=== PATIENT | male | born 1940 | race Caucasian/White ===

== ENCOUNTER → 2017-02-25 | Outpatient (CLI) | payer MEDICARE, BC ==
[~2017-02-25] MED LIST: LEUPROLIDE 45 MG ELIGARD SUSP SQ SCH
== END ==
LOC: FS 11:21
PROVIDERS: ATTEND Internal Medicine Hematology & Oncology
DX: C61 Malignant neoplasm of prostate (principal); M81.8 Other osteoporosis without current pathological fracture; E11.9 Type 2 diabetes mellitus without complications; Z79.899 Other long term (current) drug therapy
CPT/HCPCS: 96402; 99213

== ENCOUNTER → 2017-09-02 | Outpatient (CLI) | payer MEDICARE, BC | LOC: ONC 14:20 | PROVIDERS: ATTEND Internal Medicine Hematology & Oncology | DX: C61 Malignant neoplasm of prostate (principal); M81.8 Other osteoporosis without current pathological fracture; E11.42 Type 2 diabetes mellitus with diabetic polyneuropathy; E78.00 Pure hypercholesterolemia, unspecified; R23.2 Flushing; Z79.899 Other long term (current) drug therapy; Z79.84 Long term (current) use of oral hypoglycemic drugs | CPT/HCPCS: 96402 ==

== ENCOUNTER 2018-08-12 11:25 | Outpatient (RCR) | payer MEDICARE, BC ==
[2018-08-12 11:30] LABS: BASOPHILS # (AUTO) 0.1 10^3/uL (0.0-0.1); BASOPHILS % (AUTO) 1 % (0-10); EOSINOPHILS # (AUTO) 0.2 10^3/uL (0.0-0.3); EOSINOPHILS % (AUTO) 2 % (0-10); HEMATOCRIT 39 % (40-54); LYMPHOCYTES # (AUTO) 2.1 X 10^3 (1.0-4.0); LYMPHOCYTES % (AUTO) 28 % (12-44); MEAN CORPUSCULAR HEMOGLOBIN 31 PG (25-34); MEAN CORPUSCULAR HGB CONC 34 G/DL (32-36); MEAN CORPUSCULAR VOLUME 92 FL (80-99); MEAN PLATELET VOLUME 9.6 FL (7.4-10.4); MONOCYTES # (AUTO) 0.7 X 10^3 (0.0-1.0); MONOCYTES % (AUTO) 9 % (0-12); NEUTROPHILS # (AUTO) 4.4 X 10^3 (1.8-7.8); NEUTROPHILS % (AUTO) 60 % (42-75); PLATELET COUNT 237 10^3/uL (130-400); RED CELL DISTRIBUTION WIDTH 13.4 % (10.0-14.5); WHITE BLOOD COUNT 7.3 10^3/uL (4.3-11.0)
[2018-08-12 11:47] LABS: ALBUMIN 4.1 GM/DL (3.2-4.5); BILIRUBIN,TOTAL 0.6 MG/DL (0.1-1.0); CALCIUM 9.7 MG/DL (8.5-10.1); CREATININE SERUM 1.23 MG/DL (0.60-1.30); POTASSIUM 5.3 MMOL/L (3.6-5.0)
== END 2018-08-30 | disposition home or self-care (01) ==
LOC: ONC 11:25
PROVIDERS: ATTEND Internal Medicine Hematology & Oncology
DX: Z51.11 Encounter for antineoplastic chemotherapy (principal); C61 Malignant neoplasm of prostate; R97.21 Rising PSA following treatment for malignant neoplasm of prostate; E11.40 Type 2 diabetes mellitus with diabetic neuropathy, unspecified; E78.00 Pure hypercholesterolemia, unspecified; Z79.84 Long term (current) use of oral hypoglycemic drugs; Z79.899 Other long term (current) drug therapy
CPT/HCPCS: 36415; 80053; 83615; 85025; 96402

== ENCOUNTER 2019-02-15 09:51 | Outpatient (RCR) | payer MEDICARE, BC ==
[2019-02-11 12:55] LABS: BASOPHILS # (AUTO) 0.1 10^3/uL (0.0-0.1); BASOPHILS % (AUTO) 1 % (0-10); EOSINOPHILS # (AUTO) 0.3 10^3/uL (0.0-0.3); EOSINOPHILS % (AUTO) 4 % (0-10); HEMATOCRIT 44 % (40-54); HEMOGLOBIN 14.4 G/DL (13.3-17.7); LYMPHOCYTES # (AUTO) 1.7 X 10^3 (1.0-4.0); LYMPHOCYTES % (AUTO) 22 % (12-44); MEAN CORPUSCULAR HEMOGLOBIN 30 PG (25-34); MEAN CORPUSCULAR HGB CONC 33 G/DL (32-36); MEAN CORPUSCULAR VOLUME 92 FL (80-99); MEAN PLATELET VOLUME 10.5 FL (7.4-10.4); MONOCYTES # (AUTO) 0.5 X 10^3 (0.0-1.0); MONOCYTES % (AUTO) 7 % (0-12); NEUTROPHILS # (AUTO) 5.2 X 10^3 (1.8-7.8); NEUTROPHILS % (AUTO) 67 % (42-75); PLATELET COUNT 186 10^3/uL (130-400); RED CELL DISTRIBUTION WIDTH 13.8 % (10.0-14.5); WHITE BLOOD COUNT 7.7 10^3/uL (4.3-11.0)
[2019-02-11 13:16] LABS: ALANINE AMINOTRANSFERASE 13 U/L (0-55); ALBUMIN 4.3 GM/DL (3.2-4.5); ALKALINE PHOSPHATASE 50 U/L (40-136); BILIRUBIN,TOTAL 0.5 MG/DL (0.1-1.0); BUN/CREATININE RATIO 19; CALCIUM 9.9 MG/DL (8.5-10.1); CARBON DIOXIDE 26 MMOL/L (21-32); CHLORIDE 101 MMOL/L (98-107); CREATININE SERUM 1.09 MG/DL (0.60-1.30); GFR ESTIMATED > 60; GLUCOSE 227 MG/DL (70-105); SODIUM 136 MMOL/L (135-145); TOTAL PROTEIN 7.4 GM/DL (6.4-8.2)
[~2019-02-15 09:51] MED LIST changes: +LEUPROLIDE 45 MG ELIGARD SQ SCH; -LEUPROLIDE 45 MG ELIGARD SUSP SQ SCH
== END 2019-05-12 | disposition home or self-care (01) ==
LOC: ONC 09:51
PROVIDERS: ATTEND Internal Medicine Hematology & Oncology
DX: C61 Malignant neoplasm of prostate (principal); M81.8 Other osteoporosis without current pathological fracture; E11.42 Type 2 diabetes mellitus with diabetic polyneuropathy; E78.00 Pure hypercholesterolemia, unspecified; Z79.84 Long term (current) use of oral hypoglycemic drugs; Z79.899 Other long term (current) drug therapy
CPT/HCPCS: 36415; 80053; 84153; 85025; 96402

== ENCOUNTER 2019-05-28 17:01 | Inpatient (IN) | payer MEDICARE, BC ==
[~2019-05-28] VITALS: Ht 177.8 cm; Wt 77.8 kg
--- OUTSIDE RECORDS SUMMARY | 2019-05-28 17:06 | XMS REPORT | Continuity of Care Document ---
Author Organization Unknown Address Unknown Allergies Active Description Code Type Severity Reaction Onset Reported/Identified Relationship to Patient Clinical Status Yes No Known Drug Allergies [id number] Drug Allergy Unknown N/A 02/20/2015 Medications There is no data. Problems Date Dx Coded Attending Type Code Diagnosis Diagnosed By 11/07/2014 BRIGIDA, BOBAN N Ot 185 11/07/2014 BRIGIDA, BOBAN N Ot 250.00 11/07/2014 BRIGIDA, BOBAN N Ot 272.0 11/07/2014 BRIGIDA, BOBAN N Ot 530.81 11/07/2014 BRIGIDA, BOBAN N Ot 185 11/07/2014 BRIGIDA, BOBAN N Ot 250.00 11/07/2014 BRIGIDA, BOBAN N Ot 272.0 11/07/2014 BRIGIDA, BOBAN N Ot 530.81 03/10/2015 Ot 185 03/10/2015 Ot 250.00 03/10/2015 Ot 272.0 03/10/2015 Ot 530.81 03/16/2015 Ot 185 03/16/2015 Ot 250.00 03/16/2015 Ot 272.0 03/16/2015 Ot 530.81 03/17/2015 Ot 185 03/17/2015 Ot 250.00 03/17/2015 Ot 272.0 03/17/2015 Ot 530.81 03/27/2015 BRIGIDA, BOBAN N Ot 185 03/27/2015 BRIGIDA, BOBAN N Ot V58.69 04/21/2015 BRIGIDA, BOBAN N Ot 185 04/21/2015 BRIGIDA, BOBAN N Ot V58.69 06/27/2015 BRIGIDA, BOBAN N Ot 185 06/27/2015 BRIGIDA, BOBAN N Ot 250.00 06/27/2015 BRIGIDA, BOBAN N Ot 715.90 06/27/2015 BRIGIDA, BOBAN N Ot 782.62 06/27/2015 BRIGIDA, BOBAN N Ot V58.69 07/18/2015 BRIGIDA, BOBAN N Ot 185 07/18/2015 BRIGIDA, BOBAN N Ot 250.00 07/18/2015 BRIGIDA, BOBAN N Ot 715.90 07/18/2015 BRIGIDA, BOBAN N Ot 782.62 07/18/2015 BRIGIDA, BOBAN N Ot V58.69 07/20/2015 BRIGIDA, BOBAN N Ot 185 07/20/2015 BRIGIDA, BOBAN N Ot 250.00 07/20/2015 BRIGIDA, BOBAN N Ot 715.90 07/20/2015 BRIGIDA, BOBAN N Ot 782.62 07/20/2015 BRIGIDA, BOBAN N Ot V58.69 10/23/2015 BRIGIDA, BOBAN N Ot C61 10/23/2015 BRIGIDA, BOBAN N Ot E11.9 10/23/2015 BRIGIDA, BOBAN N Ot E78.0 10/23/2015 BRIGIDA, BOBAN N Ot G62.9 10/23/2015 BRIGIDA, BOBAN N Ot M81.8 10/23/2015 BRIGIDA, BOBAN N Ot Z79.899 10/25/2015 BRIGIDA, BOBAN N Ot C61 10/25/2015 BRIGIDA, BOBAN N Ot E11.9 10/25/2015 BRIGIDA, BOBAN N Ot E78.0 10/25/2015 BRIGIDA, BOBAN N Ot G62.9 10/25/2015 BRIGIDA, BOBAN N Ot M81.8 10/25/2015 BRIGIDA, BOBAN N Ot Z79.899 02/06/2016 BRIGIDA, BOBAN N Ot C61 02/06/2016 BRIGIDA, BOBAN N Ot E11.9 02/06/2016 BRIGIDA, BOBAN N Ot Z79.899 02/06/2016 BRIGIDA, BOBAN N Ot C61 02/06/2016 BRIGIDA, BOBAN N Ot E11.9 02/06/2016 BRIGIDA, BOBAN N Ot Z79.899 02/22/2016 BRIGIDA, BOBAN N Ot C61 02/22/2016 BRIGIDA, BOBAN N Ot E11.9 02/22/2016 BRIGIDA, BOBAN N Ot Z79.899 07/11/2016 BRIGIDA, BOBAN N Ot C61 MALIGNANT NEOPLASM OF PROSTATE 07/11/2016 BRIGIDA, BOBAN N Ot E11.9 TYPE 2 DIABETES MELLITUS WITHOUT COMPLIC 07/11/2016 BRIGIDABRIJESH BETANCOURT N Ot E78.0 PURE HYPERCHOLESTEROLEMIA 07/11/2016 BRIGIDABRIJESH N Ot G62.9 POLYNEUROPATHY, UNSPECIFIED 07/11/2016 BRIGIDABRIJESH N Ot M81.8 OTHER OSTEOPOROSIS WITHOUT CURRENT PATHO 07/11/2016 BRIGIDABRIJESH BETANCOURT N Ot Z79.899 OTHER THROAT CUTTER (CURRENT) DRUG THERAPY 07/30/2016 BRIGIDABRIJESH BETANCOURT N Ot C61 MALIGNANT NEOPLASM OF PROSTATE 07/30/2016 BRIGIDABRIJESH N Ot E11.9 TYPE 2 DIABETES MELLITUS WITHOUT COMPLIC 07/30/2016 BRIGIDABRIJESH BETANCOURT N Ot E78.0 PURE HYPERCHOLESTEROLEMIA 07/30/2016 BRIGIDABRIJESH BETANCOURT N Ot G62.9 POLYNEUROPATHY, UNSPECIFIED 07/30/2016 BRIGIDABRIJESH N Ot M81.8 OTHER OSTEOPOROSIS WITHOUT CURRENT PATHO 07/30/2016 BRIGIDABRIJESH N Ot Z79.899 OTHER PRISON (CURRENT) DRUG THERAPY 08/02/2016 BRIJESH ALLRED N Ot C61 MALIGNANT NEOPLASM OF PROSTATE 08/02/2016 RBIGIDABRIJESH N Ot E11.9 TYPE 2 DIABETES MELLITUS WITHOUT COMPLIC 08/02/2016 BRIGIDABRIJESH BETANCOURT N Ot E78.0 PURE HYPERCHOLESTEROLEMIA 08/02/2016 BRIGIDABRIJESH BETANCOURT N Ot G62.9 POLYNEUROPATHY, UNSPECIFIED 08/02/2016 BRIGIDABRIJESH N Ot M81.8 OTHER OSTEOPOROSIS WITHOUT CURRENT PATHO 08/02/2016 BRIGIDA BRIJESH N Ot Z79.899 OTHER PRISON (CURRENT) DRUG THERAPY 02/26/2017 BRJIESH ALLRED N Ot C61 MALIGNANT NEOPLASM OF PROSTATE 02/26/2017 BRIGIDABRIJESH N Ot E11.9 TYPE 2 DIABETES MELLITUS WITHOUT COMPLIC 02/26/2017 BRIGIDAMAGYDANTE N Ot M81.8 OTHER OSTEOPOROSIS WITHOUT CURRENT PATHO 02/26/2017 BRIGIDABRIJESH N Ot Z79.899 OTHER THROAT CUTTER (CURRENT) DRUG THERAPY 02/26/2017 BRIJESH ALLRED N Ot C61 MALIGNANT NEOPLASM OF PROSTATE 02/26/2017 BRIGIDABRIJESH N Ot E11.9 TYPE 2 DIABETES MELLITUS WITHOUT COMPLIC 02/26/2017 BRIGIDABRIJESH N Ot M81.8 OTHER OSTEOPOROSIS WITHOUT CURRENT PATHO 02/26/2017 BRIJESH ALLRED N Ot Z79.899 OTHER PRISON (CURRENT) DRUG THERAPY 03/21/2017 BRIGIDABRIJESH N Ot C61 MALIGNANT NEOPLASM OF PROSTATE 03/21/2017 BRIGIDA BOBDANTE N Ot E11.9 TYPE 2 DIABETES MELLITUS WITHOUT COMPLIC 03/21/2017 BRIGIDABRIJESH N Ot M81.8 OTHER OSTEOPOROSIS WITHOUT CURRENT PATHO 03/21/2017 BRIGIDABRIJESH N Ot Z79.899 OTHER THROAT CUTTER (CURRENT) DRUG THERAPY 03/26/2017 BRIGIDABRIJESH N Ot C61 MALIGNANT NEOPLASM OF PROSTATE 03/26/2017 BRIGIDABRIJESH N Ot E11.9 TYPE 2 DIABETES MELLITUS WITHOUT COMPLIC 03/26/2017 BRIGIDA BOBDANTE N Ot M81.8 OTHER OSTEOPOROSIS WITHOUT CURRENT PATHO 03/26/2017 BRIGIDA BOBDANTE N Ot Z79.899 OTHER PRISON (CURRENT) DRUG THERAPY 09/08/2017 BRIGIDABRIJESH BETANCOURT N Ot C61 MALIGNANT NEOPLASM OF PROSTATE 09/08/2017 BRIGIDA BOBDANTE N Ot 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 09/08/2017 BRIGIDA BOBAN N Ot E78.00 PURE HYPERCHOLESTEROLEMIA, UNSPECIFIED 09/08/2017 BRIGIDA BOBDANTE N Ot M81.8 OTHER OSTEOPOROSIS WITHOUT CURRENT PATHO 09/08/2017 BRIGIDA BOBDANTE N Ot R23.2 FLUSHING 09/08/2017 BRIGIDA BOBAN N Ot Z79.84 PRISON (CURRENT) USE OF ORAL HYPOGLYC 09/08/2017 BRIGIDA, BOBAN N Ot Z79.899 OTHER THROAT CUTTER (CURRENT) DRUG THERAPY 09/25/2017 BRIGIDABRIJESH N Ot C61 MALIGNANT NEOPLASM OF PROSTATE 09/25/2017 BRIGIDA BOBAN N Ot 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 09/25/2017 BRIGIDA, BOBAN N Ot E78.00 PURE HYPERCHOLESTEROLEMIA, UNSPECIFIED 09/25/2017 BRIGIDA BOBAN N Ot M81.8 OTHER OSTEOPOROSIS WITHOUT CURRENT PATHO 09/25/2017 BRIGIDA, BOBAN N Ot R23.2 FLUSHING 09/25/2017 BRIGIDA BOBAN N Ot Z79.84 THROAT CUTTER (CURRENT) USE OF ORAL HYPOGLYC 09/25/2017 BRIGIDA BOBAN N Ot Z79.899 OTHER PRISON (CURRENT) DRUG THERAPY 10/01/2017 BRIJESH ALLRED N Ot C61 MALIGNANT NEOPLASM OF PROSTATE 10/01/2017 BRIGIDABRIJESH N Ot 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 10/01/2017 BRIGIDA BOBAN N Ot E78.00 PURE HYPERCHOLESTEROLEMIA, UNSPECIFIED 10/01/2017 BRIGIDA BOBAN N Ot M81.8 OTHER OSTEOPOROSIS WITHOUT CURRENT PATHO 10/01/2017 BRIGIDA BOBDANTE N Ot R23.2 FLUSHING 10/01/2017 BRIGIDA BOBAN N Ot Z79.84 PRISON (CURRENT) USE OF ORAL HYPOGLYC 10/01/2017 BRIGIDA BOBAN N Ot Z79.899 OTHER PRISON (CURRENT) DRUG THERAPY 03/25/2018 BRIGIDABRIJESH BETANCOURT N Ot C61 MALIGNANT NEOPLASM OF PROSTATE 03/25/2018 BRIGIDA BOBAN N Ot 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 03/25/2018 BRIGIDA BOBAN N Ot E78.00 PURE HYPERCHOLESTEROLEMIA, UNSPECIFIED 03/25/2018 BRIGIDA BOBAN N Ot M81.8 OTHER OSTEOPOROSIS WITHOUT CURRENT PATHO 03/25/2018 BRIGIDA, BOBAN N Ot R23.2 FLUSHING 03/25/2018 BRIGIDA, BOBAN N Ot Z79.84 THROAT CUTTER (CURRENT) USE OF ORAL HYPOGLYC 03/25/2018 BRIGIDA, BOBAN N Ot Z79.899 OTHER THROAT CUTTER (CURRENT) DRUG THERAPY 03/25/2018 BRIJESH ALLRED N Ot C61 MALIGNANT NEOPLASM OF PROSTATE 03/25/2018 BRIGIDA BOBAN N Ot 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 03/25/2018 BRIGIDA BOBAN N Ot E78.00 PURE HYPERCHOLESTEROLEMIA, UNSPECIFIED 03/25/2018 BRIGIDA BOBAN N Ot M81.8 OTHER OSTEOPOROSIS WITHOUT CURRENT PATHO 03/25/2018 BRIGIDA BOBAN N Ot R23.2 FLUSHING 03/25/2018 BRIGIDA BOBAN N Ot Z79.84 PRISON (CURRENT) USE OF ORAL HYPOGLYC 03/25/2018 BRIGIDA, BOBAN N Ot Z79.899 OTHER THROAT CUTTER (CURRENT) DRUG THERAPY 05/25/2018 BRIGIDA, BOBAN N Ot C61 MALIGNANT NEOPLASM OF PROSTATE 05/25/2018 BRIGIDA BOBAN N Ot 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 05/25/2018 BRIJESH ALLRED N Ot E78.00 PURE HYPERCHOLESTEROLEMIA, UNSPECIFIED 05/25/2018 BRIGIDABRIJESH BETANCOURT N Ot M81.8 OTHER OSTEOPOROSIS WITHOUT CURRENT PATHO 05/25/2018 BRIGIDABRIJESH N Ot R23.2 FLUSHING 05/25/2018 BRIJESH ALLRED N Ot Z79.84 PRISON (CURRENT) USE OF ORAL HYPOGLYC 05/25/2018 BRIJESH ALLRED N Ot Z79.899 OTHER PRISON (CURRENT) DRUG THERAPY 05/26/2018 BRIJESH ALLRED N Ot C61 MALIGNANT NEOPLASM OF PROSTATE 05/26/2018 BRIJESH ALLRED N Ot 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 05/26/2018 BRIJESH ALLRED N Ot E78.00 PURE HYPERCHOLESTEROLEMIA, UNSPECIFIED 05/26/2018 BRIGIDABRIJESH BETANCOURT N Ot M81.8 OTHER OSTEOPOROSIS WITHOUT CURRENT PATHO 05/26/2018 BRIJESH ALLRED N Ot R23.2 FLUSHING 05/26/2018 BRIJESH ALLRED N Ot Z79.84 PRISON (CURRENT) USE OF ORAL HYPOGLYC 05/26/2018 BRIJESH ALLRED N Ot Z79.899 OTHER THROAT CUTTER (CURRENT) DRUG THERAPY 08/11/2018 BRIGIDA BOBAN N Ot 185 MALIGN NEOPL PROSTATE 08/11/2018 BRIGIDA, BOBAN N Ot 250.00 DIAB MEETA WO COMPL, TYPE II OR UNSPEC TY 08/11/2018 MAGY ALLREDAN N Ot 272.0 PURE HYPERCHOLESTEROLEM 08/11/2018 BRIGIDA, BOBAN N Ot 530.81 ESOPHAGEAL REFLUX 08/11/2018 Ot 185 MALIGN NEOPL PROSTATE 08/11/2018 Ot 250.00 DIAB MEETA WO COMPL, TYPE II OR UNSPEC TY 08/11/2018 Ot 272.0 PURE HYPERCHOLESTEROLEM 08/11/2018 Ot 530.81 ESOPHAGEAL REFLUX 08/11/2018 BRIGIDA, BOBAN N Ot 185 MALIGN NEOPL PROSTATE 08/11/2018 BRIGIDAMAGYDANTE N Ot V58.69 OTH MED,LT,CURRENT USE 08/11/2018 BRIGIDA, BOBAN N Ot 185 MALIGN NEOPL PROSTATE 08/11/2018 BRIGIDA, BOBAN N Ot 250.00 DIAB MEETA WO COMPL, TYPE II OR UNSPEC TY 08/11/2018 BRIGIDA BOBAN N Ot 715.90 OSTEOARTHROS NOS-UNSPEC 08/11/2018 BRIJESH ALLRED N Ot 782.62 FLUSHING 08/11/2018 BRIGIDABRIJESH BETANCOURT N Ot V58.69 OTH MED,LT,CURRENT USE 08/11/2018 BRIGIDA, BOBAN N Ot C61 MALIGNANT NEOPLASM OF PROSTATE 08/11/2018 BRIGIDA, BOBAN N Ot E11.9 TYPE 2 DIABETES MELLITUS WITHOUT COMPLIC 08/11/2018 BRIGIDA BOBAN N Ot E78.0 PURE HYPERCHOLESTEROLEMIA 08/11/2018 BRIGIDA, BOBAN N Ot G62.9 POLYNEUROPATHY, UNSPECIFIED 08/11/2018 BRIGIDA, BOBAN N Ot M81.8 OTHER OSTEOPOROSIS WITHOUT CURRENT PATHO 08/11/2018 BRIGIDA, BOBAN N Ot Z79.899 OTHER PRISON (CURRENT) DRUG THERAPY 08/11/2018 BRIGIDA, BOBAN N Ot C61 MALIGNANT NEOPLASM OF PROSTATE 08/11/2018 BRIGIDA, BOBAN N Ot E11.9 TYPE 2 DIABETES MELLITUS WITHOUT COMPLIC 08/11/2018 BRIGIDA, BOBAN N Ot Z79.899 OTHER THROAT CUTTER (CURRENT) DRUG THERAPY 08/11/2018 BRIGIDA, BOBAN N Ot C61 MALIGNANT NEOPLASM OF PROSTATE 08/11/2018 BRIGIDA, BOBAN N Ot E11.9 TYPE 2 DIABETES MELLITUS WITHOUT COMPLIC 08/11/2018 BRIGIDA, BOBAN N Ot E78.0 PURE HYPERCHOLESTEROLEMIA 08/11/2018 BRIGIDA, BOBAN N Ot G62.9 POLYNEUROPATHY, UNSPECIFIED 08/11/2018 BRIGIDA, BOBAN N Ot M81.8 OTHER OSTEOPOROSIS WITHOUT CURRENT PATHO 08/11/2018 BRIGIDA, BOBAN N Ot Z79.899 OTHER THROAT CUTTER (CURRENT) DRUG THERAPY 08/11/2018 BRIGIDA, BOBAN N Ot C61 MALIGNANT NEOPLASM OF PROSTATE 08/11/2018 BRIGIDA, BOBAN N Ot E11.9 TYPE 2 DIABETES MELLITUS WITHOUT COMPLIC 08/11/2018 BRIGIDA, BOBAN N Ot M81.8 OTHER OSTEOPOROSIS WITHOUT CURRENT PATHO 08/11/2018 BRIGIDA, BOBAN N Ot Z79.899 OTHER THROAT CUTTER (CURRENT) DRUG THERAPY 08/11/2018 BRIGIDA, BOBAN N Ot C61 MALIGNANT NEOPLASM OF PROSTATE 08/11/2018 BRIGIDA, BOBAN N Ot 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 08/11/2018 BRIGIDA, BOBAN N Ot E78.00 PURE HYPERCHOLESTEROLEMIA, UNSPECIFIED 08/11/2018 BRIGIDAMAGY BETANCOURTAN N Ot M81.8 OTHER OSTEOPOROSIS WITHOUT CURRENT PATHO 08/11/2018 BRIGIDABRIJESH N Ot R23.2 FLUSHING 08/11/2018 BRIGIDA, BRIJESH N Ot Z79.84 THROAT CUTTER (CURRENT) USE OF ORAL HYPOGLYC 08/11/2018 BRIGIDAMAGYAN N Ot Z79.899 OTHER THROAT CUTTER (CURRENT) DRUG THERAPY 08/12/2018 BRIGIDABRIJESH BETANCOURT N Ot 185 MALIGN NEOPL PROSTATE 08/12/2018 BRIGIDA, BOBAN N Ot 250.00 DIAB MEETA WO COMPL, TYPE II OR UNSPEC TY 08/12/2018 BRIGIDA, BOBAN N Ot 272.0 PURE HYPERCHOLESTEROLEM 08/12/2018 BRIGIDA, BOBAN N Ot 530.81 ESOPHAGEAL REFLUX 08/12/2018 Ot 185 MALIGN NEOPL PROSTATE 08/12/2018 Ot 250.00 DIAB MEETA WO COMPL, TYPE II OR UNSPEC TY 08/12/2018 Ot 272.0 PURE HYPERCHOLESTEROLEM 08/12/2018 Ot 530.81 ESOPHAGEAL REFLUX 08/12/2018 BRIGIDA, BOBAN N Ot 185 MALIGN NEOPL PROSTATE 08/12/2018 BRIGIDAMAGYAN N Ot V58.69 OTH MED,LT,CURRENT USE 08/12/2018 BRIGIDA, BOBAN N Ot 185 MALIGN NEOPL PROSTATE 08/12/2018 BRIGIDA, BOBAN N Ot 250.00 DIAB MEETA WO COMPL, TYPE II OR UNSPEC TY 08/12/2018 BRIGIDA, MAGYAN N Ot 715.90 OSTEOARTHROS NOS-UNSPEC 08/12/2018 BRIGIDAMAGYAN N Ot 782.62 FLUSHING 08/12/2018 BRIGIDAMAGYAN N Ot V58.69 OTH MED,LT,CURRENT USE 08/12/2018 BRIGIDA BOBAN N Ot C61 MALIGNANT NEOPLASM OF PROSTATE 08/12/2018 BRIJESH ALLRED N Ot E11.9 TYPE 2 DIABETES MELLITUS WITHOUT COMPLIC 08/12/2018 BRIJESH ALLRED N Ot E78.0 PURE HYPERCHOLESTEROLEMIA 08/12/2018 BRIGIDA BOBAN N Ot G62.9 POLYNEUROPATHY, UNSPECIFIED 08/12/2018 BRIGIDAMAGY BETANCOURTAN N Ot M81.8 OTHER OSTEOPOROSIS WITHOUT CURRENT PATHO 08/12/2018 BRIJESH ALLRED N Ot Z79.899 OTHER THROAT CUTTER (CURRENT) DRUG THERAPY 08/12/2018 BRIJESH ALLRED N Ot C61 MALIGNANT NEOPLASM OF PROSTATE 08/12/2018 BRIGIDABRIJESH N Ot E11.9 TYPE 2 DIABETES MELLITUS WITHOUT COMPLIC 08/12/2018 BRIGIDABRIJESH N Ot Z79.899 OTHER THROAT CUTTER (CURRENT) DRUG THERAPY 08/12/2018 BRIJESH ALLRED N Ot C61 MALIGNANT NEOPLASM OF PROSTATE 08/12/2018 BRIGIDABRIJESH N Ot E11.9 TYPE 2 DIABETES MELLITUS WITHOUT COMPLIC 08/12/2018 BRIGIDABRIJESH N Ot E78.0 PURE HYPERCHOLESTEROLEMIA 08/12/2018 BRIGIDABRIJESH N Ot G62.9 POLYNEUROPATHY, UNSPECIFIED 08/12/2018 BRIGIDABRIJESH N Ot M81.8 OTHER OSTEOPOROSIS WITHOUT CURRENT PATHO 08/12/2018 BRIJESH ALLRED N Ot Z79.899 OTHER PRISON (CURRENT) DRUG THERAPY 08/12/2018 BRIJESH ALLRED N Ot C61 MALIGNANT NEOPLASM OF PROSTATE 08/12/2018 BRIJESH ALLRED N Ot E11.9 TYPE 2 DIABETES MELLITUS WITHOUT COMPLIC 08/12/2018 BRIJESH ALLRED N Ot M81.8 OTHER OSTEOPOROSIS WITHOUT CURRENT PATHO 08/12/2018 BRIJESH ALLRED N Ot Z79.899 OTHER PRISON (CURRENT) DRUG THERAPY 08/12/2018 BRIJESH ALLRED N Ot C61 MALIGNANT NEOPLASM OF PROSTATE 08/12/2018 BRIJESH ALLRED N Ot 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 08/12/2018 BRIJESH ALLRED N Ot E78.00 PURE HYPERCHOLESTEROLEMIA, UNSPECIFIED 08/12/2018 BRIJESH ALLRED N Ot M81.8 OTHER OSTEOPOROSIS WITHOUT CURRENT PATHO 08/12/2018 BRIJESH ALLRED N Ot R23.2 FLUSHING 08/12/2018 BRIJESH ALLRED N Ot Z79.84 THROAT CUTTER (CURRENT) USE OF ORAL HYPOGLYC 08/12/2018 BRIGIDA BOBAN N Ot Z79.899 OTHER PRISON (CURRENT) DRUG THERAPY 08/30/2018 TARUN AMTT MD, Ot C61 MALIGNANT NEOPLASM OF PROSTATE 08/30/2018 TARUN MATT MD Ot E11.40 TYPE 2 DIABETES MELLITUS WITH DIABETIC N 08/30/2018 TARUN MATT MD, Ot E78.00 PURE HYPERCHOLESTEROLEMIA, UNSPECIFIED 08/30/2018 TARUN MATT MD, Ot 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 08/30/2018 TARUN MATT MD Ot Z51.11 ENCOUNTER FOR ANTINEOPLASTIC CHEMOTHERAP 08/30/2018 TARUN MATT MD, Ot Z79.84 PRISON (CURRENT) USE OF ORAL HYPOGLYC 08/30/2018 TARUN MATT MD Ot Z79.899 OTHER PRISON (CURRENT) DRUG THERAPY 09/02/2018 TARUN MATT MD, Ot C61 MALIGNANT NEOPLASM OF PROSTATE 09/02/2018 TARUN MATT MD Ot E11.40 TYPE 2 DIABETES MELLITUS WITH DIABETIC N 09/02/2018 TARUN MATT MD Ot E78.00 PURE HYPERCHOLESTEROLEMIA, UNSPECIFIED 09/02/2018 TARUN MATT MD, Ot 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 09/02/2018 TARUN MATT MD, Ot Z51.11 ENCOUNTER FOR ANTINEOPLASTIC CHEMOTHERAP 09/02/2018 TARUN MATT MD, Ot Z79.84 THROAT CUTTER (CURRENT) USE OF ORAL HYPOGLYC 09/02/2018 TARUN MATT MD, Ot Z79.899 OTHER PRISON (CURRENT) DRUG THERAPY 03/24/2019 BRIGIDA, BRIJESH N Ot C61 MALIGNANT NEOPLASM OF PROSTATE 03/24/2019 BRIGIDA, BOBAN N Ot 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 03/24/2019 BRIGIDA BOBAN N Ot E78.00 PURE HYPERCHOLESTEROLEMIA, UNSPECIFIED 03/24/2019 BRIGIDA BOBAN N Ot M81.8 OTHER OSTEOPOROSIS WITHOUT CURRENT PATHO 03/24/2019 BRIJESH ALLRED N Ot Z79.84 THROAT CUTTER (CURRENT) USE OF ORAL HYPOGLYC 03/24/2019 BRIJESH ALLRED N Ot Z79.899 OTHER PRISON (CURRENT) DRUG THERAPY 03/31/2019 BRIGIDA BOBDANTE N Ot C61 MALIGNANT NEOPLASM OF PROSTATE 03/31/2019 BRIGIDA BOBAN N Ot 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 03/31/2019 BRIGIDA BOBAN N Ot E78.00 PURE HYPERCHOLESTEROLEMIA, UNSPECIFIED 03/31/2019 BRIGIDA, BOBAN N Ot M81.8 OTHER OSTEOPOROSIS WITHOUT CURRENT PATHO 03/31/2019 BRIJESH ALLRED N Ot Z79.84 THROAT CUTTER (CURRENT) USE OF ORAL HYPOGLYC 03/31/2019 BRIJESH ALLRED N Ot Z79.899 OTHER THROAT CUTTER (CURRENT) DRUG THERAPY 04/08/2019 BRIGIDA, BRIJESH N Ot C61 MALIGNANT NEOPLASM OF PROSTATE 04/08/2019 BRIGIDA, BRIJESH N Ot E11.9 TYPE 2 DIABETES MELLITUS WITHOUT COMPLIC 04/08/2019 MAGY ALLREDDANTE N Ot Z79.899 OTHER PRISON (CURRENT) DRUG THERAPY 04/22/2019 BRIGIDA BRIJESH N Ot 185 MALIGN NEOPL PROSTATE 04/22/2019 BRIGIDA, MAGYAN N Ot 250.00 DIAB MEETA WO COMPL, TYPE II OR UNSPEC TY 04/22/2019 BRIGIDA MAGYAN N Ot 272.0 PURE HYPERCHOLESTEROLEM 04/22/2019 BRIGIDA, MAGYAN N Ot 530.81 ESOPHAGEAL REFLUX 04/22/2019 Ot 185 MALIGN NEOPL PROSTATE 04/22/2019 Ot 250.00 DIAB MEETA WO COMPL, TYPE II OR UNSPEC TY 04/22/2019 Ot 272.0 PURE HYPERCHOLESTEROLEM 04/22/2019 Ot 530.81 ESOPHAGEAL REFLUX 04/22/2019 BRIGIDA MAGYAN N Ot 185 MALIGN NEOPL PROSTATE 04/22/2019 BRIGIDA BRIJESH N Ot V58.69 OTH MED,LT,CURRENT USE 04/22/2019 BRIGIDA BRIJESH N Ot 185 MALIGN NEOPL PROSTATE 04/22/2019 BRIGIDA BOBAN N Ot 250.00 DIAB MEETA WO COMPL, TYPE II OR UNSPEC TY 04/22/2019 BRIGIDA BRIJESH N Ot 715.90 OSTEOARTHROS NOS-UNSPEC 04/22/2019 BRIGIDA BRIJESH N Ot 782.62 FLUSHING 04/22/2019 BRIGIDA BRIJESH N Ot V58.69 OTH MED,LT,CURRENT USE 04/22/2019 BRIGIDA BRIJESH N Ot C61 MALIGNANT NEOPLASM OF PROSTATE 04/22/2019 BRIGIDA BRIJESH N Ot E11.9 TYPE 2 DIABETES MELLITUS WITHOUT COMPLIC 04/22/2019 BRIGIDABRIJESH N Ot E78.0 PURE HYPERCHOLESTEROLEMIA 04/22/2019 BRIGIDAMAGYAN N Ot G62.9 POLYNEUROPATHY, UNSPECIFIED 04/22/2019 BRIGIDAMAGYAN N Ot M81.8 OTHER OSTEOPOROSIS WITHOUT CURRENT PATHO 04/22/2019 BRIGIDA BRIJESH N Ot Z79.899 OTHER THROAT CUTTER (CURRENT) DRUG THERAPY 04/22/2019 BRIGIDABRIJESH N Ot C61 MALIGNANT NEOPLASM OF PROSTATE 04/22/2019 BRIJESH ALLRED N Ot E11.9 TYPE 2 DIABETES MELLITUS WITHOUT COMPLIC 04/22/2019 BRIJESH ALLRED N Ot Z79.899 OTHER PRISON (CURRENT) DRUG THERAPY 04/22/2019 BRIJESH ALLRED N Ot C61 MALIGNANT NEOPLASM OF PROSTATE 04/22/2019 BRIJESH ALLRED N Ot E11.9 TYPE 2 DIABETES MELLITUS WITHOUT COMPLIC 04/22/2019 BRIGIDA BRIJESH N Ot E78.0 PURE HYPERCHOLESTEROLEMIA 04/22/2019 BRIGIDA BRIJESH N Ot G62.9 POLYNEUROPATHY, UNSPECIFIED 04/22/2019 BRIGIDA, BRIJESH N Ot M81.8 OTHER OSTEOPOROSIS WITHOUT CURRENT PATHO 04/22/2019 BRIGIDA BRIJESH N Ot Z79.899 OTHER THROAT CUTTER (CURRENT) DRUG THERAPY 04/22/2019 BRIJESH ALLRED N Ot C61 MALIGNANT NEOPLASM OF PROSTATE 04/22/2019 BRIJESH ALLRED N Ot E11.9 TYPE 2 DIABETES MELLITUS WITHOUT COMPLIC 04/22/2019 BRIGIDABRIJESH N Ot M81.8 OTHER OSTEOPOROSIS WITHOUT CURRENT PATHO 04/22/2019 BRIGIDA MAGYDANTE N Ot Z79.899 OTHER THROAT CUTTER (CURRENT) DRUG THERAPY 04/22/2019 BRIJESH ALLRED N Ot C61 MALIGNANT NEOPLASM OF PROSTATE 04/22/2019 BRIGIDA MAGYDANTE N Ot 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 04/22/2019 BRIJESH ALLRED N Ot E78.00 PURE HYPERCHOLESTEROLEMIA, UNSPECIFIED 04/22/2019 BRIGIDA MAGYDANTE N Ot M81.8 OTHER OSTEOPOROSIS WITHOUT CURRENT PATHO 04/22/2019 BRIGIDABRIJESH N Ot R23.2 FLUSHING 04/22/2019 BRIGIDABRIJESH N Ot Z79.84 PRISON (CURRENT) USE OF ORAL HYPOGLYC 04/22/2019 BRIGIDA BRIJESH N Ot Z79.899 OTHER THROAT CUTTER (CURRENT) DRUG THERAPY 04/22/2019 BRIGIDA MAGYDANTE N Ot C61 MALIGNANT NEOPLASM OF PROSTATE 04/22/2019 BRIGIDA BRIJESH N Ot 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 04/22/2019 BRIGIDA MAGYDANTE N Ot E78.00 PURE HYPERCHOLESTEROLEMIA, UNSPECIFIED 04/22/2019 BRIGIDABRIJESH N Ot M81.8 OTHER OSTEOPOROSIS WITHOUT CURRENT PATHO 04/22/2019 BRIJESH ALLRED N Ot Z79.84 THROAT CUTTER (CURRENT) USE OF ORAL HYPOGLYC 04/22/2019 BRIJESH ALLRED N Ot Z79.899 OTHER PRISON (CURRENT) DRUG THERAPY 05/12/2019 BRIJESH ALLRED N Ot C61 MALIGNANT NEOPLASM OF PROSTATE 05/12/2019 BRIJESH ALLRED N Ot 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 05/12/2019 BRIJESH ALLRED N Ot E78.00 PURE HYPERCHOLESTEROLEMIA, UNSPECIFIED 05/12/2019 BRIGIDABRIJESH N Ot M81.8 OTHER OSTEOPOROSIS WITHOUT CURRENT PATHO 05/12/2019 BRIGIDABRIJESH N Ot Z79.84 PRISON (CURRENT) USE OF ORAL HYPOGLYC 05/12/2019 BRIJESH ALLRED N Ot Z79.899 OTHER PRISON (CURRENT) DRUG THERAPY 05/13/2019 BRIJESH ALLRED N Ot C61 MALIGNANT NEOPLASM OF PROSTATE 05/13/2019 BRIJESH ALLRED N Ot 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 05/13/2019 BRIJESH ALLRED N Ot E78.00 PURE HYPERCHOLESTEROLEMIA, UNSPECIFIED 05/13/2019 BRIGIDABRIJESH N Ot M81.8 OTHER OSTEOPOROSIS WITHOUT CURRENT PATHO 05/13/2019 BRIJESH ALLRED N Ot Z79.84 PRISON (CURRENT) USE OF ORAL HYPOGLYC 05/13/2019 BRIJESH ALLRED N Ot Z79.899 OTHER PRISON (CURRENT) DRUG THERAPY Procedures There is no data. Results There is no data. Encounters ACCT No. Visit Date/Time Discharge Status Pt. Type Provider Facility Loc./Unit Complaint [id number] 05/13/2019 00:12:00 05/13/2019 23:59:59 CLS Preadmit BRIJESH ALLRED [facility] ONC [id number] 02/15/2019 09:51:00 05/12/2019 00:01:00 DIS Outpatient BRIJESH ALLRED [place] [facility] ONC [id number] 08/12/2018 11:25:00 08/30/2018 00:01:00 DIS Outpatient TARUN MATT MD [facility] ONC [id number] 02/24/2018 15:36:00 05/25/2018 00:01:00 DIS Outpatient BRIJESH ALLRED N [facility] ONC [id number] 09/02/2017 14:20:00 09/02/2017 23:59:59 CLS Outpatient BRIJESH ALLRED N [facility] ONC [id number] 02/25/2017 11:21:00 02/25/2017 23:59:59 CLS Outpatient BRIJESH ALLRED N [facility] FS [id number] 07/09/2016 13:50:00 07/09/2016 23:59:59 CLS Outpatient BRIJESH ALLRED N [facility] FS [id number] 01/23/2016 10:37:00 01/23/2016 23:59:59 CLS Outpatient BRIJESH ALLRED N [facility] FS [id number] 09/26/2015 11:33:00 09/26/2015 23:59:59 CLS Outpatient BRIJESH ALLRED N [facility] FS [id number] 06/06/2015 11:23:00 06/06/2015 23:59:59 CLS Outpatient BRIJESH ALLRED N [facility] FS [id number] 02/21/2015 10:34:00 02/21/2015 23:59:59 CLS Outpatient BRIJESH ALLRED N [facility] FS [id number] 10/11/2014 14:00:00 10/11/2014 23:59:59 CLS Outpatient BRIJESH ALLRED N [facility] FS [id number] 05/28/2019 17:02:00 ACT Emergency CHETAN CHRISTINE DO [facility] ER FS FELL OFF A CHAIR [id number] 02/14/2015 10:12:00 Document Registration
--- NOTE | 2019-05-28 17:08 | ED Lower Extremity ---
General Stated Complaint: FELL OFF A CHAIR Source: patient, EMS, RN notes reviewed Exam Limitations: no limitations History of Present Illness Date Seen by Provider: May 28, 2019 Time Seen by Provider: 17:03 Onset: just prior to arrival Pain/Injury Location: left hip Method of Injury: fell Modifying Factors: Worse With Movement; Improves With Rest Allergies and Home Medications Allergies Coded Allergies: No Known Drug Allergies (Unverified , 02/20/15) Patient Home Medication List Home Medication List Reviewed: Yes Review of Systems Constitutional: see HPI Musculoskeletal: see HPI, other (left hip pain) Skin: see HPI, other (skin tear left elbow) All Other Systems Reviewed Negative Unless Noted: Yes (Negative excepted noted.) Past Efubydg-Vpretl-Ihjwzl Hx Patient Social History Recent Foreign Travel: No Contact w/Someone Who Travel: No Physical Exam Vital Signs Vital Signs - First Documented 05/28/19 17:05 Temp 97.9 Pulse 65 Resp 18 B/P (MAP) 143/77 (99) Pulse Ox 96 Capillary Refill : Height, Weight, BMI Height: '" Weight: lbs. oz. kg; BMI Method: General Appearance: WD/WN, no apparent distress Respiratory: no respiratory distress Hips: left hip limited range of motion, left hip pain Neurologic/Psychiatric: no motor/sensory deficits, alert, normal mood/affect, oriented x 3 Skin: warm/dry, other (skin tear left posterior elbow. ) Progress/Results/Core Measures Results/Orders My Orders Orders - CHETAN CHRISTINE DO Pelvis With Left Hip 2-3 View (05/28/19 17:07) Dipht,Pertuss(Acell),Tet Adult (Boostrix (05/28/19 17:15) Elbow 3 View Left (05/28/19 17:11) Fentanyl Injection (Sublimaze Injection (05/28/19 17:42) Ekg Tracing (05/28/19 17:48) Cbc With Automated Diff (05/28/19 17:48) Comprehensive Metabolic Panel (05/28/19 17:48) Protime With Inr (05/28/19 17:48) Partial Thromboplastin Time (05/28/19 17:48) Ua Culture If Indicated (05/28/19 17:48) Chest 1 View Ap/Pa Only (05/28/19 17:48) Vital Signs/I&O 05/28/19 17:05 Temp 97.9 Pulse 65 Resp 18 B/P (MAP) 143/77 (99) Pulse Ox 96 Departure Impression Primary Impression: Fracture of femur Disposition: ADMITTED INPATIENT Condition: Stable Transfer Time Spoke to Accepting Phy: 17:35 Transfer Progress Notes Discussed patient c/ Dr. Webb, the on-call Hospitalist, and he has accepted the patient in transfer. Requests I speak c/ Orthopedics and I have left a message c/ Dr. Magdaleno call me. Method of Transfer: EMS Departure-Patient Inst. Referrals: KEV MARIO DO (PCP) Primary Care Physician CHETAN CHRISTINE DO May 28, 2019 17:08
[2019-05-28] MEDS ORDERED: TETANUS,DIPTH,PERTUSS P/F (BOOSTRIX) 0.5 ML VIAL IM ONE (17:15)
[2019-05-28] MEDS ORDERED: fentaNYL INJECTION 100 MCG/2 ML AMP ONE (17:42)
--- NOTE | 2019-05-28 17:43 | Diagnostic Imaging Report ---
INDICATION: Fall with left hip pain. TIME OF EXAM: 05:01 p.m. Multiple views of left hip were obtained. FINDINGS: There is an acute fracture of the left femoral neck. This appears to be basicervical type. There is mild coxa varus deformity. Femoral acetabular alignment is maintained. There are multiple surgical clips in the pelvis. IMPRESSION: Left femoral neck fracture. Dictated by: Dictated on workstation # [id number]
--- NOTE | 2019-05-28 17:48 | Diagnostic Imaging Report ---
INDICATION: Fall with left elbow pain. TIME OF EXAM: 05:06 p.m. FINDINGS: Three views of the left elbow were obtained. Alignment is normal. No fracture, dislocation, or effusion is identified. IMPRESSION: No acute bony abnormality is detected. Dictated by: Dictated on workstation # [id number]
--- NOTE | 2019-05-28 18:09 | Diagnostic Imaging Report ---
INDICATION: Preop for hip fracture. TIME OF EXAM: 06:01 p.m. COMPARISON: No prior studies are available for comparison. FINDINGS: There is some minimal linear scarring or atelectasis in the left base. Otherwise, the lungs are clear. The pulmonary vascularity is normal. No infiltrate, effusion, or pneumothorax is seen. IMPRESSION: No acute cardiopulmonary process is detected. Dictated by: Dictated on workstation # [id number]
[2019-05-28 18:13] LABS: BASOPHILS % (AUTO) 0 % (0-10); EOSINOPHILS % (AUTO) 2 % (0-10); HEMATOCRIT 37 % (40-54); HEMOGLOBIN 12.5 G/DL (13.3-17.7); LYMPHOCYTES # (AUTO) 1.4 X 10^3 (1.0-4.0); LYMPHOCYTES % (AUTO) 19 % (12-44); MEAN CORPUSCULAR HEMOGLOBIN 31 PG (25-34); MEAN CORPUSCULAR HGB CONC 33 G/DL (32-36); MEAN CORPUSCULAR VOLUME 93 FL (80-99); MEAN PLATELET VOLUME 10.5 FL (7.4-10.4); MONOCYTES # (AUTO) 0.5 X 10^3 (0.0-1.0); MONOCYTES % (AUTO) 7 % (0-12); NEUTROPHILS # (AUTO) 5.4 X 10^3 (1.8-7.8); NEUTROPHILS % (AUTO) 72 % (42-75); PLATELET COUNT 186 10^3/uL (130-400); RED CELL DISTRIBUTION WIDTH 13.5 % (10.0-14.5); WHITE BLOOD COUNT 7.6 10^3/uL (4.3-11.0)
[2019-05-28 18:14] LABS: EOSINOPHILS # (AUTO) 0.1 10^3/uL (0.0-0.3)
[2019-05-28] MEDS ORDERED: fentaNYL INJECTION 100 MCG/2 ML AMP IVP ONE (18:30)
[2019-05-28 18:35] LABS: ALANINE AMINOTRANSFERASE 14 U/L (0-55); ALBUMIN 4.2 GM/DL (3.2-4.5); ALKALINE PHOSPHATASE 55 U/L (40-136); BILIRUBIN,TOTAL 0.6 MG/DL (0.1-1.0); BUN/CREATININE RATIO 31; CALCIUM 9.7 MG/DL (8.5-10.1); CARBON DIOXIDE 29 MMOL/L (21-32); CHLORIDE 96 MMOL/L (98-107); CREATININE SERUM 1.09 MG/DL (0.60-1.30); GFR ESTIMATED > 60; GLUCOSE 177 MG/DL (70-105); POTASSIUM 4.4 MMOL/L (3.6-5.0); SODIUM 138 MMOL/L (135-145); TOTAL PROTEIN 6.9 GM/DL (6.4-8.2)
[2019-05-28 18:36] LABS: INR 0.9 (0.8-1.4); PROTHROMBIN TIME PATIENT 12.8 SEC (12.2-14.7)
--- NOTE | 2019-05-28 18:37 | NUR ---
Patient transferred at this time to [facility] room 418 via [facility].
[2019-05-28 19:20] VITALS: BP 148/77
[2019-05-28] MEDS ORDERED: CATHETER FLUSH 10 ML SYR IV PRN (20:15)
[2019-05-28] MEDS: fentaNYL INJECTION 100 MCG/2 ML AMP IV PRN ×2 (20:57→23:15)
[2019-05-28] MEDS: NS IV 1000 ML 1,000 ML IV SCH (20:57)
[2019-05-29] VITALS (12 sets, daily range): BP systolic 125–171; BP diastolic 58–90
[2019-05-29] MEDS: fentaNYL INJECTION 100 MCG/2 ML AMP IV PRN ×4 (01:17→07:43)
[2019-05-29] MEDS ORDERED: NEO/POLY/BAC (NEOSPORIN) OINT 15 GM TUBE ONE (08:04)
--- NOTE | 2019-05-29 08:13 | History & Physical-Hospitalist ---
History of Present Illness HPI/Chief Complaint Mr. Hubbard is a 78-year-old white male who fell while standing on a chair due to loss of balance. He denied presyncope or syncope had no loss of consciousness but noted left elbow and hip pain. He was brought to the emergency room where he was noted to have a left intertrochanteric hip fracture. Emergency room physician thought there may be extension into the proximal femur prior to official radiology interpretation. Patient received been feeling well he recovered from a pneumonia 2 months earlier with no sputum production chest pain or shortness of breath back to usual regular physical activity. He has a history of type II diabetes mellitus that sounds adequately controlled per his description on metformin and GLP-1 therapy alone. He has no history of cardiac disease. He states that on echo he had some valve leaking however this did not require any medication has not led to any symptoms with no history of heart failure and he was told was not significant enough to be concerned about nor has anybody told him that he has a heart murmur. He denies orthopnea PND pedal edema or dyspnea on exertion. Date Seen 05/29/19 Time Seen by a Provider: 07:00 Attending Physician Davin Hills MD PCP Joe Ann DO Referring Physician Date of Admission May 28, 2019 at 17:47 Home Medications & Allergies Home Medications Reviewed patient Home Medication Reconciliation performed by pharmacy medication reconciliations build technician and/or nursing. Patients Allergies have been reviewed. Allergies Allergies Coded Allergies No Known Drug Allergies (Unverified02/20/15) Past Rygdbpc-Xeocea-Zyndxx Hx Past Med/Social Hx: Reviewed and Corrections made Patient Social History Alcohol Use: Occasionally Uses Recreational Drug Use: No Smoking Status: Never a Smoker 2nd Hand Smoke Exposure: No Recent Foreign Travel: No Contact w/other who traveled: No Recent Hopitalizations: No Recent Infectious Disease Expo: No Seasonal Allergies Seasonal Allergies: No Past Medical History Musculoskeletal: Chronic Back Pain, Gout Endocrine: Diabetes, Non-Insulin dep Cancer: Prostate Did You Recieve Any Treatments: Yes What Type of Treatment Did You: Chemotherapy Family History Colon cancer 19 MOTHER FH: prostate cancer 19 FATHER Glaucoma 19 FATHER Hypertension 19 FATHER Review of Systems Constitutional: no symptoms reported, see HPI Respiratory: no symptoms reported, see HPI Cardiovascular: no symptoms reported, see HPI; No chest pain, No edema, No Hx of Intervention, No palpitations, No syncope, No vascular heart diseas, No other Physical Exam Physical Exam Vital Signs Vital Signs - First Documented 05/28/19 05/28/19 17:05 19:20 Temp 97.9 Pulse 65 Resp 18 B/P (MAP) 143/77 (99) Pulse Ox 96 O2 Delivery Room Air Capillary Refill : Less Than 3 SecondsLess Than 3 Seconds Height, Weight, BMI Height: 5'10.00" Weight: 171lbs. 8.0oz. 77.472870kw; 24.6 BMI Method:Stated General Appearance: No Apparent Distress, WD/WN Neck: Full Range of Motion, Normal Inspection, Non Tender Respiratory: Chest Non Tender, Lungs Clear, Normal Breath Sounds, No Accessory Muscle Use, No Respiratory Distress Cardiovascular: Regular Rate, Rhythm, No Edema, No Gallop, No JVD, No Murmur, Normal Peripheral Pulses Gastrointestinal: Normal Bowel Sounds, No Organomegaly, No Pulsatile Mass, Non Tender, Soft Extremity: Normal Capillary Refill, No Pedal Edema, Other (left leg externally rotated and foreshortened some swelling about the left hip dorsalis pedis pulses are 2+ and symmetrical no edema noted.) Results Results/Procedures Labs Laboratory Tests 05/28/19 18:06 Patient resulted labs reviewed. Assessment/Plan Admission Diagnosis 1. Left hip fracture patient medically stable for indicated procedure for orthopedics scheduled later this morning tentatively. 2. Type II diabetes mellitus under reasonable control hold metformin today and initiate sliding scale insulin and monitor blood sugars. 3. Past history of prostate cancer on anti-androgen therapy post radical p rostatectomy the patient states 3-5 years ago not likely to be an issue than possible osteoporosis from antiandrogen therapy. Admission Status: Inpatient Order (span 2 midnights) Reason for Inpatient Admission: see admission diagnosis Clinical Quality Measures DVT/VTE Risk/Contraindication: Risk Factor Score Per Nursin RFS Level Per Nursing on Admit: 2=Moderate DAVIN HILLS MD May 29, 2019 08:13
--- NOTE | 2019-05-29 08:22 | NUR ---
Patient off floor at this time to surgery.
[2019-05-29] MEDS: LACTATED RINGERS 1,000 ML IV PRN ×2 (08:25→11:00)
--- NOTE | 2019-05-29 08:28 | Consultation - Ortho ---
Consult - Ortho Chief complaintleft hip fracture History of present illnessthe patient is a 78-year-old white male who fell yesterday afternoon at home. He was climbing up on a chair trying to get a piece of wood from the upper level in his garage in the chair shifted and he fell injuring his left hip. He seen in the emergency room at [facility] was evaluated and x-rayed noted have displaced subcapital fracture left hip. His transferred to [facility] for further evaluation and treatment. He denies any previous problems with the left hip. He does have problems with both knees with gout and also has some low back pain which he takes oxycodone for. He's had no orthopedic surgeries. He denies any other injuries other than a skin tear of the left elbow. He does have a history of diabetes. He has no allergies. Dr. MARIO is his family physician in [place] On exam he has no neck pain with palpation or motion and he has minimal low back pain with palpation. Upper extremities is full range of motion without pain. No crepitation or deformity is noted. He is neurovascularly intact both upper extremities. He does have a dressing over the skin tear left elbow Lower extremities his left leg is shortened and externally rotated. Any motion left hip causes pain. He has no pain right hip with range of motion. No pain either knee. No pain other ankle. He can move his toes and ankles without pain. He has normal sensation to both lower extremities. No skin changes. Good pulses. X-rays were reviewed pelvis and left hip which shows a displaced subcapital fracture left hip. Does have some minimal degenerative changes involving both hips. Impressiondisplaced subcapital fracture left hip Plan treatment options were discussed with the patient. I talked about nonoperative treatment which I do not feel is an option. This gentleman is active. I talked about surgical treatment. Since he has not had any previous left hip problems I would recommend proceeding with a hemiarthroplasty. I explained to him that once the head is off it's hard to get it back on an secure it with screws so that hemiarthroplasty would be recommended. I discussed the procedure risk complications. I talked him about risks of infection and DVT. He understands all the above and would like to proceed. He is scheduled for this morning. He has been nothing by mouth. I talked to Dr. Webb and he felt he was cleared for surgery. NAM IGLESIAS MD May 29, 2019 08:27
[2019-05-29] MEDS ORDERED: proPOfol 200 MG/20 ML (DIPRIVAN) VIAL IV ONE (08:33)
[2019-05-29] MEDS ORDERED: fentaNYL INJECTION 100 MCG/2 ML AMP ONE (08:33)
[2019-05-29] MEDS ORDERED: ceFAZolin INJECTION 1,000 MG VIAL IV ONE (08:45)
[2019-05-29] MEDS ORDERED: HYDROmorphone 2 MG/ML VIAL (DILAUDID) ONE ×2 (09:22→09:29)
[2019-05-29] MEDS ORDERED: morphine INJ 10 MG/ML 1ML (SYR OR VIAL) ONE (09:29)
[2019-05-29] MEDS ORDERED: ONDANSETRON 4 MG/2 ML (SDV) Z0FRAN ONE ×2 (09:29→09:51)
[2019-05-29] MEDS ORDERED: LIDOCAINE PF 2% 5 ML (XYLOCAINE) VIAL ONE (09:51)
[2019-05-29] MEDS ORDERED: ROCURONIUM 10 MG/ML 5 ML SYRINGE IV ONE (09:51)
[2019-05-29] MEDS ORDERED: GLYCOPYRROLATE 0.2 MG/ML (ROBINUL) 2 ML VIAL ONE (10:21)
[2019-05-29] MEDS ORDERED: NEOSTIGMINE 1 MG/ML 5 ML SYRINGE ONE (10:21)
[2019-05-29] MEDS ORDERED: SEVOFLURANE (ULTANE) 15 ML INHAL SOLN ONE (10:33)
[2019-05-29] MEDS ORDERED: fentaNYL INJECTION 100 MCG/2 ML AMP IVP PRN (11:15)
[2019-05-29] MEDS ORDERED: D5 1/2 NS 1000 ML IV SOLUTION 1,000 ML IV SCH (11:15)
--- NOTE | 2019-05-29 11:21 | Operative Report - Ortho ---
Operative Report Surgeon (s)/Bull Riveter (s) Surgeon NAM IGLESIAS MD Bull Riveter n/a Pre-Operative Diagnosis displaced subcapital fracture left hip Post-Operative Diagnosis same Operative Report Date of Procedure: May 29, 2019 Name of Procedure Performed: Cemented bipolar hemiarthroplasty left hip using a #4 cemented stem with a 28 x 52 mm bipolar head and a 3.5 mm neck Description & Findings The patient was brought to the OR in his hospital bed. He had received 2 g Ancef IV. All questions and concerns were addressed prior to the patient going to the OR. After administration of anesthesia in the hospital bed the patient was placed on the OR table supine and then rolled up into the lateral decubitus position with the left side up. He is placed on the board and secured with the pegs which were well-padded. Axillary roll was inserted as well. The left hip bilateral leg were then prepped and draped in the usual sterile manner. An incision was made from the greater trochanter distally along the femoral shaft and then proximally and posteriorly. This was taken down through subjacent tissue. Bleeders are cauterized. The iliotibial band and gluteal fascia were split in line with skin incision and retracted with the Charnley retractor. The hip was then flexed and internally rotated. The soft tissue was taken off the short external rotators. The piriformis tendon was identified and tagged and then the short external rotators were taken off the posterior aspect of the greater trochanter. The capsule was still intact and was teed. The head was then removed with a corkscrew and measured at 42 mm. The fracture was just above the lesser trochanter and using a [employer] the neck was trimmed taking minimal bone off. This point the 52 mm head was trialed and found to fit well. Acetabulum showed minimal wear. This point the proximal femur was prepared using a box osteotome then the T-handled reamer. The femur is broached up to a number 4 stem. This was left in place. The hip was then reduced using the 52 mm trial with a 5 mm neck was found to fit well although was a little bit tight. There is no pistoning. Full extension. This point trials were removed and a cement plug was placed just distal to the tip of the broach. The canal was irrigated. The acetabulum was irrigated and there is no debris. The ligamentum teres what was left was removed. Cement was then mixed and inserted with cement gun when ready. This was then pressurized proximally. The stem was then inserted in approximately 15-20 of anteversion. This was held in place as cement set. Excess cement was removed. After the cemented set the past having was irrigated. No debris or cement was noted. It was elected to proceed with a shorter neck then the 5 mm which was a 3.5 mm neck. Was trialed with the trial head and neck and it was elected to proceed with 3.5 mm neck. The 52 x 28 mm bipolar head was inserted and tapped in place. The hip was reduced and found to be stable with full extension and no pistoning. At this point wound was irrigated with pressurized irrigation. Dural holes were placed through the greater trochanter. The capsule was closed with #1 Vicryl. A long suture from the capsule spliced through 1 drill hole and the suture from the piriformis through the other. The hip was then placed in neutral and the suture was tied over the posterior aspect of the greater trochanter. Wound was again irrigated with pressurized irrigation. The Charnley retractor was removed. The iliotibial band and gluteal fascia were closed with [id number] #1 Vicryl sutures. The subtendinous tissue with 01 2-0 Vicryl sutures and the skin with skin clips. Wound was dressed with antibiotic ointment, Adaptic and 4 x 4's. These were then taped in position. An abduction pillow was applied. The patient was then transferred to his hospital bed. He had equal leg lengths and equal rotation. He had good pulses and good capillary refill. He was transferred to recovery room in good conditi on. He tolerated the procedure well. Estimated blood loss was 150 mL's with no replacement n/a Anesthesia Type Gen. Estimated Blood Loss 150 mls Packing none. Specimen(s) collected/removed The femoral head was sent to pathology for gross pathology only NAM IGLESIAS MD May 29, 2019 11:21
--- NOTE | 2019-05-29 11:55 | Diagnostic Imaging Report ---
INDICATION: Left hip arthroplasty. COMPARISON: None. FINDINGS: Single view of the left hip demonstrate well-seated arthroplasty without fracture, dislocation or loosening. There is no unexpected radiopaque foreign body. IMPRESSION: Well-seated left hip arthroplasty. Dictated by: Dictated on workstation # [id number]
[2019-05-29] MEDS ORDERED: ONDANSETRON 4 MG/2 ML (SDV) Z0FRAN IVP PRN (12:00)
[2019-05-29] MEDS ORDERED: morphine INJ 10 MG/ML 1ML (SYR OR VIAL) IVP ONE (12:00)
[2019-05-29] MEDS ORDERED: HYDROmorphone 2 MG/ML VIAL (DILAUDID) IV ONE (12:00)
--- NOTE | 2019-05-29 12:00 | NUR ---
Patient back from surgery at this time. Patient alert, report received from Kirsten AHMADI
--- NOTE | 2019-05-29 12:25 | Physical Therapy Progress Note ---
Therapy Progress Note Pt in OR this AM, recovering in ICU at time order received. PT will evaluate and treat beginning 05/30/19. ANASTACIA KRAUSE DPAlec May 29, 2019 12:25
[2019-05-29] MEDS: oxyCODONE/APAP 5/325MG (PERCOCET 5) TABLET PO PRN ×3 (13:06→22:25)
[2019-05-29] MEDS: inSUlin ASPART (NovoLOG) 1 UNIT/0.01 ML (CHARGE PER UNIT) SC SCH ×3 (13:06→21:05)
[2019-05-29] MEDS: NS IV 1000 ML 1,000 ML IV SCH (13:26)
[2019-05-29] MEDS: ceFAZolin 2 GM IV Premixed 50 ML IV SCH ×2 (14:03→22:26)
[2019-05-29] MEDS: fentaNYL INJECTION 100 MCG/2 ML AMP IVP PRN ×2 (15:58→20:02)
[2019-05-29] MEDS: ALLOPURINOL 300 MG (ZYLOPRIM) TAB PO SCH (20:02)
[2019-05-29] MEDS: ENOXAPARIN 40 MG/0.4 ML (LOVENOX) SYR SC SCH (22:25)
[2019-05-29] MEDS: MELATONIN 3 MG TABLET PO PRN (22:25)
[2019-05-30] VITALS: BP 151/70
[2019-05-30] MEDS: NS IV 1000 ML 1,000 ML IV SCH ×2 (01:37→02:29)
[2019-05-30] MEDS: oxyCODONE/APAP 5/325MG (PERCOCET 5) TABLET PO PRN ×2 (02:29→06:13)
[2019-05-30 04:00] VITALS: BP 127/68
[2019-05-30 05:11] LABS: HEMOGLOBIN 10.4 G/DL (13.3-17.7)
[2019-05-30] MEDS: ceFAZolin 2 GM IV Premixed 50 ML IV SCH (06:09)
[2019-05-30] MEDS: inSUlin ASPART (NovoLOG) 1 UNIT/0.01 ML (CHARGE PER UNIT) SC SCH ×4 (06:11→21:30)
[2019-05-30 08:00] VITALS: BP 130/60
[2019-05-30] MEDS: fentaNYL INJECTION 100 MCG/2 ML AMP IVP PRN (08:04)
--- NOTE | 2019-05-30 09:03 | Physical Therapy Evaluation ---
PT Evaluation-General Medical Diagnosis Admission Date May 28, 2019 at 17:47 Medical Diagnosis: (L) intertrochanteric hip Fx s/p hemiarthroplasty Onset Date: May 28, 2019 Therapy Diagnosis Therapy Diagnosis: decreased functional mobility Height/Weight Height (Feet): 5 Height (Inches): 10.00 Weight (Pounds): 171 Weight (Ounces): 8.0 Precautions Precautions/Isolations: Fall Prevention, Standard Precautions Weight Bear Status Right Lower Extremity: Right Full Weight Bearing Left Lower Extremity: Left Weight Bearing/Tolerated Referral Physician: Sharla Reason for Referral: Evaluation/Treatment Medical History Pertinent Medical History: DM, Prostate CA Additional Medical History Chronic back pain, gout Current History Pt fell while standing on a chair. Suffered (L) intertrochanteric hip Fx s/p hemiarthroplasty Reviewed History: Yes Social History Home: Multilevel Current Living Status: Spouse Entry Into Home: Ramp, Stairs With Railing PT Steps Into Home: 3 PT Steps Inside Home: 12 Pt has 3 steps to enter but also has ramp entry due to 's functional level. Laundry in the basement, does have access from outside door. Prior/Core FIM Prior Level of Function Therapy Code Descriptions/Definitions Functional Glasscock Measure: 0=Not Assessed/NA 4=Minimal Assistance 1=Total Assistance 5=Supervision or Setup 2=Maximal Assistance 6=Modified Glasscock 3=Moderate Assistance 7=Complete Glasscock Therapy Quality Codes: 6 Independent with activity with or without an assistive device 5 Patient requires set up or clean up by helper. Patient completes activity by themselves 4 Supervision or touching assist (CGA). [employer] provide cues , steadying assist 3 The helper provides less than half the effort to complete the activity 2 The helper provides more than half the effort to complete the activity 1 Dependent. The helper does all the effort to complete an activity 7 Patient refused to complete or attempt activity 9 The patient did not perform the activity before the current illness or injury 88 Not attempted due to Medical conditions or safety concerns Functional Abilities and Goals: Independent: Patient completed the activities by him/herself, with or without an assistive device, with no assistance from a helper. Needed Some Help: Patient needed partial assistance from another person to complete activities. Dependent: A helper completed the activities for the patient. Unknown: Not Applicable: Bed Mobility: 7 Transfers (B,C,W/C) (FIM): 7 Gait: 7 Stairs: 7 Indoor Mobility (Ambulation): Independent Stairs: Independent Prior Devices Use: None Pt [place], very active. Primary caregiver for who is an amputee after failed TKA. Pt reports his home is accessible due to 's functional status. PT Evaluation-Current Subjective Pt in bed, agreeable. Eager to get OOB but anxious about it being painful. Pt reports (L) hip is not painful at rest, primary c/o is chronic back pain but not rated. Objective Patient Orientation: Person, Place, Time, Situation Problem Solving: Good Attachments: Alejandro Catheter, IV ROM/Strength ROM Upper Extremities WFL for mobility ROM Lower Extremities Grossly WFL for mobility, guarded with (L) hip ROM. Strength Upper Extremities WFL for mobility Strength Lower Extremities (R) LE grossly WFL for functional mobility. (L) ankle and knee grossly 3/5, no resistance given due to recent Sx Integumentary/Posture Integumentary See nurses' notes Bladder Incontinence: Alejandro Cath Neuromuscular (Tone, Coordination, Reflexes) Grossly intact Sensory Vision: Functional Hearing: Functional Transfers Therapy Code Descriptions/Definitions Functional Glasscock Measure: 0=Not Assessed/NA 4=Minimal Assistance 1=Total Assistance 5=Supervision or Setup 2=Maximal Assistance 6=Modified Glasscock 3=Moderate Assistance 7=Complete [place]cock Supine to/from Sit: 4 Sit to/from Stand: 4 (bed height raised this date) Gait Mode of Locomotion: Walk Anticipated Mode of Locomotion: Walk Gait (FIM): 2 Distance (FIM): 1=up to 49 ft Distance: 15 Gait Level of Assist: 4 Gait Persons Needed: 1 Gait Assistive Device: FWW Comments/Gait Description Pt ambulated with slow, step-to gait with FWW. Skilled VCS for sequencing and safety with FWW. Balance Sitting Static: Normal Sitting Dynamic: Normal Standing Static: Good Standing Dynamic: Good Treatment Eval. Gait training with FWW. Pt with decreased stance time on (L) LE, step-to gait but safe. Fatigues quickly. Up in hip chair with all needs met. Level of assist required relayed to nurse and NA. Assessment/Needs Pt would benefit from skilled PT to improve (I) with functional mobility to allow safe return home. 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 Rehab Potential: Good PT Short Term Goals Short Term Goals Time Frame: Jun 02, 2019 Transfers (B,C,W/C) (FIM): 6 PT Photocomposition Keyboard Operator Goals Nursing Home Goals PT Photocomposition Keyboard Operator Goals Time Frame: Jun 09, 2019 Gait (FIM): 6 Gait distance (FIM): 3=150 ft Distance: 150 Gait Level of Assist: 6 Gait Assistive Device: FWW Stairs (FIM): 6 # of Steps: 12 Stairs Level Of Assist: 6 LTGs established to allow safe return home and to enter basement to access laundry. PT Plan Problem List Problem List: Activity Tolerance, Functional Strength, Safety, Balance, Gait, Transfer, Bed Mobility, ROM Treatment/Plan Treatment Plan: Continue Plan of Care Treatment Plan: Bed Mobility, Education, Functional Activity Elsi, Functional Strength, Gait, Safety, Therapeutic Exercise, Transfers Treatment Duration: Jun 09, 2019 Frequency: 11 times per week Estimated Hrs Per Day: .5 hour per day Patient and/or Family Agrees t: Yes Safety Risks/Education Patient Education: Gait Training, Reviewed Precautions Teaching Recipient: Patient Teaching Methods: Demonstration, Discussion Response to Teaching: Verbalize Understanding, Return Demonstration Reviewed PT POC, benefits of possible admission to ARU, hip precautions. Discharge Recommendations Therapy D/C Recommendations: Acute Rehab Barriers to Progress None Time/GCodes Time In: 0815 Time Out: 0853 Total Billed Treatment Time: 38 Total Billed Treatment 1, EVLOWC x 28', GT x 10' G Codes Necessary: ANASTACIA Evans DPT May 30, 2019 09:03
[2019-05-30] MEDS ORDERED: CELECOXIB 100 MG (CeleBREX) CAP PO ONE (09:30)
[2019-05-30] MEDS ORDERED: SENNA W/DOCUSATE (SENOKOT S) TABLET PO ONE (09:30)
--- NOTE | 2019-05-30 09:44 | Progress Note - Ortho ---
Progress Note POD#1 managed bipolar hemiarthroplasty left hip The patient is up sitting in the chair and having no complaints. He states he does have some pain in his left hip with motion. Denies any numbness or tingling in his left leg. The patient is afebrile. Hemoglobin this morning was 10.4 Dressing is intact. No calf tenderness and negative Homans. Normal sensation to the foot and toes. Good pulses. No weakness noted. Good position of the leg. Plancontinue with physical therapy walker ambulation weightbearing as tolerated on the left. Out of bed to chair as tolerated. Laboratory Tests 05/29/19 13:01: Glucometer 282H 05/29/19 16:02: Glucometer 182H 05/29/19 20:30: Glucometer 89 05/30/19 04:35: Hemoglobin 10.4L, Hematocrit 32L 05/30/19 05:38: Glucometer 260H Vital Signs Date Time Temp Pulse Resp B/P (MAP) Pulse Ox O2 Delivery O2 Flow Rate FiO2 05/30/19 04:00 96.0 75 18 127/68 (87) 88 Room Air 05/30/19 00:00 96.2 80 18 151/70 (97) 87 Room Air 05/29/19 20:00 Room Air 05/29/19 19:53 98.8 76 20 137/66 (89) 92 Room Air 05/29/19 16:04 98.8 71 18 125/58 (80) 92 Room Air 05/29/19 12:00 Nasal Cannula 3 05/29/19 12:00 98.2 80 18 137/84 (101) 95 Room Air 05/29/19 12:00 97.4 20 97 Nasal Cannula 3 05/29/19 11:50 20 94 Nasal Cannula 3 05/29/19 11:45 Nasal Cannula 3 05/29/19 11:40 20 98 OxyMask 6 05/29/19 11:30 20 96 OxyMask 6 05/29/19 11:30 OxyMask 6 05/29/19 11:20 20 98 OxyMask 6 05/29/19 11:15 OxyMask 6 05/29/19 11:10 20 98 OxyMask 6 05/29/19 11:02 97.4 18 97 OxyMask 6 05/29/19 11:02 OxyMask 6 I & O 05/30/19 07:00 Intake Total 3500 ml Output Total 1325 ml Balance 2175 ml Clinical Quality Measures DVT/VTE Risk/Contraindication: Risk Factor Score Per Nursin RFS Level Per Nursing on Admit: 2=Moderate NAM IGLESIAS MD May 30, 2019 09:44
[2019-05-30 12:00] VITALS: BP 109/62
--- NOTE | 2019-05-30 12:11 | Progress Note-Hospitalist ---
Subjective HPI/CC On Admission Date Seen by Provider: May 30, 2019 Time Seen by Provider: 10:00 Mr. Hubbard is a 78-year-old white male who fell while standing on a chair due to loss of balance. He denied presyncope or syncope had no loss of consciousness but noted left elbow and hip pain. He was brought to the emergency room where he was noted to have a left intertrochanteric hip fracture. Emergency room physician thought there may be extension into the proximal femur prior to official radiology interpretation. Patient received been feeling well he recovered from a pneumonia 2 months earlier with no sputum production chest pain or shortness of breath back to usual regular physical activity. He has a history of type II diabetes mellitus that sounds adequately controlled per his description on metformin and GLP-1 therapy alone. He has no history of cardiac disease. He states that on echo he had some valve leaking however this did not require any medication has not led to any symptoms with no history of heart failure and he was told was not significant enough to be concerned about nor has anybody told him that he has a heart murmur. He denies orthopnea PND pedal edema or dyspnea on exertion. Subjective/Events-last exam patient reports significant left hip pain denies chest pain or shortness of breath. He reports baseline levels of chronic low back pain that on average she takes 3 or 4 5 mg oxycodone tabs at home on a daily basis. Objective Exam Vital Signs Vital Signs Date Time Temp Pulse Resp B/P (MAP) Pulse Ox O2 Delivery O2 Flow Rate FiO2 05/30/19 08:00 Room Air 05/30/19 08:00 99.3 74 20 130/60 (83) 92 05/29/19 12:00 3 Capillary Refill : Less Than 3 SecondsLess Than 3 Seconds General Appearance: No Apparent Distress, WD/WN Neck: Full Range of Motion, Normal Inspection, Non Tender Respiratory: Chest Non Tender, Lungs Clear, Normal Breath Sounds, No Accessory Muscle Use, No Respiratory Distress Cardiovascular: Regular Rate, Rhythm, No Edema, No Gallop, No JVD, No Murmur, Normal Peripheral Pulses Gastrointestinal: Normal Bowel Sounds, No Organomegaly, No Pulsatile Mass, Non Tender, Soft Extremity: Normal Capillary Refill, No Pedal Edema, Other (leg lengths now. Equal there is swelling the usual postop amount about the left hip without pedal edema. There is no drainage on the bandage.) Results/Procedures Lab Laboratory Tests 05/30/19 04:35 Patient resulted labs reviewed. Assessment/Plan Assessment and Plan Assess & Plan/Chief Complaint 1. Left displaced subcapital hip fracture status post left bipolar hip arthroplasty postop day 1. Discussed with her several reasons that starting anti-inflammatory therapy in the form of Celebrex 100 mg twice a day would be mo re likely to decrease pain that increasing narcotics from his baseline dose. We will continue 10 mg of oxycodone every 4 and the patient was warned about constipation for which Senokot S1 twice a day has been initiated today as well.. 2. Type II diabetes mellitus lunch sugars mildly elevated we will resume metformin today and continue sliding scale insulin and monitor blood sugars. 3. Past history of prostate cancer on anti-androgen therapy post radical prostatectomy the patient states 3-5 years ago not likely to be an issue than possible osteoporosis from antiandrogen therapy. Clinical Quality Measures DVT/VTE Risk/Contraindication: Risk Factor Score Per Nursin RFS Level Per Nursing on Admit: 2=Moderate JANEEN HILLS MD May 30, 2019 12:11
--- NOTE | 2019-05-30 14:03 | Anesthesia-General Post-Op ---
General Patient Condition Mental Status/LOC: Same as Preop Cardiovascular: Satisfactory Nausea/Vomiting: Absent Respiratory: Satisfactory Pain: Controlled Complications: Absent Post Op Complications Complications None Follow Up Care/Instructions Patient Instructions None needed. Anesthesia/Patient Condition Patient Condition Patient is doing well, no complaints, stable vital signs, no apparent adverse anesthesia problems. No complications reported per nursing. DEVON CRAIG CRNA May 30, 2019 14:03
[2019-05-30 16:00] VITALS: BP 114/58
[2019-05-30 20:00] VITALS: BP 120/64
[2019-05-30] MEDS: CELECOXIB 100 MG (CeleBREX) CAP PO SCH (21:46)
[2019-05-30] MEDS: MELATONIN 3 MG TABLET PO PRN (21:46)
[2019-05-30] MEDS: ALLOPURINOL 300 MG (ZYLOPRIM) TAB PO SCH (21:46)
[2019-05-30] MEDS: SENNA W/DOCUSATE (SENOKOT S) TABLET PO SCH (21:46)
[2019-05-30] MEDS: ENOXAPARIN 40 MG/0.4 ML (LOVENOX) SYR SC SCH (21:47)
[2019-05-31 00:10] VITALS: BP 135/79
[2019-05-31 01:12] VITALS: BP 135/79
[2019-05-31 04:40] VITALS: BP 130/71
[2019-05-31 05:37] LABS: HEMOGLOBIN 9.4 G/DL (13.3-17.7)
[2019-05-31] MEDS: inSUlin ASPART (NovoLOG) 1 UNIT/0.01 ML (CHARGE PER UNIT) SC SCH ×2 (06:25→11:18)
[2019-05-31 08:00] VITALS: BP 126/62
[2019-05-31] MEDS: SENNA W/DOCUSATE (SENOKOT S) TABLET PO SCH (08:21)
[2019-05-31] MEDS: CELECOXIB 100 MG (CeleBREX) CAP PO SCH (08:21)
[2019-05-31] MEDS ORDERED: OXYC-471 PO (09:09)
[2019-05-31] MEDS ORDERED: SEMA0.25 SC (09:09)
[2019-05-31] MEDS ORDERED: SIMV20TA3 PO (09:09)
[2019-05-31] MEDS ORDERED: GLYB5TAB6 PO (09:09)
[2019-05-31] MEDS ORDERED: PIOG30TA71 PO (09:09)
[2019-05-31] MEDS ORDERED: METF-399 PO (09:09)
[2019-05-31] MEDS ORDERED: VNL75T PO (09:09)
[2019-05-31] MEDS ORDERED: BICA50TA5 PO (09:09)
[2019-05-31] MEDS ORDERED: ALLO300T2 PO (09:09)
[2019-05-31] MEDS ORDERED: GBPN600T PO ×2 (09:09→10:07)
--- NOTE | 2019-05-31 09:27 | Progress Note - Ortho ---
Progress Note POD#2 100 bipolar hemiarthroplasty left hip. The patient is up sitting in the chair and he has already been ambulating in the hallway. He complains of mild pain in his hip. The patient is afebrile His dressing was removed and his incision looks good without redness or drainage. There is some bruising around the incision. Mild swelling. He has normal sensation to the foot and toes with good cap refill and good pulses. No weakness in left lower extremity. Good position of the leg Hemoglobin 9.4 this morning Continue with physical therapy, walker ambulation weightbearing as tolerated on the left. Dressing will be reapplied when he returns to bed Laboratory Tests 05/30/19 11:14: Glucometer 176H 05/30/19 16:13: Glucometer 266H 05/30/19 21:17: Glucometer 175H 05/31/19 04:50: Hemoglobin 9.4L, Hematocrit 29L 05/31/19 05:39: Glucometer 214H Microbiology 05/29/19 MRSA Screen - Final, Complete MRSA not isolated Vital Signs Date Time Temp Pulse Resp B/P (MAP) Pulse Ox O2 Delivery O2 Flow Rate FiO2 05/31/19 08:00 98.2 78 20 126/62 (83) 93 Room Air 05/31/19 04:40 97.4 78 20 130/71 (90) 93 Room Air 05/31/19 01:12 99.0 81 20 135/79 (97) 96 Room Air 05/31/19 00:10 99.0 81 20 135/79 (97) 96 Room Air 05/30/19 20:30 96 Room Air 05/30/19 20:00 99.5 75 20 120/64 (82) 94 Room Air 05/30/19 16:00 97.3 74 18 114/58 (76) 91 Room Air 05/30/19 12:00 98.2 67 20 109/62 (78) 92 Room Air I & O 05/31/19 07:00 Intake Total 1410 ml Output Total 725 ml Balance 685 ml Clinical Quality Measures DVT/VTE Risk/Contraindication: Risk Factor Score Per Nursin RFS Level Per Nursing on Admit: 2=Moderate NAM IGLESIAS MD May 31, 2019 09:27
--- NOTE | 2019-05-31 09:36 | Physical Therapy Daily Note ---
PT Daily Note-Current Subjective Patient agrees to PT. Pain Numeric Pain Scale: 7 Location: Left Location Body Site: Hip Pain Description: Acute Comment: with pain meds issued Mental Status Patient Orientation: Normal For Age Attachments: Alejandro Catheter Transfers Therapy Code Descriptions/Definitions Functional [place] Measure: 0=Not Assessed/NA 4=Minimal Assistance 1=Total Assistance 5=Supervision or Setup 2=Maximal Assistance 6=Modified [place] 3=Moderate Assistance 7=Complete [place] Therapy Quality Codes: 6 Independent with activity with or without an assistive device 5 Patient requires set up or clean up by helper. Patient completes activity by themselves 4 Supervision or touching assist (CGA). [place] provide cues , steadying assist 3 The helper provides less than half the effort to complete the activity 2 The helper provides more than half the effort to complete the activity 1 Dependent. The helper does all the effort to complete an activity 7 Patient refused to complete or attempt activity 9 The patient did not perform the activity before the current illness or injury 88 Not attempted due to Medical conditions or safety concerns Transfers (B, C, W/C) (FIM): 5 Scootin Supine to/from Sit: 5 Sit to/from Stand: 5 Bed to/from Chair: 5 Weight Bearing Right Lower Extremity: Right Full Weight Bearing Left Lower Extremity: Left Weight Bearing/Tolerated Gait Training Gait (FIM): 5 Distance (FIM): 3=150 ft Distance: 225' Gait Level of Assist: 5 Gait Assistive Device: FWW antalgic, step to gait sequence Exercises Seated Therapy Exercises: Long arc quads Seated Reps: 15 Assessment Patient tolerated treatment well and will benefit from ARU to ensure safe return to home. PT Short Term Goals Short Term Goals Time Frame: Jun 02, 2019 Transfers (B,C,W/C) (FIM): 6 PT Outboard System Operator Goals Outboard System Operator Goals PT Outboard System Operator Goals Time Frame: Jun 09, 2019 Gait (FIM): 6 Gait distance (FIM): 3=150 ft Distance: 150 Gait Level of Assist: 6 Gait Assistive Device: FWW Stairs (FIM): 6 # of Steps: 12 Stairs Level Of Assist: 6 PT Plan Treatment/Plan Treatment Plan: Continue Plan of Care Treatment Plan: Bed Mobility, Education, Functional Activity Elsi, Functional Strength, Gait, Safety, Therapeutic Exercise, Transfers Treatment Duration: Jun 09, 2019 Frequency: 11 times per week Estimated Hrs Per Day: .5 hour per day Patient and/or Family Agrees t: Yes Time/GCodes Time In: 907 Time Out: 919 Total Billed Treatment Time: 12 Total Billed Treatment 1 visit GT 12 min JAX RANDHAWA PT May 31, 2019 09:36
--- NOTE | 2019-05-31 09:53 | Discharge Summary-Hospitalist ---
Diagnosis/Chief Complaint Date of Admission May 28, 2019 at 17:47 Date of Discharge Discharge Date: May 31, 2019 Admission Diagnosis 1. Left hip fracture patient medically stable for indicated procedure for orthopedics scheduled later this morning tentatively. 2. Type II diabetes mellitus under reasonable control hold metformin today and initiate sliding scale insulin and monitor blood sugars. 3. Past history of prostate cancer on anti-androgen therapy post radical prostatectomy the patient states 3-5 years ago not likely to be an issue than possible osteoporosis from antiandrogen therapy. Discharge Summary Procedures/Consulations Dr Ravi Discharge Physical Exam Allergies: Coded Allergies: No Known Drug Allergies (Unverified , 02/20/15) Vitals & I&Os Vital Signs Date Time Temp Pulse Resp B/P (MAP) Pulse Ox O2 Delivery O2 Flow Rate FiO2 05/31/19 11:32 05/31/19 08:00 98.2 78 20 93 Room Air 05/29/19 12:00 3 General Appearance: No Apparent Distress, WD/WN Respiratory: Lungs Clear, No Respiratory Distress Cardiovascular: Regular Rate, Rhythm, No Murmur Hospital Course Pt was admitted for right femur fracture following a fall at home. Her underwent operative repair with Dr Ravi and did well. He was transferred to IRU for continued to rehab in stable condition. Labs (last 24 hrs) Laboratory Tests 05/30/19 16:13: Glucometer 266H 05/30/19 21:17: Glucometer 175H 05/31/19 04:50: Hemoglobin 9.4L, Hematocrit 29L 05/31/19 05:39: Glucometer 214H 05/31/19 11:01: Glucometer 251H Microbiology 05/29/19 MRSA Screen - Final, Complete MRSA not isolated Patient resulted labs reviewed. Pending Labs Laboratory Tests 05/31/19 11:01: Glucometer 251 Discussion & Recommendations Discharge Planning: >30 minutes discharge planning Discharge Home Medications: Active Scripts Active Reported Gabapentin 600 Mg Tablet 600 Mg PO TID PRN One Daily Complete (Multivitamin with Minerals) 1 Each Tablet 1 Tab PO DAILY Simvastatin 20 Mg Tablet 20 Mg PO HS Venlafaxine HCl 75 Mg Tab 75 Mg PO TID Metformin HCl 1,000 Mg Tablet 1,000 Mg PO BID Gabapentin 600 Mg Tablet 600 Mg PO HS Oxycodone-Acetaminophen 5-325 (Oxycodone HCl/Acetaminophen) 1 Each Tablet 1 Tab PO Q4H PRN Allopurinol 300 Mg Tablet 300 Mg PO HS Ozempic (Semaglutide) 0.25 Mg/0.2 Ml Pen.injctr 0.5 Mg SC TH Bicalutamide 50 Mg Tablet 50 Mg PO HS Instructions to patient/family Please see electronic discharge instructions given to patient. Clinical Quality Measures DVT/VTE Risk/Contraindication: Risk Factor Score Per Nursin RFS Level Per Nursing on Admit: 2=Moderate RAMÍREZ GARAY MD May 31, 2019 09:53
[2019-05-31] MEDS ORDERED: MULT-436 PO (10:07)
--- NOTE | 2019-05-31 10:52 | NUR ---
Pt is and lives in [place]. 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 He is awiating acceptamce from our Acute Rehab Unit and would like to transfer there today.
--- NOTE | 2019-05-31 10:54 | NUR ---
SPOKE WITH PATIENT ABOUT HIS MEDS, WELL GOING OVER THE EXTERNAL MED HISTORY TO COMPILE THE MED REC. THE FOLLOWING MEDICATIONS HAVE BEEN STOPPED: PIOGLITAZONE FARXIGA GLYBURIDE OTC MEDICATIONS: MULTIVITAMIN 1 DAILY
--- NOTE | 2019-05-31 10:59 | NUR ---
IRF Evaluation Order received to evaluate patient for the ARU. Chart review completed and discussed with Dr. Christopher - patient accepted. Met with patient to discuss details of rehabilitation program. Patient agreeable to required therapy regimen and admission. Patient states he is the primary caregiver for his spouse who is an amputee, and is eager/motivated to gain independence and return home. Anticipate admission, 05/31/19. Thank you for this referral.
== END 2019-05-31 11:34 | DRG 470 ==
LOC: EDUNIT# 17:01 → ER FS 17:02 → 4TH 17:47
PROVIDERS: ADMIT Internal Medicine; ATTEND Internal Medicine
PROC: 0SRB019 Replacement of Left Hip Joint with Metal Synthetic Substitute, Cemented, Open Approach (ICD-10-PCS; principal; 2019-05-29 09:14)
DX: S72.012A Unspecified intracapsular fracture of left femur, initial encounter for closed fracture (principal); S51.012A Laceration without foreign body of left elbow, initial encounter; E11.9 Type 2 diabetes mellitus without complications; Z79.84 Long term (current) use of oral hypoglycemic drugs; M17.0 Bilateral primary osteoarthritis of knee; M10.9 Gout, unspecified; M81.8 Other osteoporosis without current pathological fracture; Z85.46 Personal history of malignant neoplasm of prostate; Z90.79 Acquired absence of other genital organ(s); Z23 Encounter for immunization; W07.XXXA Fall from chair, initial encounter; Y92.015 Private garage of single-family (private) house as the place of occurrence of the external cause
CPT/HCPCS: 36415; 71045; 73080; 73501; 73502; 80053; 82962; 85014; 85018; 85025; 85610; 85730; 87081; 90715; 93005; 94664

== ENCOUNTER 2019-05-31 10:25 | Inpatient (IN) | payer MEDICARE, BC ==
[~2019-05-31] VITALS: Ht 177.8 cm; Wt 83.7 kg
[~2019-05-31 10:25] MED LIST changes: +ALLO300T2 PO; +BICA50TA5 PO; +GBPN600T PO; +GLYB5TAB6 PO; -LEUPROLIDE 45 MG ELIGARD SQ SCH; +METF-399 PO; +MULT-436 PO; +OXYC-471 PO; +PIOG30TA71 PO; +SEMA0.25 SC; +SIMV20TA3 PO; +VNL75T PO
[2019-05-31] MEDS ORDERED: ONDANSETRON 4 MG (ZOFRAN) ORAL DISSOLVE TAB PO PRN (11:15)
[2019-05-31] MEDS ORDERED: ACETAMINOPHEN 500 MG TAB (TYLENOL) PO PRN (11:15)
[2019-05-31] MEDS ORDERED: ONDANSETRON 4 MG/2 ML (SDV) Z0FRAN IVP PRN (11:15)
[2019-05-31] MEDS ORDERED: CALCIUM CARBONATE 500 MG (TUMS) TAB.CHEW PO PRN (11:15)
[2019-05-31] MEDS ORDERED: SENNA W/DOCUSATE (SENOKOT S) TABLET PO SCH (11:15)
[2019-05-31] MEDS ORDERED: diphenhydrAMINE 25 MG TAB (BENADRYL) PO PRN (11:15)
[2019-05-31] MEDS ORDERED: DOCUSATE SODIUM 100 MG (COLACE) CAP PO SCH (11:15)
[2019-05-31] MEDS ORDERED: ALPRAZolam 0.25 MG (XANAX) TAB PO PRN (11:15)
--- NOTE | 2019-05-31 11:21 | PM&R H&P / Post Admit Assess ---
History of Present Illness HPI/Chief Complaint Chief Complaint: Debility from left hip fracture. HPI: This is a 78yoWM clinic pt of Dr. Ann who presents to in patient rehab due to debility from left hip fracture. Pt had an uneventful hospital stay he will have urinary catheter discontinued and he does have constipation on a regular normal basis and he has not had a BM since he has been here so will aggressively treat that with suppositories and laxatives. At this current time pt's pain is well controlled and he feels like he wants to participate in [employer] in order to get home to prior level of functioning. He doesn't smoke or drink and he's retired from post [employer] in [place] for 20 years. Prior level of functioning was ambulatory without assisted devices independent with ADL's. Source: patient Exam Limitations: no limitations Date Seen 05/31/19 Time Seen by a Provider: 11:30 Attending Physician Bridget Christopher DO PCP Joe Ann DO Referring Physician Date of Admission Home Medications & Allergies Home Medications Reviewed patient Home Medication Reconciliation performed by pharmacy medication reconciliations parking enforcement technician and/or nursing. Patients Allergies have been reviewed. Allergies Allergies Coded Allergies No Known Drug Allergies (Unverified02/20/15) Past Qvzzzqd-Zqqgqk-Ydoext Hx Past Med/Social Hx: Reviewed Nursing Past Med/Soc Hx, Reviewed and Corrections made Patient Social History Marrital Status: Employed/Student: retired (shift production associate) Smoking Status: Never a Smoker 2nd Hand Smoke Exposure: No Recent Hopitalizations: No Seasonal Allergies Seasonal Allergies: No Past Medical History Surgeries: Prostatectomy Respiratory: Pneumonia Cardiac: High Cholesterol, Hypertension Gastrointestinal: Chronic Constipation Musculoskeletal: Chronic Back Pain, Gout Endocrine: Diabetes, Non-Insulin dep Cancer: Prostate Did You Recieve Any Treatments: Yes What Type of Treatment Did You: Chemotherapy, Surgical Intervention Family History Colon cancer 19 MOTHER FH: prostate cancer 19 FATHER Glaucoma 19 FATHER Hypertension 19 FATHER Review of Systems Constitutional: see HPI, malaise, weakness EENTM: no symptoms reported Respiratory: no symptoms reported Cardiovascular: no symptoms reported Gastrointestinal: constipation Genitourinary: no symptoms reported Musculoskeletal: joint pain Skin: no symptoms reported Psychiatric/Neurological: No Symptoms Reported All Other Systems Reviewed Negative Unless Noted: Yes Physical Exam Exam Vital Signs Vital Signs Date Time Temp Pulse Resp B/P (MAP) Pulse Ox O2 Delivery O2 Flow Rate FiO2 7/1/19 16:56 91 Room Air 05/31/19 16:21 99.5 89 16 118/70 (86) Capillary Refill : General Appearance: No Apparent Distress, WD/WN, Chronically ill HEENT: PERRL/EOMI, Normal ENT Inspection, Pharynx Normal, Moist Mucous Me mbranes Neck: Full Range of Motion, Normal Inspection, Non Tender, Supple Respiratory: Chest Non Tender, Lungs Clear, Normal Breath Sounds, No Accessory Muscle Use, No Respiratory Distress Cardiovascular: Regular Rate, Rhythm, No Edema, No Gallop, No JVD, No Murmur Gastrointestinal: Normal Bowel Sounds, No Organomegaly, No Pulsatile Mass, Non Tender, Soft Back: Normal Inspection, No CVA Tenderness, No Vertebral Tenderness Extremity: Normal Capillary Refill, Normal Inspection, Normal Range of Motion (except left leg decreased ROM), Non Tender, No Calf Tenderness, No Pedal Edema Neurologic/Psychiatric: Alert, Oriented x3, No Motor/Sensory Deficits, Normal Mood/Affect Skin: Normal Color, Warm/Dry Lymphatic: No Adenopathy Results Results/Procedures Labs Laboratory Tests 05/31/19 14:50 Patient resulted labs reviewed. Assessment/Plan Assessment and Plan Assess & Plan/Chief Complaint Assessment: Left hip fracture s/p repair POD # 2 DM Prostate cancer hx Anemia acute blood loss Plan: Pain control Check labs Monitor closely IRF protocol Fall risk (1) Fracture of femur (2) Diabetes mellitus (3) Prostate cancer (4) History of prostatectomy (5) Acute blood loss anemia (6) Constipation Post Admission Physician Asses Date seen by provider: May 31, 2019 Time seen by provider: 11:30 Admisison Dx: (1) Fracture of femur Status: Acute The preadmission screen agrees with the post admission assessment that the patient is a good candidate for inpatient rehabilitation. The patient will have a comprehensive program of inpatient rehabilitation with a goal of maximizing level of functional independence prior to discharge home with family. The patient will have PT/OT ninety minutes per day, each discipline, five days a week for gait, strengthening, conditioning, balance, ADLs, any patient/family/caregiver training as necessary. Speech therapy to do cognitive assessment and treat as indicated. Rehabilitation nursing to assist with bowel, bladder, skin, wound care, medication administration, pain management. Aviation Technician Aircraft to assist with discharge planning, community reentry. SCD's for DVT prophylaxis. He appears to be well motivated to participate in three hours of therapy a day. He should be able to tolerate three hours of therapy a day from a medical standpoint. He should benefit from the three hours of therapy a day. He has a reasonable discharge plan, reasonable discharge rehabilitation goals and a supportive family. He has various comorbidities that need to be closely monitored with medications and treatments adjusted on a daily basis as needed. These include: [] Barriers to discharge for this patient who had been independent prior to this are for him to be modified independent to supervision for ADLs and mobility skills prior to discharge home with family, so as to lessen the burden of the caregivers. Risks for this patient include: 1. Fall 2. Fracture 3. DVT 4. Pulmonary embolism 5. Wound infection 6. Skin breakdown 7. Contractures 8. Poorly controlled pain 9. Urinary retention 10. UTI 11. Respiratory infection 12. Aspiration see list Estimated Length of Stay: 7 days Prognosis: Rehab prognosis appears good for goal of discharge home with family modified independent to supervision for ADLs and mobility skills. BRIDGET CHRISTOPHER DO May 31, 2019 11:20
--- NOTE | 2019-05-31 11:30 | NUR ---
Pt admitted to room 233, with an admitting diagnosis of Lt femoral neck fx from 4th floor via w/c, accompanied by PT, TF. CATARINA FU introduced to surroundings, call light, bed controls, phone, TV, temperature control, lights, meal times, smoking policy, visitor policy, side rail policy, bathrooms and showers. Patient Rights provided to patient in the handbook. CATARINA FU acknowledges understanding that [facility] is not responsible for the loss or damage to any personal effects or valuables that are kept in the patients posession during their hospitalization. The following Patient Care Plans were discussed with the pt: Discharge Planning, Impaired Mobility, Self Care Deficit, Potential for Injury. CATARINA FU acknowledges understanding of Interdisciplinary Patient Education. Patient and/or family were informed about the Rapid Response Team and its purpose. Patient received Patient Rights Booklet, which includes Privacy Act Statement and Data Collection Information Summary. Pt working w PT immediately upon arrival to unit.
--- NOTE | 2019-05-31 11:46 | NUR ---
REVIEWED MED REC IT WAS REPORTED UPON ADMISSION TO 4TH FLOOR. NO CHANGES WERE MADE WHEN THE PATIENT DISCHARGED TO REHAB.
[2019-05-31 12:21] VITALS: BP 105/61
--- NOTE | 2019-05-31 13:07 | Physical Therapy Evaluation ---
PT Evaluation-General Medical Diagnosis Admission Date May 31, 2019 at 11:30 Medical Diagnosis: Left hip fx Onset Date: May 28, 2019 Therapy Diagnosis Therapy Diagnosis: abnormal gait Height/Weight Height (Feet): 5 Height (Inches): 10.00 Weight (Pounds): 183 Weight (Ounces): 0.7 Precautions Precautions/Isolations: Standard Precautions Weight Bear Status Right Lower Extremity: Right Full Weight Bearing Left Lower Extremity: Left Weight Bearing/Tolerated Referral Physician: Ashwin Reason for Referral: Evaluation/Treatment Medical History Pertinent Medical History: DM, Prostate CA Additional Medical History chronic back pain Current History Pt sustained a fall that resulted in a left hip fx; he is post hemiarthroplasty. 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 Patient completes activity by themselves 4 Supervision or touching assist (CGA). [place] provide cues , steadying isaac t 3 The helper provides less than half the effort to complete the activity 2 The helper provides more than half the effort to complete the activity 1 Dependent. The helper does all the effort to complete an activity 7 Patient refused to complete or attempt activity 9 The patient did not perform the activity before the current illness or injury 88 Not attempted due to Medical conditions or safety concerns Functional Abilities and Goals: Independent: Patient completed the activities by him/herself, with or without an assistive device, with no assistance from a helper. Needed Some Help: Patient needed partial assistance from another person to complete activities. Dependent: A helper completed the activities for the patient. Unknown: Not Applicable: Bed Mobility: 7 Transfers (B,C,W/C) (FIM): 7 Gait: 7 Stairs: 7 Indoor Mobility (Ambulation): Independent Stairs: Independent Pt is indep prior to this incident. 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 PT Evaluation-Current Subjective Agreeable to PT. No complaints. Pain Numeric Pain Scale: 0-No Pain Location: No Pain Reported Comment: Pt denies pain, reports he recently had pain meds Pt/Family Goals His goal is to return home as soon as he is able to care for himself Objective Patient Orientation: Person, Place, Time, Situation Problem Solving: Good ROM/Strength ROM Lower Extremities ROM is WFL; maintaining hip precautions left. Strenght Lower Extremities Right LE strength is WFL; left LE strength is grossly 3-/5 Integumentary/Posture Integumentary Refer to nursing notes. Bowel Incontinence: No Bladder Incontinence: No Posture normal and symmetrical Neuromuscular (Tone, Coordination, Reflexes) WFL Sensory Vision: Functional Hearing: Functional Hand Dominance: Right Sensation Right Lower Extremit: Intact Sensation Left Lower Extremity: Intact Transfers Therapy Code Descriptions/Definitions Functional [place] Measure: 0=Not Assessed/NA 4=Minimal Assistance 1=Total Assistance 5=Supervision or Setup 2=Maximal Assistance 6=Modified [place] 3=Moderate Assistance 7=Complete [place] Therapy Quality Codes: 6 Independent with activity with or without an assistive device 5 Patient requires set up or clean up by helper. Patient completes activity by themselves 4 Supervision or touching assist (CGA). [place] provide cues , steadying assist 3 The helper provides less than half the effort to complete the activity 2 The helper provides more than half the effort to complete the activity 1 Dependent. The helper does all the effort to complete an activity 7 Patient refused to complete or attempt activity 9 The patient did not perform the activity before the current illness or injury 88 Not attempted due to Medical conditions or safety concerns Transfers (B, C, W/C) (FIM): 3 Roll Left to Right (QC): 4 Supine to/from Sit: 4 Sit to/from Stand: 4 Sit to Lying (QC): 3 (assist to lift both legs into bed) Lying to Sitting/Side of Bed(Q: 4 Sit to Stand (QC): 4 Chair/Hgv-hd-Viktx Xfer(QC): 4 Car Transfer (QC): 3 skilled cues for sequence; assist with functional transfers due to left LE weakness. Gait Does the Patient Walk?: Yes Mode of Locomotion: Walk Anticipated Mode of Locomotion: Walk Gait (FIM): 4 Distance (FIM): 3=150 ft Walk 10 feet (QC): 4 Walk 50 ft with 2 Turns(QC): 4 Walk 150 ft (QC): 4 Walking 10ft/uneven surface-QC: 4 Gait Assistive Device: FWW Comments/Gait Description WBAT left LE; CGA for safety. Wheelchair Training Does the Pt Use a Wheelchair?: No Stairs Stairs (FIM): 1 #of Steps: 1 Level of Assist: 4 1 Step (curb) (QC): 4 (CGA and skilled cues for sequencing. ) 4 Steps (QC): 88 Assistive Device: Walker Balance Sitting Static: Good Sitting Dynamic: Good Standing Static: Fair Standing Dynamic: Fair Picking up an Object (QC): 88 Treatment Functional transfer and gait training with cues for sequencing. Reviewed hip precautions with an explanation as to why he has the precautions. Assessment/Needs Post fall tht resulted in a left hip fracture that has been repaired with a hemiarthroplasty. He presents with impaired functional strength and balance that limits safety and ability to transfer and ambulate. He will benefit from skilled PT to address these deficits and allow him to return to an indep level of mobiltiy as well as assist with the care of his . Rehab Potential: Good PT Short Term Goals Short Term Goals Time Frame: Jun 07, 2019 Transfers (B,C,W/C) (FIM): 5 Gait (FIM): 5 PT Otolaryngology Rep Goals Otolaryngology Rep Goals PT Otolaryngology Rep Goals Time Frame: Jun 14, 2019 Transfers (B,C,W/C) (FIM): 6 Sit to Lying (QC): 6 Lying-Sitting on Side/Bed(QC): 6 Sit to Stand (QC): 6 Roll Left to Right (QC): 6 Chair/Axs-wn-Uyojr Xfer(QC): 6 Car Transfer (QC): 6 Does the Patient Walk: Yes Gait (FIM): 6 Gait distance (FIM): 3=150 ft Walk 10 feet (QC): 6 Walk 10ft-Uneven Surface(QC): 6 Walk 50ft with 2 Turns (QC): 6 Walk 150 ft (QC): 6 Gait Assistive Device: FWW Stairs (FIM): 5 # of Steps: 4 1 Step (curb) (QC): 6 4 Steps (QC): 6 12 Steps (QC): 88 Picking up an Object (QC): 88 PT Plan Problem List Problem List: Activity Tolerance, Functional Strength, Safety, Balance, Gait, Transfer, Bed Mobility Treatment/Plan Treatment Plan: Continue Plan of Care Treatment Plan: Bed Mobility, Education, Functional Activity Elsi, Functional Strength, Group Therapy, Gait, Safety, Therapeutic Exercise, Transfers Treatment Duration: Jun 14, 2019 Frequency: At least 5 of 7 days/Wk (IRF) Estimated Hrs Per Day: 1.5 hours per day Patient and/or Family Agrees t: Yes Safety Risks/Education Patient Education: Gait Training, Transfer Techniques, Reviewed Precautions, Safety Issues Teaching Recipient: Patient Teaching Methods: Demonstration, Discussion Response to Teaching: Reinforcement Needed Discharge Recommendations Therapy D/C Recommendations: Physical Therapy Home Care Time/GCodes Time In: 1120 Time Out: 1200 Total Billed Treatment Time: 40 Total Billed Treatment visit EVM 15 FA 25 NEGRITO MOREIRA PT May 31, 2019 13:07
[2019-05-31] MEDS: LACTULOSE SYRUP 10GM/15ML (ENULOSE) 30ML UDC PO SCH ×2 (13:15→21:00)
--- NOTE | 2019-05-31 13:21 | NUR ---
Initial visit: pt's affiliation is [facility] in [place]. His , Sherrill, had her leg amputated last year. The pt shared how this and other health challenges have dramatically changed their life in the past year. Pt demonstrates positive attitude and expressed determination to return home as soon as possible to help his .
[2019-05-31] MEDS ORDERED: CATHETER FLUSH 10 ML SYR IV PRN (13:30)
[2019-05-31] MEDS ORDERED: oxyCODONE/APAP 5/325MG (PERCOCET 5) TABLET PO PRN (13:30)
[2019-05-31] MEDS ORDERED: MELATONIN 3 MG TABLET PO PRN (13:30)
[2019-05-31] MEDS ORDERED: GABAPENTIN 600 MG (NEURONTIN) TAB PO PRN (13:30)
--- NOTE | 2019-05-31 13:35 | Occupational Therapy Eval ---
OT Evaluation-General/PLF Medical Diagnosis Admission Date May 31, 2019 at 11:30 Medical Diagnosis: Left hip fx Onset Date: May 28, 2019 Therapy Diagnosis Therapy Diagnosis: Decreased ADL skills Height/Weight Height (Feet): 5 Height (Inches): 10.00 Weight (Pounds): 183 Weight (Ounces): 0.7 Precautions Precautions/Isolations: Standard Precautions Weight Bear Status Weight Bearing Restriction: Weight Bearing/Tolerated Referral Physician: Ashwin Referral Reason: Activity Tolerance, Self Care, Evaluation/Treatment, Strengthening/ROM Medical History Pertinent Medical History: DM, Prostate CA Current History Pt. fell at home and sustained a left hip fx. Received left total hip replacement. Reviewed History: Yes Social History Home: Single Level Current Living Status: Spouse Entry Into Home: Ramp, Stairs With Railing Pt. reports that his spouse is an amputee, and that the home is set up for her. ADL-Prior Level of Function Therapy Code Descriptions/Definitions Functional [place] Measure: 0=Not Assessed/NA 4=Minimal Assistance 1=Total Assistance 5=Supervision or Setup 2=Maximal Assistance 6=Modified [place] 3=Moderate Assistance 7=Complete [place] Therapy Quality Codes: 6 Independent with activity with or without an assistive device 5 Patient requires set up or clean up by helper. Patient completes activity by themselves 4 Supervision or touching assist (CGA). [place] provide cues , steadying assist 3 The helper provides less than half the effort to complete the activity 2 The helper provides more than half the effort to complete the activity 1 Dependent. The helper does all the effort to complete an activity 7 Patient refused to complete or attempt activity 9 The patient did not perform the activity before the current illness or in jury 88 Not attempted due to Medical conditions or safety concerns Functional Abilities and Goals: Independent: Patient completed the activities by him/herself, with or without an assistive device, with no assistance from a helper. Needed Some Help: Patient needed partial assistance from another person to complete activities. Dependent: A helper completed the activities for the patient. Unknown: Not Applicable: ADL PLOF Comments Pt. was independent with daily tasks and ADL skills. Self Care: Independent Functional Cognition: Independent DME/Equipment: Shower DME/Equipment Comments Pt. reports that he does not use a walker, but that he has many from his 's disability. Drive Self: Yes OT Current Status Subjective Pt. does not report pain. Appearance Pt. in bed. Agrees to work with OT. Mental Status/Objective Patient Orientation: Person, Place Current Hand Dominance: Right Upper Extremity ROM WFL ADL-Treatment Upper Body Dressing (FIM): 5 Upper Body Dressing (QC): 4 Lower Body Dressing (FIM): 2 Lower Body Dressing (QC): 2 On/Off Footwear (QC): 2 Transfers (B, C, W/C) (FIM): 4 (CGA sit-stand and ambulate with walker.) Other Treatments Pt. has limited time this a.m. and agrees to dress only. Will complete shower at later time. Requires max assist for LE dressing due to hip precautions. Pt. is fully educated in hip precautions, OT goals, and goals of rehab. Pt. verbalizes understanding. Ambulates with walker to therapy dining area with CGA. Transfers to chair to begin group with all needs met. Will educate pt. on AE at later time. Education OT Patient Education: Correct positioning, Modified ADL techniques, Progress toward Goal/Update tx plan, Purpose of tx/functional activities, Reviewed precautions, Rehab process, Transfer techniques Teaching Recipient: Patient Teaching Methods: Demonstration, Discussion Response to Teaching: Verbalize Understanding, Return Demonstration OT Short Term Goals Short Term Goals Time Frame: Jun 07, 2019 Eating(FIM): 5 Grooming(FIM): 5 Bathing(FIM): 4 Upper Body Dressing(FIM): 5 Lower Body Dressing(FIM): 4 Toileting(FIM): 4 Transfers (B,C,W/C) (FIM): 5 Toilet/Commode Transfer(FIM): 5 Shower Transfer(FIM): 4 Additional Short Term Goals: 1-Demonstrate ADL Tasks, 2-Verbalize Understanding, 3-ImproveStrength/Elsi 1=Demonstrate adherence to instructed precautions during ADL tasks. 2=Patient will verbalize/demonstrate understanding of assistive devices/modifications for ADL. 3=Patient will improve strength/tolerance for activity to enable patient to perform ADL's. OT Nursing Home Goals Strand Galvanizer Goals Time Frame: Jun 14, 2019 Eating (FIM): 6 Eating (QC): 6 Groomin Oral Hygiene (QC): 6 Bathing(FIM): 5 Shower/Bathe Self (QC): 4 Upper Body Dressing(FIM): 6 Upper Body Dressing (QC): 6 Lower Body Dressing(FIM): 6 Lower Body Dressing (QC): 6 On/Off Footwear (QC): 6 Toileting(FIM): 6 Toileting Hygiene (QC): 6 Transfers (B,C,W/C) (FIM): 6 Toilet/Commode Transfer(FIM): 6 Toilet/Commode Transfer (QC): 6 Shower Transfer(FIM): 5 Additional Goals: 1-Demonstrate ADL Tasks, 2-Verbalize Understanding, 3- ImproveStrength/Elsi 1=Demonstrate adherence to instructed precautions during ADL tasks. 2=Patient will verbalize/demonstrate understanding of assistive devices/modifications for ADL. 3=Patient will improve strength/tolerance for activity to enable patient to perform ADL's. OT Education/Plan Problem List/Assessment Assessment: Decreased Activ Tolerance, Decreased UE Strength, Dependent Transfers, Impaired Bed Mobility, Impaired Funct Balance, Impaired I ADL's, Impaired Self-Care Skills Discharge Recommendations Plan/Recommendations: Continue POC Therapy D/C Recommendations: Home w/ Family Support, Occupational Therapy Home Care Equpiment Recommendations-D/C: Extended Bath Bench, Hip Kit Treatment Plan/Plan of Care Treatment,Training & Education: Yes Patient would benefit from OT for education, treatment and training to promote independence in ADL's, mobility, safety and/or upper extremity function for ADL's. Plan of Care: ADL Retraining, Functional Mobility, Group Exercise/Act as Ind, UE Funct Exercise/Act Treatment Duration: Jun 14, 2019 Frequency: At least 5 of 7 days/Wk (IRF) Estimated Hrs Per Day: 1.5 hours per day Agreement: Yes Rehab Potential: Good Time/GCodes Start Time: 12:30 Stop Time: 13:00 Total Time Billed (hr/min): 30 Billed Treatment Time 1, EVM x 15minutes, ADL x 15minutes ELISE CARMEN OT May 31, 2019 13:35
[2019-05-31] MEDS: BISACODYL 10 MG SUPP (DULCOLAX) PR SCH ×2 (14:29→21:13)
--- NOTE | 2019-05-31 14:59 | Therapy Group Daily Note ---
Therapy Daily Group Note Patient Education Topic Other List Below (transfers) Exercises LE Seated Exercise, UE Exercise Session Ratio (pt:therapist): 4:1 Goal of Session: UE/LE Strengthing, Safety with Transfers Goal Met for this Session: Yes Pt Benefit of Group: Contributions to Others, Increased Functional Safety, Increased Functional Strength, Improved Cognition, Recognition of Peers, Socialization Other/Notes Pt ambulated to [facility] for OT/PT group. Group consisted of introductions (name, place living, first summer job), socialization, UE/LE seated exercises and safety in transfers. Pt introduced self appropriately and actively listened to peers. Pt able to complete UE/LE seated exercises without difficulty. Pt acknowledged understanding verbally of different techniques for safe transfers. After therapy, pt sitting in recliner with call light/phone in reach. All needs met in room. Start Time: 13:00 Stop Time: 14:15 Total Billed Treatment Time: 75 Total Billed Treatment 1-GRP NEGRITO VILLARREAL May 31, 2019 14:59
[2019-05-31 15:01] LABS: BASOPHILS % (AUTO) 0 % (0-10); EOSINOPHILS # (AUTO) 0.1 10^3/uL (0.0-0.3); EOSINOPHILS % (AUTO) 1 % (0-10); HEMATOCRIT 33 % (40-54); HEMOGLOBIN 10.8 G/DL (13.3-17.7); LYMPHOCYTES # (AUTO) 1.9 X 10^3 (1.0-4.0); LYMPHOCYTES % (AUTO) 16 % (12-44); MEAN CORPUSCULAR HEMOGLOBIN 31 PG (25-34); MEAN CORPUSCULAR HGB CONC 33 G/DL (32-36); MEAN CORPUSCULAR VOLUME 94 FL (80-99); MEAN PLATELET VOLUME 10.5 FL (7.4-10.4); MONOCYTES # (AUTO) 0.9 X 10^3 (0.0-1.0); MONOCYTES % (AUTO) 8 % (0-12); NEUTROPHILS # (AUTO) 8.6 X 10^3 (1.8-7.8); NEUTROPHILS % (AUTO) 75 % (42-75); PLATELET COUNT 166 10^3/uL (130-400); WHITE BLOOD COUNT 11.4 10^3/uL (4.3-11.0)
--- NOTE | 2019-05-31 15:19 | Physical Therapy Daily Note ---
PT Daily Note-Current Subjective Patient reports fatigue, however, agrees to PT. Pain Numeric Pain Scale: 7 Location: Left Location Body Site: Hip Pain Description: Acute Mental Status Patient Orientation: Normal For Age Transfers Therapy Code Descriptions/Definitions Functional [place] Measure: 0=Not Assessed/NA 4=Minimal Assistance 1=Total Assistance 5=Supervision or Setup 2=Maximal Assistance 6=Modified [place] 3=Moderate Assistance 7=Complete [place] Therapy Quality Codes: 6 Independent with activity with or without an assistive device 5 Patient requires set up or clean up by helper. Patient completes activity by themselves 4 Supervision or touching assist (CGA). [place] provide cues , steadying assist 3 The helper provides less than half the effort to complete the activity 2 The helper provides more than half the effort to complete the activity 1 Dependent. The helper does all the effort to complete an activity 7 Patient refused to complete or attempt activity 9 The patient did not perform the activity before the current illness or injury 88 Not attempted due to Medical conditions or safety concerns Transfers (B, C, W/C) (FIM): 5 Scootin Supine to/from Sit: 5 Sit to/from Stand: 5 Sit to Lying (QC): 5 Sit to Stand (QC): 5 Weight Bearing Right Lower Extremity: Right Full Weight Bearing Left Lower Extremity: Left Weight Bearing/Tolerated Gait Training Does the Patient Walk?: Yes Gait (FIM): 5 Distance (FIM): 3=150 ft Distance: 175' x 2 Walk 10 feet (QC): 5 Walk 50 ft with 2 Turns(QC): 5 Walk 150 ft (QC): 5 Gait Level of Assist: 5 Gait Assistive Device: FWW steady, antalgic gait/reciprocal pattern Exercises Seated Therapy Exercises: Ankle pumps, Long arc quads Seated Reps: 15 NuStep Minutes: 16 NuStep Workload: 5 Assessment Patient tolerated treatment well and is progressing with treatment plan. PT Short Term Goals Short Term Goals Transfers (B,C,W/C) (FIM): 5 PT Plan Treatment/Plan Treatment Plan: Continue Plan of Care Treatment Plan: Bed Mobility, Education, Functional Activity Elsi, Functional Strength, Group Therapy, Gait, Safety, Therapeutic Exercise, Transfers Treatment Duration: Jun 14, 2019 Frequency: At least 5 of 7 days/Wk (IRF) Estimated Hrs Per Day: 1.5 hours per day Patient and/or Family Agrees t: Yes Time/GCodes Time In: 1435 Time Out: 1510 Total Billed Treatment Time: 35 Total Billed Treatment 1 visit GT 15 min EX 20 min JAX RANDHAWA PT May 31, 2019 15:18
[2019-05-31 15:22] LABS: ALANINE AMINOTRANSFERASE 15 U/L (0-55); ALBUMIN 3.9 GM/DL (3.2-4.5); ALKALINE PHOSPHATASE 63 U/L (40-136); BILIRUBIN,TOTAL 0.8 MG/DL (0.1-1.0); BUN/CREATININE RATIO 19; CALCIUM 9.5 MG/DL (8.5-10.1); CARBON DIOXIDE 25 MMOL/L (21-32); CHLORIDE 101 MMOL/L (98-107); CREATININE SERUM 1.03 MG/DL (0.60-1.30); GFR ESTIMATED > 60; GLUCOSE 189 MG/DL (70-105); POTASSIUM 3.9 MMOL/L (3.6-5.0); SODIUM 136 MMOL/L (135-145); TOTAL PROTEIN 7.2 GM/DL (6.4-8.2)
--- NOTE | 2019-05-31 15:37 | Occupational Ther Daily Note ---
OT Current Status-Daily Note Subjective No pain reported. Appearance Pt. up in chair in gym, after PT treatment. Agrees to work with OT. Mental Status/Objective Patient Orientation: Person, Place, Time, Situation Therapy Code Descriptions/Definitions Functional [place] Measure: 0=Not Assessed/NA 4=Minimal Assistance 1=Total Assistance 5=Supervision or Setup 2=Maximal Assistance 6=Modified [place] 3=Moderate Assistance 7=Complete [place] ADL-Treatment Therapy Code Descriptions/Definitions Functional [place] Measure: 0=Not Assessed/NA 4=Minimal Assistance 1=Total Assistance 5=Supervision or Setup 2=Maximal Assistance 6=Modified [place] 3=Moderate Assistance 7=Complete [place] Therapy Quality Codes: 6 Independent with activity with or without an assistive device 5 Patient requires set up or clean up by helper. Patient completes activity by themselves 4 Supervision or touching assist (CGA). [place] provide cues , steadying assi st 3 The helper provides less than half the effort to complete the activity 2 The helper provides more than half the effort to complete the activity 1 Dependent. The helper does all the effort to complete an activity 7 Patient refused to complete or attempt activity 9 The patient did not perform the activity before the current illness or injury 88 Not attempted due to Medical conditions or safety concerns Lower Body Dressing (FIM): 4 Lower Body Dressing (QC): 4 On/Off Footwear (QC): 4 Other Treatment Pt. educated again on hip precautions. Pt. able to verbalize them. Pt. issued and educated on AE. Pt. practiced doffing/donning slipper socks using Dressing stick and sock aide. Tolerated this well. Ambulated back to room with CGA. Transferred to bed with min assist for left LE support. All needs met in room. Education OT Patient Education: Correct positioning, Modified ADL techniques, Progress toward Goal/Update tx plan, Purpose of tx/functional activities, Reviewed precautions, Rehab process, Transfer techniques, Use of adapted equipment Teaching Recipient: Patient Teaching Methods: Demonstration, Discussion Response to Teaching: Verbalize Understanding, Return Demonstration OT Short Term Goals Short Term Goals Time Frame: Jun 07, 2019 Eating(FIM): 5 Grooming(FIM): 5 Bathing(FIM): 4 Upper Body Dressing(FIM): 5 Lower Body Dressing(FIM): 4 Toileting(FIM): 4 Transfers (B,C,W/C) (FIM): 5 Toilet/Commode Transfer(FIM): 5 Shower Transfer(FIM): 4 Additional Short Term Goals: 1-Demonstrate ADL Tasks, 2-Verbalize Understanding, 3-ImproveStrength/Elsi 1=Demonstrate adherence to instructed precautions during ADL tasks. 2=Patient will verbalize/demonstrate understanding of assistive devices/modifications for ADL. 3=Patient will improve strength/tolerance for activity to enable patient to perform ADL's. OT Chief Telephone Operator Goals Chief Telephone Operator Goals Time Frame: Jun 14, 2019 Eating (FIM): 6 Eating (QC): 6 Groomin Oral Hygiene (QC): 6 Bathing(FIM): 5 Shower/Bathe Self (QC): 4 Upper Body Dressing(FIM): 6 Upper Body Dressing (QC): 6 Lower Body Dressing(FIM): 6 Lower Body Dressing (QC): 6 On/Off Footwear (QC): 6 Toileting(FIM): 6 Toileting Hygiene (QC): 6 Transfers (B,C,W/C) (FIM): 6 Toilet/Commode Transfer(FIM): 6 Toilet/Commode Transfer (QC): 6 Shower Transfer(FIM): 5 Additional Goals: 1-Demonstrate ADL Tasks, 2-Verbalize Understanding, 3- ImproveStrength/Elsi 1=Demonstrate adherence to instructed precautions during ADL tasks. 2=Patient will verbalize/demonstrate understanding of assistive devices/modifications for ADL. 3=Patient will improve strength/tolerance for activity to enable patient to perform ADL's. OT Education/Plan Problem List/Assessment Assessment: Decreased Activ Tolerance, Dependent Transfers, Impaired Bed Mobility, Impaired I ADL's, Impaired Self-Care Skills Discharge Recommendations Plan/Recommendations: Continue POC Therapy D/C Recommendations: Home w/ Family Support, Occupational Therapy Home Care Equpiment Recommendations-D/C: Extended Bath Bench, Hip Kit Treatment Plan/Plan of Care Treatment,Training & Education: Yes Patient would benefit from OT for education, treatment and training to promote independence in ADL's, mobility, safety and/or upper extremity function for ADL's. Plan of Care: ADL Retraining, Functional Mobility, Group Exercise/Act as Ind, UE Funct Exercise/Act Treatment Duration: Jun 14, 2019 Frequency: At least 5 of 7 days/Wk (IRF) Estimated Hrs Per Day: 1.5 hours per day Agreement: Yes Rehab Potential: Good Time/GCodes Start Time: 15:10 Stop Time: 15:30 Total Time Billed (hr/min): 20 Billed Treatment Time 1, ADL ELISE CARMEN OT May 31, 2019 15:37
[2019-05-31 16:21] VITALS: BP 118/70
[2019-05-31] MEDS: CELECOXIB 100 MG (CeleBREX) CAP PO SCH (17:01)
[2019-05-31] MEDS: metFORMIN 500 MG (GLUCOPHAGE) TAB PO SCH (17:01)
[2019-05-31] MEDS: VENlafaxine 75 MG (EFFEXOR) TAB PO SCH (17:01)
[2019-05-31] MEDS: inSUlin ASPART (NovoLOG) 1 UNIT/0.01 ML (CHARGE PER UNIT) SC SCH ×2 (17:02→21:13)
--- NOTE | 2019-05-31 17:14 | NUR ---
TRACK PRODUCTION ENGINEER met with patient to complete initial assessment. Patient was alert and oriented and agreeable to assessment. Patient admitted to ARU from internally with a left femoral neck fracture after sustaining a fall. Prior to hospitalization patient and spouse, Sherrill resided in a multilevel home in [place], [place]. However due to patient's 's recent leg amputation, the home is equipped with a ramp at the entrance and handicap accessible. Prior to fracture patient was independent with all ADLs and ambulation, he continues to drive and is active in the community. Patient does however possess a cane, walker and grab bars. PCP identified as Dr. Trevor Ann. Primary and only contact identified as , Sherrill at [phone]. Insurance verified as Medicare and [employer] with prescription coverage. Patient's preferred pharmacy is [facility]. TRACK PRODUCTION ENGINEER reviewed typical ARU length of stay and weekly team conferences. Patient expresses no concerns or questions at this time. TRACK PRODUCTION ENGINEER will continue to follow.
[2019-05-31] MEDS: MELATONIN 3 MG TABLET PO PRN (20:25)
[2019-05-31] MEDS: ALLOPURINOL 300 MG (ZYLOPRIM) TAB PO SCH (20:25)
[2019-05-31] MEDS: SIMvastatin 20 MG (ZOCOR) TAB PO SCH (20:25)
[2019-05-31] MEDS: POLYETHYLENE GLYCOL 17 GM (MIRALAX) PACK PO SCH (20:25)
[2019-05-31] MEDS: SENNA W/DOCUSATE (SENOKOT S) TABLET PO SCH (20:25)
[2019-05-31] MEDS: GABAPENTIN 600 MG (NEURONTIN) TAB PO SCH (20:30)
[2019-05-31] MEDS ORDERED: NON-FORMULARY MEDICATION 1 EA EA (Metformin HCl 1,000 MG) PO SCH (21:00)
[2019-05-31] MEDS ORDERED: NON-FORMULARY MEDICATION 1 EA EA (Allopurinol 300 MG) PO SCH (21:00)
[2019-05-31] MEDS: ENOXAPARIN 40 MG/0.4 ML (LOVENOX) SYR SC SCH (21:30)
--- OUTSIDE RECORDS SUMMARY | 2019-06-01 01:14 | XMS REPORT | Continuity of Care Document ---
Author Organization Unknown Address Unknown Allergies Active Description Code Type Severity Reaction Onset Reported/Identified Relationship to Patient Clinical Status Yes No Known Drug Allergies [id number] Drug Allergy Unknown N/A 02/20/2015 Medications There [...] 07/11/2016 BRIGIDABRIJESH BETANCOURT N Ot Z79.899 OTHER [employer] (CURRENT) DRUG THERAPY 07/30/2016 BRIGIDABRIJESH BETANCOURT N Ot C61 MALIGNANT NEOPLASM OF PROSTATE 07/30/2016 BRIGIDABRIJESH N Ot E11.9 TYPE 2 DIABETES MELLITUS WITHOUT COMPLIC 07/30/2016 BRIGIDABRIJESH BETANCOURT N Ot E78.0 PURE HYPERCHOLESTEROLEMIA 07/30/2016 BRIGIDABRIJESH BETANCOURT N Ot G62.9 POLYNEUROPATHY, UNSPECIFIED 07/30/2016 BRIGIDABRIJESH N Ot M81.8 OTHER OSTEOPOROSIS WITHOUT CURRENT PATHO 07/30/2016 BRIGIDABRJIESH N Ot Z79.899 OTHER ASSISTED (CURRENT) DRUG THERAPY 08/02/2016 BRIJESH ALLRED N Ot C61 MALIGNANT NEOPLASM OF PROSTATE 08/02/2016 BRIGIDABRIJESH N Ot E11.9 TYPE 2 DIABETES MELLITUS WITHOUT COMPLIC 08/02/2016 BRIGIDABRIJESH BETANCOURT N Ot E78.0 PURE HYPERCHOLESTEROLEMIA 08/02/2016 BRIGIDABRIJESH BETANCOURT N Ot G62.9 POLYNEUROPATHY, UNSPECIFIED 08/02/2016 BRIGIDABRIJESH N Ot M81.8 OTHER OSTEOPOROSIS WITHOUT CURRENT PATHO 08/02/2016 BRIGIDA BRIJESH N Ot Z79.899 OTHER ASSISTED (CURRENT) DRUG THERAPY 02/26/2017 BRIJESH ALLRED N Ot C61 MALIGNANT NEOPLASM OF PROSTATE 02/26/2017 BRIGIDABRIJESH N Ot E11.9 TYPE 2 DIABETES MELLITUS WITHOUT COMPLIC 02/26/2017 BRIGIDAMAGYDANTE N Ot M81.8 OTHER OSTEOPOROSIS WITHOUT CURRENT PATHO 02/26/2017 BRIGIDABRIJESH N Ot Z79.899 OTHER [employer] (CURRENT) DRUG THERAPY 02/26/2017 BRIJESH ALLRED N Ot C61 MALIGNANT NEOPLASM OF PROSTATE 02/26/2017 BRIGIDABRIJESH N Ot E11.9 TYPE 2 DIABETES MELLITUS WITHOUT COMPLIC 02/26/2017 BRIGIDABRIJESH N Ot M81.8 OTHER OSTEOPOROSIS WITHOUT CURRENT PATHO 02/26/2017 BRIJESH ALLRED N Ot Z79.899 OTHER ASSISTED (CURRENT) DRUG THERAPY 03/21/2017 BRIGIDABRIJESH N Ot C61 MALIGNANT NEOPLASM OF PROSTATE 03/21/2017 BRIGIDA BOBDANTE N Ot E11.9 TYPE 2 DIABETES MELLITUS WITHOUT COMPLIC 03/21/2017 BRIGIDABRIJESH N Ot M81.8 OTHER OSTEOPOROSIS WITHOUT CURRENT PATHO 03/21/2017 BRIGIDABRIJESH N Ot Z79.899 OTHER [employer] (CURRENT) DRUG THERAPY 03/26/2017 BRIGIDABRIJESH N Ot C61 MALIGNANT NEOPLASM OF PROSTATE 03/26/2017 BRIGIDABRIJESH N Ot E11.9 TYPE 2 DIABETES MELLITUS WITHOUT COMPLIC 03/26/2017 RBIGIDA BOBDANTE N Ot M81.8 OTHER OSTEOPOROSIS WITHOUT CURRENT PATHO 03/26/2017 BRIGIDA BOBDANTE N Ot Z79.899 OTHER ASSISTED (CURRENT) DRUG THERAPY 09/08/2017 BRIGIDABRIJESH BETANCOURT N Ot C61 MALIGNANT NEOPLASM OF PROSTATE 09/08/2017 BRIGIDA BOBDANTE N Ot 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 09/08/2017 BRIGIDA BOBAN N Ot E78.00 PURE HYPERCHOLESTEROLEMIA, UNSPECIFIED 09/08/2017 BRIGIDA BOBDANTE N Ot M81.8 OTHER OSTEOPOROSIS WITHOUT CURRENT PATHO 09/08/2017 BRIGIDA BOBDANTE N Ot R23.2 FLUSHING 09/08/2017 BRIGIDA BOBAN N Ot Z79.84 ASSISTED (CURRENT) USE OF ORAL HYPOGLYC 09/08/2017 BRIGIDA, BOBAN N Ot Z79.899 OTHER [employer] (CURRENT) DRUG THERAPY 09/25/2017 BRIGIDABRIJESH N Ot C61 MALIGNANT NEOPLASM OF PROSTATE 09/25/2017 BRIGIDA BOBAN N Ot 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 09/25/2017 BRIGIDA, BOBAN N Ot E78.00 PURE HYPERCHOLESTEROLEMIA, UNSPECIFIED 09/25/2017 BRIGIDA BOBAN N Ot M81.8 OTHER OSTEOPOROSIS WITHOUT CURRENT PATHO 09/25/2017 BRIGIDA, BOBAN N Ot R23.2 FLUSHING 09/25/2017 BRIGIDA BOBAN N Ot Z79.84 [employer] (CURRENT) USE OF ORAL HYPOGLYC 09/25/2017 BRIGIDA BOBAN N Ot Z79.899 OTHER ASSISTED (CURRENT) DRUG THERAPY 10/01/2017 BRIJESH ALLRED N Ot C61 MALIGNANT NEOPLASM OF PROSTATE 10/01/2017 BRIGIDABRIJESH N Ot 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 10/01/2017 BRIGIDA BOBAN N Ot E78.00 PURE HYPERCHOLESTEROLEMIA, UNSPECIFIED 10/01/2017 BRIGIDA BOBAN N Ot M81.8 OTHER OSTEOPOROSIS WITHOUT CURRENT PATHO 10/01/2017 BRIGIDA BOBDANTE N Ot R23.2 FLUSHING 10/01/2017 BRIGIDA BOBAN N Ot Z79.84 ASSISTED (CURRENT) USE OF ORAL HYPOGLYC 10/01/2017 BRIGIDA BOBAN N Ot Z79.899 OTHER ASSISTED (CURRENT) DRUG THERAPY 03/25/2018 BRIGIDABRIJESH BETANCOURT N Ot C61 MALIGNANT NEOPLASM OF PROSTATE 03/25/2018 BRIGIDA BOBAN N Ot 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 03/25/2018 BRIGIDA BOBAN N Ot E78.00 PURE HYPERCHOLESTEROLEMIA, UNSPECIFIED 03/25/2018 BRIGIDA BOBAN N Ot M81.8 OTHER OSTEOPOROSIS WITHOUT CURRENT PATHO 03/25/2018 BRIGIDA, BOBAN N Ot R23.2 FLUSHING 03/25/2018 BRIGIDA, BOBAN N Ot Z79.84 [employer] (CURRENT) USE OF ORAL HYPOGLYC 03/25/2018 BRIGIDA, BOBAN N Ot Z79.899 OTHER [employer] (CURRENT) DRUG THERAPY 03/25/2018 BRIJESH ALLRED N Ot C61 MALIGNANT NEOPLASM OF PROSTATE 03/25/2018 BRIGIDA BOBAN N Ot 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 03/25/2018 BRIGIDA BOBAN N Ot E78.00 PURE HYPERCHOLESTEROLEMIA, UNSPECIFIED 03/25/2018 BRIGIDA BOBAN N Ot M81.8 OTHER OSTEOPOROSIS WITHOUT CURRENT PATHO 03/25/2018 BRIGIDA BOBAN N Ot R23.2 FLUSHING 03/25/2018 BRIGIDA BOBAN N Ot Z79.84 ASSISTED (CURRENT) USE OF ORAL HYPOGLYC 03/25/2018 BRIGIDA, BOBAN N Ot Z79.899 OTHER [employer] (CURRENT) DRUG THERAPY 05/25/2018 BRIGIDA, BOBAN N Ot C61 MALIGNANT NEOPLASM OF PROSTATE 05/25/2018 BRIGIDA BOBAN N Ot 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 05/25/2018 BRIJESH ALLRED N Ot E78.00 PURE HYPERCHOLESTEROLEMIA, UNSPECIFIED 05/25/2018 BRIGIDABRIJESH BETANCOURT N Ot M81.8 OTHER OSTEOPOROSIS WITHOUT CURRENT PATHO 05/25/2018 BRIGIDABRIJESH N Ot R23.2 FLUSHING 05/25/2018 BRIJESH ALLRED N Ot Z79.84 ASSISTED (CURRENT) USE OF ORAL HYPOGLYC 05/25/2018 BRIJESH ALLRED N Ot Z79.899 OTHER ASSISTED (CURRENT) DRUG THERAPY 05/26/2018 BRIJESH ALLRED N Ot C61 MALIGNANT NEOPLASM OF PROSTATE 05/26/2018 BRIJESH ALLRED N Ot 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 05/26/2018 BRIJESH ALLRED N Ot E78.00 PURE HYPERCHOLESTEROLEMIA, UNSPECIFIED 05/26/2018 BRIGIDABRIJESH BETANCOURT N Ot M81.8 OTHER OSTEOPOROSIS WITHOUT CURRENT PATHO 05/26/2018 BRIJESH ALLRED N Ot R23.2 FLUSHING 05/26/2018 BRIJESH ALLRED N Ot Z79.84 ASSISTED (CURRENT) USE OF ORAL HYPOGLYC 05/26/2018 BRIJESH ALLRED N Ot Z79.899 OTHER [employer] (CURRENT) DRUG THERAPY 08/11/2018 BRIGIDA BOBAN N [...] 08/11/2018 BRIGIDA, BOBAN N Ot Z79.899 OTHER ASSISTED (CURRENT) DRUG THERAPY 08/11/2018 BRIGIDA, BOBAN N Ot C61 MALIGNANT NEOPLASM OF PROSTATE 08/11/2018 BRIGIDA, BOBAN N Ot E11.9 TYPE 2 DIABETES MELLITUS WITHOUT COMPLIC 08/11/2018 BRIGIDA, BOBAN N Ot Z79.899 OTHER [employer] (CURRENT) DRUG THERAPY 08/11/2018 BRIGIDA, BOBAN N Ot C61 MALIGNANT NEOPLASM OF PROSTATE 08/11/2018 BRIGIDA, BOBAN N Ot E11.9 TYPE 2 DIABETES MELLITUS WITHOUT COMPLIC 08/11/2018 BRIGIDA, BOBAN N Ot E78.0 PURE HYPERCHOLESTEROLEMIA 08/11/2018 BRIGIDA, BOBAN N Ot G62.9 POLYNEUROPATHY, UNSPECIFIED 08/11/2018 BRIGIDA, BOBAN N Ot M81.8 OTHER OSTEOPOROSIS WITHOUT CURRENT PATHO 08/11/2018 BRIGIDA, BOBAN N Ot Z79.899 OTHER [employer] (CURRENT) DRUG THERAPY 08/11/2018 BRIGIDA, BOBAN N Ot C61 MALIGNANT NEOPLASM OF PROSTATE 08/11/2018 BRIGIDA, BOBAN N Ot E11.9 TYPE 2 DIABETES MELLITUS WITHOUT COMPLIC 08/11/2018 BRIGIDA, BOBAN N Ot M81.8 OTHER OSTEOPOROSIS WITHOUT CURRENT PATHO 08/11/2018 BRIGIDA, BOBAN N Ot Z79.899 OTHER [employer] (CURRENT) DRUG THERAPY 08/11/2018 BRIGIDA, BOBAN N Ot C61 MALIGNANT NEOPLASM OF PROSTATE 08/11/2018 BRIGIDA, BOBAN N Ot 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 08/11/2018 BRIGIDA, BOBAN N Ot E78.00 PURE HYPERCHOLESTEROLEMIA, UNSPECIFIED 08/11/2018 BRIGIDAMAGY BETANCOURTAN N Ot M81.8 OTHER OSTEOPOROSIS WITHOUT CURRENT PATHO 08/11/2018 BRIGIDABRIJESH N Ot R23.2 FLUSHING 08/11/2018 BRIGIDA, BRIJESH N Ot Z79.84 [employer] (CURRENT) USE OF ORAL HYPOGLYC 08/11/2018 BRIGIDAMAGYAN N Ot Z79.899 OTHER [employer] (CURRENT) DRUG THERAPY 08/12/2018 BRIGIDABRIJESH BETANCOURT N [...] 08/12/2018 BRIJESH ALLRED N Ot Z79.899 OTHER [employer] (CURRENT) DRUG THERAPY 08/12/2018 BRIJESH ALLRED N Ot C61 MALIGNANT NEOPLASM OF PROSTATE 08/12/2018 BRIGIDABRIJESH N Ot E11.9 TYPE 2 DIABETES MELLITUS WITHOUT COMPLIC 08/12/2018 BRIGIDABRIJESH N Ot Z79.899 OTHER [employer] (CURRENT) DRUG THERAPY 08/12/2018 BRIJESH ALLRED N Ot C61 MALIGNANT NEOPLASM OF PROSTATE 08/12/2018 BRIGIDABRIJESH N Ot E11.9 TYPE 2 DIABETES MELLITUS WITHOUT COMPLIC 08/12/2018 BRIGIDABRIJESH N Ot E78.0 PURE HYPERCHOLESTEROLEMIA 08/12/2018 BRIGIDABRIJESH N Ot G62.9 POLYNEUROPATHY, UNSPECIFIED 08/12/2018 BRIGIDABRIJESH N Ot M81.8 OTHER OSTEOPOROSIS WITHOUT CURRENT PATHO 08/12/2018 BRIJESH ALLRED N Ot Z79.899 OTHER ASSISTED (CURRENT) DRUG THERAPY 08/12/2018 BRIJESH ALLRED N Ot C61 MALIGNANT NEOPLASM OF PROSTATE 08/12/2018 BRIJESH ALLRED N Ot E11.9 TYPE 2 DIABETES MELLITUS WITHOUT COMPLIC 08/12/2018 BRIJESH ALLRED N Ot M81.8 OTHER OSTEOPOROSIS WITHOUT CURRENT PATHO 08/12/2018 BRIJESH ALLRED N Ot Z79.899 OTHER ASSISTED (CURRENT) DRUG THERAPY 08/12/2018 BRIJESH ALLRED N Ot C61 MALIGNANT NEOPLASM OF PROSTATE 08/12/2018 BRIJESH ALLRED N Ot 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 08/12/2018 BRIJESH ALLRED N Ot E78.00 PURE HYPERCHOLESTEROLEMIA, UNSPECIFIED 08/12/2018 BRIJESH ALLRED N Ot M81.8 OTHER OSTEOPOROSIS WITHOUT CURRENT PATHO 08/12/2018 BRIJESH ALLRED N Ot R23.2 FLUSHING 08/12/2018 BRIJESH ALLRED N Ot Z79.84 [employer] (CURRENT) USE OF ORAL HYPOGLYC 08/12/2018 BRIGIDA BOBAN N Ot Z79.899 OTHER ASSISTED (CURRENT) DRUG THERAPY 08/30/2018 TARUN MATT MD, Ot C61 MALIGNANT NEOPLASM OF PROSTATE 08/30/2018 TARUN MATT MD Ot E11.40 TYPE 2 DIABETES MELLITUS WITH DIABETIC N 08/30/2018 TARUN MATT MD, Ot E78.00 PURE HYPERCHOLESTEROLEMIA, UNSPECIFIED 08/30/2018 TARUN MATT MD, Ot 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 08/30/2018 TARUN MATT MD Ot Z51.11 ENCOUNTER FOR ANTINEOPLASTIC CHEMOTHERAP 08/30/2018 TARUN MATT MD, Ot Z79.84 ASSISTED (CURRENT) USE OF ORAL HYPOGLYC 08/30/2018 TARUN MATT MD Ot Z79.899 OTHER ASSISTED (CURRENT) DRUG THERAPY 09/02/2018 TARUN MATT MD, [...] CHEMOTHERAP 09/02/2018 TARUN MATT MD, Ot Z79.84 [employer] (CURRENT) USE OF ORAL HYPOGLYC 09/02/2018 TARUN MATT MD, Ot Z79.899 OTHER ASSISTED (CURRENT) DRUG THERAPY 03/24/2019 BRIGIDA, BRIJESH N Ot C61 MALIGNANT NEOPLASM OF PROSTATE 03/24/2019 BRIGIDA, BOBAN N Ot 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 03/24/2019 BRIGIDA BOBAN N Ot E78.00 PURE HYPERCHOLESTEROLEMIA, UNSPECIFIED 03/24/2019 BRIGIDA BOBAN N Ot M81.8 OTHER OSTEOPOROSIS WITHOUT CURRENT PATHO 03/24/2019 BRIJESH ALLRED N Ot Z79.84 [employer] (CURRENT) USE OF ORAL HYPOGLYC 03/24/2019 BRIJESH ALLRED N Ot Z79.899 OTHER ASSISTED (CURRENT) DRUG THERAPY 03/31/2019 BRIGIDA BOBDANTE N Ot C61 MALIGNANT NEOPLASM OF PROSTATE 03/31/2019 BRIGIDA BOBAN N Ot 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 03/31/2019 BRIGIDA BOBAN N Ot E78.00 PURE HYPERCHOLESTEROLEMIA, UNSPECIFIED 03/31/2019 BRIGIDA, BOBAN N Ot M81.8 OTHER OSTEOPOROSIS WITHOUT CURRENT PATHO 03/31/2019 BRIJESH ALLRED N Ot Z79.84 [employer] (CURRENT) USE OF ORAL HYPOGLYC 03/31/2019 BRIJESH ALLRED N Ot Z79.899 OTHER [employer] (CURRENT) DRUG THERAPY 04/08/2019 BRIGIDA, BRIJESH N Ot C61 MALIGNANT NEOPLASM OF PROSTATE 04/08/2019 BRIGIDA, BRIJESH N Ot E11.9 TYPE 2 DIABETES MELLITUS WITHOUT COMPLIC 04/08/2019 MAGY ALLREDDANTE N Ot Z79.899 OTHER ASSISTED (CURRENT) DRUG THERAPY 04/22/2019 BRIGIDA BRIJESH N [...] BRIGIDA BRIJESH N Ot 782.62 FLUSHING 04/22/2019 BRGIIDA BRIJESH N Ot V58.69 OTH MED,LT,CURRENT USE 04/22/2019 BRIGIDA BRIJESH N Ot C61 MALIGNANT NEOPLASM OF PROSTATE 04/22/2019 BRIGIDA BRIJESH N Ot E11.9 TYPE 2 DIABETES MELLITUS WITHOUT COMPLIC 04/22/2019 BRIGIDABRIJESH N Ot E78.0 PURE HYPERCHOLESTEROLEMIA 04/22/2019 BRIGIDAMAGYAN N Ot G62.9 POLYNEUROPATHY, UNSPECIFIED 04/22/2019 BRIGIDAMAGYAN N Ot M81.8 OTHER OSTEOPOROSIS WITHOUT CURRENT PATHO 04/22/2019 BRIGIDA BRIJESH N Ot Z79.899 OTHER [employer] (CURRENT) DRUG THERAPY 04/22/2019 BRIGIDABRIJESH N Ot C61 MALIGNANT NEOPLASM OF PROSTATE 04/22/2019 BRIJESH ALLRED N Ot E11.9 TYPE 2 DIABETES MELLITUS WITHOUT COMPLIC 04/22/2019 BRIJESH ALLRED N Ot Z79.899 OTHER ASSISTED (CURRENT) DRUG THERAPY 04/22/2019 BRIJESH ALLRED N Ot C61 MALIGNANT NEOPLASM OF PROSTATE 04/22/2019 BRIJESH ALLRED N Ot E11.9 TYPE 2 DIABETES MELLITUS WITHOUT COMPLIC 04/22/2019 BRIGIDA BRIJESH N Ot E78.0 PURE HYPERCHOLESTEROLEMIA 04/22/2019 BRIGIDA BRIJESH N Ot G62.9 POLYNEUROPATHY, UNSPECIFIED 04/22/2019 BRIGIDA, BRIJESH N Ot M81.8 OTHER OSTEOPOROSIS WITHOUT CURRENT PATHO 04/22/2019 BRIGIDA BRIJESH N Ot Z79.899 OTHER [employer] (CURRENT) DRUG THERAPY 04/22/2019 BRIJESH ALLRED N Ot C61 MALIGNANT NEOPLASM OF PROSTATE 04/22/2019 BRIJESH ALLRED N Ot E11.9 TYPE 2 DIABETES MELLITUS WITHOUT COMPLIC 04/22/2019 BRIGIDABRIJESH N Ot M81.8 OTHER OSTEOPOROSIS WITHOUT CURRENT PATHO 04/22/2019 BRIGIDA MAGYDANTE N Ot Z79.899 OTHER [employer] (CURRENT) DRUG THERAPY 04/22/2019 BRIJESH ALLRED N Ot C61 MALIGNANT NEOPLASM OF PROSTATE 04/22/2019 BRIGIDA MAGYDANTE N Ot 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 04/22/2019 BRIJESH ALLRED N Ot E78.00 PURE HYPERCHOLESTEROLEMIA, UNSPECIFIED 04/22/2019 BRIGIDA MAGYDANTE N Ot M81.8 OTHER OSTEOPOROSIS WITHOUT CURRENT PATHO 04/22/2019 BRIGIDABRIJESH N Ot R23.2 FLUSHING 04/22/2019 BRIGIDABRIJESH N Ot Z79.84 ASSISTED (CURRENT) USE OF ORAL HYPOGLYC 04/22/2019 BRIGIDA BRIJESH N Ot Z79.899 OTHER [employer] (CURRENT) DRUG THERAPY 04/22/2019 BRIGIDA MAGYDANTE N Ot C61 MALIGNANT NEOPLASM OF PROSTATE 04/22/2019 BRIGIDA BRIJESH N Ot 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 04/22/2019 BRIGIDA MAGYDANTE N Ot E78.00 PURE HYPERCHOLESTEROLEMIA, UNSPECIFIED 04/22/2019 BRIGIDABRIJESH N Ot M81.8 OTHER OSTEOPOROSIS WITHOUT CURRENT PATHO 04/22/2019 BRIJESH ALLRED Ot Z79.84 [employer] (CURRENT) USE OF ORAL HYPOGLYC 04/22/2019 BRIJESH ALLRED Ot Z79.899 OTHER ASSISTED (CURRENT) DRUG THERAPY 05/12/2019 BRIJESH ALLRED Ot C61 MALIGNANT NEOPLASM OF PROSTATE 05/12/2019 BRIJESH ALLRED N Ot 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 05/12/2019 BRIJESH ALLRED Ot E78.00 PURE HYPERCHOLESTEROLEMIA, UNSPECIFIED 05/12/2019 BRIJESH ALLRED N Ot M81.8 OTHER OSTEOPOROSIS WITHOUT CURRENT PATHO 05/12/2019 BRIJESH ALLRED N Ot Z79.84 ASSISTED (CURRENT) USE OF ORAL HYPOGLYC 05/12/2019 BRIJESH ALLRED Ot Z79.899 OTHER ASSISTED (CURRENT) DRUG THERAPY 05/13/2019 BRIJESH ALLRED Ot C61 MALIGNANT NEOPLASM OF PROSTATE 05/13/2019 BRIJESH ALLRED N Ot 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 Results Test Result Range Complete blood count (CBC) with automated white blood cell (WBC) differential - 05/28/19 18:06 Blood leukocytes automated count (number/volume) 7.6 10*3/uL 4.3-11.0 Blood erythrocytes automated count (number/volume) 4.01 10*6/uL 4.35-5.85 Venous blood hemoglobin measurement (mass/volume) 12.5 g/dL 13.3-17.7 Blood hematocrit (volume fraction) 37 % 40-54 Automated erythrocyte mean corpuscular volume 93 [foz_us] 80-99 Automated erythrocyte mean corpuscular hemoglobin (mass per erythrocyte) 31 pg 25-34 Automated erythrocyte mean corpuscular hemoglobin concentration measurement (mass/volume) 33 g/dL 32-36 Automated erythrocyte distribution width ratio 13.5 % 10.0- 14.5 Automated blood platelet count (count/volume) 186 10*3/uL 130-400 Automated blood platelet mean volume measurement 10.5 [foz_us] 7.4-10.4 Automated blood neutrophils/100 leukocytes 72 % 42-75 Automated blood lymphocytes/100 leukocytes 19 % 12-44 Blood monocytes/100 leukocytes 7 % 0-12 Automated blood eosinophils/100 leukocytes 2 % 0-10 Automated blood basophils/100 leukocytes 0 % 0-10 Blood neutrophils automated count (number/volume) 5.4 10*3 1.8-7.8 Blood lymphocytes automated count (number/volume) 1.4 10*3 1.0-4.0 Blood monocytes automated count (number/volume) 0.5 10*3 0.0- 1.0 Automated eosinophil count 0.1 10*3/uL 0.0-0.3 Automated blood basophil count (count/volume) 0.0 10*3/uL 0.0-0.1 Comprehensive metabolic panel - 05/28/19 18:06 Serum or plasma sodium measurement (moles/volume) 138 mmol/L 135-145 Serum or plasma potassium measurement (moles/volume) 4.4 mmol/L 3.6-5.0 Serum or plasma chloride measurement (moles/volume) 96 mmol/L 98-107 Carbon dioxide 29 mmol/L 21-32 Serum or plasma anion gap determination (moles/volume) 13 mmol/L 5-14 Serum or plasma urea nitrogen measurement (mass/volume) 34 mg/dL 7-18 Serum or plasma creatinine measurement (mass/volume) 1.09 mg/dL 0.60-1.30 Serum or plasma urea nitrogen/creatinine mass ratio 31 NRG Serum or plasma creatinine measurement with calculation of estimated glomerular filtration rate > NRG Serum or plasma glucose measurement (mass/volume) 177 mg/dL 70-105 Serum or plasma calcium measurement (mass/volume) 9.7 mg/dL 8.5-10.1 Serum or plasma total bilirubin measurement (mass/volume) 0.6 mg/dL 0.1-1.0 Serum or plasma alkaline phosphatase measurement (enzymatic activity/volume) 55 U/L 40-136 Serum or plasma aspartate aminotransferase measurement (enzymatic activity/volume) 19 U/L 5-34 Serum or plasma alanine aminotransferase measurement (enzymatic activity/volume) 14 U/L 0-55 Serum or plasma protein measurement (mass/volume) 6.9 g/dL 6.4-8.2 Serum or plasma albumin measurement (mass/volume) 4.2 g/dL 3.2-4.5 CALCIUM CORRECTED 9.5 mg/dL 8.5-10.1 PT panel in platelet poor plasma by coagulation assay - 05/28/19 18:06 Prothrombin time (PT) in platelet poor plasma by coagulation assay 12.8 s 12.2-14.7 INR in platelet poor plasma or blood by coagulation assay 0.9 0.8-1.4 Activated partial thromboplastin time (aPTT) in platelet poor plasma bycoagulation assay - 05/28/19 18:06 Activated partial thromboplastin time (aPTT) in platelet poor plasma bycoagulation assay 23 s 24-35 Methicillin resistant Staphylococcus aureus (MRSA) screening culture - 05/29/19 05:40 Methicillin resistant Staphylococcus aureus (MRSA) screening culture NEG NRG Capillary blood glucose measurement by glucometer (mass/volume) - 05/29/19 08:33 Capillary blood glucose measurement by glucometer (mass/volume) 190 mg/dL 70-110 Capillary blood glucose measurement by glucometer (mass/volume) - 05/29/19 13:01 Capillary blood glucose measurement by glucometer (mass/volume) 282 mg/dL 70-110 Capillary blood glucose measurement by glucometer (mass/volume) - 05/29/19 16:02 Capillary blood glucose measurement by glucometer (mass/volume) 182 mg/dL 70-110 Capillary blood glucose measurement by glucometer (mass/volume) - 05/29/19 20:30 Capillary blood glucose measurement by glucometer (mass/volume) 89 mg/dL 70-110 Whole blood hemoglobin and hematocrit panel - 05/30/19 04:35 Venous blood hemoglobin measurement (mass/volume) 10.4 g/dL 13.3-17.7 Blood hematocrit (volume fraction) 32 % 40-54 Capillary blood glucose measurement by glucometer (mass/volume) - 05/30/19 05:38 Capillary blood glucose measurement by glucometer (mass/volume) 260 mg/dL 70-110 Capillary blood glucose measurement by glucometer (mass/volume) - 05/30/19 11:14 Capillary blood glucose measurement by glucometer (mass/volume) 176 mg/dL 70-110 Capillary blood glucose measurement by glucometer (mass/volume) - 05/30/19 16:13 Capillary blood glucose measurement by glucometer (mass/volume) 266 mg/dL 70-110 Capillary blood glucose measurement by glucometer (mass/volume) - 05/30/19 21:17 Capillary blood glucose measurement by glucometer (mass/volume) 175 mg/dL 70-110 Whole blood hemoglobin and hematocrit panel - 05/31/19 04:50 Venous blood hemoglobin measurement (mass/volume) 9.4 g/dL 13.3-17.7 Blood hematocrit (volume fraction) 29 % 40-54 Capillary blood glucose measurement by glucometer (mass/volume) - 05/31/19 05:39 Capillary blood glucose measurement by glucometer (mass/volume) 214 mg/dL 70-110 Capillary blood glucose measurement by glucometer (mass/volume) - 05/31/19 11:01 Capillary blood glucose measurement by glucometer (mass/volume) 251 mg/dL 70-110 Complete blood count (CBC) with automated white blood cell (WBC) differential - 05/31/19 14:50 Blood leukocytes automated count (number/volume) 11.4 10*3/uL 4.3-11.0 Blood erythrocytes automated count (number/volume) 3.53 10*6/uL 4.35-5.85 Venous blood hemoglobin measurement (mass/volume) 10.8 g/dL 13.3-17.7 Blood hematocrit (volume fraction) 33 % 40-54 Automated erythrocyte mean corpuscular volume 94 [foz_us] 80-99 Automated erythrocyte mean corpuscular hemoglobin (mass per erythrocyte) 31 pg 25-34 Automated erythrocyte mean corpuscular hemoglobin concentration measurement (mass/volume) 33 g/dL 32-36 Automated erythrocyte distribution width ratio 14.0 % 10.0- 14.5 Automated blood platelet count (count/volume) 166 10*3/uL 130-400 Automated blood platelet mean volume measurement 10.5 [foz_us] 7.4-10.4 Automated blood neutrophils/100 leukocytes 75 % 42-75 Automated blood lymphocytes/100 leukocytes 16 % 12-44 Blood monocytes/100 leukocytes 8 % 0-12 Automated blood eosinophils/100 leukocytes 1 % 0-10 Automated blood basophils/100 leukocytes 0 % 0-10 Blood neutrophils automated count (number/volume) 8.6 10*3 1.8-7.8 Blood lymphocytes automated count (number/volume) 1.9 10*3 1.0-4.0 Blood monocytes automated count (number/volume) 0.9 10*3 0.0- 1.0 Automated eosinophil count 0.1 10*3/uL 0.0-0.3 Automated blood basophil count (count/volume) 0.0 10*3/uL 0.0-0.1 Comprehensive metabolic panel - 05/31/19 14:50 Serum or plasma sodium measurement (moles/volume) 136 mmol/L 135-145 Serum or plasma potassium measurement (moles/volume) 3.9 mmol/L 3.6-5.0 Serum or plasma chloride measurement (moles/volume) 101 mmol/L 98-107 Carbon dioxide 25 mmol/L 21-32 Serum or plasma anion gap determination (moles/volume) 10 mmol/L 5-14 Serum or plasma urea nitrogen measurement (mass/volume) 20 mg/dL 7-18 Serum or plasma creatinine measurement (mass/volume) 1.03 mg/dL 0.60-1.30 Serum or plasma urea nitrogen/creatinine mass ratio 19 NRG Serum or plasma creatinine measurement with calculation of estimated glomerular filtration rate > NRG Serum or plasma glucose measurement (mass/volume) 189 mg/dL 70-105 Serum or plasma calcium measurement (mass/volume) 9.5 mg/dL 8.5-10.1 Serum or plasma total bilirubin measurement (mass/volume) 0.8 mg/dL 0.1-1.0 Serum or plasma alkaline phosphatase measurement (enzymatic activity/volume) 63 U/L 40-136 Serum or plasma aspartate aminotransferase measurement (enzymatic activity/volume) 26 U/L 5-34 Serum or plasma alanine aminotransferase measurement (enzymatic activity/volume) 15 U/L 0-55 Serum or plasma protein measurement (mass/volume) 7.2 g/dL 6.4-8.2 Serum or plasma albumin measurement (mass/volume) 3.9 g/dL 3.2-4.5 CALCIUM CORRECTED 9.6 mg/dL 8.5-10.1 Capillary blood glucose measurement by glucometer (mass/volume) - 05/31/19 15:13 Capillary blood glucose measurement by glucometer (mass/volume) 193 mg/dL 70-110 Capillary blood glucose measurement by glucometer (mass/volume) - 05/31/19 16:51 Capillary blood glucose measurement by glucometer (mass/volume) 205 mg/dL 70-110 Encounters ACCT No. Visit Date/Time Discharge Status Pt. Type Provider Facility Loc./Unit Complaint [id number] 05/28/2019 17:47:00 05/31/2019 11:34:00 DIS Inpatient JEANA GUZMAN, JANEEN Sullivan [facility] 4TH FX LT HIP [id number] 05/13/2019 00:12:00 05/13/2019 23:59:59 CLS Preadmit BRIJESH ALLRED N [facility] ONC [id number] 02/15/2019 09:51:00 05/12/2019 00:01:00 DIS Outpatient BRIJESH ALLRED N [facility] ONC [id number] 08/12/2018 11:25:00 08/30/2018 00:01:00 DIS Outpatient TARUN MATT MD [facility] ONC [id number] 02/24/2018 15:36:00 05/25/2018 00:01:00 DIS Outpatient BRIJESH ALLRED [facility] ONC [id number] 09/02/2017 14:20:00 09/02/2017 23:59:59 CLS Outpatient [facility]JESH [facility]RED [facility] [facility] [id number] 02/25/2017 11:21:00 02/25/2017 23:59:59 CLS Outpatient BRIJESH ALLRED N [facility] FS [id number] 07/09/2016 13:50:00 07/09/2016 23:59:59 CLS Outpatient BRIJESH ALLRED N [facility] FS [id number] 01/23/2016 10:37:00 01/23/2016 23:59:59 CLS Outpatient BRIJESH ALLRED N [facility] FS [id number] 09/26/2015 11:33:00 09/26/2015 23:59:59 CLS Outpatient BRIJESH ALLRED N [facility] FS [id number] 06/06/2015 11:23:00 06/06/2015 23:59:59 CLS Outpatient BRIJESH ALLRED N [facility] FS [id number] 02/21/2015 10:34:00 02/21/2015 23:59:59 CLS Outpatient BRIJESH ALLRED [facility] FS [id number] 10/11/2014 14:00:00 10/11/2014 23:59:59 CLS Outpatient BRIJESH ALLRED [facility] FS [id number] 05/31/2019 11:30:00 ACT Inpatient SEVERINO ALDRICH DO [facility] IRF LEFT FEMORAL NECK FRACTURE [id number] 02/14/2015 10:12:00 Document Registration
[2019-06-01 05:23] VITALS: BP 170/80
[2019-06-01] MEDS: MULTIVIT W/MINERALS TAB (THERAGRAN M) PO SCH (06:32)
[2019-06-01 06:34] LABS: BASOPHILS % (AUTO) 0 % (0-10); EOSINOPHILS # (AUTO) 0.2 10^3/uL (0.0-0.3); EOSINOPHILS % (AUTO) 2 % (0-10); HEMATOCRIT 29 % (40-54); HEMOGLOBIN 9.4 G/DL (13.3-17.7); LYMPHOCYTES # (AUTO) 1.2 X 10^3 (1.0-4.0); LYMPHOCYTES % (AUTO) 15 % (12-44); MEAN CORPUSCULAR HEMOGLOBIN 31 PG (25-34); MEAN CORPUSCULAR HGB CONC 33 G/DL (32-36); MEAN CORPUSCULAR VOLUME 93 FL (80-99); MEAN PLATELET VOLUME 10.1 FL (7.4-10.4); MONOCYTES # (AUTO) 0.6 X 10^3 (0.0-1.0); MONOCYTES % (AUTO) 8 % (0-12); NEUTROPHILS # (AUTO) 5.9 X 10^3 (1.8-7.8); NEUTROPHILS % (AUTO) 75 % (42-75); PLATELET COUNT 180 10^3/uL (130-400); RED CELL DISTRIBUTION WIDTH 13.9 % (10.0-14.5); WHITE BLOOD COUNT 7.9 10^3/uL (4.3-11.0)
[2019-06-01] MEDS: VENlafaxine 75 MG (EFFEXOR) TAB PO SCH ×3 (06:34→17:04)
[2019-06-01] MEDS: metFORMIN 500 MG (GLUCOPHAGE) TAB PO SCH ×2 (06:34→17:04)
[2019-06-01] MEDS: CELECOXIB 100 MG (CeleBREX) CAP PO SCH ×2 (06:34→17:04)
[2019-06-01 07:04] LABS: ALANINE AMINOTRANSFERASE 12 U/L (0-55); ALKALINE PHOSPHATASE 57 U/L (40-136); BILIRUBIN,TOTAL 0.6 MG/DL (0.1-1.0); BUN/CREATININE RATIO 23; CALCIUM 8.7 MG/DL (8.5-10.1); CARBON DIOXIDE 23 MMOL/L (21-32); CHLORIDE 105 MMOL/L (98-107); CREATININE SERUM 0.82 MG/DL (0.60-1.30); GFR ESTIMATED > 60; GLUCOSE 199 MG/DL (70-105); SODIUM 137 MMOL/L (135-145); TOTAL PROTEIN 5.8 GM/DL (6.4-8.2)
[2019-06-01] MEDS: inSUlin ASPART (NovoLOG) 1 UNIT/0.01 ML (CHARGE PER UNIT) SC SCH ×4 (07:35→22:23)
[2019-06-01] MEDS: SENNA W/DOCUSATE (SENOKOT S) TABLET PO SCH ×2 (08:01→21:01)
[2019-06-01] MEDS: LACTULOSE SYRUP 10GM/15ML (ENULOSE) 30ML UDC PO SCH ×2 (08:01→21:01)
[2019-06-01] MEDS: POLYETHYLENE GLYCOL 17 GM (MIRALAX) PACK PO SCH ×2 (08:01→21:01)
[2019-06-01] MEDS ORDERED: MULTIVITAMIN WITH MINERALS PO SCH (09:00)
[2019-06-01] MEDS ORDERED: [UNRECOGNIZED DRUG - OTHER] PO SCH (09:00)
--- NOTE | 2019-06-01 09:38 | Occupational Ther Daily Note ---
OT Current Status-Daily Note Subjective Pt in bed, agrees to treatment. Pt reports 3/10 pain in left hip. Mental Status/Objective Therapy Code Descriptions/Definitions Functional [place] Measure: 0=Not Assessed/NA 4=Minimal Assistance 1=Total Assistance 5=Supervision or Setup 2=Maximal Assistance 6=Modified [place] 3=Moderate Assistance 7=Complete [place] ADL-Treatment Agreeable to shower this morning. Supine to sit with SBA. Sit to stand with SBA. Gait to restroom with FWW. Transfer to walk in shower with CGA for safety. Pt doffed shirt without assist. Doffed lower body clothing with SBA using dressing stick. Seated bathing completed using hand held shower. Upper body bathing completed with SBA. Pt able to wash bilateral upper legs, viviana area, and buttocks. Unable to wash lower legs without adaptive equipment secondary to hip precautions. Pt was instructed in use of long handled sponge and was able to wash lower legs and feet. After shower pt reports nausea and vomited. Pt states he thinks the combo of coffee and his medication made his stomach upset. RN was notified. Don pullover shirt with set up. Pt donned underwear and pants with minimal assistance using adaptive equipment. Don socks with SBA using sock aid. Skilled cues for use. Pt brushed teeth in shower with set up and combed hair with set up. Increased time for ADL tasks. Pt is able to state hip precautions and follow them during functional tasks. Therapy Code Descriptions/Definitions Functional [place] Measure: 0=Not Assessed/NA 4=Minimal Assistance 1=Total Assistance 5=Supervision or Setup 2=Maximal Assistance 6=Modified [place] 3=Moderate Assistance 7=Complete [place] Therapy Quality Codes: 6 Independent with activity with or without an assistive device 5 Patient requires set up or clean up by helper. Patient completes activity by themselves 4 Supervision or touching assist (CGA). Levels provide cues , steadying assist 3 The helper provides less than half the effort to complete the activity 2 The helper provides more than half the effort to complete the activity 1 Dependent. The helper does all the effort to complete an activity 7 Patient refused to complete or attempt activity 9 The patient did not perform the activity before the current illness or injury 88 Not attempted due to Medical conditions or safety concerns Grooming (FIM): 5 Oral Hygiene (QC): 5 Bathing (FIM): 4 Shower/Bathe Self (QC): 3 Upper Body (FIM): 5 Upper Body Dressing (QC): 5 Lower Body Dressing (FIM): 4 Lower Body Dressing (QC): 3 On/Off Footwear (QC): 4 Shower Transfer(FIM): 4 (CGA) Other Treatment Pt completed bilateral UE exercises to increase strength needed for ADLs and transfers. Pt performed shoulder flexion, abduction, biceps curls, and triceps extension exercises x15-20 reps with moderate resistance (red) theraband. Brief rest breaks taken between exercises. Occasional cues for proper exercise t echnique. Pt transferred to EOB and completed sit to supine with SBA. Pt resting in bed with needs met after session. Education OT Patient Education: Modified ADL techniques Teaching Recipient: Patient Teaching Methods: Demonstration, Discussion Response to Teaching: Verbalize Understanding, Return Demonstration OT Short Term Goals Short Term Goals Time Frame: Jun 07, 2019 Eating(FIM): 5 Grooming(FIM): 5 Bathing(FIM): 4 Upper Body Dressing(FIM): 5 Lower Body Dressing(FIM): 4 Toileting(FIM): 4 Transfers (B,C,W/C) (FIM): 5 Toilet/Commode Transfer(FIM): 5 Shower Transfer(FIM): 4 Additional Short Term Goals: 1-Demonstrate ADL Tasks, 2-Verbalize Understand ing, 3-ImproveStrength/Elsi 1=Demonstrate adherence to instructed precautions during ADL tasks. 2=Patient will verbalize/demonstrate understanding of assistive devices/modifications for ADL. 3=Patient will improve strength/tolerance for activity to enable patient to perform ADL's. OT Prison Goals Prison Goals Time Frame: Jun 14, 2019 Eating (FIM): 6 Eating (QC): 6 Groomin Oral Hygiene (QC): 6 Bathing(FIM): 5 Shower/Bathe Self (QC): 4 Upper Body Dressing(FIM): 6 Upper Body Dressing (QC): 6 Lower Body Dressing(FIM): 6 Lower Body Dressing (QC): 6 On/Off Footwear (QC): 6 Toileting(FIM): 6 Toileting Hygiene (QC): 6 Transfers (B,C,W/C) (FIM): 6 Toilet/Commode Transfer(FIM): 6 Toilet/Commode Transfer (QC): 6 Shower Transfer(FIM): 5 Additional Goals: 1-Demonstrate ADL Tasks, 2-Verbalize Understanding, 3-ImproveStrength/Elsi 1=Demonstrate adherence to instructed precautions during ADL tasks. 2=Patient will verbalize/demonstrate understanding of assistive devices/modifications for ADL. 3=Patient will improve strength/tolerance for activity to enable patient to perform ADL's. OT Education/Plan Discharge Recommendations Plan/Recommendations: Continue POC Treatment Plan/Plan of Care Patient would benefit from OT for education, treatment and training to promote independence in ADL's, mobility, safety and/or upper extremity function for ADL's. Plan of Care: ADL Retraining, Functional Mobility, Group Exercise/Act as Ind, UE Funct Exercise/Act Treatment Duration: Jun 14, 2019 Frequency: At least 5 of 7 days/Wk (IRF) Estimated Hrs Per Day: 1.5 hours per day Agreement: Yes Rehab Potential: Good Time/GCodes Start Time: 08:00 Stop Time: 09:30 Total Time Billed (hr/min): 90 Billed Treatment Time 1 visit, ADLx5(70minutes), EX(20minutes) KOFI MARCELO OT Jun 01, 2019 09:38
--- NOTE | 2019-06-01 09:41 | PM&R Progress Note ---
Subjective HPI/CC On Admission Date Seen by Provider: Jun 01, 2019 Time Seen by Provider: 09:00 Chief Complaint: Debility from left hip fracture. HPI: This is a 78yoWM clinic pt of Dr. Ann who presents to in patient r [facility] due to debility from left hip fracture. Pt had an uneventful hospital stay he will have urinary catheter discontinued and he does have constipation on a regular normal basis and he has not had a BM since he has been here so will aggressively treat that with suppositories and laxatives. At this current time pt's pain is well controlled and he feels like he wants to participate in therapy in order to get home to prior level of functioning. He doesn't smoke or drink and he's retired from post [employer] in [place] for 20 years. Prior level of functioning was ambulatory without assisted devices independent with ADL's. Subjective/Events-last exam Having some nausea and vomiting today and had no BM yet so I recommended suppository or enema which he admittedly refuses but we will work on getting his bowels moving with more medications Good bowel sounds are noted and he is passing gas May need general surgery consult if this continues He sees Dr. Radford as his oncologist for prostate cancer Continue on all home medications Hemoglobin reviewed and much improved today Checked meds and labs Reviewed therapy notes Conferred with electrical prospecting observer of Systems General: Fatigue Gastrointestinal: Constipation Musculoskeletal: leg pain Objective Exam Vital Signs Vital Signs Date Time Temp Pulse Resp B/P (MAP) Pulse Ox O2 Delivery O2 Flow Rate FiO2 06/01/19 16:39 96.9 71 14 110/59 (76) 97 Room Air Capillary Refill : NONE General Appearance: No Apparent Distress, WD/WN, Chronically ill HEENT: PERRL/EOMI, Normal ENT Inspection, Pharynx Normal, Moist Mucous Membranes Neck: Full Range of Motion, Normal Inspection, Non Tender, Supple Respiratory: Chest Non Tender, Lungs Clear, Normal Breath Sounds, No Accessory Muscle Use, No Respiratory Distress Cardiovascular: Regular Rate, Rhythm, No Edema, No Gallop, No JVD, No Murmur Gastrointestinal: Normal Bowel Sounds, No Organomegaly, No Pulsatile Mass, Non Tender, Soft Back: Normal Inspection, No CVA Tenderness, No Vertebral Tenderness Extremity: Normal Capillary Refill, Normal Inspection, Normal Range of Motion (except left leg decreased ROM), Non Tender, No Calf Tenderness, No Pedal Edema Neurologic/Psychiatric: Alert, Oriented x3, No Motor/Sensory Deficits, Normal Mood/Affect Skin: Normal Color, Warm/Dry Lymphatic: No Adenopathy Results/Procedures Lab Laboratory Tests 06/01/19 06:10 Patient resulted labs reviewed. FIM Transfers Therapy Code Descriptions/Definitions Functional [place] Measure: 0=Not Assessed/NA 4=Minimal Assistance 1=Total Assistance 5=Supervision or Setup 2=Maximal Assistance 6=Modified [place] 3=Moderate Assistance 7=Complete [place] Therapy Quality Codes: 6 Independent with activity with or without an assistive device 5 Patient requires set up or clean up by helper. Patient completes activity by themselves 4 Supervision or touching assist (CGA). [place] provide cues , steadying assist 3 The helper provides less than half the effort to complete the activity 2 The helper provides more than half the effort to complete the activity 1 Dependent. The helper does all the effort to complete an activity 7 Patient refused to complete or attempt activity 9 The patient did not perform the activity before the current illness or injury 88 Not attempted due to Medical conditions or safety concerns Transfers (B, C, W/C) (FIM): 5 Scootin Roll Left to Right (QC): 4 Supine to/from Sit: 5 Sit to/from Stand: 5 Sit to Lying (QC): 5 Sit to Stand (QC): 5 Chair/Gbd-eo-Iartk Xfer(QC): 4 Car Transfer (QC): 3 Gait Training Does the Patient Walk?: Yes Gait (FIM): 5 Distance (FIM): 3=150 ft Distance: 175' x 2 Walk 10 feet (QC): 5 Walk 50 ft with 2 Turns(QC): 5 Walk 150 ft (QC): 5 Walking 10ft/uneven surface-QC: 4 Gait Level of Assist: 5 Gait Assistive Device: FWW Wheelchair Training Does the Pt Use a Wheelchair?: No Stair Training Stairs (FIM): 1 #of Steps: 1 1 Step (curb) (QC): 4 (CGA and skilled cues for sequencing. ) 4 Steps (QC): 88 Level of Assist: 4 Balance Picking up an Object (QC): 88 ADL-Treatment Upper Extremity Dressin Upper Body Dressing (QC): 4 Lower Extremity Dressin Lower Body Dressing (QC): 4 On/Off Footwear (QC): 4 Assessment/Plan Assessment and Plan Assess & Plan/Chief Complaint Assessment: Left hip fracture s/p repair POD # 3 DM Prostate cancer hx Anemia acute blood loss Constipation Plan: Pain control Check labs Monitor closely IRF protocol Fall risk BM regimen (1) Fracture of femur (2) Constipation (3) Acute blood loss anemia (4) Diabetes mellitus (5) Prostate cancer (6) History of prostatectomy SEVERINO ALDRICH DO Jun 01, 2019 09:41
--- NOTE | 2019-06-01 09:46 | Progress Note - Ortho ---
Progress Note POD#3 cemented bipolar hemiarthroplasty left hip Mr. Hubbard is been transferred to rehabilitation. He states he's doing much better. He is afebrile. Hemoglobin this morning was 9.4 Good motion of the hip with minimal pain. No calf tenderness and negative Homans. He is neurovascularly intact to the left lower extremity. Continue walker ambulation weightbearing as tolerated on the left. Laboratory Tests 05/31/19 14:50: White Blood Count 11.4H, Red Blood Count 3.53L, Hemoglobin 10.8L, Hematocrit 33L , Mean Corpuscular Volume 94, Mean Corpuscular Hemoglobin 31, Mean Corpuscular Hemoglobin Concent 33, Red Cell Distribution Width 14.0, Platelet Count 166, Mean Platelet Volume 10.5H, Neutrophils (%) (Auto) 75, Lymphocytes (%) (Auto) 16, Monocytes (%) (Auto) 8, Eosinophils (%) (Auto) 1, Basophils (%) (Auto) 0, Neutrophils # (Auto) 8.6H, Lymphocytes # (Auto) 1.9, Monocytes # (Auto) 0.9, Eosinophils # (Auto) 0.1, Basophils # (Auto) 0.0, Sodium Level 136, Potassium Level 3.9, Chloride Level 101, Carbon Dioxide Level 25, Anion Gap 10, Blood Urea Nitrogen 20H, Creatinine 1.03, Estimat Glomerular Filtration Rate > 60, BUN/Creatinine Ratio 19, Glucose Level 189H, Mean Blood Glucose 180H, Hemoglobin A1c 7.9H, Calcium Level 9.5, Corrected Calcium 9.6, Total Bilirubin 0.8, Aspartate Amino Transf (AST/SGOT) 26, Alanine Aminotransferase (ALT/SGPT) 15, Alkaline Phosphatase 63, Total Protein 7.2, Albumin 3.9 05/31/19 16:51: Glucometer 205H 05/31/19 20:17: Glucometer 161H 06/01/19 06:10: White Blood Count 7.9, Red Blood Count 3.07L, Hemoglobin 9.4L, Hematocrit 29L, Mean Corpuscular Volume 93, Mean Corpuscular Hemoglobin 31, Mean Corpuscular Hemoglobin Concent 33, Red Cell Distribution Width 13.9, Platelet Count 180, Mean Platelet Volume 10.1, Neutrophils (%) (Auto) 75, Lymphocytes (%) (Auto) 15, Monocytes (%) (Auto) 8, Eosinophils (%) (Auto) 2, Basophils (%) (Auto) 0, Neutrophils # (Auto) 5.9, Lymphocytes # (Auto) 1.2, Monocytes # (Auto) 0.6, Eosinophils # (Auto) 0.2, Basophils # (Auto) 0.0, Sodium Level 137, Potassium Level 4.0, Chloride Level 105, Carbon Dioxide Level 23, Anion Gap 9, Blood Urea Nitrogen 19H, Creatinine 0.82, Estimat Glomerular Filtration Rate > 60, BUN/Creatinine Ratio 23, Glucose Level 199H, Calcium Level 8.7, Corrected Calcium 9.5, Total Bilirubin 0.6, Aspartate Amino Transf (AST/SGOT) 20, Alanine Aminotransferase (ALT/SGPT) 12, Alkaline Phosphatase 57, Total Protein 5.8L, Albumin 3.0L Vital Signs Date Time Temp Pulse Resp B/P (MAP) Pulse Ox O2 Delivery O2 Flow Rate FiO2 06/01/19 06:00 97.6 06/01/19 05:23 99.7 74 18 170/80 (110) 96 Room Air 05/31/19 21:00 93 Room Air 05/31/19 16:56 91 Room Air 05/31/19 16:21 99.5 89 16 118/70 (86) 90 Room Air 05/31/19 12:21 97.1 95 20 105/61 93 Room Air 05/31/19 12:00 Room Air I & O 06/01/19 06:59 Intake Total 640 ml Output Total 550 ml Balance 90 ml Clinical Quality Measures DVT/VTE Risk/Contraindication: Risk Factor Score Per Nursin RFS Level Per Nursing on Admit: 4+=Very High NAM IGLESIAS MD Jun 01, 2019 09:46
--- NOTE | 2019-06-01 10:01 | ST Cognitive Linguistic Eval ---
Speech Evaluation-General Medical Diagnosis Left hip fx Onset Date: May 28, 2019 Therapy Diagnosis Therapy Diagnosis: Cognitive-communication Precautions Precautions/Isolations: Fall Prevention, Standard Precautions Medical History Pertinent Medical History: DM, Prostate CA Reviewed History: Yes Social History Current Living Status: Spouse Speech PLF-Current Status Prior Level of Function Patient lives at home with his where he was independent for his daily needs. Subjective The patient was pleasant and cooperative with the evaluation process. Language Eval: Auditory Comprehends Simple Yes/No Ques: Functional Indent/Objects Multiple [place]: Functional Ident/Pics in [place]: Functional Follows 1-Step Commands: Functional Follows Complex Directions: Functional Follows General Conversations: Functional Language Eval: Verbal Language Completes Spontaneous Greeting: Functional Produces Auto, Serial Info: Functional Imitates Simple Words/Phrases: Functional Word Finding: Functional Requests Basic Needs: Functional States Basic Personal Info: Functional Expresses Complex Ideas: Functional Objective Cognitive Domain Attention: WNL Memory: WNL Problem Solving: Functional Executive Functions: WNL Visuospatial Skills: WNL Composite Severity Rating: WNL Clock Drawing Severity Rating: WNL Objective Formal/Standardized Tests [facility] Mental Status ([facility]) Results The patient scored 29/30 on the UMS which places him in the normal range of function. Oral Motor/Speech Production Within Normal Limits Impression The patient is a pleasant 78 year old man who was admitted to the ARU s/p fractured hip. He will receive medical monitoring along with skilled therapy so that he may return home safely. He scored within the normal range on the SLUMS. He does not warrant skilled ST services at this time. Communication/Social Cognition Comprehension: 7 Expression: 7 Social Interaction: 7 Problem Solvin Memory: 7 Speech Patient Assess Expression of Ideas/Wants: Expression (4) Understanding Verbal Content: Understands (4) Brief Interview-Mental Status: Yes Repetition of Three Words: Three (3) Temporal Orientation: Year: Correct (3) Temporal Orientation: Month: Accurate within 5 days(2) Temporal Orientation: Day: Correct (1) Recall : Wear to say "Sock": Yes, no cue required (2) Recall : Color: Yes, no cue required (2) Recall : Bed: Yes,after cueing (1) Memory/Recall Ability: Current season, Location of own room, Staff names and faces, That he or she is in a hsp/hsp unit Speech-Plan Patient/Family Goals Patient/Family Goals: The patient plans on returning home with his post rehab. Treatment Plan Speech Therapy Treatment Plan: Discontinue ST The patient exhibits appropriate cognitive function. Treatment Duration: Jun 01, 2019 Frequency: 1 time per week Estimated Hrs Per Day: .25 hour per day Rehab Potential: Good Barriers to Learning: None identified Pt/Family Agrees to Plan: Yes Safety Risks/Education Teaching Recipient: Patient Teaching Methods: Discussion Response to Teaching: Verbalize Understanding Education Topics Provided: Safety within his room and communication of his wants/needs. Time Speech Therapy Time In: 09:30 Speech Therapy Time Out: 09:45 Total Billed Time: 15 Billed Treatment Time 1, SPSNDCOMP DAYNE Barrientos Jun 01, 2019 10:01
--- NOTE | 2019-06-01 12:03 | Physical Therapy Daily Note ---
PT Daily Note-Current Subjective Pt asleep Supine in bed upon arrival. Pt agrees to PT. Pain Numeric Pain Scale: 3 Location: Left Location Body Site: Hip Pain Description: Ache, Tightness Mental Status Patient Orientation: Person, Place, Time, Situation Transfers Therapy Code Descriptions/Definitions Functional [place] Measure: 0=Not Assessed/NA 4=Minimal Assistance 1=Total Assistance 5=Supervision or Setup 2=Maximal Assistance 6=Modified [place] 3=Moderate Assistance 7=Complete [place] Therapy Quality Codes: 6 Independent with activity with or without an assistive device 5 Patient requires set up or clean up by helper. Patient completes activity by themselves 4 Supervision or touching assist (CGA). [place] provide cues , steadying assist 3 The helper provides less than half the effort to complete the activity 2 The helper provides more than half the effort to complete the activity 1 Dependent. The helper does all the effort to complete an activity 7 Patient refused to complete or attempt activity 9 The patient did not perform the activity before the current illness or injury 88 Not attempted due to Medical conditions or safety concerns Scootin Rollin Supine to/from Sit: 5 Sit to/from Stand: 5 Sit to Lying (QC): 5 Sit to Stand (QC): 5 Weight Bearing Right Lower Extremity: Right Full Weight Bearing Left Lower Extremity: Left Weight Bearing/Tolerated Gait Training Does the Patient Walk?: Yes Gait (FIM): 5 Distance (FIM): 3=150 ft Distance: 300' Walk 10 feet (QC): 5 Walk 50 ft with 2 Turns(QC): 5 Walk 150 ft (QC): 5 Gait Level of Assist: 5 Gait Persons Needed: 1 Gait Assistive Device: FWW Exercises Seated Therapy Exercises: Ankle pumps, Long arc quads, Hip flexion, Kicking activity, Glut set Seated Reps: 20 NuStep Minutes: 15 NuStep Workload: 5 Treatments Pt transfers from bed to standing. Pt ambulates in hallway then uses NuStep for 15m at WL 5. After short RB, pt completes Seated Ex in chair. Pt ambulates again in hallway before returning to room at end of tx. Pt is resting in recliner with all needs met and call light in hand. Assessment Current Status: Good Progress Pt is improving with strength as well as mobility. PT Short Term Goals Short Term Goals Time Frame: Jun 07, 2019 Transfers (B,C,W/C) (FIM): 5 Gait (FIM): 5 PT Residential Goals Credit Intern Goals PT Credit Intern Goals Time Frame: Jun 14, 2019 Transfers (B,C,W/C) (FIM): 6 Sit to Lying (QC): 6 Lying-Sitting on Side/Bed(QC): 6 Sit to Stand (QC): 6 Roll Left to Right (QC): 6 Chair/Adg-xf-Vpzqy Xfer(QC): 6 Car Transfer (QC): 6 Does the Patient Walk: Yes Gait (FIM): 6 Gait distance (FIM): 3=150 ft Walk 10 feet (QC): 6 Walk 10ft-Uneven Surface(QC): 6 Walk 50ft with 2 Turns (QC): 6 Walk 150 ft (QC): 6 Gait Assistive Device: FWW Stairs (FIM): 5 # of Steps: 4 1 Step (curb) (QC): 6 4 Steps (QC): 6 12 Steps (QC): 88 Picking up an Object (QC): 88 PT Plan Problem List Problem List: Activity Tolerance, Functional Strength, Gait Treatment/Plan Treatment Plan: Continue Plan of Care Treatment Plan: Bed Mobility, Education, Functional Activity Elsi, Functional Strength, Group Therapy, Gait, Safety, Therapeutic Exercise, Transfers Treatment Duration: Jun 14, 2019 Frequency: At least 5 of 7 days/Wk (IRF) Estimated Hrs Per Day: 1.5 hours per day Patient and/or Family Agrees t: Yes Safety Risks/Education Patient Education: Gait Training, Transfer Techniques, Correct Positioning, Safety Issues Teaching Recipient: Patient Teaching Methods: Discussion Response to Teaching: Verbalize Understanding Time/GCodes Time In: 1000 Time Out: 1100 Total Billed Treatment Time: 60 Total Billed Treatment 1, GT x2 (25m) & EX x2 (35m) G Codes Necessary: ESTUARDO Hu BRIM CURLER Jun 01, 2019 12:03
[2019-06-01] MEDS: BISACODYL 10 MG SUPP (DULCOLAX) PR SCH ×2 (12:21→17:05)
--- NOTE | 2019-06-01 14:16 | Physical Therapy Daily Note ---
PT Daily Note-Current Subjective Pt laying Supine in bed asleep upon arrival. Pt agrees to PT but is very groggy, reporting feeling tired. Mental Status Patient Orientation: Person, Place, Time, Situation Transfers Therapy Code Descriptions/Definitions Functional [place] Measure: 0=Not Assessed/NA 4=Minimal Assistance 1=Total Assistance 5=Supervision or Setup 2=Maximal Assistance 6=Modified [place] 3=Moderate Assistance 7=Complete [place] Therapy Quality Codes: 6 Independent with activity with or without an assistive device 5 Patient requires set up or clean up by helper. Patient completes activity by themselves 4 Supervision or touching assist (CGA). Martin provide cues , steadying assist 3 The helper provides less than half the effort to complete the activity 2 The helper provides more than half the effort to complete the activity 1 Dependent. The helper does all the effort to complete an activity 7 Patient refused to complete or attempt activity 9 The patient did not perform the activity before the current illness or injury 88 Not attempted due to Medical conditions or safety concerns Weight Bearing Right Lower Extremity: Right Full Weight Bearing Left Lower Extremity: Left Weight Bearing/Tolerated Treatments INSURANCE AGENCY SALES MANAGER sizes FWW to pt to achieve proper posture and positioning. Pt resting in bed at end of tx. Pt has all needs met, call light next to pt. Assessment Current Status: Good Progress Pt tolerates tx well. PT Short Term Goals Short Term Goals Time Frame: Jun 07, 2019 Transfers (B,C,W/C) (FIM): 5 Gait (FIM): 5 PT Protective Signal Operations Supervisor Goals Fdc Goals PT Protective Signal Operations Supervisor Goals Time Frame: Jun 14, 2019 Transfers (B,C,W/C) (FIM): 6 Sit to Lying (QC): 6 Lying-Sitting on Side/Bed(QC): 6 Sit to Stand (QC): 6 Rollin Roll Left to Right (QC): 6 Chair/Ysw-hu-Qjcau Xfer(QC): 6 Car Transfer (QC): 6 Does the Patient Walk: Yes Gait (FIM): 6 Gait distance (FIM): 3=150 ft Walk 10 feet (QC): 6 Walk 10ft-Uneven Surface(QC): 6 Walk 50ft with 2 Turns (QC): 6 Walk 150 ft (QC): 6 Gait Assistive Device: FWW Stairs (FIM): 5 # of Steps: 4 1 Step (curb) (QC): 6 4 Steps (QC): 6 12 Steps (QC): 88 Picking up an Object (QC): 88 PT Plan Problem List Problem List: Activity Tolerance, Gait Treatment/Plan Treatment Plan: Continue Plan of Care Treatment Plan: Bed Mobility, Education, Functional Activity Elsi, Functional Strength, Group Therapy, Gait, Safety, Therapeutic Exercise, Transfers Treatment Duration: Jun 14, 2019 Frequency: At least 5 of 7 days/Wk (IRF) Estimated Hrs Per Day: 1.5 hours per day Patient and/or Family Agrees t: Yes Safety Risks/Education Patient Education: Gait Training, Correct Positioning, Safety Issues Teaching Recipient: Patient Teaching Methods: Discussion Response to Teaching: Verbalize Understanding Time/GCodes Time In: 1400 Time Out: 1415 Total Billed Treatment Time: 15 Total Billed Treatment 1, FA (15m) G Codes Necessary: ESTUARDO Hu INSURANCE AGENCY SALES MANAGER Jun 01, 2019 14:16
[2019-06-01 16:39] VITALS: BP 110/59
[2019-06-01] MEDS: GABAPENTIN 600 MG (NEURONTIN) TAB PO SCH (21:01)
[2019-06-01] MEDS: SIMvastatin 20 MG (ZOCOR) TAB PO SCH (21:01)
[2019-06-01] MEDS: ALLOPURINOL 300 MG (ZYLOPRIM) TAB PO SCH (21:01)
[2019-06-01] MEDS: ENOXAPARIN 40 MG/0.4 ML (LOVENOX) SYR SC SCH (21:01)
[2019-06-02 05:50] VITALS: BP 134/69
[2019-06-02] MEDS: inSUlin ASPART (NovoLOG) 1 UNIT/0.01 ML (CHARGE PER UNIT) SC SCH (05:59)
[2019-06-02] MEDS: CELECOXIB 100 MG (CeleBREX) CAP PO SCH ×2 (06:07→18:25)
[2019-06-02] MEDS: VENlafaxine 75 MG (EFFEXOR) TAB PO SCH ×3 (06:07→18:26)
[2019-06-02] MEDS: MULTIVIT W/MINERALS TAB (THERAGRAN M) PO SCH (06:07)
[2019-06-02] MEDS: metFORMIN 500 MG (GLUCOPHAGE) TAB PO SCH ×2 (06:07→18:26)
[2019-06-02] MEDS: BISACODYL 10 MG SUPP (DULCOLAX) PR SCH (09:00)
[2019-06-02] MEDS: POLYETHYLENE GLYCOL 17 GM (MIRALAX) PACK PO SCH (09:00)
[2019-06-02] MEDS: SENNA W/DOCUSATE (SENOKOT S) TABLET PO SCH ×2 (09:18→21:01)
[2019-06-02] MEDS: LACTULOSE SYRUP 10GM/15ML (ENULOSE) 30ML UDC PO SCH (09:19)
--- NOTE | 2019-06-02 09:48 | Individualized Plan of Care ---
Individualized Plan of Care Rehab Nursing IPOC Order Admission Date May 31, 2019 at 11:30 Current Orders Orders Admission Order(Inpt,Obs,Sdc) (05/31/19 11:02) Vital Signs: Per Unit Policy ( 08,16,00 (05/31/19 11:02) Pharmacy Analyst-Inpt Rehab Con (05/31/19 11:02) Rehab Nursing Orders-Ipoc (05/31/19 11:02) Physical Therapy Rehab Orders (05/31/19 11:02) Occupational Therapy Rehab Ord (05/31/19 11:02) Speech Therapy Rehab Orders (05/31/19 11:02) Precautions (Aru) (05/31/19 11:02) Weekly Weight (Lbs) WEEK (05/31/19 11:02) Rehab-Intensity Of Therapy (05/31/19 11:02) Initiate Admission Nursing Pro .admission (05/31/19 11:02) Acetaminophen Tablet (Tylenol Tablet) (05/31/19 11:15) Alprazolam Tablet (Xanax Tablet) (05/31/19 11:15) Calcium Carbonate Chew Tablet (Antacid C (05/31/19 11:15) Diphenhydramine Tablet (Benadryl Tablet) (05/31/19 11:15) Docusate Sodium Capsule (Colace Capsule) (05/31/19 11:15) Lactulose Oral Solution (Enulose Oral So (05/31/19 11:15) Melatonin Tablet (Melatonin Tablet) (05/31/19 11:15) Polyethylene Glycol Powder Pkt (Miralax (05/31/19 21:00) Senna S Tablet (Senokot S Tablet) (05/31/19 11:15) Ondansetron Injection (Zofran Injectio (05/31/19 11:15) Ondansetron Oral Dissolve Tab (Zofran (05/31/19 11:15) Bisacodyl Suppository (Dulcolax Supposit (05/31/19 11:15) Admission Arrival Bed Request (05/31/19 11:40) General/Regular (05/31/19 Lunch) Patient Visit (05/31/19 ) Gait Training, Ea 15 Min (05/31/19 ) Patient Visit (05/31/19 ) Pt Eval Moderate Complexity (05/31/19 ) Functional Activities, Ea 15 (05/31/19 ) Ambulate 08,12,20 (05/31/19 12:53) Sequential Compression Device 08,20 (05/31/19 12:53) Dvt/Vte Risk - Notifiy Physici 08 (05/31/19 12:53) Code/Resuscitation (05/31/19 13:21) Oxygen-Administer , (05/31/19 13:21) Sequential Compression Device , (05/31/19 13:21) Allopurinol Tablet (Zyloprim Tablet) (05/31/19 21:00) Celecoxib Capsule (Celebrex Capsule) (05/31/19 17:00) Enoxaparin Injection (Lovenox Injection) (05/31/19 22:00) Melatonin Tablet (Melatonin Tablet) (05/31/19 13:30) Senna S Tablet (Senokot S Tablet) (05/31/19 21:00) Sodium Chloride Flush (Catheter Flush Sy (05/31/19 13:30) Oxycodone Immediate Rel Tablet (Oxyir Ta (05/31/19 13:30) Consult Orthopedic Surgery (05/31/19 13:21) Incentive Spirometry (Nursing) Q2H (05/31/19 13:21) Cbc With Automated Diff (06/01/19 06:00) Comprehensive Metabolic Panel (06/01/19 06:00) Catheter(Urinary) Discontinue (05/31/19 13:21) Soap Suds Enema Until Clear (05/31/19 13:21) Insulin Aspart (Novolog) (Novolog (Charg (05/31/19 16:00) Hemoglobin A1c (05/31/19 13:24) Cho 75g/M 3snack (21-2400 Chaim) (05/31/19 Dinner) Gabapentin Capsule/Tablet (Neurontin Cap (05/31/19 21:00) Gabapentin Capsule/Tablet (Neurontin Cap (05/31/19 13:30) Oxycodone/Apap 5/325mg Tablet (Percocet (05/31/19 13:30) Simvastatin Tablet (Zocor Tablet) (05/31/19 21:00) Venlafaxine Immediate Release (Effexor T (05/31/19 17:00) (Nf) Allopurinol (05/31/19 21:00) (Nf) Bicalutamide (05/31/19 21:00) (Nf) Metformin Hcl (05/31/19 21:00) (Nf) Multivitamin With Minerals (One Radha (06/01/19 09:00) (Nf) Semaglutide (Ozempic) (06/03/19 13:30) Cbc With Automated Diff (05/31/19 13:27) Comprehensive Metabolic Panel (05/31/19 13:27) Therapeutic Multivitamin Tab (Vitamins, (06/01/19 07:00) Metformin Tablet (Glucophage Tablet) (05/31/19 17:00) Patient Visit (05/31/19 ) Patient Visit (05/31/19 ) Exercise Therap, Ea 15 Min (05/31/19 ) Gait Training, Ea 15 Min (05/31/19 ) Patient Visit (06/01/19 ) Gait Training, Ea 15 Min (06/01/19 ) Exercise Therap, Ea 15 Min (06/01/19 ) Patient Visit (06/01/19 ) Speech Sound Lang Comp (06/01/19 ) Patient Visit (06/01/19 ) Functional Activities, Ea 15 (06/01/19 ) Accucheck Daily DAILY (06/02/19 09:53) Insulin Aspart (Novolog) (Novolog (Charg (06/03/19 06:00) Patient Visit (06/02/19 ) Exercise Therap, Ea 15 Min (06/02/19 ) Gait Training, Ea 15 Min (06/02/19 ) Functional Activities, Ea 15 (06/02/19 ) Bisacodyl Suppository (Dulcolax Supposit (06/03/19 09:00) Lactulose Oral Solution (Enulose Oral So (06/03/19 09:00) Polyethylene Glycol Powder Pkt (Miralax (06/03/19 09:00) Patient May Use Own Meds, All (Patient M (06/02/19 19:30) Rehab Nursing Orders: Ongoing Assess. of Cognitive Status, Ongoing Assess. of Function Status, Bladder Management, Bladder Training, Bowel Management, Disease Management & Educaiton, DVT Prophylaxis, Fall Prevention, Fluid/Electrolyte/Nutrition Mgmt, Medication Management & Education, Management of Risks & Complications, Management of Skin Intergrity, Pain Management, Patient/Family Support, Safety Management Intensity of Therapy to be met Patient to be seen: Min.3h per day/5 of 7d PT IPOC Problem List: Activity Tolerance, Gait Treatment Plan: Continue Plan of Care Bed Mobility, Education, Functional Activity Elsi, Functional Strength, Group Therapy, Gait, Safety, Therapeutic Exercise, Transfers Treatment Duration: Jun 14, 2019 Frequency: At least 5 of 7 days/Wk (IRF) Estimated Hrs Per Day: 1.5 hours per day OT IPOC Problems: Decreased Activ Tolerance, Dependent Transfers, Impaired Bed Mobility, Impaired I ADL's, Impaired Self-Care Skills OT Treatment, Training and Edu: Yes Plan of Care: ADL Retraining, Functional Mobility, Group Exercise/Act as Ind, UE Funct Exercise/Act Treatment Duration: Jun 14, 2019 Frequency: At least 5 of 7 days/Wk (IRF) Estimated Hrs Per Day: 1.[address] IPOC Speech Therapy Treatment Plan: Discontinue ST Treatment Duration: Jun 01, 2019 Frequency: 1 time per week Estimated Hrs Per Day: .25 hour per day Pharmacy Analyst/Case Mgmt Pharmacy Analyst/Case Managemen: Discharge Planning Dietitian/Air Twist Operator Dietitian/Air Twist Operator to monitor nutritional status and make changes and/or recommendations as needed and work with speech pathology on dietary upgrades as the occur. Physician IPOC Medical Issues being managed closely and that require the 24 hour availability of a physician: Close monitoring of a patient who has a history of prostate cancer now recent hip fracture requiring pain management and fall prevention in addition to acute blood loss monitoring anemia Medical Issues: Bowel/Bladder Function, DVT Prophylaxis, Falls Precautions, Fluid/Electrolyte/Nutrition Balance, Pain Management Brief Synthesis of Preadmission Screen, Post-Admission Evaluation, and Therapy Evaluations: Physical therapy will focus on ambulation with walker and fall prevention OT will focus on independent ADLs along with pain management Medical Prognosis: Good Anticipated Length of Stay: 7 days SEVERINO ALDRICH DO Jun 02, 2019 09:48
--- NOTE | 2019-06-02 09:49 | PM&R Progress Note ---
Subjective HPI/CC On Admission Date Seen by Provider: Jun 02, 2019 Time Seen by Provider: 09:15 Chief Complaint: Debility from left hip fracture. HPI: This is a 78yoWM clinic pt of Dr. Ann who presents to in patient rehab due to debility from left hip fracture. Pt had an uneventful hospital stay he will have urinary catheter discontinued and he does have constipation on a regular normal basis and he has not had a BM since he has been here so will aggressively treat that with suppositories and laxatives. At this current time pt's pain is well controlled and he feels like he wants to participate in therapy in order to get home to prior level of functioning. He doesn't smoke or drink and he's retired from post [employer] in [place] for 20 years. Prior level of functioning was ambulatory without assisted devices independent with ADL's. Subjective/Events-last exam Patient had a very large bowel movement this afternoon so that has been extremely helpful No longer having nausea or vomiting Will maintain on senna and lactulose to maintain good bowel function Participating in all therapies Wants to get home to take care of his as soon as possible We will focus on fall prevention Urinating well Continue on all home medications Hemoglobin reviewed and much improved today Checked meds and labs Reviewed therapy notes Conferred with income tax consultant of Systems General: Fatigue Musculoskeletal: leg pain Objective Exam Vital Signs Vital Signs Date Time Temp Pulse Resp B/P (MAP) Pulse Ox O2 Delivery O2 Flow Rate FiO2 06/02/19 17:45 98.4 70 16 145/74 (97) 94 Room Air Capillary Refill : NONE General Appearance: No Apparent Distress, WD/WN, Chronically ill HEENT: PERRL/EOMI, Normal ENT Inspection, Pharynx Normal, Moist Mucous Membranes Neck: Full Range of Motion, Normal Inspection, Non Tender, Supple Respiratory: Chest Non Tender, Lungs Clear, Normal Breath Sounds, No Accessory Muscle Use, No Respiratory Distress Cardiovascular: Regular Rate, Rhythm, No Edema, No Gallop, No JVD, No Murmur Gastrointestinal: Normal Bowel Sounds, No Organomegaly, No Pulsatile Mass, Non Tender, Soft Back: Normal Inspection, No CVA Tenderness, No Vertebral Tenderness Extremity: Normal Capillary Refill, Normal Inspection, Normal Range of Motion (except left leg decreased ROM), Non Tender, No Calf Tenderness, No Pedal Edema Neurologic/Psychiatric: Alert, Oriented x3, No Motor/Sensory Deficits, Normal Mood/Affect Skin: Normal Color, Warm/Dry Lymphatic: No Adenopathy Results/Procedures Lab Patient resulted labs reviewed. FIM Transfers Therapy Code Descriptions/Definitions Functional [place] Measure: 0=Not Assessed/NA 4=Minimal Assistance 1=Total Assistance 5=Supervision or Setup 2=Maximal Assistance 6=Modified [place] 3=Moderate Assistance 7=Complete [place] Therapy Quality Codes: 6 Independent with activity with or without an assistive device 5 Patient requires set up or clean up by helper. Patient completes activity by themselves 4 Supervision or touching assist (CGA). [place] provide cues , steadying assist 3 The helper provides less than half the effort to complete the activity 2 The helper provides more than half the effort to complete the activity 1 Dependent. The helper does all the effort to complete an activity 7 Patient refused to complete or attempt activity 9 The patient did not perform the activity before the current illness or injury 88 Not attempted due to Medical conditions or safety concerns Transfers (B, C, W/C) (FIM): 5 Scootin Rollin Roll Left to Right (QC): 4 Supine to/from Sit: 5 Sit to/from Stand: 5 Sit to Lying (QC): 5 Sit to Stand (QC): 5 Chair/Lcg-rb-Hdwdg Xfer(QC): 4 Car Transfer (QC): 3 Gait Training Does the Patient Walk?: Yes Gait (FIM): 5 Distance (FIM): 3=150 ft Distance: 300' Walk 10 feet (QC): 5 Walk 50 ft with 2 Turns(QC): 5 Walk 150 ft (QC): 5 Walking 10ft/uneven surface-QC: 4 Gait Level of Assist: 5 Gait Persons Needed: 1 Gait Assistive Device: FWW Wheelchair Training Does the Pt Use a Wheelchair?: No Stair Training Stairs (FIM): 1 #of Steps: 1 1 Step (curb) (QC): 4 (CGA and skilled cues for sequencing. ) 4 Steps (QC): 88 Level of Assist: 4 Balance Picking up an Object (QC): 88 Mental Status/Objective Comprehension: 7 Expression: 7 Social Interaction: 7 Problem Solvin Memory: 7 ADL-Treatment Groomin Oral Hygiene (QC): 5 Bathin Shower/Bathe Self (QC): 3 Upper Extremity Dressin Upper Body Dressing (QC): 5 Lower Extremity Dressin Lower Body Dressing (QC): 3 On/Off Footwear (QC): 4 Shower: 4 (CGA) Assessment/Plan Assessment and Plan Assess & Plan/Chief Complaint Assessment: Left hip fracture s/p repair POD # 4 DM Prostate cancer hx Anemia acute blood loss Constipation resolved today Plan: Pain control Check labs Monitor closely IRF protocol Fall risk BM regimen to maintain (1) Fracture of femur (2) Constipation (3) Acute blood loss anemia (4) Diabetes mellitus (5) Prostate cancer (6) History of prostatectomy SEVERINO ALDRICH DO Jun 02, 2019 09:49
--- NOTE | 2019-06-02 12:15 | Physical Therapy Daily Note ---
PT Daily Note-Current Subjective Pt laying Supine in bed asleep upon arrival. Pt agrees to PT. Pt reports sleeping well but constantly feels tired. Pain Location: No Pain Reported Mental Status Patient Orientation: Person, Confused, Place Transfers Therapy Code Descriptions/Definitions Functional [place] Measure: 0=Not Assessed/NA 4=Minimal Assistance 1=Total Assistance 5=Supervision or Setup 2=Maximal Assistance 6=Modified [place] 3=Moderate Assistance 7=Complete [place] Therapy Quality Codes: 6 Independent with activity with or without an assistive device 5 Patient requires set up or clean up by helper. Patient completes activity by themselves 4 Supervision or touching assist (CGA). [place] provide cues , steadying assist 3 The helper provides less than half the effort to complete the activity 2 The helper provides more than half the effort to complete the activity 1 Dependent. The helper does all the effort to complete an activity 7 Patient refused to complete or attempt activity 9 The patient did not perform the activity before the current illness or injury 88 Not attempted due to Medical conditions or safety concerns Scootin Rollin Supine to/from Sit: 5 Sit to/from Stand: 4 Sit to Stand (QC): 4 Weight Bearing Right Lower Extremity: Right Full Weight Bearing Left Lower Extremity: Left Weight Bearing/Tolerated Gait Training Does the Patient Walk?: Yes Gait (FIM): 5 Distance (FIM): 3=150 ft Distance: 150' Walk 10 feet (QC): 5 Walk 50 ft with 2 Turns(QC): 5 Walk 150 ft (QC): 5 Gait Level of Assist: 5 Gait Persons Needed: 1 Gait Assistive Device: FWW Exercises Standing: Hamstring curls, Heel/toe raises, 3 way Ex=Flex, Abd, Ext, Marching, Mini squats Standing Reps: 15 NuStep Minutes: 15 NuStep Workload: 5 Treatments Pt transfers from bed to standing at SBA. Pt ambulates in hallway using FWW. Pt uses NuStep for 15m at WL 5, followed by short RB. Pt completes Standing Ex at //bars with a couple of RB as needed. Pt again ambulates in hallway before returning to room at end of tx to rest and order lunch. Pt has all needs met, call light in hand. Assessment Current Status: Good Progress Pt tolerates tx well but at times needs redirection of what task to complete. PT Short Term Goals Short Term Goals Time Frame: Jun 07, 2019 Transfers (B,C,W/C) (FIM): 5 Gait (FIM): 5 PT Vp Packaging Goals Chcf Goals PT Vp Packaging Goals Time Frame: Jun 14, 2019 Transfers (B,C,W/C) (FIM): 6 Sit to Lying (QC): 6 Lying-Sitting on Side/Bed(QC): 6 Sit to Stand (QC): 6 Rollin Roll Left to Right (QC): 6 Chair/Quo-nt-Txjtc Xfer(QC): 6 Car Transfer (QC): 6 Does the Patient Walk: Yes Gait (FIM): 6 Gait distance (FIM): 3=150 ft Walk 10 feet (QC): 6 Walk 10ft-Uneven Surface(QC): 6 Walk 50ft with 2 Turns (QC): 6 Walk 150 ft (QC): 6 Gait Assistive Device: FWW Stairs (FIM): 5 # of Steps: 4 1 Step (curb) (QC): 6 4 Steps (QC): 6 12 Steps (QC): 88 Picking up an Object (QC): 88 PT Plan Problem List Problem List: Activity Tolerance, Functional Strength, Safety, Gait Treatment/Plan Treatment Plan: Continue Plan of Care Treatment Plan: Bed Mobility, Education, Functional Activity Elsi, Functional Strength, Group Therapy, Gait, Safety, Therapeutic Exercise, Transfers Treatment Duration: Jun 14, 2019 Frequency: At least 5 of 7 days/Wk (IRF) Estimated Hrs Per Day: 1.5 hours per day Patient and/or Family Agrees t: Yes Safety Risks/Education Patient Education: Gait Training, Transfer Techniques, Correct Positioning, Safety Issues Teaching Recipient: Patient Teaching Methods: Discussion Response to Teaching: Verbalize Understanding Time/GCodes Time In: 1100 Time Out: 1200 Total Billed Treatment Time: 60 Total Billed Treatment 1, EX x2 (30m), GT (15m) & FA (15m) G Codes Necessary: ESTUARDO Hu PTA Jun 02, 2019 12:15
--- NOTE | 2019-06-02 12:50 | Occupational Ther Daily Note ---
OT Current Status-Daily Note Subjective Pt agreeable to treatment this am. Pt states he had pain medication earlier and is not currently having any pain. Mental Status/Objective Therapy Code Descriptions/Definitions Functional [place] Measure: 0=Not Assessed/NA 4=Minimal Assistance 1=Total Assistance 5=Supervision or Setup 2=Maximal Assistance 6=Modified [place] 3=Moderate Assistance 7=Complete [place] ADL-Treatment Pt in restroom when therapist arrives. Pt able to complete toileting hygiene and clothing management with SBA. Stood at sink to complete grooming tasks. Pt washed hands, brushed teeth, washed face, and combed hair with modified independence. Declined shower today. Reviewed AE use. Pt doffed socks without assist using dressing stick. Donned socks with set up using sock aid. Therapy Code Descriptions/Definitions Functional [place] Measure: 0=Not Assessed/NA 4=Minimal Assistance 1=Total Assistance 5=Supervision or Setup 2=Maximal Assistance 6=Modified [place] 3=Moderate Assistance 7=Complete [place] Therapy Quality Codes: 6 Independent with activity with or without an assistive device 5 Patient requires set up or clean up by helper. Patient completes activity by themselves 4 Supervision or touching assist (CGA). [place] provide cues , steadying assist 3 The helper provides less than half the effort to complete the activity 2 The helper provides more than half the effort to complete the activity 1 Dependent. The helper does all the effort to complete an activity 7 Patient refused to complete or attempt activity 9 The patient did not perform the activity before the current illness or injury 88 Not attempted due to Medical conditions or safety concerns Grooming (FIM): 6 Oral Hygiene (QC): 6 On/Off Footwear (QC): 5 Toileting (FIM): 5 Toilet/Commode Transfer (FIM): 5 Other Treatment Pt performed gait to therapy gym with FWW, no LOB noted. Arm bike [id number] to increase overall strength and activity tolerance needed for functional tasks. Pt completed activity with moderate resistance and slow pace. No rest breaks needed. Bilateral UE exercises to increase strength for ADLs and transfers. Pt performed shoulder flexion, forward press, and biceps curls x10 reps, 2 sets with 2# dowel jet. Rest breaks between exercises. Pt completed fine motor task with bilateral UE with 1# weights in place to increase strength and coordination skills. Putty activity with bilateral hands to increase strength and coordination. Pt able to remove small beads from putty with increased time. Pt returned to room, resting in bed with needs met after session. OT Short Term Goals Short Term Goals Time Frame: Jun 07, 2019 Eating(FIM): 5 Grooming(FIM): 5 Bathing(FIM): 4 Upper Body Dressing(FIM): 5 Lower Body Dressing(FIM): 4 Toileting(FIM): 4 Transfers (B,C,W/C) (FIM): 5 Toilet/Commode Transfer(FIM): 5 Shower Transfer(FIM): 4 Additional Short Term Goals: 1-Demonstrate ADL Tasks, 2-Verbalize Understanding, 3-ImproveStrength/Elsi 1=Demonstrate adherence to instructed precautions during ADL tasks. 2=Patient will verbalize/demonstrate understanding of assistive devices/modifications for ADL. 3=Patient will improve strength/tolerance for activity to enable patient to perform ADL's. OT Strategic Partnership Manager Goals Strategic Partnership Manager Goals Time Frame: Jun 14, 2019 Eating (FIM): 6 Eating (QC): 6 Groomin Oral Hygiene (QC): 6 Bathing(FIM): 5 Shower/Bathe Self (QC): 4 Upper Body Dressing(FIM): 6 Upper Body Dressing (QC): 6 Lower Body Dressing(FIM): 6 Lower Body Dressing (QC): 6 On/Off Footwear (QC): 6 Toileting(FIM): 6 Toileting Hygiene (QC): 6 Transfers (B,C,W/C) (FIM): 6 Toilet/Commode Transfer(FIM): 6 Toilet/Commode Transfer (QC): 6 Shower Transfer(FIM): 5 Additional Goals: 1-Demonstrate ADL Tasks, 2-Verbalize Understanding, 3- ImproveStrength/Elsi 1=Demonstrate adherence to instructed precautions during ADL tasks. 2=Patient will verbalize/demonstrate understanding of assistive devices/modifications for ADL. 3=Patient will improve strength/tolerance for activity to enable patient to perform ADL's. OT Education/Plan Discharge Recommendations Plan/Recommendations: Continue POC Treatment Plan/Plan of Care Patient would benefit from OT for education, treatment and training to promote independence in ADL's, mobility, safety and/or upper extremity function for ADL's. Plan of Care: ADL Retraining, Functional Mobility, Group Exercise/Act as Ind, UE Funct Exercise/Act Treatment Duration: Jun 14, 2019 Frequency: At least 5 of 7 days/Wk (IRF) Estimated Hrs Per Day: 1.5 hours per day Agreement: Yes Rehab Potential: Good Time/GCodes Start Time: 08:00 Stop Time: 09:30 Total Time Billed (hr/min): 90 Billed Treatment Time 1 visit, ADLx2(35minutes), EXx4(55minutes) KOFI MARCELO OT Jun 02, 2019 12:50
--- NOTE | 2019-06-02 15:37 | Physical Therapy Daily Note ---
PT Daily Note-Current Subjective Pt laying Supine in bed upon arrival. Pt agrees to walk with MOBILE UNIT ASSISTANT for tx. Pain Location: No Pain Reported Mental Status Patient Orientation: Person, Place, Situation Transfers Therapy Code Descriptions/Definitions Functional [place] Measure: 0=Not Assessed/NA 4=Minimal Assistance 1=Total Assistance 5=Supervision or Setup 2=Maximal Assistance 6=Modified [place] 3=Moderate Assistance 7=Complete [place] Therapy Quality Codes: 6 Independent with activity with or without an assistive device 5 Patient requires set up or clean up by helper. Patient completes activity by themselves 4 Supervision or touching assist (CGA). [place] provide cues , steadying assist 3 The helper provides less than half the effort to complete the activity 2 The helper provides more than half the effort to complete the activity 1 Dependent. The helper does all the effort to complete an activity 7 Patient refused to complete or attempt activity 9 The patient did not perform the activity before the current illness or injury 88 Not attempted due to Medical conditions or safety concerns Scootin Rollin Supine to/from Sit: 5 Sit to/from Stand: 5 Sit to Lying (QC): 5 Sit to Stand (QC): 5 Weight Bearing Right Lower Extremity: Right Full Weight Bearing Left Lower Extremity: Left Weight Bearing/Tolerated Gait Training Does the Patient Walk?: Yes Gait (FIM): 5 Distance (FIM): 3=150 ft Distance: 200' Walk 10 feet (QC): 5 Walk 50 ft with 2 Turns(QC): 5 Walk 150 ft (QC): 5 Gait Level of Assist: 5 Gait Persons Needed: 1 Gait Assistive Device: FWW Treatments Pt transfers from bed to standing using FWW. Pt then ambulates in hallway using FWW at [facility]. Pt needs redirection at times to stay on task. Pt declines need to use restroom. Pt returns to room at end of tx with all needs met, call light in hand. Assessment Current Status: Good Progress Pt is confused at times and needs redirection to stay on task. PT Short Term Goals Short Term Goals Time Frame: Jun 07, 2019 Transfers (B,C,W/C) (FIM): 5 Gait (FIM): 5 PT Mcc Goals Mcc Goals PT Mcc Goals Time Frame: Jun 14, 2019 Transfers (B,C,W/C) (FIM): 6 Sit to Lying (QC): 6 Lying-Sitting on Side/Bed(QC): 6 Sit to Stand (QC): 6 Rollin Roll Left to Right (QC): 6 Chair/Zyy-dm-Grthc Xfer(QC): 6 Car Transfer (QC): 6 Does the Patient Walk: Yes Gait (FIM): 6 Gait distance (FIM): 3=150 ft Walk 10 feet (QC): 6 Walk 10ft-Uneven Surface(QC): 6 Walk 50ft with 2 Turns (QC): 6 Walk 150 ft (QC): 6 Gait Assistive Device: FWW Stairs (FIM): 5 # of Steps: 4 1 Step (curb) (QC): 6 4 Steps (QC): 6 12 Steps (QC): 88 Picking up an Object (QC): 88 PT Plan Problem List Problem List: Activity Tolerance, Safety Treatment/Plan Treatment Plan: Continue Plan of Care Treatment Plan: Bed Mobility, Education, Functional Activity Elsi, Functional Strength, Group Therapy, Gait, Safety, Therapeutic Exercise, Transfers Treatment Duration: Jun 14, 2019 Frequency: At least 5 of 7 days/Wk (IRF) Estimated Hrs Per Day: 1.5 hours per day Patient and/or Family Agrees t: Yes Safety Risks/Education Patient Education: Gait Training, Transfer Techniques, Correct Positioning, Safety Issues Teaching Recipient: Patient Teaching Methods: Discussion Response to Teaching: Verbalize Understanding Time/GCodes Time In: 1430 Time Out: 1500 Total Billed Treatment Time: 30 Total Billed Treatment 1, GT (20m) & FA (10m) G Codes Necessary: ESTUARDO Hu MOBILE UNIT ASSISTANT Jun 02, 2019 15:37
[2019-06-02 17:45] VITALS: BP 145/74
--- NOTE | 2019-06-02 17:57 | NUR ---
RENTAL CAR FERRY DRIVER met with patient to review team conference summary. As patient is performing transfers and gait with standby assistance, min assist for lower body ADLs and min assist for bathing team has recommended patient continue to receive therapies and anticipate discharge on . Upon reviewing this recommendation with patient, patient states he has no one to care for his as of and cannot stay longer than this date. Although patient understands the recommendation for further rehabilitation, he is not willing to stay through the recommended date of . RENTAL CAR FERRY DRIVER informed Dr. Christopher of this, she will intend to complete discharge on requested date of .
[2019-06-02] MEDS ORDERED: PATIENT MAY USE OWN MEDS, ALL MC SCH (19:30)
[2019-06-02] MEDS: SIMvastatin 20 MG (ZOCOR) TAB PO SCH (21:01)
[2019-06-02] MEDS: GABAPENTIN 600 MG (NEURONTIN) TAB PO SCH (21:01)
[2019-06-02] MEDS: BICALUTAMIDE 50 MG PO SCH (21:01)
[2019-06-02] MEDS: ALLOPURINOL 300 MG (ZYLOPRIM) TAB PO SCH (21:01)
[2019-06-02] MEDS: ENOXAPARIN 40 MG/0.4 ML (LOVENOX) SYR SC SCH (21:02)
[2019-06-03 05:19] VITALS: BP 135/72
[2019-06-03] MEDS: inSUlin ASPART (NovoLOG) 1 UNIT/0.01 ML (CHARGE PER UNIT) SC SCH (06:18)
[2019-06-03] MEDS: VENlafaxine 75 MG (EFFEXOR) TAB PO SCH ×3 (06:18→16:10)
[2019-06-03] MEDS: CELECOXIB 100 MG (CeleBREX) CAP PO SCH ×2 (06:18→16:10)
[2019-06-03] MEDS: MULTIVIT W/MINERALS TAB (THERAGRAN M) PO SCH (06:18)
[2019-06-03] MEDS: metFORMIN 500 MG (GLUCOPHAGE) TAB PO SCH ×2 (06:18→16:10)
[2019-06-03] MEDS ORDERED: POLYETHYLENE GLYCOL 17 GM (MIRALAX) PACK PO PRN (09:00)
[2019-06-03] MEDS ORDERED: OZEMPIC 2 MG/1.5 ML SC SCH (09:00)
[2019-06-03] MEDS ORDERED: LACTULOSE SYRUP 10GM/15ML (ENULOSE) 30ML UDC PO PRN (09:00)
[2019-06-03] MEDS ORDERED: BISACODYL 10 MG SUPP (DULCOLAX) PR PRN (09:00)
[2019-06-03] MEDS: SENNA W/DOCUSATE (SENOKOT S) TABLET PO SCH ×2 (09:03→21:30)
--- NOTE | 2019-06-03 11:58 | PM&R Progress Note ---
Subjective HPI/CC On Admission Date Seen by Provider: Jun 03, 2019 Time Seen by Provider: 10:00 Chief Complaint: Debility from left hip fracture. HPI: This is a 78yoWM clinic pt of Dr. Ann who presents to in patient rehab due to debility from left hip fracture. Pt had an uneventful hospital stay he will have urinary catheter discontinued and he does have constipation on a regular normal basis and he has not had a BM since he has been here so will aggressively treat that with suppositories and laxatives. At this current time pt's pain is well controlled and he feels like he wants to participate in therapy in order to get home to prior level of functioning. He doesn't smoke or drink and he's retired from post [employer] in [place] for 20 years. Prior level of functioning was ambulatory without assisted devices independent with ADL's. Subjective/Events-last exam Patient had a very large bowel movement yesterday and will maintain the regimen No longer having nausea or vomiting Wants to go home soon Participating in all therapies Wants to get home to take care of his We will focus on fall prevention Urinating well Continue on all home medications Checked meds and labs Reviewed therapy notes Conferred with solar field service technician of Systems Musculoskeletal: leg pain Objective Exam Vital Signs Vital Signs Date Time Temp Pulse Resp B/P (MAP) Pulse Ox O2 Delivery O2 Flow Rate FiO2 06/03/19 10:35 Room Air 06/03/19 05:19 97.9 65 17 135/72 (93) 98 Capillary Refill : NONE General Appearance: No Apparent Distress, WD/WN, Chronically ill HEENT: PERRL/EOMI, Normal ENT Inspection, Pharynx Normal, Moist Mucous Membranes Neck: Full Range of Motion, Normal Inspection, Non Tender, Supple Respiratory: Chest Non Tender, Lungs Clear, Normal Breath Sounds, No Accessory Muscle Use, No Respiratory Distress Cardiovascular: Regular Rate, Rhythm, No Edema, No Gallop, No JVD, No Murmur Gastrointestinal: Normal Bowel Sounds, No Organomegaly, No Pulsatile Mass, Non Tender, Soft Back: Normal Inspection, No CVA Tenderness, No Vertebral Tenderness Extremity: Normal Capillary Refill, Normal Inspection, Normal Range of Motion (except left leg decreased ROM), Non Tender, No Calf Tenderness, No Pedal Edema Neurologic/Psychiatric: Alert, Oriented x3, No Motor/Sensory Deficits, Normal Mood/Affect Skin: Normal Color, Warm/Dry Lymphatic: No Adenopathy Results/Procedures Lab Patient resulted labs reviewed. FIM Transfers Therapy Code Descriptions/Definitions Functional [place] Measure: 0=Not Assessed/NA 4=Minimal Assistance 1=Total Assistance 5=Supervision or Setup 2=Maximal Assistance 6=Modified [place] 3=Moderate Assistance 7=Complete [place] Therapy Quality Codes: 6 Independent with activity with or without an assistive device 5 Patient requires set up or clean up by helper. Patient completes activity by themselves 4 Supervision or touching assist (CGA). [place] provide cues , steadying assist 3 The helper provides less than half the effort to complete the activity 2 The helper provides more than half the effort to complete the activity 1 Dependent. The helper does all the effort to complete an activity 7 Patient refused to complete or attempt activity 9 The patient did not perform the activity before the current illness or injury 88 Not attempted due to Medical conditions or safety concerns Transfers (B, C, W/C) (FIM): 5 Scootin Rollin Roll Left to Right (QC): 4 Supine to/from Sit: 5 Sit to/from Stand: 5 Sit to Lying (QC): 5 Sit to Stand (QC): 5 Chair/Oyq-lx-Hlmcc Xfer(QC): 4 Car Transfer (QC): 3 Gait Training Does the Patient Walk?: Yes Gait (FIM): 5 Distance (FIM): 3=150 ft Distance: 200' Walk 10 feet (QC): 5 Walk 50 ft with 2 Turns(QC): 5 Walk 150 ft (QC): 5 Walking 10ft/uneven surface-QC: 4 Gait Level of Assist: 5 Gait Persons Needed: 1 Gait Assistive Device: FWW Wheelchair Training Does the Pt Use a Wheelchair?: No Stair Training Stairs (FIM): 1 #of Steps: 1 1 Step (curb) (QC): 4 (CGA and skilled cues for sequencing. ) 4 Steps (QC): 88 Level of Assist: 4 Balance Picking up an Object (QC): 88 Mental Status/Objective Comprehension: 7 Expression: 7 Social Interaction: 7 Problem Solvin Memory: 7 ADL-Treatment Groomin Oral Hygiene (QC): 6 Bathin Shower/Bathe Self (QC): 3 Upper Extremity Dressin Upper Body Dressing (QC): 5 Lower Extremity Dressin Lower Body Dressing (QC): 3 On/Off Footwear (QC): 5 Toiletin Toilet/Commode Transfer: 5 Shower: 4 (CGA) Assessment/Plan Assessment and Plan Assess & Plan/Chief Complaint Assessment: Left hip fracture s/p repair POD # 5 DM Prostate cancer hx Anemia acute blood loss Constipation resolved yesterday Plan: Pain control Check labs prn Monitor closely IRF protocol Fall risk BM regimen to maintain (1) Fracture of femur (2) Constipation (3) Acute blood loss anemia (4) Diabetes mellitus (5) Prostate cancer (6) History of prostatectomy SEVERINO ALDRICH DO Jun 03, 2019 11:58
--- NOTE | 2019-06-03 12:11 | Occupational Ther Daily Note ---
OT Current Status-Daily Note Subjective Pt seen in room, up in bed, agreeable to OT. Pt reported not in any pain. Appearance Alert, cooperative Mental Status/Objective Therapy Code Descriptions/Definitions Functional [place] Measure: 0=Not Assessed/NA 4=Minimal Assistance 1=Total Assistance 5=Supervision or Setup 2=Maximal Assistance 6=Modified [place] 3=Moderate Assistance 7=Complete [place] ADL-Treatment Pt declined bathing or changing clothes but did want to shave. He recalled all three hip precautions and asked for chair high enough to accommodate his hip precautions. Pt educ on mod technique for sitting to decrease hip flex angle. Pt shaved and brushed teeth without help but he dropped razor and needed skilled cues to not just reach down to pick it up (hip precautions). Transfers SBA. Pt walked to gym with SBA and got in/out of chair with arms with SBA for safety. Therapy Code Descriptions/Definitions Functional [place] Measure: 0=Not Assessed/NA 4=Minimal Assistance 1=Total Assistance 5=Supervision or Setup 2=Maximal Assistance 6=Modified [place] 3=Moderate Assistance 7=Complete [place] Therapy Quality Codes: 6 Independent with activity with or without an assistive device 5 Patient requires set up or clean up by helper. Patient completes activity by themselves 4 Supervision or touching assist (CGA). [place] provide cues , steadying assist 3 The helper provides less than half the effort to complete the activity 2 The helper provides more than half the effort to complete the activity 1 Dependent. The helper does all the effort to complete an activity 7 Patient refused to complete or attempt activity 9 The patient did not perform the activity before the current illness or injury 88 Not attempted due to Medical conditions or safety concerns Grooming (FIM): 5 (Supervision) Other Treatment Pt completed 12 minutes bilat UE exercise on arm bike using arm bike set at 25W resistance (increased time). To strengthen arms to help with safe transfers and ambulation. Also completed 10 reps bilat UE ex with 2# weight, working on shoulders, elbows, forearms and wrists. Pt educ on the different exercises. Pt got up from chair, following hip precautions, and walked back to room SBA, FWW. Pt left up in bed, all needs met. Education OT Patient Education: Exercise program, Modified ADL techniques, Progress toward Goal/Update tx plan, Purpose of tx/functional activities, Safety issues Teaching Recipient: Patient Teaching Methods: Discussion Response to Teaching: Verbalize Understanding, Return Demonstration, Reinforcement Needed OT Short Term Goals Short Term Goals Time Frame: Jun 07, 2019 Eating(FIM): 5 Grooming(FIM): 5 Bathing(FIM): 4 Upper Body Dressing(FIM): 5 Lower Body Dressing(FIM): 4 Toileting(FIM): 4 Transfers (B,C,W/C) (FIM): 5 Toilet/Commode Transfer(FIM): 5 Shower Transfer(FIM): 4 Additional Short Term Goals: 1-Demonstrate ADL Tasks, 2-Verbalize Understanding, 3-ImproveStrength/Elsi 1=Demonstrate adherence to instructed precautions during ADL tasks. 2=Patient will verbalize/demonstrate understanding of assistive devices/modifications for ADL. 3=Patient will improve strength/tolerance for activity to enable patient to perform ADL's. OT Audit Practice Intern Goals Intermediate Goals Time Frame: Jun 14, 2019 Eating (FIM): 6 Eating (QC): 6 Groomin Oral Hygiene (QC): 6 Bathing(FIM): 5 Shower/Bathe Self (QC): 4 Upper Body Dressing(FIM): 6 Upper Body Dressing (QC): 6 Lower Body Dressing(FIM): 6 Lower Body Dressing (QC): 6 On/Off Footwear (QC): 6 Toileting(FIM): 6 Toileting Hygiene (QC): 6 Transfers (B,C,W/C) (FIM): 6 Toilet/Commode Transfer(FIM): 6 Toilet/Commode Transfer (QC): 6 Shower Transfer(FIM): 5 Additional Goals: 1-Demonstrate ADL Tasks, 2-Verbalize Understanding, 3- ImproveStrength/Elsi 1=Demonstrate adherence to instructed precautions during ADL tasks. 2=Patient will verbalize/demonstrate understanding of assistive devices/modifications for ADL. 3=Patient will improve strength/tolerance for activity to enable patient to perform ADL's. OT Education/Plan Discharge Recommendations Plan/Recommendations: Continue POC Treatment Plan/Plan of Care Patient would benefit from OT for education, treatment and training to promote independence in ADL's, mobility, safety and/or upper extremity function for ADL's. Plan of Care: ADL Retraining, Functional Mobility, Group Exercise/Act as Ind, UE Funct Exercise/Act Treatment Duration: Jun 14, 2019 Frequency: At least 5 of 7 days/Wk (IRF) Estimated Hrs Per Day: 1.5 hours per day Agreement: Yes Rehab Potential: Good Time/GCodes Start Time: 09:30 Stop Time: 10:30 Total Time Billed (hr/min): 50 Billed Treatment Time visit, 25 minutes ADL, 35 minutes exercise JOSIANE BOSS OT Jun 03, 2019 12:11
--- NOTE | 2019-06-03 13:19 | Physical Therapy Daily Note ---
PT Daily Note-Current Subjective Pt denies any pain until toward end of tx session after performing stair training. States he would like to try walking with SPC tomorrow. Agreeable to PT session Pain Numeric Pain Scale: 0-No Pain Appearance Pt in bed awake and alert upon arrival. At end of session, pt requesting and assisted to bed, call light, phone and bedside table within reach. Mental Status Patient Orientation: Person, Place, Time, Eyes Open, Situation Transfers Therapy Code Descriptions/Definitions Functional [place] Measure: 0=Not Assessed/NA 4=Minimal Assistance 1=Total Assistance 5=Supervision or Setup 2=Maximal Assistance 6=Modified [place] 3=Moderate Assistance 7=Complete [place] Therapy Quality Codes: 6 Independent with activity with or without an assistive device 5 Patient requires set up or clean up by helper. Patient completes activity by themselves 4 Supervision or touching assist (CGA). [place] provide cues , steadying assist 3 The helper provides less than half the effort to complete the activity 2 The helper provides more than half the effort to complete the activity 1 Dependent. The helper does all the effort to complete an activity 7 Patient refused to complete or attempt activity 9 The patient did not perform the activity before the current illness or injury 88 Not attempted due to Medical conditions or safety concerns Transfers (B, C, W/C) (FIM): 5 Scootin Rollin Supine to/from Sit: 5 (HOB slightly elevated) Sit to/from Stand: 5 Pt performing all transitions with min effort, min verb inst Weight Bearing Right Lower Extremity: Right Full Weight Bearing Left Lower Extremity: Left Weight Bearing/Tolerated Gait Training Does the Patient Walk?: Yes Gait (FIM): 5 Distance (FIM): 3=150 ft Distance: 300, 175 Gait Level of Assist: 5 Gait Persons Needed: 1 Gait Assistive Device: FWW slight antalgic, decreased stance time LLE with min IR. Steady without LOB. Good step through gait pattern and fair pace Stair Training Stair Training: Handrails/: 2 handrails Stairs (FIM): 4 #of Steps: 4 Stairs: Pattern: Step to Level of Assist: 4 pt initially attempted reciprocating step pattern but increased hip pain, re instruction given to perform step to in order to decrease increasing pain Exercises Standing: Hamstring curls, Heel/toe raises, 3 way Ex=Flex, Abd, Ext (lunges with unilat to no UE support), Marching (attempting without UE support, high knee), Mini squats, Side steps (no UE support x 5 laps each in // bars left and right), Unilateral stance (attempting without UE support), Weight shifts (no UE support) Standing Reps: 10 NuStep Minutes: 18 NuStep Workload: 5 (seat 10, arms 10) Treatments bed mobility, transfers, safety, gait, functional mobility, strengthening, balance, stairs, activity tolerance, education, stairs Assessment Current Status: Good Progress PT Short Term Goals Short Term Goals Time Frame: Jun 07, 2019 Transfers (B,C,W/C) (FIM): 5 Gait (FIM): 5 PT Algebra Tutor Goals Algebra Tutor Goals PT Algebra Tutor Goals Time Frame: Jun 14, 2019 Transfers (B,C,W/C) (FIM): 6 Sit to Lying (QC): 6 Lying-Sitting on Side/Bed(QC): 6 Sit to Stand (QC): 6 Rollin Roll Left to Right (QC): 6 Chair/Nzm-sz-Qxrrn Xfer(QC): 6 Car Transfer (QC): 6 Does the Patient Walk: Yes Gait (FIM): 6 Gait distance (FIM): 3=150 ft Walk 10 feet (QC): 6 Walk 10ft-Uneven Surface(QC): 6 Walk 50ft with 2 Turns (QC): 6 Walk 150 ft (QC): 6 Gait Assistive Device: FWW Stairs (FIM): 5 # of Steps: 4 1 Step (curb) (QC): 6 4 Steps (QC): 6 12 Steps (QC): 88 Picking up an Object (QC): 88 PT Plan Treatment/Plan Treatment Plan: Continue Plan of Care Treatment Plan: Bed Mobility, Education, Functional Activity Elsi, Functional Strength, Group Therapy, Gait, Safety, Therapeutic Exercise, Transfers Treatment Duration: Jun 14, 2019 Frequency: At least 5 of 7 days/Wk (IRF) Estimated Hrs Per Day: 1.5 hours per day Patient and/or Family Agrees t: Yes Safety Risks/Education Patient Education: Gait Training, Transfer Techniques, Steps, Reviewed Precautions, Disease Process, Safety Issues Teaching Recipient: Patient Teaching Methods: Demonstration, Discussion Response to Teaching: Verbalize Understanding, Return Demonstration Time/GCodes Time In: 1030 Time Out: 1130 Total Billed Treatment Time: 60 Total Billed Treatment 1 visit, GT x 2 units, EX x2 units [employer] ARCHIT[employer] Jun 03, 2019 13:19
--- NOTE | 2019-06-03 14:13 | Therapy Group Daily Note ---
Therapy Daily Group Note Patient Education Topic Other List Below (memory strategies) Session Ratio (pt:therapist): 3:1 Goal of Session: Memory Strategies Goal Met for this Session: Yes Pt Benefit of Group: Contributions to Others, Improved Cognition, Recognition of Peers, Socialization Other/Notes Pt ambulated to OT/PT group in [facility] using FWW. Group consisted of introductions (name, place living, favorite fireworks display), socialization, memory strategies, memory exercises and memory activity. Pt introduced self appropriately and actively listened to peers. Pt contributed to conversations and interacted with peers throughout group. Acknowledged understanding of group education topics by verbalizing own strategies and understanding. Pt able to complete memory activity accurately and assisted peers when help was needed. After group, pt sitting in recliner with call light/phone in reach. All needs met in room. Start Time: 12:30 Stop Time: 13:30 Total Billed Treatment Time: 60 Total Billed Treatment 1-GRP NEGRITO VILLARREAL Jun 03, 2019 14:13
[2019-06-03 15:25] VITALS: BP 123/65
[2019-06-03 16:36] VITALS: BP 157/78
[2019-06-03] MEDS: ENOXAPARIN 40 MG/0.4 ML (LOVENOX) SYR SC SCH (21:29)
[2019-06-03] MEDS: SIMvastatin 20 MG (ZOCOR) TAB PO SCH (21:29)
[2019-06-03] MEDS: ALLOPURINOL 300 MG (ZYLOPRIM) TAB PO SCH (21:30)
[2019-06-03] MEDS: GABAPENTIN 600 MG (NEURONTIN) TAB PO SCH (21:30)
[2019-06-03] MEDS: BICALUTAMIDE 50 MG PO SCH (21:31)
[2019-06-04] MEDS: inSUlin ASPART (NovoLOG) 1 UNIT/0.01 ML (CHARGE PER UNIT) SC SCH (05:58)
[2019-06-04] MEDS: MULTIVIT W/MINERALS TAB (THERAGRAN M) PO SCH (06:03)
[2019-06-04] MEDS: metFORMIN 500 MG (GLUCOPHAGE) TAB PO SCH ×2 (06:04→17:06)
[2019-06-04] MEDS: VENlafaxine 75 MG (EFFEXOR) TAB PO SCH ×3 (06:04→17:06)
[2019-06-04] MEDS: CELECOXIB 100 MG (CeleBREX) CAP PO SCH ×2 (06:04→17:06)
[2019-06-04 06:22] VITALS: BP 147/73
[2019-06-04] MEDS: SENNA W/DOCUSATE (SENOKOT S) TABLET PO SCH ×2 (08:35→20:48)
--- NOTE | 2019-06-04 09:56 | Progress Note - Ortho ---
Progress Note Subjective Date of Exam 06/04/19 Chief Complaint POD#6 matted bipolar hemiarthroplasty left hip HPI/Events since last exam Mr. Hubbard is now ambulating with a cane as of this morning. I spoke with this therapist and she states he's doing very well with the cane Review of Systems Reviewed and no additions or changes Allergies: Coded Allergies: No Known Drug Allergies (Unverified , 02/20/15) Home Meds Reported Medications Gabapentin (Gabapentin) 600 Mg Tablet, 600 MG PO TID PRN for NERVE PAIN, TAB 05/31/19 Multivitamin with Minerals (One Daily Complete) 1 Each Tablet, 1 TAB PO DAILY, TAB 05/31/19 Simvastatin (Simvastatin) 20 Mg Tablet, 20 MG PO HS, TAB 05/31/19 Venlafaxine HCl (Venlafaxine HCl) 75 Mg Tab, 75 MG PO TID 05/31/19 Metformin HCl (Metformin HCl) 1,000 Mg Tablet, 1000 MG PO BID, TAB 05/31/19 Gabapentin (Gabapentin) 600 Mg Tablet, 600 MG PO HS 05/31/19 Oxycodone HCl/Acetaminophen (Oxycodone-Acetaminophen 5-325) 1 Each Tablet, 1 TAB PO Q4H PRN for PAIN-MODERATE 05/31/19 Allopurinol (Allopurinol) 300 Mg Tablet, 300 MG PO HS, TAB 05/31/19 Semaglutide (Ozempic) 0.25 Mg/0.2 Ml Pen.injctr, 0.5 MG SC Th, EA 05/31/19 Bicalutamide (Bicalutamide) 50 Mg Tablet, 50 MG PO HS, TAB 05/31/19 Discontinued Reported Medications Glyburide (Glyburide) 5 Mg Tablet, 5 MG PO QID, TAB 05/31/19 Pioglitazone HCl (Pioglitazone HCl) 30 Mg Tablet, 30 MG PO DAILY, TAB 05/31/19 Objective Exam Constitutional: [] HEENT: [] Neck: [] Cardiovascular: [] Respiratory: [] Gastrointestinal: [] Genitourinary: [] Skin: [] Back/Spine: [] Extremities: [At the time of his evaluation he was riding the reclining bike and doing well without pain. He has good position of the leg. I did not look his dressing but he states the last time it was changed looked very good.] Neurologic: [] Psychiatric: [] Hematologic/lymphatic/immunologic: [] Vital Signs Vital Signs Date Time Temp Pulse Resp B/P (MAP) Pulse Ox O2 Delivery O2 Flow Rate FiO2 06/04/19 08:00 Room Air 06/04/19 06:22 98.7 65 16 147/73 (97) 97 Room Air 06/03/19 20:55 Room Air 06/03/19 18:01 Room Air 06/03/19 16:36 97.4 69 16 157/78 (104) 94 Room Air 06/03/19 10:35 Room Air I & O 06/04/19 07:00 Intake Total 2800 ml Balance 2800 ml Lab Results Laboratory Tests 06/03/19 10:56: Glucometer 230H 06/04/19 05:13: Glucometer 169H Assessment and Plan Assessment Postop cemented bipolar hemiarthroplasty left hip Problem List Same Plan Continue with physical therapy occupational therapy and cane ambulation weightbearing as tolerated on the left Final Diagonsis Status post cemented bipolar hemiarthroplasty left hip Level of the visit: Level 3 Clinical Quality Measures DVT/VTE Risk/Contraindication: Risk Factor Score Per Nursin RFS Level Per Nursing on Admit: 4+=Very High NAM IGLESIAS MD Jun 04, 2019 09:56
--- NOTE | 2019-06-04 11:06 | Physical Therapy Daily Note ---
PT Daily Note-Current Subjective Inquiring about using a cane. Reports he feels the walker is bulky. Happy he is going home on Friday. Mental Status Patient Orientation: Person, Place, Time, Situation Transfers Therapy Code Descriptions/Definitions Functional [place] Measure: 0=Not Assessed/NA 4=Minimal Assistance 1=Total Assistance 5=Supervision or Setup 2=Maximal Assistance 6=Modified [place] 3=Moderate Assistance 7=Complete [place] Therapy Quality Codes: 6 Independent with activity with or without an assistive device 5 Patient requires set up or clean up by helper. Patient completes activity by themselves 4 Supervision or touching assist (CGA). Juda provide cues , steadying assist 3 The helper provides less than half the effort to complete the activity 2 The helper provides more than half the effort to complete the activity 1 Dependent. The helper does all the effort to complete an activity 7 Patient refused to complete or attempt activity 9 The patient did not perform the activity before the current illness or i njury 88 Not attempted due to Medical conditions or safety concerns Transfers (B, C, W/C) (FIM): 5 Supine to/from Sit: 5 Sit to/from Stand: 5 SBA for all functional transfers. Weight Bearing Right Lower Extremity: Right Full Weight Bearing Left Lower Extremity: Left Weight Bearing/Tolerated Gait Training Does the Patient Walk?: Yes Gait (FIM): 5 Distance (FIM): 3=150 ft Distance: 200 ft x 3 Gait Assistive Device: Cane Single Point Spoke with Dr. Magdaleno, he reported it was fine for the patient to use a cane for ambulation as long as the patient was safe with it. Instructed and demonstrated correct cane use and then worked on functional gait training using the cane. Pt was able to walk all bouts with the cane with sBA. Intermittent cues provided during session on sequncintg and technique. Pt demonstrates safe and correct use of the cane. Instructed pt that he may fatigue more or have increased soreness and recommended he use the FWW if he felt necessary at times. Stair Training Stair Training: Handrails/: 1 handrail (and cane) Stairs (FIM): 2 Stairs: Pattern: Step to up/down 8 step with skilleed cues for sequencing with instruction for reason for sequence. Pt able to complete requiring only SBA. Exercises NuStep Minutes: 15 NuStep Workload: 3 (To promote LE strength and functional act tolerance for improved mobility in his home. ) Assessment Current Status: Excellent Progress Pt did well with the cane and demonstrated safe use. Progressing well and working towards est goals. PT Short Term Goals Short Term Goals Time Frame: Jun 07, 2019 Transfers (B,C,W/C) (FIM): 5 (met) Gait (FIM): 5 (met) PT [facility] Goals [employer] Goals PT [facility] Goals Time Frame: Jun 14, 2019 Transfers (B,C,W/C) (FIM): 6 Sit to Lying (QC): 6 Lying-Sitting on Side/Bed(QC): 6 Sit to Stand (QC): 6 Rollin Roll Left to Right (QC): 6 Chair/Mbo-wm-Lqhqq Xfer(QC): 6 Car Transfer (QC): 6 Does the Patient Walk: Yes Gait (FIM): 6 Gait distance (FIM): 3=150 ft Walk 10 feet (QC): 6 Walk 10ft-Uneven Surface(QC): 6 Walk 50ft with 2 Turns (QC): 6 Walk 150 ft (QC): 6 Gait Assistive Device: FWW Stairs (FIM): 5 # of Steps: 4 1 Step (curb) (QC): 6 4 Steps (QC): 6 12 Steps (QC): 88 Picking up an Object (QC): 88 PT Plan Problem List Problem List: Activity Tolerance, Functional Strength, Safety, Balance, Gait, Transfer, Bed Mobility Treatment/Plan Treatment Plan: Continue Plan of Care Treatment Plan: Bed Mobility, Education, Functional Activity Elsi, Functional Strength, Group Therapy, Gait, Safety, Therapeutic Exercise, Transfers Treatment Duration: Jun 14, 2019 Frequency: At least 5 of 7 days/Wk (IRF) Estimated Hrs Per Day: 1.5 hours per day Patient and/or Family Agrees t: Yes Safety Risks/Education Patient Education: Gait Training (cane use) Teaching Recipient: Patient Teaching Methods: Demonstration, Discussion Response to Teaching: Return Demonstration, Reinforcement Needed Discharge Recommendations Therapy D/C Recommendations: Physical Therapy Home Care Time/GCodes Time In: 900 Time Out: 1000 Total Billed Treatment Time: 60 Total Billed Treatment visit GT 45 EX 15 NEGRITO MOREIRA PT Jun 04, 2019 11:06
--- NOTE | 2019-06-04 11:37 | PM&R Progress Note ---
Subjective HPI/CC On Admission Date Seen by Provider: Jun 04, 2019 Time Seen by Provider: 09:00 Chief Complaint: Debility from left hip fracture. HPI: This is a 78yoWM clinic pt of Dr. Ann who presents to in patient rehab due to debility from left hip fracture. Pt had an uneventful hospital stay he will have urinary catheter discontinued and he does have constipation on a regular normal basis and he has not had a BM since he has been here so will aggressively treat that with suppositories and laxatives. At this current time pt's pain is well controlled and he feels like he wants to participate in therapy in order to get home to prior level of functioning. He doesn't smoke or drink and he's retired from [employer] in [place] for 20 years. Prior level of functioning was ambulatory without assisted devices independent with ADL's. Subjective/Events-last exam Patient had a very large bowel movement 2 days ago and will maintain the regimen No longer having nausea or vomiting Wants to go home Friday Participating in all therapies Wants to get home to take care of his We will focus on fall prevention Urinating well Continue on all home medications Checked meds and labs Reviewed therapy notes Conferred with accounting systems analyst of Systems Musculoskeletal: leg pain Objective Exam Vital Signs Vital Signs Date Time Temp Pulse Resp B/P (MAP) Pulse Ox O2 Delivery O2 Flow Rate FiO2 06/04/19 08:00 Room Air 06/04/19 06:22 98.7 65 16 147/73 (97) 97 Capillary Refill : NONE General Appearance: No Apparent Distress, WD/WN, Chronically ill HEENT: PERRL/EOMI, Normal ENT Inspection, Pharynx Normal, Moist Mucous Membranes Neck: Full Range of Motion, Normal Inspection, Non Tender, Supple Respiratory: Chest Non Tender, Lungs Clear, Normal Breath Sounds, No Accessory Muscle Use, No Respiratory Distress Cardiovascular: Regular Rate, Rhythm, No Edema, No Gallop, No JVD, No Murmur Gastrointestinal: Normal Bowel Sounds, No Organomegaly, No Pulsatile Mass, Non Tender, Soft Back: Normal Inspection, No CVA Tenderness, No Vertebral Tenderness Extremity: Normal Capillary Refill, Normal Inspection, Normal Range of Motion (except left leg decreased ROM), Non Tender, No Calf Tenderness, No Pedal Edema Neurologic/Psychiatric: Alert, Oriented x3, No Motor/Sensory Deficits, Normal Mood/Affect Skin: Normal Color, Warm/Dry Lymphatic: No Adenopathy Results/Procedures Lab Patient resulted labs reviewed. FIM Transfers Therapy Code Descriptions/Definitions Functional [place] Measure: 0=Not Assessed/NA 4=Minimal Assistance 1=Total Assistance 5=Supervision or Setup 2=Maximal Assistance 6=Modified [place] 3=Moderate Assistance 7=Complete [place] Therapy Quality Codes: 6 Independent with activity with or without an assistive device 5 Patient requires set up or clean up by helper. Patient completes activity by themselves 4 Supervision or touching assist (CGA). [place] provide cues , steadying assist 3 The helper provides less than half the effort to complete the activity 2 The helper provides more than half the effort to complete the activity 1 Dependent. The helper does all the effort to complete an activity 7 Patient refused to complete or attempt activity 9 The patient did not perform the activity before the current illness or injury 88 Not attempted due to Medical conditions or safety concerns Transfers (B, C, W/C) (FIM): 5 Scootin Rollin Roll Left to Right (QC): 4 Supine to/from Sit: 5 Sit to/from Stand: 5 Sit to Lying (QC): 5 Sit to Stand (QC): 5 Chair/Xri-oj-Lpwab Xfer(QC): 4 Car Transfer (QC): 3 Gait Training Does the Patient Walk?: Yes Gait (FIM): 5 Distance (FIM): 3=150 ft Distance: 200 ft x 3 Walk 10 feet (QC): 5 Walk 50 ft with 2 Turns(QC): 5 Walk 150 ft (QC): 5 Walking 10ft/uneven surface-QC: 4 Gait Level of Assist: 5 Gait Persons Needed: 1 Gait Assistive Device: Cane Single Point Wheelchair Training Does the Pt Use a Wheelchair?: No Stair Training Stair Training: Handrails/: 1 handrail (and cane) Stairs (FIM): 2 #of Steps: 4 1 Step (curb) (QC): 4 (CGA and skilled cues for sequencing. ) 4 Steps (QC): 88 Stairs: Pattern: Step to Level of Assist: 4 Balance Picking up an Object (QC): 88 Mental Status/Objective Comprehension: 7 Expression: 7 Social Interaction: 7 Problem Solvin Memory: 7 ADL-Treatment Groomin (Supervision) Oral Hygiene (QC): 6 Bathin Shower/Bathe Self (QC): 3 Upper Extremity Dressin Upper Body Dressing (QC): 5 Lower Extremity Dressin Lower Body Dressing (QC): 3 On/Off Footwear (QC): 5 Toiletin Toilet/Commode Transfer: 5 Shower: 4 (CGA) Assessment/Plan Assessment and Plan Assess & Plan/Chief Complaint Assessment: Left hip fracture s/p repair POD # 6 DM Prostate cancer hx Anemia acute blood loss Constipation resolved yesterday Plan: Pain control Check labs prn Monitor closely IRF protocol Fall risk BM regimen to maintain (1) Fracture of femur (2) Constipation (3) Acute blood loss anemia (4) Diabetes mellitus (5) Prostate cancer (6) History of prostatectomy SEVERINO ALDRICH DO Jun 04, 2019 11:37
--- NOTE | 2019-06-04 12:43 | Occupational Ther Daily Note ---
OT Current Status-Daily Note Subjective Pt in bed, agrees to therapy. Pt reports 2/10 pain in left hip. Mental Status/Objective Therapy Code Descriptions/Definitions Functional [place] Measure: 0=Not Assessed/NA 4=Minimal Assistance 1=Total Assistance 5=Supervision or Setup 2=Maximal Assistance 6=Modified [place] 3=Moderate Assistance 7=Complete [place] ADL-Treatment Pt requests shower this morning. Supine to sit without assist. Retrieved clothing. Gait to restroom with FWW. Transfer to walk in shower with modified independence using grab bar. Pt doffed clothing without assist, used dressing stick to doff pants and socks. Seated shower completed using long handled sponge. Pt able to wash all areas with modified independence. Don pullover shirt with modified independence. Pt used production operations inspector to thread bilateral LE into underwear and pants with skilled cues for technique. Don bilateral socks with modified independence using sock aid. Pt brushed teeth and shaved in the shower with modified independence. Therapy Code Descriptions/Definitions Functional [place] Measure: 0=Not Assessed/NA 4=Minimal Assistance 1=Total Assistance 5=Supervision or Setup 2=Maximal Assistance 6=Modified [place] 3=Moderate Assistance 7=Complete [place] Therapy Quality Codes: 6 Independent with activity with or without an assistive device 5 Patient requires set up or clean up by helper. Patient completes activity by themselves 4 Supervision or touching assist (CGA). [place] provide cues , steadying assist 3 The helper provides less than half the effort to complete the activity 2 The helper provides more than half the effort to complete the activity 1 Dependent. The helper does all the effort to complete an activity 7 Patient refused to complete or attempt activity 9 The patient did not perform the activity before the current illness or injury 88 Not attempted due to Medical conditions or safety concerns Grooming (FIM): 6 Oral Hygiene (QC): 6 Bathing (FIM): 6 Shower/Bathe Self (QC): 6 Upper Body (FIM): 6 Upper Body Dressing (QC): 6 Lower Body Dressing (FIM): 5 Lower Body Dressing (QC): 5 On/Off Footwear (QC): 6 Shower Transfer(FIM): 6 Other Treatment Gait to therapy gym without LOB. Arm bike [id number] to increase overall strength and activity tolerance needed for functional task completion. Pt completed activity with moderate resistance and steady pace. No rest breaks needed. Pt returned to room, transferred to bed with modified independence. Resting in bed with needs met after session. OT Short Term Goals Short Term Goals Time Frame: Jun 07, 2019 Eating(FIM): 5 Grooming(FIM): 5 Bathing(FIM): 4 Upper Body Dressing(FIM): 5 Lower Body Dressing(FIM): 4 Toileting(FIM): 4 Transfers (B,C,W/C) (FIM): 5 (met) Toilet/Commode Transfer(FIM): 5 Shower Transfer(FIM): 4 Additional Short Term Goals: 1-Demonstrate ADL Tasks, 2-Verbalize Understanding, 3-ImproveStrength/Elsi 1=Demonstrate adherence to instructed precautions during ADL tasks. 2=Patient will verbalize/demonstrate understanding of assistive devices/modifications for ADL. 3=Patient will improve strength/tolerance for activity to enable patient to perform ADL's. OT Nursing Home Goals [place] Goals Time Frame: Jun 14, 2019 Eating (FIM): 6 Eating (QC): 6 Groomin Oral Hygiene (QC): 6 Bathing(FIM): 5 Shower/Bathe Self (QC): 4 Upper Body Dressing(FIM): 6 Upper Body Dressing (QC): 6 Lower Body Dressing(FIM): 6 Lower Body Dressing (QC): 6 On/Off Footwear (QC): 6 Toileting(FIM): 6 Toileting Hygiene (QC): 6 Transfers (B,C,W/C) (FIM): 6 Toilet/Commode Transfer(FIM): 6 Toilet/Commode Transfer (QC): 6 Shower Transfer(FIM): 5 Additional Goals: 1-Demonstrate ADL Tasks, 2-Verbalize Understanding, 3- ImproveStrength/Elsi 1=Demonstrate adherence to instructed precautions during ADL tasks. 2=Patient will verbalize/demonstrate understanding of assistive devices/modifications for ADL. 3=Patient will improve strength/tolerance for activity to enable patient to perform ADL's. OT Education/Plan Discharge Recommendations Plan/Recommendations: Continue POC Treatment Plan/Plan of Care Patient would benefit from OT for education, treatment and training to promote independence in ADL's, mobility, safety and/or upper extremity function for ADL's. Plan of Care: ADL Retraining, Functional Mobility, Group Exercise/Act as Ind, UE Funct Exercise/Act Treatment Duration: Jun 14, 2019 Frequency: At least 5 of 7 days/Wk (IRF) Estimated Hrs Per Day: 1.5 hours per day Agreement: Yes Rehab Potential: Good Time/GCodes Start Time: 11:00 Stop Time: 12:00 Total Time Billed (hr/min): 60 Billed Treatment Time 1 visit, ADLx3(45minutes), EX(15minutes) KOFI MARCELO OT Jun 04, 2019 12:43
--- NOTE | 2019-06-04 14:24 | Therapy Group Daily Note ---
Therapy Daily Group Note Session Ratio (pt:therapist): 4:1 Goal of Session: UE/LE Strengthing, Safety with Transfers Goal Met for this Session: Yes Pt Benefit of Group: Contributions to Others, Improved Cognition, Recognition of Peers, Socialization Other/Notes Patient participated in group therapy in the common area of rehab. Each patient had to introduce themselves and state words that they had to remember from a previous session. They then socialized and participated in a game/activity that involved memory, critical thinking, and strategy and UE AROM and digital manipulation. Then, each patient was taken back to their rooms and placed in bed or chair with nurse call, phone, tray, all needs met. Start Time: 13:00 Stop Time: 14:10 Total Billed Treatment Time: 70 Total Billed Treatment 1 visit GRP 70' JUAN NICOLE PT Jun 04, 2019 14:24
[2019-06-04 18:00] VITALS: BP 132/77
[2019-06-04] MEDS: SIMvastatin 20 MG (ZOCOR) TAB PO SCH (20:48)
[2019-06-04] MEDS: GABAPENTIN 600 MG (NEURONTIN) TAB PO SCH (20:48)
[2019-06-04] MEDS: ALLOPURINOL 300 MG (ZYLOPRIM) TAB PO SCH (20:48)
[2019-06-04] MEDS: BICALUTAMIDE 50 MG PO SCH (20:50)
[2019-06-04] MEDS: ENOXAPARIN 40 MG/0.4 ML (LOVENOX) SYR SC SCH (21:03)
[2019-06-05] MEDS: MELATONIN 3 MG TABLET PO PRN ×2 (01:59→22:26)
[2019-06-05] MEDS: inSUlin ASPART (NovoLOG) 1 UNIT/0.01 ML (CHARGE PER UNIT) SC SCH (05:46)
[2019-06-05 05:50] VITALS: BP 164/76
[2019-06-05] MEDS: CELECOXIB 100 MG (CeleBREX) CAP PO SCH ×2 (06:34→17:18)
[2019-06-05] MEDS: MULTIVIT W/MINERALS TAB (THERAGRAN M) PO SCH (06:34)
[2019-06-05] MEDS: VENlafaxine 75 MG (EFFEXOR) TAB PO SCH ×3 (06:34→17:18)
[2019-06-05] MEDS: metFORMIN 500 MG (GLUCOPHAGE) TAB PO SCH ×2 (06:35→17:18)
[2019-06-05] MEDS: SENNA W/DOCUSATE (SENOKOT S) TABLET PO SCH ×2 (08:14→20:50)
--- NOTE | 2019-06-05 09:05 | Physical Therapy Daily Note ---
PT Daily Note-Current Subjective Reports he did not rest well last night. Agrees to PT. Reports he likes using the cane. Transfers Therapy Code Descriptions/Definitions Functional [place] Measure: 0=Not Assessed/NA 4=Minimal Assistance 1=Total Assistance 5=Supervision or Setup 2=Maximal Assistance 6=Modified [place] 3=Moderate Assistance 7=Complete [place] Therapy Quality Codes: 6 Independent with activity with or without an assistive device 5 Patient requires set up or clean up by helper. Patient completes activity by themselves 4 Supervision or touching assist (CGA). [place] provide cues , steadying assist 3 The helper provides less than half the effort to complete the activity 2 The helper provides more than half the effort to complete the activity 1 Dependent. The helper does all the effort to complete an activity 7 Patient refused to complete or attempt activity 9 The patient did not perform the activity before the current illness or injury 88 Not attempted due to Medical conditions or safety concerns Weight Bearing Right Lower Extremity: Right Full Weight Bearing Left Lower Extremity: Left Weight Bearing/Tolerated Treatments Pt indep with bed mobility and mod indep with transfer. Pt ambulated 200 ft x 3 with cane with SBA. Pt in bed post treatment with needs met. Assessment Current Status: Excellent Progress Doing well with cane. Correct sequencing and technique. PT Short Term Goals Short Term Goals Time Frame: Jun 07, 2019 Transfers (B,C,W/C) (FIM): 5 (met) Gait (FIM): 5 (met) PT [facility] Goals [employer] Goals PT [facility] Goals Time Frame: Jun 14, 2019 Transfers (B,C,W/C) (FIM): 6 Sit to Lying (QC): 6 Lying-Sitting on Side/Bed(QC): 6 Sit to Stand (QC): 6 Rollin Roll Left to Right (QC): 6 Chair/Zew-oj-Ceyjx Xfer(QC): 6 Car Transfer (QC): 6 Does the Patient Walk: Yes Gait (FIM): 6 Gait distance (FIM): 3=150 ft Walk 10 feet (QC): 6 Walk 10ft-Uneven Surface(QC): 6 Walk 50ft with 2 Turns (QC): 6 Walk 150 ft (QC): 6 Gait Assistive Device: FWW Stairs (FIM): 5 # of Steps: 4 1 Step (curb) (QC): 6 4 Steps (QC): 6 12 Steps (QC): 88 Picking up an Object (QC): 88 PT Plan Problem List Problem List: Activity Tolerance, Functional Strength, Safety, Balance, Gait, Transfer Treatment/Plan Treatment Plan: Continue Plan of Care Treatment Plan: Bed Mobility, Education, Functional Activity Elsi, Functional Strength, Group Therapy, Gait, Safety, Therapeutic Exercise, Transfers Treatment Duration: Jun 14, 2019 Frequency: At least 5 of 7 days/Wk (IRF) Estimated Hrs Per Day: 1.5 hours per day Patient and/or Family Agrees t: Yes Safety Risks/Education Patient Education: Safety Issues Teaching Recipient: Patient Teaching Methods: Discussion Response to Teaching: Return Demonstration Discharge Recommendations Therapy D/C Recommendations: Physical Therapy Home Care Time/GCodes Time In: 815 Time Out: 838 Total Billed Treatment Time: 23 Total Billed Treatment visit GT 23 NEGRITO MOREIRA PT Jun 05, 2019 09:05
--- NOTE | 2019-06-05 13:02 | PM&R Progress Note ---
Subjective HPI/CC On Admission Date Seen by Provider: Jun 05, 2019 Time Seen by Provider: 11:30 Chief Complaint: Debility from left hip fracture. HPI: This is a 78yoWM clinic pt of Dr. Ann who presents to in patient rehab due to debility from left hip fracture. Pt had an uneventful hospital stay he will have urinary catheter discontinued and he does have constipation on a regular normal basis and he has not had a BM since he has been here so will aggressively treat that with suppositories and laxatives. At this current time pt's pain is well controlled and he feels like he wants to participate in therapy in order to get home to prior level of functioning. He doesn't smoke or drink and he's retired from [employer] in [place] for 20 years. Prior level of functioning was ambulatory without assisted devices independent with ADL's. Subjective/Events-last exam Patient having regular BM's No longer having nausea or vomiting Wants to go home Friday and using cane now Participating in all therapies Wants to get home to take care of his We will focus on fall prevention Urinating well Continue on all home medications Checked meds and labs Reviewed therapy notes Conferred with construction area manager of Systems Musculoskeletal: leg pain Objective Exam Vital Signs Vital Signs Date Time Temp Pulse Resp B/P (MAP) Pulse Ox O2 Delivery O2 Flow Rate FiO2 06/05/19 17:54 Room Air 06/05/19 16:14 97.2 72 16 134/82 (99) 98 Capillary Refill : NONE General Appearance: No Apparent Distress, WD/WN, Chronically ill HEENT: PERRL/EOMI, Normal ENT Inspection, Pharynx Normal, Moist Mucous Membranes Neck: Full Range of Motion, Normal Inspection, Non Tender, Supple Respiratory: Chest Non Tender, Lungs Clear, Normal Breath Sounds, No Accessory Muscle Use, No Respiratory Distress Cardiovascular: Regular Rate, Rhythm, No Edema, No Gallop, No JVD, No Murmur Gastrointestinal: Normal Bowel Sounds, No Organomegaly, No Pulsatile Mass, Non Tender, Soft Back: Normal Inspection, No CVA Tenderness, No Vertebral Tenderness Extremity: Normal Capillary Refill, Normal Inspection, Normal Range of Motion (except left leg decreased ROM), Non Tender, No Calf Tenderness, No Pedal Edema Neurologic/Psychiatric: Alert, Oriented x3, No Motor/Sensory Deficits, Normal Mood/Affect Skin: Normal Color, Warm/Dry Lymphatic: No Adenopathy Results/Procedures Lab Patient resulted labs reviewed. FIM Transfers Therapy Code Descriptions/Definitions Functional [place] Measure: 0=Not Assessed/NA 4=Minimal Assistance 1=Total Assistance 5=Supervision or Setup 2=Maximal Assistance 6=Modified [place] 3=Moderate Assistance 7=Complete [place] Therapy Quality Codes: 6 Independent with activity with or without an assistive device 5 Patient requires set up or clean up by helper. Patient completes activity by themselves 4 Supervision or touching assist (CGA). [place] provide cues , steadying assist 3 The helper provides less than half the effort to complete the activity 2 The helper provides more than half the effort to complete the activity 1 Dependent. The helper does all the effort to complete an activity 7 Patient refused to complete or attempt activity 9 The patient did not perform the activity before the current illness or injury 88 Not attempted due to Medical conditions or safety concerns Transfers (B, C, W/C) (FIM): 5 Scootin Rollin Roll Left to Right (QC): 4 Supine to/from Sit: 5 Sit to/from Stand: 5 Sit to Lying (QC): 5 Sit to Stand (QC): 5 Chair/Ogq-oj-Nqzge Xfer(QC): 4 Car Transfer (QC): 3 Gait Training Does the Patient Walk?: Yes Gait (FIM): 5 Distance (FIM): 3=150 ft Distance: 200 ft x 3 Walk 10 feet (QC): 5 Walk 50 ft with 2 Turns(QC): 5 Walk 150 ft (QC): 5 Walking 10ft/uneven surface-QC: 4 Gait Level of Assist: 5 Gait Persons Needed: 1 Gait Assistive Device: Cane Single Point Wheelchair Training Does the Pt Use a Wheelchair?: No Stair Training Stair Training: Handrails/: 1 handrail (and cane) Stairs (FIM): 2 #of Steps: 4 1 Step (curb) (QC): 4 (CGA and skilled cues for sequencing. ) 4 Steps (QC): 88 Stairs: Pattern: Step to Level of Assist: 4 Balance Picking up an Object (QC): 88 Mental Status/Objective Comprehension: 7 Expression: 7 Social Interaction: 7 Problem Solvin Memory: 7 ADL-Treatment Groomin Oral Hygiene (QC): 6 Bathin Shower/Bathe Self (QC): 6 Upper Extremity Dressin Upper Body Dressing (QC): 6 Lower Extremity Dressin Lower Body Dressing (QC): 5 On/Off Footwear (QC): 6 Toiletin Toilet/Commode Transfer: 5 Shower: 6 Assessment/Plan Assessment and Plan Assess & Plan/Chief Complaint Assessment: Left hip fracture s/p repair POD # 7 DM Prostate cancer hx Anemia acute blood loss Constipation resolved Plan: Pain control Check labs prn Monitor closely IRF protocol Fall risk BM regimen to maintain (1) Fracture of femur (2) Constipation (3) Acute blood loss anemia (4) Diabetes mellitus (5) Prostate cancer (6) History of prostatectomy SEVERINO ALDRICH DO Jun 05, 2019 13:02
[2019-06-05 16:14] VITALS: BP 134/82
[2019-06-05] MEDS: BICALUTAMIDE 50 MG PO SCH (20:50)
[2019-06-05] MEDS: SIMvastatin 20 MG (ZOCOR) TAB PO SCH (20:51)
[2019-06-05] MEDS: ALLOPURINOL 300 MG (ZYLOPRIM) TAB PO SCH (20:51)
[2019-06-05] MEDS: GABAPENTIN 600 MG (NEURONTIN) TAB PO SCH (20:51)
[2019-06-05] MEDS: ENOXAPARIN 40 MG/0.4 ML (LOVENOX) SYR SC SCH (21:02)
[2019-06-06 05:50] VITALS: BP 127/70
[2019-06-06] MEDS: inSUlin ASPART (NovoLOG) 1 UNIT/0.01 ML (CHARGE PER UNIT) SC SCH (05:58)
[2019-06-06] MEDS: MULTIVIT W/MINERALS TAB (THERAGRAN M) PO SCH (06:43)
[2019-06-06] MEDS: VENlafaxine 75 MG (EFFEXOR) TAB PO SCH ×3 (06:43→17:08)
[2019-06-06] MEDS: metFORMIN 500 MG (GLUCOPHAGE) TAB PO SCH ×2 (06:44→17:08)
[2019-06-06] MEDS: CELECOXIB 100 MG (CeleBREX) CAP PO SCH ×2 (06:44→17:08)
[2019-06-06] MEDS: SENNA W/DOCUSATE (SENOKOT S) TABLET PO SCH ×2 (08:39→20:51)
--- NOTE | 2019-06-06 13:48 | PM&R Progress Note ---
Subjective HPI/CC On Admission Date Seen by Provider: Jun 06, 2019 Time Seen by Provider: 13:00 Chief Complaint: Debility from left hip fracture. HPI: This is a 78yoWM clinic pt of Dr. Ann who presents to in patient rehab due to debility from left hip fracture. Pt had an uneventful hospital stay he will have urinary catheter discontinued and he does have constipation on a regular normal basis and he has not had a BM since he has been here so will aggressively treat that with suppositories and laxatives. At this current time pt's pain is well controlled and he feels like he wants to participate in therapy in order to get home to prior level of functioning. He doesn't smoke or drink and he's retired from post [employer] in [place] for 20 years. Prior level of functioning was ambulatory without assisted devices independent with ADL's. Subjective/Events-last exam Patient having regular BM's Wants to go home Friday and using cane now Participating in all therapies Wants to get home to take care of his We will focus on fall prevention Urinating well Continue on all home medications Checked meds and labs Reviewed therapy notes Conferred with elementary science teacher of Systems Musculoskeletal: leg pain Objective Exam Vital Signs Vital Signs Date Time Temp Pulse Resp B/P (MAP) Pulse Ox O2 Delivery O2 Flow Rate FiO2 06/06/19 18:06 Room Air 06/06/19 16:46 97.0 70 16 117/74 (88) 96 Capillary Refill : NONE General Appearance: No Apparent Distress, WD/WN, Chronically ill HEENT: PERRL/EOMI, Normal ENT Inspection, Pharynx Normal, Moist Mucous Membranes Neck: Full Range of Motion, Normal Inspection, Non Tender, Supple Respiratory: Chest Non Tender, Lungs Clear, Normal Breath Sounds, No Accessory Muscle Use, No Respiratory Distress Cardiovascular: Regular Rate, Rhythm, No Edema, No Gallop, No JVD, No Murmur Gastrointestinal: Normal Bowel Sounds, No Organomegaly, No Pulsatile Mass, Non Tender, Soft Back: Normal Inspection, No CVA Tenderness, No Vertebral Tenderness Extremity: Normal Capillary Refill, Normal Inspection, Normal Range of Motion (except left leg decreased ROM), Non Tender, No Calf Tenderness, No Pedal Edema Neurologic/Psychiatric: Alert, Oriented x3, No Motor/Sensory Deficits, Normal Mood/Affect Skin: Normal Color, Warm/Dry Lymphatic: No Adenopathy Results/Procedures Lab Patient resulted labs reviewed. FIM Transfers Therapy Code Descriptions/Definitions Functional [place] Measure: 0=Not Assessed/NA 4=Minimal Assistance 1=Total Assistance 5=Supervision or Setup 2=Maximal Assistance 6=Modified Moca 3=Moderate Assistance 7=Complete Moca Therapy Quality Codes: 6 Independent with activity with or without an assistive device 5 Patient requires set up or clean up by helper. Patient completes activity by themselves 4 Supervision or touching assist (CGA). [place] provide cues , steadying assist 3 The helper provides less than half the effort to complete the activity 2 The helper provides more than half the effort to complete the activity 1 Dependent. The helper does all the effort to complete an activity 7 Patient refused to complete or attempt activity 9 The patient did not perform the activity before the current illness or injury 88 Not attempted due to Medical conditions or safety concerns Transfers (B, C, W/C) (FIM): 5 Scootin Rollin Roll Left to Right (QC): 4 Supine to/from Sit: 5 Sit to/from Stand: 5 Sit to Lying (QC): 5 Sit to Stand (QC): 5 Chair/Wjb-di-Lcaqn Xfer(QC): 4 Car Transfer (QC): 3 Gait Training Does the Patient Walk?: Yes Gait (FIM): 5 Distance (FIM): 3=150 ft Distance: 200 ft x 3 Walk 10 feet (QC): 5 Walk 50 ft with 2 Turns(QC): 5 Walk 150 ft (QC): 5 Walking 10ft/uneven surface-QC: 4 Gait Level of Assist: 5 Gait Persons Needed: 1 Gait Assistive Device: Cane Single Point Wheelchair Training Does the Pt Use a Wheelchair?: No Stair Training Stair Training: Handrails/: 1 handrail (and cane) Stairs (FIM): 2 #of Steps: 4 1 Step (curb) (QC): 4 (CGA and skilled cues for sequencing. ) 4 Steps (QC): 88 Stairs: Pattern: Step to Level of Assist: 4 Balance Picking up an Object (QC): 88 Mental Status/Objective Comprehension: 7 Expression: 7 Social Interaction: 7 Problem Solvin Memory: 7 ADL-Treatment Groomin Oral Hygiene (QC): 6 Bathin Shower/Bathe Self (QC): 6 Upper Extremity Dressin Upper Body Dressing (QC): 6 Lower Extremity Dressin Lower Body Dressing (QC): 5 On/Off Footwear (QC): 6 Toiletin Toilet/Commode Transfer: 5 Shower: 6 Assessment/Plan Assessment and Plan Assess & Plan/Chief Complaint Assessment: Left hip fracture s/p repair POD # 8 DM Prostate cancer hx Anemia acute blood loss Constipation resolved Plan: Pain control Check labs prn Monitor closely IRF protocol Fall risk BM regimen to maintain (1) Fracture of femur (2) Constipation (3) Acute blood loss anemia (4) Diabetes mellitus (5) Prostate cancer (6) History of prostatectomy SEVERINO ALDRICH DO Jun 06, 2019 13:48
[2019-06-06] MEDS: NEO/POLY/BAC (NEOSPORIN) OINT 15 GM TUBE TOP SCH (13:53)
[2019-06-06] MEDS ORDERED: CELE100C PO (14:00)
[2019-06-06] MEDS ORDERED: OXC5T PO (14:00)
[2019-06-06 16:46] VITALS: BP 117/74
[2019-06-06] MEDS: ALLOPURINOL 300 MG (ZYLOPRIM) TAB PO SCH (20:51)
[2019-06-06] MEDS: GABAPENTIN 600 MG (NEURONTIN) TAB PO SCH (20:51)
[2019-06-06] MEDS: SIMvastatin 20 MG (ZOCOR) TAB PO SCH (20:51)
[2019-06-06] MEDS: BICALUTAMIDE 50 MG PO SCH (20:51)
[2019-06-06] MEDS: MELATONIN 3 MG TABLET PO PRN (20:54)
[2019-06-06] MEDS: ENOXAPARIN 40 MG/0.4 ML (LOVENOX) SYR SC SCH (21:08)
[2019-06-07] MEDS: inSUlin ASPART (NovoLOG) 1 UNIT/0.01 ML (CHARGE PER UNIT) SC SCH (05:24)
[2019-06-07] MEDS: CELECOXIB 100 MG (CeleBREX) CAP PO SCH (05:30)
[2019-06-07] MEDS: VENlafaxine 75 MG (EFFEXOR) TAB PO SCH (05:30)
[2019-06-07] MEDS: MULTIVIT W/MINERALS TAB (THERAGRAN M) PO SCH (05:30)
[2019-06-07] MEDS: metFORMIN 500 MG (GLUCOPHAGE) TAB PO SCH (05:30)
[2019-06-07 05:35] VITALS: BP 178/83
[2019-06-07 06:52] LABS: BASOPHILS % (AUTO) 0 % (0-10); EOSINOPHILS # (AUTO) 0.3 10^3/uL (0.0-0.3); EOSINOPHILS % (AUTO) 3 % (0-10); HEMATOCRIT 30 % (40-54); HEMOGLOBIN 9.6 G/DL (13.3-17.7); LYMPHOCYTES % (AUTO) 24 % (12-44); MEAN CORPUSCULAR HGB CONC 32 G/DL (32-36); MEAN CORPUSCULAR VOLUME 94 FL (80-99); MEAN PLATELET VOLUME 8.8 FL (7.4-10.4); MONOCYTES # (AUTO) 0.8 X 10^3 (0.0-1.0); MONOCYTES % (AUTO) 9 % (0-12); NEUTROPHILS # (AUTO) 5.3 X 10^3 (1.8-7.8); NEUTROPHILS % (AUTO) 63 % (42-75); PLATELET COUNT 533 10^3/uL (130-400); RED CELL DISTRIBUTION WIDTH 14.8 % (10.0-14.5); WHITE BLOOD COUNT 8.4 10^3/uL (4.3-11.0)
[2019-06-07 06:55] LABS: MEAN CORPUSCULAR HEMOGLOBIN 30 PG (25-34)
[2019-06-07 07:16] LABS: ALANINE AMINOTRANSFERASE 12 U/L (0-55); ALBUMIN 3.1 GM/DL (3.2-4.5); ALKALINE PHOSPHATASE 57 U/L (40-136); BILIRUBIN,TOTAL 0.7 MG/DL (0.1-1.0); BUN/CREATININE RATIO 18; CALCIUM 8.7 MG/DL (8.5-10.1); CARBON DIOXIDE 25 MMOL/L (21-32); CHLORIDE 102 MMOL/L (98-107); CREATININE SERUM 0.72 MG/DL (0.60-1.30); GFR ESTIMATED > 60; GLUCOSE 151 MG/DL (70-105); POTASSIUM 3.9 MMOL/L (3.6-5.0); SODIUM 136 MMOL/L (135-145); TOTAL PROTEIN 5.8 GM/DL (6.4-8.2)
--- NOTE | 2019-06-07 08:57 | Progress Note - Ortho ---
Progress Note Subjective Date of Exam 06/07/19 Chief Complaint Post op HPI/Events since last exam Patient is 9 days postop cemented bipolar hemiarthroplasty left hip. He's been ambulating with a cane. He states his having no pain. Told me this morning he was being discharged. Review of Systems Reviewed and no additions or changes Allergies: Coded Allergies: No Known Drug Allergies (Unverified , 02/20/15) Home Meds Active Scripts Oxycodone Hcl (OXYIR TABLET) 5 Mg Tab, 10 MG PO Q4H PRN for PAIN-SEVERE, #40 TAB Prov:SEVERINO ALDRICH DO 06/06/19 Celecoxib (Celebrex) 100 Mg Capsule, 100 MG PO BID WITH MEALS, #60 CAP Prov:SEVERINO ALDRICH DO 06/06/19 Reported Medications Gabapentin (Gabapentin) 600 Mg Tablet, 600 MG PO TID PRN for NERVE PAIN, TAB 05/31/19 Multivitamin with Minerals (One Daily Complete) 1 Each Tablet, 1 TAB PO DAILY, TAB 05/31/19 Simvastatin (Simvastatin) 20 Mg Tablet, 20 MG PO HS, TAB 05/31/19 Venlafaxine HCl (Venlafaxine HCl) 75 Mg Tab, 75 MG PO TID 05/31/19 Metformin HCl (Metformin HCl) 1,000 Mg Tablet, 1000 MG PO BID, TAB 05/31/19 Gabapentin (Gabapentin) 600 Mg Tablet, 600 MG PO HS 05/31/19 Oxycodone HCl/Acetaminophen (Oxycodone-Acetaminophen 5-325) 1 Each Tablet, 1 TAB PO Q4H PRN for PAIN-MODERATE 05/31/19 Allopurinol (Allopurinol) 300 Mg Tablet, 300 MG PO HS, TAB 05/31/19 Semaglutide (Ozempic) 0.25 Mg/0.2 Ml Pen.injctr, 0.5 MG SC Th, EA 05/31/19 Bicalutamide (Bicalutamide) 50 Mg Tablet, 50 MG PO HS, TAB 05/31/19 Discontinued Reported Medications Glyburide (Glyburide) 5 Mg Tablet, 5 MG PO QID, TAB 05/31/19 Pioglitazone HCl (Pioglitazone HCl) 30 Mg Tablet, 30 MG PO DAILY, TAB 05/31/19 Objective Exam Constitutional: [] HEENT: [] Neck: [] Cardiovascular: [] Respiratory: [] Gastrointestinal: [] Genitourinary: [] Skin: [] Back/Spine: [] Extremities: [He has good range of motion of the left hip without pain. No calf tenderness and negative Homans. He is neurovascularly intact to left lower extremity. His incision is healing well without redness or drainage] Neurologic: [] Psychiatric: [] Hematologic/lymphatic/immunologic: [] Vital Signs Vital Signs Date Time Temp Pulse Resp B/P (MAP) Pulse Ox O2 Delivery O2 Flow Rate FiO2 06/07/19 05:35 97.3 58 18 178/83 (114) 97 Room Air 06/06/19 21:51 Room Air 06/06/19 18:06 Room Air 06/06/19 16:46 97.0 70 16 117/74 (88) 96 Room Air 06/06/19 09:55 Room Air I & O 06/07/19 06:59 Intake Total 1500 ml Balance 1500 ml Lab Results Laboratory Tests 06/07/19 05:22: Glucometer 144H 06/07/19 06:25: White Blood Count 8.4, Red Blood Count 3.15L, Hemoglobin 9.6L, Hematocrit 30L, Mean Corpuscular Volume 94, Mean Corpuscular Hemoglobin 30, Mean Corpuscular Hemoglobin Concent 32, Red Cell Distribution Width 14.8H, Platelet Count 533H, Mean Platelet Volume 8.8, Neutrophils (%) (Auto) 63, Lymphocytes (%) (Auto) 24, Monocytes (%) (Auto) 9, Eosinophils (%) (Auto) 3, Basophils (%) (Auto) 0, Neutrophils # (Auto) 5.3, Lymphocytes # (Auto) 2.0, Monocytes # (Auto) 0.8, Eosinophils # (Auto) 0.3, Basophils # (Auto) 0.0, Sodium Level 136, Potassium Level 3.9, Chloride Level 102, Carbon Dioxide Level 25, Anion Gap 9, Blood Urea Nitrogen 13, Creatinine 0.72, Estimat Glomerular Filtration Rate > 60, BUN/Creatinine Ratio 18, Glucose Level 151H, Calcium Level 8.7, Corrected Calcium 9.4, Total Bilirubin 0.7, Aspartate Amino Transf (AST/SGOT) 15, Alanine Aminotransferase (ALT/SGPT) 12, Alkaline Phosphatase 57, Total Protein 5.8L, Albumin 3.1L Assessment and Plan Assessment 9 days status post cemented bipolar hemiarthroplasty left hip Problem List Same Plan Discharge to home. Follow-up in 1 week for recheck, repeat x-rays and staple removal Final Diagonsis Status post cemented bipolar hemiarthroplasty left hip Level of the visit: Level 3 Clinical Quality Measures DVT/VTE Risk/Contraindication: Risk Factor Score Per Nursin RFS Level Per Nursing on Admit: 4+=Very High NAM IGLESIAS MD Jun 07, 2019 08:57
--- NOTE | 2019-06-07 09:13 | Discharge Summary ---
Diagnosis/Chief Complaint Date of Admission May 31, 2019 at 11:30 Date of Discharge Discharge Date: Jun 07, 2019 Discharge Diagnosis Assessment: Left hip fracture s/p repair POD # 8 DM Prostate cancer hx Anemia acute blood loss Constipation resolved Plan: Pain control Check labs prn Monitor closely IRF protocol Fall risk BM regimen to maintain Discharge Summary Discharge Physical Examination Allergies: Coded Allergies: No Known Drug Allergies (Unverified , 02/20/15) Vitals & I&Os Vital Signs Date Time Temp Pulse Resp B/P (MAP) Pulse Ox O2 Delivery O2 Flow Rate FiO2 06/07/19 12:04 06/07/19 07:45 Room Air 06/07/19 05:35 97.3 58 18 97 General Appearance: Alert, Oriented X3, Cooperative Respiratory: Clear to Auscultation, Normal Air Movement Neuro: Normal Speech, Strength at 5/5 X4 Ext Psych/Mental Status: Mental Status NL, Mood NL Hospital Course Was the Problem List Reviewed?: Yes Pt had an uneventful hospital course for 7 full days in inpatient rehab after suffering a left femoral neck fracture s/p repair by Dr. Magdaleno. Hgb remains stable as did the rest of his labs. He was maintained on all of his home medications, did require Oxycodone for his pain control, bowels returned back to normal with the use of laxatives and overall Pt improved significantly enough to be able to walk with a cane and return home with outpatient PT. He will have close follow-up with his PCP Dr. Ann. Labs (last 24 hrs) Laboratory Tests 05/31/19 14:50: White Blood Count 11.4H, Red Blood Count 3.53L, Hemoglobin 10.8L, Hematocrit 33L , Mean Corpuscular Volume 94, Mean Corpuscular Hemoglobin 31, Mean Corpuscular Hemoglobin Concent 33, Red Cell Distribution Width 14.0, Platelet Count 166, Mean Platelet Volume 10.5H, Neutrophils (%) (Auto) 75, Lymphocytes (%) (Auto) 16, Monocytes (%) (Auto) 8, Eosinophils (%) (Auto) 1, Basophils (%) (Auto) 0, Neutrophils # (Auto) 8.6H, Lymphocytes # (Auto) 1.9, Monocytes # (Auto) 0.9, Eosinophils # (Auto) 0.1, Basophils # (Auto) 0.0, Sodium Level 136, Potassium Level 3.9, Chloride Level 101, Carbon Dioxide Level 25, Anion Gap 10, Blood Urea Nitrogen 20H, Creatinine 1.03, Estimat Glomerular Filtration Rate > 60, BUN/Creatinine Ratio 19, Glucose Level 189H, Mean Blood Glucose 180H, Hemoglobin A1c 7.9H, Calcium Level 9.5, Corrected Calcium 9.6, Total Bilirubin 0.8, Aspartate Amino Transf (AST/SGOT) 26, Alanine Aminotransferase (ALT/SGPT) 15, Alkaline Phosphatase 63, Total Protein 7.2, Albumin 3.9 05/31/19 16:51: Glucometer 205H 05/31/19 20:17: Glucometer 161H 06/01/19 06:10: White Blood Count 7.9, Red Blood Count 3.07L, Hemoglobin 9.4L, Hematocrit 29L, Mean Corpuscular Volume 93, Mean Corpuscular Hemoglobin 31, Mean Corpuscular Hemoglobin Concent 33, Red Cell Distribution Width 13.9, Platelet Count 180, Mean Platelet Volume 10.1, Neutrophils (%) (Auto) 75, Lymphocytes (%) (Auto) 15, Monocytes (%) (Auto) 8, Eosinophils (%) (Auto) 2, Basophils (%) (Auto) 0, Neutrophils # (Auto) 5.9, Lymphocytes # (Auto) 1.2, Monocytes # (Auto) 0.6, Eosinophils # (Auto) 0.2, Basophils # (Auto) 0.0, Sodium Level 137, Potassium Level 4.0, Chloride Level 105, Carbon Dioxide Level 23, Anion Gap 9, Blood Urea Nitrogen 19H, Creatinine 0.82, Estimat Glomerular Filtration Rate > 60, BUN/Creatinine Ratio 23, Glucose Level 199H, Calcium Level 8.7, Corrected Calcium 9.5, Total Bilirubin 0.6, Aspartate Amino Transf (AST/SGOT) 20, Alanine Aminotransferase (ALT/SGPT) 12, Alkaline Phosphatase 57, Total Protein 5.8L, Albumin 3.0L 06/01/19 11:10: Glucometer 207H 06/01/19 16:38: Glucometer 114H 06/01/19 22:22: Glucometer 160H 06/02/19 05:13: Glucometer 134H 06/03/19 05:46: Glucometer 159H 06/03/19 10:56: Glucometer 230H 06/04/19 05:13: Glucometer 169H 06/05/19 05:16: Glucometer 191H 06/05/19 11:09: Glucometer 215H 06/05/19 16:12: Glucometer 198H 06/06/19 05:32: Glucometer 151H 06/07/19 05:22: Glucometer 144H 06/07/19 06:25: White Blood Count 8.4, Red Blood Count 3.15L, Hemoglobin 9.6L, Hematocrit 30L, Mean Corpuscular Volume 94, Mean Corpuscular Hemoglobin 30, Mean Corpuscular Hemoglobin Concent 32, Red Cell Distribution Width 14.8H, Platelet Count 533H, Mean Platelet Volume 8.8, Neutrophils (%) (Auto) 63, Lymphocytes (%) (Auto) 24, Monocytes (%) (Auto) 9, Eosinophils (%) (Auto) 3, Basophils (%) (Auto) 0, Neutrophils # (Auto) 5.3, Lymphocytes # (Auto) 2.0, Monocytes # (Auto) 0.8, Eosinophils # (Auto) 0.3, Basophils # (Auto) 0.0, Sodium Level 136, Potassium Level 3.9, Chloride Level 102, Carbon Dioxide Level 25, Anion Gap 9, Blood Urea Nitrogen 13, Creatinine 0.72, Estimat Glomerular Filtration Rate > 60, BUN/Creatinine Ratio 18, Glucose Level 151H, Calcium Level 8.7, Corrected Calcium 9.4, Total Bilirubin 0.7, Aspartate Amino Transf (AST/SGOT) 15, Alanine Aminotransferase (ALT/SGPT) 12, Alkaline Phosphatase 57, Total Protein 5.8L, Albumin 3.1L Pending Labs Laboratory Tests 05/31/19 14:50: White Blood Count 11.4, Red Blood Count 3.53, Hemoglobin 10.8, Hematocrit 33, Mean Corpuscular Volume 94, Mean Corpuscular Hemoglobin 31, Mean Corpuscular H emoglobin Concent 33, Red Cell Distribution Width 14.0, Platelet Count 166, Mean Platelet Volume 10.5, Neutrophils (%) (Auto) 75, Lymphocytes (%) (Auto) 16, Monocytes (%) (Auto) 8, Eosinophils (%) (Auto) 1, Basophils (%) (Auto) 0, Neutrophils # (Auto) 8.6, Lymphocytes # (Auto) 1.9, Monocytes # (Auto) 0.9, Eosinophils # (Auto) 0.1, Basophils # (Auto) 0.0, Sodium Level 136, Potassium Level 3.9, Chloride Level 101, Carbon Dioxide Level 25, Anion Gap 10, Blood Urea Nitrogen 20, Creatinine 1.03, Estimat Glomerular Filtration Rate > 60, BUN/Creatinine Ratio 19, Glucose Level 189, Mean Blood Glucose 180, Hemoglobin A1c 7.9, Calcium Level 9.5, Corrected Calcium 9.6, Total Bilirubin 0.8, Aspartate Amino Transf (AST/SGOT) 26, Alanine Aminotransferase (ALT/SGPT) 15, Al kaline Phosphatase 63, Total Protein 7.2, Albumin 3.9 05/31/19 16:51: Glucometer 205 05/31/19 20:17: Glucometer 161 06/01/19 06:10: White Blood Count 7.9, Red Blood Count 3.07, Hemoglobin 9.4, Hematocrit 29, Mean Corpuscular Volume 93, Mean Corpuscular Hemoglobin 31, Mean Corpuscular Hemoglobin Concent 33, Red Cell Distribution Width 13.9, Platelet Count 180, Mean Platelet Volume 10.1, Neutrophils (%) (Auto) 75, Lymphocytes (%) (Auto) 15, Monocytes (%) (Auto) 8, Eosinophils (%) (Auto) 2, Basophils (%) (Auto) 0, Neutrophils # (Auto) 5.9, Lymphocytes # (Auto) 1.2, Monocytes # (Auto) 0.6, Eosinophils # (Auto) 0.2, Basophils # (Auto) 0.0, Sodium Level 137, Potassium Level 4.0, Chloride Level 105, Carbon Dioxide Level 23, Anion Gap 9, Blood Urea Nitrogen 19, Creatinine 0.82, Estimat Glomerular Filtration Rate > 60, BUN/Creatinine Ratio 23, Glucose Level 199, Calcium Level 8.7, Corrected Calcium 9.5, Total Bilirubin 0.6, Aspartate Amino Transf (AST/SGOT) 20, Alanine Aminotransferase (ALT/SGPT) 12, Alkaline Phosphatase 57, Total Protein 5.8, Albumin 3.0 06/01/19 11:10: Glucometer 207 06/01/19 16:38: Glucometer 114 06/01/19 22:22: Glucometer 160 06/02/19 05:13: Glucometer 134 06/03/19 05:46: Glucometer 159 06/03/19 10:56: Glucometer 230 06/04/19 05:13: Glucometer 169 06/05/19 05:16: Glucometer 191 06/05/19 11:09: Glucometer 215 06/05/19 16:12: Glucometer 198 06/06/19 05:32: Glucometer 151 06/07/19 05:22: Glucometer 144 06/07/19 06:25: White Blood Count 8.4, Red Blood Count 3.15, Hemoglobin 9.6, Hematocrit 30, Mean Corpuscular Volume 94, Mean Corpuscular Hemoglobin 30, Mean Corpuscular Hemoglobin Concent 32, Red Cell Distribution Width 14.8, Platelet Count 533, Mean Platelet Volume 8.8, Neutrophils (%) (Auto) 63, Lymphocytes (%) (Auto) 24, Monocytes (%) (Auto) 9, Eosinophils (%) (Auto) 3, Basophils (%) (Auto) 0, Neutrophils # (Auto) 5.3, Lymphocytes # (Auto) 2.0, Monocytes # (Auto) 0.8, Eosinophils # (Auto) 0.3, Basophils # (Auto) 0.0, Sodium Level 136, Potassium Level 3.9, Chloride Level 102, Carbon Dioxide Level 25, Anion Gap 9, Blood Urea Nitrogen 13, Creatinine 0.72, Estimat Glomerular Filtration Rate > 60, BUN/Creatinine Ratio 18, Glucose Level 151, Calcium Level 8.7, Corrected Calcium 9.4, Total Bilirubin 0.7, Aspartate Amino Transf (AST/SGOT) 15, Alanine Aminotransferase (ALT/SGPT) 12, Alkaline Phosphatase 57, Total Protein 5.8, Albumin 3.1 Discharge Home Medications: Active Scripts Active Oxyir Tablet (Oxycodone HCl) 5 Mg Tab 10 Mg PO Q4H PRN Celebrex (Celecoxib) 100 Mg Capsule 100 Mg PO BID WITH MEALS Reported Gabapentin 600 Mg Tablet 600 Mg PO TID PRN One Daily Complete (Multivitamin with Minerals) 1 Each Tablet 1 Tab PO DAILY Simvastatin 20 Mg Tablet 20 Mg PO HS Venlafaxine HCl 75 Mg Tab 75 Mg PO TID Metformin HCl 1,000 Mg Tablet 1,000 Mg PO BID Gabapentin 600 Mg Tablet 600 Mg PO HS Allopurinol 300 Mg Tablet 300 Mg PO HS Ozempic (Semaglutide) 0.25 Mg/0.2 Ml Pen.injctr 0.5 Mg SC TH Bicalutamide 50 Mg Tablet 50 Mg PO HS Instructions to patient/family Please see electronic discharge instructions given to patient. Diagnosis/Problems Diagnosis/Problems (1) Fracture of femur Status: Acute (2) Constipation (3) Acute blood loss anemia (4) Diabetes mellitus (5) Prostate cancer (6) History of prostatectomy Clinical Quality Measures DVT/VTE Risk/Contraindication: Risk Factor Score Per Nursin RFS Level Per Nursing on Admit: 4+=Very High SEVERINO ALDRICH DO Jun 07, 2019 09:13
--- NOTE | 2019-06-07 09:42 | Physical Therapy Daily Note ---
PT Daily Note-Current Subjective Happy to be going home today. Reports he would like to have outpt therapy at discharge instead of [facility] PT. Pain Numeric Pain Scale: 0-No Pain Location: No Pain Reported Mental Status Patient Orientation: Person, Place, Time, Situation Transfers Therapy Code Descriptions/Definitions Functional [place] Measure: 0=Not Assessed/NA 4=Minimal Assistance 1=Total Assistance 5=Supervision or Setup 2=Maximal Assistance 6=Modified [place] 3=Moderate Assistance 7=Complete [place] Therapy Quality Codes: 6 Independent with activity with or without an assistive device 5 Patient requires set up or clean up by helper. Patient completes activity by themselves 4 Supervision or touching assist (CGA). [place] provide cues , steadying assist 3 The helper provides less than half the effort to complete the activity 2 The helper provides more than half the effort to complete the activity 1 Dependent. The helper does all the effort to complete an activity 7 Patient refused to complete or attempt activity 9 The patient did not perform the activity before the current illness or injury 88 Not attempted due to Medical conditions or safety concerns Transfers (B, C, W/C) (FIM): 7 Roll Left to Right (QC): 6 Sit to Lying (QC): 6 Sit to Stand (QC): 6 Chair/Hfu-bb-Rfxon Xfer(QC): 6 Car Transfer (QC): 6 Weight Bearing Right Lower Extremity: Right Full Weight Bearing Left Lower Extremity: Left Weight Bearing/Tolerated Gait Training Does the Patient Walk?: Yes Gait (FIM): 6 Distance (FIM): 3=150 ft Distance: 200 ft Walk 10 feet (QC): 6 Walk 50 ft with 2 Turns(QC): 6 Walk 150 ft (QC): 6 Walking 10ft/uneven surface-QC: 6 Gait Assistive Device: Cane Single Point safe and steady gait with SPC Wheelchair Training Does the Pt Use a Wheelchair?: No Stair Training Stair Training: Handrails/: 1 handrail Stairs (FIM): 6 #of Steps: 12 1 Step (curb) (QC): 6 4 Steps (QC): 6 12 Steps (QC): 6 Stairs: Pattern: Step to Balance Picking up an Object (QC): 88 (hip precautions) Treatments Reviewed safety in the home and with gait. Reviewed hip precautions and provided information on how to place a pillow or a towel b/t his knees as a reminder not to cross. He verbalized that Dr. Magdaleno told him to follow the pre cautions for 6 weeks. Assessment Current Status: Excellent Progress Excellent functional progress. Safe with use of a cane. He has met all inpt goals. REcommend outpt PT for continued strengthening and progression of gait to an indep level PT Short Term Goals Short Term Goals Time Frame: Jun 07, 2019 Transfers (B,C,W/C) (FIM): 5 (met) Gait (FIM): 5 (met) PT Longterm Goals Longterm Goals PT Longterm Goals Time Frame: Jun 14, 2019 Transfers (B,C,W/C) (FIM): 6 (met) Sit to Lying (QC): 6 (met) Lying-Sitting on Side/Bed(QC): 6 (met) Sit to Stand (QC): 6 (met) Rollin Roll Left to Right (QC): 6 (met) Chair/Ttg-kh-[place] Xfer(QC): 6 (met) Car Transfer (QC): 6 (met) Does the Patient Walk: Yes Gait (FIM): 6 (met) Gait distance (FIM): 3=150 ft Walk 10 feet (QC): 6 (met) Walk 10ft-Uneven Surface(QC): 6 (met) Walk 50ft with 2 Turns (QC): 6 Walk 150 ft (QC): 6 (met) Gait Assistive Device: FWW Stairs (FIM): 5 (exceeded) # of Steps: 4 1 Step (curb) (QC): 6 4 Steps (QC): 6 12 Steps (QC): 88 Picking up an Object (QC): 88 PT Plan Treatment/Plan Treatment Plan: Discontinue PT, goals met Treatment Plan: Bed Mobility, Education, Functional Activity Elsi, Functional Strength, Group Therapy, Gait, Safety, Therapeutic Exercise, Transfers Treatment Duration: Jun 14, 2019 Frequency: At least 5 of 7 days/Wk (IRF) Estimated Hrs Per Day: 1.5 hours per day Patient and/or Family Agrees t: Yes Safety Risks/Education Patient Education: Reviewed Precautions, Safety Issues Teaching Recipient: Patient Teaching Methods: Discussion Response to Teaching: Return Demonstration Discharge Recommendations Therapy D/C Recommendations: Physical Therapy Outpatient Time/GCodes Time In: 855 Time Out: 920 Total Billed Treatment Time: 25 Total Billed Treatment visit FA 25 NEGRITO MOREIRA PT Jun 07, 2019 09:42
--- NOTE | 2019-06-07 09:50 | Therapy Team Discharge Summary ---
Therapy Discharge Summary Discharge Recommendations Date of Discharge 06/07/2019 Therapy D/C Recommendations: Physical Therapy Outpatient Physical Therapy Ths patient was transferred to ARU post acute hospital stay due to a left hip fracture that was repaired with a hemiarthroplasty. He is WBAT but does have hip precautions. Prior to fall, he was indep with all mobility and very active in the community and with yard work. In fact, he was on a ladder when he fell. Upon admit to this unit, he required mod assist iwth transfers and min assist with gait. Treatment has consisted of functional strength, balance and gait training as well as transfers, safety and review of hip precautions. He has made excellent progress and has achieved all goals. He is indep to mod indep with all mobiltiy. Will DC from ARU and recommend out pt PT to follow. Occupational Therapy Decreased Activ Tolerance, Dependent Transfers, Impaired Bed Mobility, Impaired I ADL's, Impaired Self-Care Skills PT Supervising Fire Marshal Goals Supervising Fire Marshal Goals PT Supervising Fire Marshal Goals Time Frame: Jun 14, 2019 Transfers (B,C,W/C) (FIM): 6 (met) Roll Left to Right (QC): 6 (met) Sit to Lying (QC): 6 (met) Lying-Sitting on Side/Bed(QC): 6 (met) Sit to Stand (QC): 6 (met) Chair/Ijn-ei-Kakqs Xfer(QC): 6 (met) Car Transfer (QC): 6 (met) Does the Patient Walk: Yes Gait (FIM): 6 (met) Gait distance (FIM): 3=150 ft Walk 10 feet (QC): 6 (met) Walk 10ft-Uneven Surface(QC): 6 (met) Walk 50ft with 2 Turns (QC): 6 Walk 150 ft (QC): 6 (met) Gait Assistive Device: FWW Stairs (FIM): 5 (exceeded) # of Steps: 4 1 Step (curb) (QC): 6 4 Steps (QC): 6 12 Steps (QC): 88 Picking up an Object (QC): 88 all goals met OT Mcc Goals Supervising Fire Marshal Goals Time Frame: Jun 14, 2019 Eating (FIM): 6 Eating (QC): 6 Oral Hygiene (QC): 6 Grooming(FIM): 6 Bathing(FIM): 5 Shower/Bathe Self (QC): 4 Upper Body Dressing(FIM): 6 Upper Body Dressing (QC): 6 Lower Body Dressing(FIM): 6 Lower Body Dressing (QC): 6 On/Off Footwear (QC): 6 Toileting(FIM): 6 Toileting Hygiene (QC): 6 Transfers (B,C,W/C) (FIM): 6 Toilet/Commode Transfer(FIM): 6 Toilet/Commode Transfer (QC): 6 Shower Transfer(FIM): 5 Additional Goals: 1-Demonstrate ADL Tasks, 2-Verbalize Understanding, 3- ImproveStrength/Elsi 1=Demonstrate adherence to instructed precautions during ADL tasks. 2=Patient will verbalize/demonstrate understanding of assistive devices/modifications for ADL. 3=Patient will improve strength/tolerance for activity to enable patient to perform ADL's. NEGRITO MOREIRA PT Jun 07, 2019 09:50
[2019-06-07] MEDS: NEO/POLY/BAC (NEOSPORIN) OINT 15 GM TUBE TOP SCH (10:02)
[2019-06-07] MEDS: SENNA W/DOCUSATE (SENOKOT S) TABLET PO SCH (10:02)
--- NOTE | 2019-06-07 11:07 | Occupational Ther Daily Note ---
OT Current Status-Daily Note Subjective No pain reported. Pt. does state that his bandage "itches." Bandage removed after shower. Appearance Pt. in bed. Agrees to treatment. Mental Status/Objective Patient Orientation: Person, Place, Time, Situation Therapy Code Descriptions/Definitions Functional Huddy Measure: 0=Not Assessed/NA 4=Minimal Assistance 1=Total Assistance 5=Supervision or Setup 2=Maximal Assistance 6=Modified Huddy 3=Moderate Assistance 7=Complete Huddy ADL-Treatment Therapy Code Descriptions/Definitions Functional H[place]dy Measure: 0=Not Assessed/NA 4=Minimal Assistance 1=Total Assistance 5=Supervision or Setup 2=Maximal Assistance 6=Modified [place] 3=Moderate Assistance 7=Complete Huddy Therapy Quality Codes: 6 Independent with activity with or without an assistive device 5 Patient requires set up or clean up by helper. Patient completes activity by themselves 4 Supervision or touching assist (CGA). Rattan provide cues , steadying assist 3 The helper provides less than half the effort to complete the activity 2 The helper provides more than half the effort to complete the activity 1 Dependent. The helper does all the effort to complete an activity 7 Patient refused to complete or attempt activity 9 The patient did not perform the activity before the current illness or injury 88 Not attempted due to Medical conditions or safety concerns Grooming (FIM): 6 Oral Hygiene (QC): 5 Bathing (FIM): 5 Shower/Bathe Self (QC): 4 Upper Body (FIM): 6 Upper Body Dressing (QC): 5 Lower Body Dressing (FIM): 5 (Occasional cues for hip precautions.) Lower Body Dressing (QC): 4 On/Off Footwear (QC): 4 Transfers (B, C, W/C) (FIM): 6 Shower Transfer(FIM): 5 Education OT Patient Education: Correct positioning, Modified ADL techniques, Progress toward Goal/Update tx plan, Purpose of tx/functional activities, Reviewed precautions, Rehab process, Transfer techniques, Use of adapted equipment Teaching Recipient: Patient Teaching Methods: Demonstration, Discussion Response to Teaching: Verbalize Understanding, Return Demonstration OT Short Term Goals Short Term Goals Time Frame: Jun 07, 2019 Eating(FIM): 5 Grooming(FIM): 5 Bathing(FIM): 4 Upper Body Dressing(FIM): 5 Lower Body Dressing(FIM): 4 Toileting(FIM): 4 Transfers (B,C,W/C) (FIM): 5 (met) Toilet/Commode Transfer(FIM): 5 Shower Transfer(FIM): 4 Additional Short Term Goals: 1-Demonstrate ADL Tasks, 2-Verbalize Understanding, 3-ImproveStrength/Elsi 1=Demonstrate adherence to instructed precautions during ADL tasks. 2=Patient will verbalize/demonstrate understanding of assistive devices/modifications for ADL. 3=Patient will improve strength/tolerance for activity to enable patient to perform ADL's. OT Staff Developer Goals Mcfp Goals Time Frame: Jun 14, 2019 Eating (FIM): 6 Eating (QC): 6 Groomin Oral Hygiene (QC): 6 Bathing(FIM): 5 Shower/Bathe Self (QC): 4 Upper Body Dressing(FIM): 6 Upper Body Dressing (QC): 6 Lower Body Dressing(FIM): 6 Lower Body Dressing (QC): 6 On/Off Footwear (QC): 6 Toileting(FIM): 6 Toileting Hygiene (QC): 6 Transfers (B,C,W/C) (FIM): 6 Toilet/Commode Transfer(FIM): 6 Toilet/Commode Transfer (QC): 6 Shower Transfer(FIM): 5 Additional Goals: 1-Demonstrate ADL Tasks, 2-Verbalize Understanding, 3- ImproveStrength/Elsi 1=Demonstrate adherence to instructed precautions during ADL tasks. 2=Patient will verbalize/demonstrate understanding of assistive devices/modifications for ADL. 3=Patient will improve strength/tolerance for activity to enable patient to perform ADL's. OT Education/Plan Problem List/Assessment Assessment: Decreased Activ Tolerance, Impaired I ADL's Discharge Recommendations Plan/Recommendations: Discharge/Goals Met Therapy D/C Recommendations: Home w/ Family Support, Occupational Therapy Home Care Equpiment Recommendations-D/C: Hip Kit Treatment Plan/Plan of Care Treatment,Training & Education: Yes Patient would benefit from OT for education, treatment and training to promote independence in ADL's, mobility, safety and/or upper extremity function for ADL's. Plan of Care: ADL Retraining, Functional Mobility, Group Exercise/Act as Ind, UE Funct Exercise/Act Treatment Duration: Jun 14, 2019 Frequency: At least 5 of 7 days/Wk (IRF) Estimated Hrs Per Day: 1.5 hours per day Agreement: Yes Rehab Potential: Good Time/GCodes Start Time: 08:05 Stop Time: 08:30 Total Time Billed (hr/min): 25 Billed Treatment Time 1, ADL x 2 ELISE CARMEN OT Jun 07, 2019 11:07
--- NOTE | 2019-06-07 11:12 | Therapy Team Discharge Summary ---
Therapy Discharge Summary Discharge Recommendations Date of Discharge 06-07-19 Therapy D/C Recommendations: Home w/ Family Support, Occupational Therapy Home Care Occupational Therapy Pt. has been seen by occupational therapy to increase overall strength and independence with daily tasks. Pt. is able to ambulate with Mod I, with safety cues at times. Pt. utilizes AE for LE and requires cues occassionally for hip precautions. Pt. is discharging home with spouse. Recommend hip kit and follow up OT in home setting. Decreased Activ Tolerance, Impaired I ADL's PT Spring Intern Goals Spring Intern Goals PT Spring Intern Goals Time Frame: Jun 14, 2019 Transfers (B,C,W/C) (FIM): 6 (met) Roll Left to Right (QC): 6 (met) Sit to Lying (QC): 6 (met) Lying-Sitting on Side/Bed(QC): 6 (met) Sit to Stand (QC): 6 (met) Chair/Hni-ld-Goiha Xfer(QC): 6 (met) Car Transfer (QC): 6 (met) Does the Patient Walk: Yes Gait (FIM): 6 (met) Gait distance (FIM): 3=150 ft Walk 10 feet (QC): 6 (met) Walk 10ft-Uneven Surface(QC): 6 (met) Walk 50ft with 2 Turns (QC): 6 Walk 150 ft (QC): 6 (met) Gait Assistive Device: FWW Stairs (FIM): 5 (exceeded) # of Steps: 4 1 Step (curb) (QC): 6 4 Steps (QC): 6 12 Steps (QC): 88 Picking up an Object (QC): 88 OT Spring Intern Goals Spring Intern Goals Time Frame: Jun 14, 2019 Eating (FIM): 6 (met) Eating (QC): 6 (met) Oral Hygiene (QC): 6 (met) Grooming(FIM): 6 (met) Bathing(FIM): 5 (met) Shower/Bathe Self (QC): 4 (met) Upper Body Dressing(FIM): 6 (met) Upper Body Dressing (QC): 6 (met) Lower Body Dressing(FIM): 6 (not met) Lower Body Dressing (QC): 6 (not met) On/Off Footwear (QC): 6 (not met) Toileting(FIM): 6 (met) Toileting Hygiene (QC): 6 (met) Transfers (B,C,W/C) (FIM): 6 (met) Toilet/Commode Transfer(FIM): 6 (met) Toilet/Commode Transfer (QC): 6 (met) Shower Transfer(FIM): 5 (met) Additional Goals: 1-Demonstrate ADL Tasks, 2-Verbalize Understanding, 3- ImproveStrength/Elsi 1=Demonstrate adherence to instructed precautions during ADL tasks. 2=Patient will verbalize/demonstrate understanding of assistive devic es/modifications for ADL. 3=Patient will improve strength/tolerance for activity to enable patient to perform ADL's. ELISE CARMEN OT Jun 07, 2019 11:12
== END 2019-06-07 12:04 | disposition home health service (06) | DRG 560 ==
PROVIDERS: ADMIT Internal Medicine; ATTEND Internal Medicine
DX: S72.002D Fracture of unspecified part of neck of left femur, subsequent encounter for closed fracture with routine healing (principal); D62 Acute posthemorrhagic anemia; K59.09 Other constipation; E78.00 Pure hypercholesterolemia, unspecified; I10 Essential (primary) hypertension; M54.9 Dorsalgia, unspecified; E11.9 Type 2 diabetes mellitus without complications; M10.9 Gout, unspecified; Z85.46 Personal history of malignant neoplasm of prostate; Z90.79 Acquired absence of other genital organ(s); Z87.01 Personal history of pneumonia (recurrent); Z79.84 Long term (current) use of oral hypoglycemic drugs
CPT/HCPCS: 36415; 80053; 82962; 83036; 85025; 94640; 94664

== ENCOUNTER → 2019-06-14 | Outpatient (CLI) | payer MEDICARE, BC ==
[~2019-06-14] MED LIST changes: +CELE100C PO; +OXC5T PO
--- NOTE | 2019-06-14 09:42 | Diagnostic Imaging Report ---
Reason for exam: Postop left total hip arthroplasty on May 29. Comparison: Left hip radiograph on 05/29/2019. FINDINGS: Residual changes of left total hip arthroplasty are again visualized. No evidence of hardware loosening or periprosthetic fracture. Alignment is near-anatomic. Skin evelyne are again visualized overlying the lateral left hip. No acute fracture or dislocation is seen in the pelvis. Moderate degenerative changes are visualized in the right hip with marginal osteophyte formation and joint space narrowing. Numerous surgical clips are seen within the pelvis. IMPRESSION: 1. Stable post surgical changes of left total hip arthroplasty. 2. No acute fracture or dislocation in the pelvis and hips. Dictated by: Dictated on workstation # [id number]
== END ==
LOC: ORTHO 08:48
PROVIDERS: ATTEND Orthopaedic Surgery
DX: Z96.642 Presence of left artificial hip joint (principal)
CPT/HCPCS: 72170

== ENCOUNTER → 2019-06-17 | Outpatient (CLI) | payer MEDICARE, BC | LOC: ORTHO 10:43 | PROVIDERS: ATTEND Orthopaedic Surgery | DX: Z96.642 Presence of left artificial hip joint (principal) ==

== ENCOUNTER → 2019-06-21 | Outpatient (CLI) | payer MEDICARE, BC | LOC: ORTHO 10:12 | PROVIDERS: ATTEND Orthopaedic Surgery | DX: Z96.642 Presence of left artificial hip joint (principal) ==

== ENCOUNTER → 2019-06-28 | Outpatient (CLI) | payer MEDICARE, BC | LOC: ORTHO 09:38 | PROVIDERS: ATTEND Orthopaedic Surgery | DX: Z96.642 Presence of left artificial hip joint (principal) ==

== ENCOUNTER → 2019-10-26 | Outpatient (RCR) | payer MEDICARE, BC ==
[2019-07-28 14:36] LABS: BASOPHILS # (AUTO) 0.1 10^3/uL (0.0-0.1); BASOPHILS % (AUTO) 1 % (0-10); EOSINOPHILS # (AUTO) 0.5 10^3/uL (0.0-0.3); EOSINOPHILS % (AUTO) 5 % (0-10); HEMATOCRIT 38 % (40-54); HEMOGLOBIN 12.3 G/DL (13.3-17.7); LYMPHOCYTES # (AUTO) 2.1 X 10^3 (1.0-4.0); LYMPHOCYTES % (AUTO) 21 % (12-44); MEAN CORPUSCULAR HEMOGLOBIN 30 PG (25-34); MEAN CORPUSCULAR HGB CONC 33 G/DL (32-36); MEAN CORPUSCULAR VOLUME 92 FL (80-99); MEAN PLATELET VOLUME 9.7 FL (7.4-10.4); MONOCYTES # (AUTO) 0.5 X 10^3 (0.0-1.0); MONOCYTES % (AUTO) 6 % (0-12); NEUTROPHILS # (AUTO) 6.6 X 10^3 (1.8-7.8); NEUTROPHILS % (AUTO) 68 % (42-75); PLATELET COUNT 337 10^3/uL (130-400); RED CELL DISTRIBUTION WIDTH 13.8 % (10.0-14.5); WHITE BLOOD COUNT 9.7 10^3/uL (4.3-11.0)
[2019-07-28 14:51] LABS: ALANINE AMINOTRANSFERASE 10 U/L (0-55); ALKALINE PHOSPHATASE 100 U/L (40-136); BILIRUBIN,TOTAL 0.2 MG/DL (0.1-1.0); BUN/CREATININE RATIO 32; CALCIUM 9.5 MG/DL (8.5-10.1); CARBON DIOXIDE 29 MMOL/L (21-32); CHLORIDE 99 MMOL/L (98-107); CREATININE SERUM 0.81 MG/DL (0.60-1.30); GFR ESTIMATED > 60; GLUCOSE 172 MG/DL (70-105); POTASSIUM 4.7 MMOL/L (3.6-5.0); SODIUM 138 MMOL/L (135-145); TOTAL PROTEIN 7.4 GM/DL (6.4-8.2)
[~2019-10-26] MED LIST changes: +LEUPROLIDE 22.5 MG SYRINGE (ELIGARD) SQ SCH; +LEUPROLIDE 45 MG ELIGARD SQ SCH
[2019-10-26 10:24] LABS: BASOPHILS # (AUTO) 0.1 10^3/uL (0.0-0.1); BASOPHILS % (AUTO) 1 % (0-10); EOSINOPHILS # (AUTO) 0.3 10^3/uL (0.0-0.3); EOSINOPHILS % (AUTO) 3 % (0-10); HEMATOCRIT 43 % (40-54); HEMOGLOBIN 14.1 G/DL (13.3-17.7); LYMPHOCYTES # (AUTO) 2.3 X 10^3 (1.0-4.0); LYMPHOCYTES % (AUTO) 25 % (12-44); MEAN CORPUSCULAR HEMOGLOBIN 30 PG (25-34); MEAN CORPUSCULAR HGB CONC 33 G/DL (32-36); MEAN CORPUSCULAR VOLUME 90 FL (80-99); MEAN PLATELET VOLUME 9.8 FL (7.4-10.4); MONOCYTES # (AUTO) 0.8 X 10^3 (0.0-1.0); MONOCYTES % (AUTO) 9 % (0-12); NEUTROPHILS # (AUTO) 5.6 X 10^3 (1.8-7.8); NEUTROPHILS % (AUTO) 62 % (42-75); PLATELET COUNT 250 10^3/uL (130-400); RED CELL DISTRIBUTION WIDTH 15.4 % (10.0-14.5); WHITE BLOOD COUNT 9.1 10^3/uL (4.3-11.0)
[2019-10-26 10:49] LABS: ALANINE AMINOTRANSFERASE 24 U/L (0-55); ALBUMIN 4.5 GM/DL (3.2-4.5); ALKALINE PHOSPHATASE 67 U/L (40-136); BILIRUBIN,TOTAL 0.4 MG/DL (0.1-1.0); BUN/CREATININE RATIO 23; CALCIUM 9.7 MG/DL (8.5-10.1); CARBON DIOXIDE 28 MMOL/L (21-32); CHLORIDE 99 MMOL/L (98-107); CREATININE SERUM 0.94 MG/DL (0.60-1.30); GFR ESTIMATED > 60; GLUCOSE 154 MG/DL (70-105); POTASSIUM 4.2 MMOL/L (3.6-5.0); SODIUM 139 MMOL/L (135-145); TOTAL PROTEIN 7.6 GM/DL (6.4-8.2)
== END | disposition home or self-care (01) ==
LOC: ONC 07-28 14:06
PROVIDERS: ATTEND Internal Medicine Hematology & Oncology
DX: C61 Malignant neoplasm of prostate (principal); M81.8 Other osteoporosis without current pathological fracture; E11.42 Type 2 diabetes mellitus with diabetic polyneuropathy; E78.00 Pure hypercholesterolemia, unspecified; Z79.84 Long term (current) use of oral hypoglycemic drugs; Z79.899 Other long term (current) drug therapy
CPT/HCPCS: 36415; 80053; 84153; 85025; 96402

== ENCOUNTER 2020-01-11 10:50 | Outpatient (RCR) | payer MEDICARE, BC ==
[2019-12-30 13:36] LABS: BASOPHILS % (AUTO) 1 % (0-10); EOSINOPHILS # (AUTO) 0.1 10^3/uL (0.0-0.3); EOSINOPHILS % (AUTO) 2 % (0-10); HEMATOCRIT 42 % (40-54); HEMOGLOBIN 13.8 G/DL (13.3-17.7); LYMPHOCYTES # (AUTO) 1.6 X 10^3 (1.0-4.0); LYMPHOCYTES % (AUTO) 25 % (12-44); MEAN CORPUSCULAR HEMOGLOBIN 31 PG (25-34); MEAN CORPUSCULAR HGB CONC 33 G/DL (32-36); MEAN CORPUSCULAR VOLUME 94 FL (80-99); MEAN PLATELET VOLUME 10.8 FL (7.4-10.4); MONOCYTES # (AUTO) 0.5 X 10^3 (0.0-1.0); MONOCYTES % (AUTO) 7 % (0-12); NEUTROPHILS # (AUTO) 4.1 X 10^3 (1.8-7.8); NEUTROPHILS % (AUTO) 66 % (42-75); PLATELET COUNT 217 10^3/uL (130-400); RED CELL DISTRIBUTION WIDTH 13.5 % (10.0-14.5); WHITE BLOOD COUNT 6.3 10^3/uL (4.3-11.0)
[2019-12-30 14:07] LABS: ALBUMIN 4.4 GM/DL (3.2-4.5); BILIRUBIN,TOTAL 0.6 MG/DL (0.1-1.0); CALCIUM 9.8 MG/DL (8.5-10.1); CREATININE SERUM 1.21 MG/DL (0.60-1.30); POTASSIUM 4.8 MMOL/L (3.6-5.0); TOTAL PROTEIN 7.4 GM/DL (6.4-8.2)
[~2020-01-11 10:50] MED LIST changes: -LEUPROLIDE 22.5 MG SYRINGE (ELIGARD) SQ SCH; -LEUPROLIDE 45 MG ELIGARD SQ SCH; +SIMV20TA26 PO; -SIMV20TA3 PO
[2020-01-11] MEDS ORDERED: LEUPROLIDE 22.5 MG SYRINGE (ELIGARD) SQ SCH (11:55)
[2020-03-30 10:30] LABS: BASOPHILS % (AUTO) 0 % (0-10); EOSINOPHILS # (AUTO) 0.1 10^3/uL (0.0-0.3); EOSINOPHILS % (AUTO) 2 % (0-10); HEMATOCRIT 41 % (40-54); HEMOGLOBIN 13.7 G/DL (13.3-17.7); LYMPHOCYTES # (AUTO) 1.5 X 10^3 (1.0-4.0); LYMPHOCYTES % (AUTO) 20 % (12-44); MEAN CORPUSCULAR HEMOGLOBIN 31 PG (25-34); MEAN CORPUSCULAR HGB CONC 34 G/DL (32-36); MEAN CORPUSCULAR VOLUME 93 FL (80-99); MEAN PLATELET VOLUME 10.3 FL (7.4-10.4); MONOCYTES # (AUTO) 0.6 X 10^3 (0.0-1.0); MONOCYTES % (AUTO) 7 % (0-12); NEUTROPHILS # (AUTO) 5.3 X 10^3 (1.8-7.8); NEUTROPHILS % (AUTO) 71 % (42-75); PLATELET COUNT 214 10^3/uL (130-400); RED CELL DISTRIBUTION WIDTH 13.8 % (10.0-14.5); WHITE BLOOD COUNT 7.5 10^3/uL (4.3-11.0)
[2020-03-30 10:56] LABS: ALANINE AMINOTRANSFERASE 17 U/L (0-55); ALBUMIN 4.4 GM/DL (3.2-4.5); ALKALINE PHOSPHATASE 54 U/L (40-136); BILIRUBIN,TOTAL 0.6 MG/DL (0.1-1.0); BUN/CREATININE RATIO 30; CALCIUM 9.6 MG/DL (8.5-10.1); CARBON DIOXIDE 20 MMOL/L (21-32); CHLORIDE 100 MMOL/L (98-107); CREATININE SERUM 1.15 MG/DL (0.60-1.30); GFR ESTIMATED > 60; GLUCOSE 230 MG/DL (70-105); POTASSIUM 4.5 MMOL/L (3.6-5.0); SODIUM 136 MMOL/L (135-145); TOTAL PROTEIN 7.5 GM/DL (6.4-8.2)
== END 2020-03-29 | disposition home or self-care (01) ==
LOC: ONC 10:50
PROVIDERS: ATTEND Internal Medicine Hematology & Oncology
DX: C61 Malignant neoplasm of prostate (principal); M81.8 Other osteoporosis without current pathological fracture; E11.42 Type 2 diabetes mellitus with diabetic polyneuropathy; E78.00 Pure hypercholesterolemia, unspecified; Z79.84 Long term (current) use of oral hypoglycemic drugs; Z79.899 Other long term (current) drug therapy
CPT/HCPCS: 80053; 84153; 85025

== ENCOUNTER 2020-04-27 10:24 | Outpatient (RCR) | payer MEDICARE, BC ==
[2020-03-30 10:30] LABS: BASOPHILS % (AUTO) 0 % (0-10); EOSINOPHILS # (AUTO) 0.1 10^3/uL (0.0-0.3); EOSINOPHILS % (AUTO) 2 % (0-10); HEMATOCRIT 41 % (40-54); HEMOGLOBIN 13.7 G/DL (13.3-17.7); LYMPHOCYTES # (AUTO) 1.5 X 10^3 (1.0-4.0); LYMPHOCYTES % (AUTO) 20 % (12-44); MEAN CORPUSCULAR HEMOGLOBIN 31 PG (25-34); MEAN CORPUSCULAR HGB CONC 34 G/DL (32-36); MEAN CORPUSCULAR VOLUME 93 FL (80-99); MEAN PLATELET VOLUME 10.3 FL (7.4-10.4); MONOCYTES # (AUTO) 0.6 X 10^3 (0.0-1.0); MONOCYTES % (AUTO) 7 % (0-12); NEUTROPHILS # (AUTO) 5.3 X 10^3 (1.8-7.8); NEUTROPHILS % (AUTO) 71 % (42-75); PLATELET COUNT 214 10^3/uL (130-400); RED CELL DISTRIBUTION WIDTH 13.8 % (10.0-14.5); WHITE BLOOD COUNT 7.5 10^3/uL (4.3-11.0)
[2020-03-30 10:56] LABS: ALANINE AMINOTRANSFERASE 17 U/L (0-55); ALBUMIN 4.4 GM/DL (3.2-4.5); ALKALINE PHOSPHATASE 54 U/L (40-136); BILIRUBIN,TOTAL 0.6 MG/DL (0.1-1.0); BUN/CREATININE RATIO 30; CALCIUM 9.6 MG/DL (8.5-10.1); CARBON DIOXIDE 20 MMOL/L (21-32); CHLORIDE 100 MMOL/L (98-107); CREATININE SERUM 1.15 MG/DL (0.60-1.30); GFR ESTIMATED > 60; GLUCOSE 230 MG/DL (70-105); POTASSIUM 4.5 MMOL/L (3.6-5.0); SODIUM 136 MMOL/L (135-145); TOTAL PROTEIN 7.5 GM/DL (6.4-8.2)
[~2020-04-27 10:24] MED LIST changes: +LEUPROLIDE 22.5 MG SYRINGE (ELIGARD) SQ SCH
== END 2020-06-28 | disposition home or self-care (01) ==
LOC: ONC 10:24
PROVIDERS: ATTEND Internal Medicine Hematology & Oncology
DX: Z51.81 Encounter for therapeutic drug level monitoring (principal); C61 Malignant neoplasm of prostate; M81.8 Other osteoporosis without current pathological fracture; E11.42 Type 2 diabetes mellitus with diabetic polyneuropathy; E78.00 Pure hypercholesterolemia, unspecified; Z79.84 Long term (current) use of oral hypoglycemic drugs; Z79.899 Other long term (current) drug therapy
CPT/HCPCS: 80053; 84153; 85025; 96402

== ENCOUNTER → 2020-08-01 | Outpatient (CLI) | payer MEDICARE, BC ==
[~2020-08-01] MED LIST changes: -LEUPROLIDE 22.5 MG SYRINGE (ELIGARD) SQ SCH
--- NOTE | 2020-08-01 12:43 | Diagnostic Imaging Report ---
INDICATION: Fall from ladder. Bilateral rib pain. FINDINGS: There are mildly displaced fractures involving the left lateral ribs from the third through the seventh rib. There is mildly displaced fracture along the right lateral seventh rib. No pneumothorax. There are small bilateral pleural effusions. Mild lung contusion noted laterally on the right. IMPRESSION: Multiple rib fractures noted bilaterally, as described above. Dictated by: Dictated on workstation # [id number]
== END ==
LOC: RAD FS 12:17
PROVIDERS: ATTEND Emergency Medicine
DX: S22.43XA Multiple fractures of ribs, bilateral, initial encounter for closed fracture (principal); R09.02 Hypoxemia; W11.XXXA Fall on and from ladder, initial encounter
CPT/HCPCS: 71110

== ENCOUNTER 2020-08-03 15:22 | Inpatient (IN) | payer MEDICARE, BC ==
[~2020-08-03] VITALS: Ht 172.7 cm; Wt 81.8 kg
--- NOTE | 2020-08-03 15:33 | ED General ---
General Chief Complaint: Respiratory Problems Stated Complaint: SOA,CRACKED RIBS History of Present Illness Date Seen by Provider: Aug 03, 2020 Time Seen by Provider: 15:33 Initial Comments Patient presenting to the emergency department for evaluation of bilateral rib pain after being on a stepladder on Friday which is 4 days ago and falling and sustaining rib fractures that were diagnosed 2 days ago on x-ray. He apparently went for a checkup with his primary care provider and his oxygen saturation was in the 88-90% range and he was sent to the emergency department. Patient says that he does feel short of breath primarily on exertion and that he does continue to have pain although it is not severe. He denies any head neck abdomen back or extremity pain and he denies any unilateral weakness numbness or tingling and he denies being on any blood thinners. He is in no obvious dist ress with normal vital signs other than the hypoxia noted. Allergies and Home Medications Allergies Coded Allergies: No Known Drug Allergies (Unverified , 02/20/15) Home Medications Allopurinol 300 Mg Tablet, 300 MG PO HS, (Reported) Bicalutamide 50 Mg Tablet, 50 MG PO HS, (Reported) Celecoxib 100 Mg Capsule, 100 MG PO BID WITH MEALS Prescribed by: SEVERINO ALDRICH on 06/06/19 1400 Gabapentin 600 Mg Tablet, 600 MG PO HS, (Reported) Gabapentin 600 Mg Tablet, 600 MG PO TID PRN for NERVE PAIN, (Reported) Metformin HCl 1,000 Mg Tablet, 1,000 MG PO BID, (Reported) Multivitamin with Minerals 1 Each Tablet, 1 TAB PO DAILY, (Reported) Oxycodone Hcl 5 Mg Tab, 10 MG PO Q4H PRN for PAIN-SEVERE Prescribed by: SEVERINO ALDRICH on 06/06/19 1400 Semaglutide 0.25 Mg/0.2 Ml Pen.injctr, 0.5 MG SC Th, (Reported) Simvastatin 20 Mg Tablet, 20 MG PO HS, (Reported) Venlafaxine HCl 75 Mg Tab, 75 MG PO TID, (Reported) Patient Home Medication List Home Medication List Reviewed: Yes Review of Systems Review of Systems Constitutional: no symptoms reported EENTM: no symptoms reported Respiratory: short of breath Cardiovascular: chest pain Gastrointestinal: no symptoms reported Genitourinary: no symptoms reported Musculoskeletal: no symptoms reported Skin: no symptoms reported Psychiatric/Neurological: No Symptoms Reported All Other Systems Reviewed Negative Unless Noted: Yes Past Ynjilcp-Tijfmz-Orpdqk Hx Patient Social History 2nd Hand Smoke Exposure: No Recent Foreign Travel: No Contact w/Someone Who Travel: No Recent Hopitalizations: No Seasonal Allergies Seasonal Allergies: No Past Medical History Surgeries: Yes (s/p left hip repair 05/29/19) Prostatectomy Respiratory: Yes (recent PNA 2 months ago) Pneumonia Currently Using CPAP: No Currently Using BIPAP: No Cardiac: No High Cholesterol, Hypertension Neurological: No Genitourinary: No Gastrointestinal: No Chronic Constipation Musculoskeletal: Yes Chronic Back Pain, Gout Endocrine: Yes Diabetes, Non-Insulin dep HEENT: No Cancer: Yes Prostate Did You Recieve Any Treatments: Yes What Type of Treatment Did You: Chemotherapy, Surgical Intervention Psychosocial: No Integumentary: No Blood Disorders: No Adverse Reaction/Blood Tranf: No Family Medical History Colon cancer 19 MOTHER FH: prostate cancer 19 FATHER Glaucoma 19 FATHER Hypertension 19 FATHER Physical Exam Vital Signs Vital Signs - First Documented 08/03/20 08/03/20 15:28 15:45 Temp 36.0 Pulse 59 Resp 16 B/P (MAP) 143/65 (91) Pulse Ox 97 O2 Delivery Room Air O2 Flow Rate 4.00 FiO2 91 Capillary Refill : Height, Weight, BMI Height: 5'10.00" Weight: 184lbs. 8.0oz. 83.374576fu; 26.5 BMI Method:Stated General Appearance: No Apparent Distress, WD/WN HEENT: PERRL/EOMI Neck: Non Tender, Supple Respiratory: Other (BL chest wall ttp. No SQ air or flail chest noted) Cardiovascular: Regular Rate, Rhythm Gastrointestinal: Non Tender, Soft Back: Normal Inspection, No Vertebral Tenderness Neurologic/Psychiatric: Alert, Oriented x3 Skin: Warm/Dry Progress/Results/Core Measures Suspected Sepsis SIRS Temperature: Pulse: Respiratory Rate: Laboratory Tests 08/03/20 15:40: White Blood Count 6.6 Blood Pressure / Mean: Laboratory Tests 08/03/20 15:40: Creatinine 0.97, INR Comment 0.9, Platelet Count 167, Total Bilirubin 0.3 Results/Orders Lab Results Laboratory Tests Test 08/03/20 15:40 08/03/20 16:38 08/03/20 17:00 Range/Units White Blood Count 6.6 4.3-11.0 10^3/uL Red Blood Count 3.40 L 4.35-5.85 10^6/uL Hemoglobin 10.7 L 13.3-17.7 G/DL Hematocrit 32 L 40-54 % Mean Corpuscular Volume 95 80-99 FL Mean Corpuscular Hemoglobin 31 25-34 PG Mean Corpuscular Hemoglobin Concent 33 32-36 G/DL Red Cell Distribution Width 13.5 10.0-14.5 % Platelet Count 167 130-400 10^3/uL Mean Platelet Volume 9.9 7.4-10.4 FL Neutrophils (%) (Auto) 66 42-75 % Lymphocytes (%) (Auto) 22 12-44 % Monocytes (%) (Auto) 7 0-12 % Eosinophils (%) (Auto) 4 0-10 % Basophils (%) (Auto) 1 0-10 % Neutrophils # (Auto) 4.3 1.8-7.8 X 10^3 Lymphocytes # (Auto) 1.4 1.0-4.0 X 10^3 Monocytes # (Auto) 0.5 0.0-1.0 X 10^3 Eosinophils # (Auto) 0.3 0.0-0.3 10^3/uL Basophils # (Auto) 0.0 0.0-0.1 10^3/uL Prothrombin Time 12.5 12.2-14.7 SEC INR Comment 0.9 0.8-1.4 Activated Partial Thromboplast Time 31 24-35 SEC Sodium Level 137 135-145 MMOL/L Potassium Level 4.0 3.6-5.0 MMOL/L Chloride Level 94 L 98-107 MMOL/L Carbon Dioxide Level 33 H 21-32 MMOL/L Anion Gap 10 5-14 MMOL/L Blood Urea Nitrogen 50 H 7-18 MG/DL Creatinine 0.97 0.60-1.30 MG/DL Estimat Glomerular Filtration Rate > 60 BUN/Creatinine Ratio 52 Glucose Level 199 H 70-105 MG/DL Calcium Level 9.2 8.5-10.1 MG/DL Corrected Calcium 9.5 8.5-10.1 MG/DL Total Bilirubin 0.3 0.1-1.0 MG/DL Aspartate Amino Transf (AST/SGOT) 30 5-34 U/L Alanine Aminotransferase (ALT/SGPT) 20 0-55 U/L Alkaline Phosphatase 49 40-136 U/L Total Protein 6.4 6.4-8.2 GM/DL Albumin 3.6 3.2-4.5 GM/DL My Orders Orders - ADELINA PACE DO Cbc With Automated Diff (08/03/20 15:35) Comprehensive Metabolic Panel (08/03/20 15:35) Partial Thromboplastin Time (08/03/20 15:35) Protime With Inr (08/03/20 15:35) Iv/Invasive Line Insertion .IV start (08/03/20 15:35) Ct Chest Wo (08/03/20 15:35) O2 (08/03/20 15:37) Blood Culture (08/03/20 16:38) Procalcitonin (Pct) (08/03/20 16:38) Blood Culture (08/03/20 16:39) Piperacillin Sodium/Tazobactam (Zosyn Vi (08/03/20 16:45) Coronavirus Sars-Cov-2 So 2019 (08/03/20 16:38) Medications Given in ED Current Medications Medications Dose Ordered Sig/Lucas Route Start Time Stop Time Status Last Admin Dose Admin Piperacillin Sod/ Tazobactam Sod 4.5 gm/Sodium Chloride 100 ml @ 200 mls/hr ONCE ONCE IV 08/03/20 16:45 08/03/20 17:14 DC 08/03/20 16:56 200 MLS/HR Vital Signs/I&O 08/03/20 08/03/20 15:28 15:45 Temp 36.0 Pulse 59 Resp 16 B/P (MAP) 143/65 (91) Pulse Ox 97 91 O2 Delivery Room Air Nasal Cannula O2 Flow Rate 4.00 FiO2 91 Capillary Refill : Progress Note : Progress Note Given patient has hypoxia with multiple rib fractures plan is to have him admitted at [place]. Patient has findings of right-sided multilobar infiltrate so blood cultures pro- calcitonin and COVID tests were done and he'll be started on Zosyn empirically and admitted to Dr. Payne at [place]. Dr. Sim agreed to cons ult on patient for his rib fractures. Departure Impression Primary Impression: Ribs, multiple fractures Qualified Codes: S22.43XA - Multiple fractures of ribs, bilateral, initial encounter for closed fracture Additional Impressions: Hypoxia RIVERA (dyspnea on exertion) Anemia Disposition: ADMITTED INPATIENT Condition: Improved Transfer Transfer Reason: Exceeds level of care Transfer Facility: [facility] Method of Transfer: EMS Departure-Patient Inst. Referrals: KEV MARIO DO (PCP/Family) Primary Care Physician ADELINA PACE DO Aug 03, 2020 15:33
[2020-08-03 15:46] LABS: BASOPHILS % (AUTO) 1 % (0-10); EOSINOPHILS # (AUTO) 0.3 10^3/uL (0.0-0.3); EOSINOPHILS % (AUTO) 4 % (0-10); HEMATOCRIT 32 % (40-54); HEMOGLOBIN 10.7 G/DL (13.3-17.7); LYMPHOCYTES # (AUTO) 1.4 X 10^3 (1.0-4.0); LYMPHOCYTES % (AUTO) 22 % (12-44); MEAN CORPUSCULAR HEMOGLOBIN 31 PG (25-34); MEAN CORPUSCULAR HGB CONC 33 G/DL (32-36); MEAN CORPUSCULAR VOLUME 95 FL (80-99); MEAN PLATELET VOLUME 9.9 FL (7.4-10.4); MONOCYTES # (AUTO) 0.5 X 10^3 (0.0-1.0); MONOCYTES % (AUTO) 7 % (0-12); NEUTROPHILS # (AUTO) 4.3 X 10^3 (1.8-7.8); NEUTROPHILS % (AUTO) 66 % (42-75); PLATELET COUNT 167 10^3/uL (130-400); WHITE BLOOD COUNT 6.6 10^3/uL (4.3-11.0)
[2020-08-03 16:03] LABS: INR 0.9 (0.8-1.4); PROTHROMBIN TIME PATIENT 12.5 SEC (12.2-14.7)
[2020-08-03 16:05] LABS: ALANINE AMINOTRANSFERASE 20 U/L (0-55); ALBUMIN 3.6 GM/DL (3.2-4.5); ALKALINE PHOSPHATASE 49 U/L (40-136); BILIRUBIN,TOTAL 0.3 MG/DL (0.1-1.0); BUN/CREATININE RATIO 52; CALCIUM 9.2 MG/DL (8.5-10.1); CARBON DIOXIDE 33 MMOL/L (21-32); CHLORIDE 94 MMOL/L (98-107); CREATININE SERUM 0.97 MG/DL (0.60-1.30); GFR ESTIMATED > 60; GLUCOSE 199 MG/DL (70-105); SODIUM 137 MMOL/L (135-145); TOTAL PROTEIN 6.4 GM/DL (6.4-8.2)
--- NOTE | 2020-08-03 16:31 | Diagnostic Imaging Report ---
CT CHEST WO TECHNIQUE: Multiple contiguous axial images were obtained through the chest without the use of intravenous contrast. All CT scans use one or more of the following dose optimizing techniques: automated exposure control, MA and/or KvP adjustment based on a patient size and exam type, or iterative reconstruction. INDICATION: Trauma, fall from ladder four days ago. Known rib fractures. COMPARISON: Rib radiographs of 08/01/2020. FINDINGS: Lungs and airway: No endoluminal nodule within the trachea. Multifocal centrilobular micronodules and groundglass opacities are present throughout the right lung. No consolidations that would suggest contusion. Pleura: Trace bilateral pleural effusions. No pneumothorax. Heart and mediastinum: No supraclavicular or axillary lymphadenopathy. Atrophic thyroid. No mediastinal hemorrhage. Physiologic fluid is present within the pericardial recess around the aorta. Heart is enlarged without pericardial effusion. No intrathoracic lymphadenopathy. Small sliding-type hiatal hernia. Atherosclerotic calcifications are present throughout the aorta. Aortic valve leaflet calcifications are also present. Upper abdomen: No free fluid or air in the upper abdomen. Bilateral nonobstructing renal calculi. Musculoskeletal: Acute fractures of the left third through fifth anterior ribs with small subpleural contusions. Acute nondisplaced fractures of the right lateral seventh and eighth ribs. No fracture in the medial aspect of the clavicles. No sternal fracture. No compression fracture within the thoracic spine. IMPRESSION: 1. Multifocal cellular bronchiolitis throughout the right lung is most frequently seen with infection or aspiration. No features of pulmonary contusion. 2. Trace bilateral pleural effusions. No pneumothorax. 3. Acute fractures of the left third through fifth ribs and right seventh and eighth ribs. Dictated by: Dictated on workstation # [id number]
[2020-08-03] MEDS ORDERED: PIPERACILLIN SODIUM/TAZOBACTAM 4.5 GM in NS (IVPB) 100 ML IV ONE (16:45)
--- NOTE | 2020-08-03 18:40 | NUR ---
CATARINA FU admitted to room 427-1, with an admitting diagnosis of multiple rib fx, on 08/03/20 from [facility] ED via [facility], accompanied by EMS. CATARINA FU introduced to surroundings, call light, bed controls, phone, TV, temperature control, lights, meal times, smoking policy, visitor policy, side rail policy, bathrooms and showers. Patient Rights given to patient in the handbook. CATARINA FU verbalizes understanding that [facility] is not responsible for the loss or damage to any personal effects or valuables that are kept in the patients possession during their hospitalization. The following Patient Care Plans were discussed with the patient: Discharge Planning, pain management, dehydration, and mediations. CATARINA FU verbalizes understanding of Interdisciplinary Patient Education. Patient and/or family were informed about the Rapid Response Team and its purpose.
[2020-08-03] MEDS ORDERED: CATHETER FLUSH 10 ML SYR IV PRN (19:00)
[2020-08-03 19:14] VITALS: BP 131/63
[2020-08-03 19:15] VITALS: BP 131/63
[2020-08-03] MEDS: CATHETER FLUSH 10 ML SYR IV SCH (23:22)
[2020-08-04] VITALS (7 sets, daily range): BP systolic 135–184; BP diastolic 65–82
[2020-08-04] MEDS: CATHETER FLUSH 10 ML SYR IV SCH ×3 (05:40→22:33)
[2020-08-04 06:07] LABS: BASOPHILS % (AUTO) 0 % (0-10); EOSINOPHILS # (AUTO) 0.3 10^3/uL (0.0-0.3); EOSINOPHILS % (AUTO) 5 % (0-10); HEMATOCRIT 32 % (40-54); HEMOGLOBIN 10.1 G/DL (13.3-17.7); LYMPHOCYTES # (AUTO) 1.3 X 10^3 (1.0-4.0); LYMPHOCYTES % (AUTO) 19 % (12-44); MEAN CORPUSCULAR HEMOGLOBIN 30 PG (25-34); MEAN CORPUSCULAR HGB CONC 31 G/DL (32-36); MEAN CORPUSCULAR VOLUME 97 FL (80-99); MEAN PLATELET VOLUME 9.8 FL (7.4-10.4); MONOCYTES # (AUTO) 0.6 X 10^3 (0.0-1.0); MONOCYTES % (AUTO) 9 % (0-12); NEUTROPHILS # (AUTO) 4.5 X 10^3 (1.8-7.8); NEUTROPHILS % (AUTO) 67 % (42-75); PLATELET COUNT 188 10^3/uL (130-400); WHITE BLOOD COUNT 6.7 10^3/uL (4.3-11.0)
[2020-08-04 06:15] LABS: ALBUMIN 3.4 GM/DL (3.2-4.5); CHLORIDE 99 MMOL/L (98-107); SODIUM 138 MMOL/L (135-145)
[2020-08-04 06:16] LABS: CALCIUM 9.4 MG/DL (8.5-10.1)
[2020-08-04 06:17] LABS: GLUCOSE 130 MG/DL (70-105)
[2020-08-04 06:18] LABS: TOTAL PROTEIN 6.4 GM/DL (6.4-8.2)
[2020-08-04 06:19] LABS: BILIRUBIN,TOTAL 0.5 MG/DL (0.1-1.0); CARBON DIOXIDE 29 MMOL/L (21-32)
[2020-08-04 06:21] LABS: ALKALINE PHOSPHATASE 46 U/L (40-136); CREATININE SERUM 0.91 MG/DL (0.60-1.30); GFR ESTIMATED > 60
[2020-08-04 06:22] LABS: BUN/CREATININE RATIO 41
[2020-08-04 06:24] LABS: ALANINE AMINOTRANSFERASE 22 U/L (0-55)
--- NOTE | 2020-08-04 07:47 | NUR ---
NOTIFIED DR SWANSON OF CONSULT
[2020-08-04] MEDS ORDERED: ACETAMINOPHEN 325 MG TABLET PO PRN (08:30)
[2020-08-04] MEDS ORDERED: ANTACID SUSP 30 ML UDC (MYLANTA) PO PRN (08:30)
[2020-08-04] MEDS ORDERED: BISACODYL 10 MG SUPP (DULCOLAX) PR PRN (08:30)
[2020-08-04] MEDS ORDERED: ONDANSETRON 4 MG (ZOFRAN) ORAL DISSOLVE TAB PO PRN (08:30)
[2020-08-04] MEDS ORDERED: MELATONIN 3 MG TABLET PO PRN (08:30)
[2020-08-04] MEDS ORDERED: hydrALAZINE (APESOLINE) 20 MG/ML VIAL IV PRN (08:30)
[2020-08-04] MEDS ORDERED: polyethylene glycoL POWDER 17 GM (MIRALAX) PACK PO PRN (08:30)
[2020-08-04] MEDS ORDERED: ONDANSETRON 4 MG/2 ML (SDV) Z0FRAN IV PRN (08:30)
[2020-08-04] MEDS: lisINopril 40 MG (PRINIVIL) TABLET PO SCH (09:23)
[2020-08-04] MEDS: DOCUSATE SODIUM 100 MG (COLACE) CAP PO SCH ×2 (09:23→21:26)
[2020-08-04] MEDS: ENOXAPARIN 40 MG/0.4 ML (LOVENOX) SYR SC SCH (09:23)
[2020-08-04] MEDS: SENNOSIDES 8.6 MG (SENOKOT) TAB PO SCH ×2 (09:23→21:25)
[2020-08-04] MEDS ORDERED: MELO15TA39 PO (11:28)
[2020-08-04] MEDS ORDERED: PIOG30TA71 PO (11:28)
[2020-08-04] MEDS ORDERED: OXYC-471 PO (11:28)
--- NOTE | 2020-08-04 11:30 | NUR ---
SPOKE WITH PT (I CALLED HIS ROOM PHONE) AND WENT THRU THE EXT MED HISTORY TO COMPLETE THE MED REC GABAPENTIN 600MG- THE DIRECTIONS ARE 1 TAB Q 6-8 HOURS HOWEVER PT IS TAKING 2 TAB HS ONLY ALL OTHER MEDICATIONS THE PT TAKES PRESCRIBED OTC MEDS: [id number]
[2020-08-04] MEDS: inSUlin ASPART (NovoLOG) 1 UNIT/0.01 ML (CHARGE PER UNIT) SC SCH ×3 (11:34→21:26)
--- NOTE | 2020-08-04 15:36 | History & Physical-Hospitalist ---
History of Present Illness HPI/Chief Complaint Beck Hubbard is a 79 year old male with history of T2DM, HLD, prostate cancer, who presented with shortness of breath. He fell off a ladder about 5 days ago. He has had rib pain since that time. He denies any fever or chills. He denies cough. He denies abdominal pain, nausea, or vomiting. He has no other complaints or concerns. Source: patient Exam Limitations: no limitations Date Seen 08/04/20 Time Seen by a Provider: 10:00 Attending Physician Yuliya Mcpherson MD PCP Joe Ann DO Referring Physician Date of Admission Aug 03, 2020 at 18:30 Home Medications & Allergies Home Medications Reviewed patient Home Medication Reconciliation performed by pharmacy medication reconciliations lead slot technician and/or nursing. Patients Allergies have been reviewed. Allergies Allergies Coded Allergies No Known Drug Allergies (Unverified02/20/15) Past Nkqutoc-Abryhy-Npyrcj Hx Past Med/Social Hx: Reviewed Nursing Past Med/Soc Hx Patient Social History Alcohol Use: Denies Use Recreational Drug Use: No Smoking Status: Never a Smoker 2nd Hand Smoke Exposure: No Recent Foreign Travel: No Contact w/other who traveled: No Recent Hopitalizations: No Recent Infectious Disease Expo: No Seasonal Allergies Seasonal Allergies: No Past Medical History Surgeries: Prostatectomy Respiratory: Pneumonia Currently Using CPAP: No Currently Using BIPAP: No Cardiac: High Cholesterol, Hypertension Gastrointestinal: Chronic Constipation Musculoskeletal: Chronic Back Pain, Gout Endocrine: Diabetes, Non-Insulin dep Cancer: Prostate Did You Recieve Any Treatments: Yes What Type of Treatment Did You: Chemotherapy, Surgical Intervention History of Blood Disorders: No Adverse Reaction to Blood Chambers: No Family History Colon cancer 19 MOTHER FH: prostate cancer 19 FATHER Glaucoma 19 FATHER Hypertension 19 FATHER Review of Systems Constitutional: no symptoms reported Respiratory: short of breath Cardiovascular: chest pain Gastrointestinal: no symptoms reported Genitourinary: no symptoms reported Musculoskeletal: no symptoms reported Skin: no symptoms reported Psychiatric/Neurological: No Symptoms Reported Physical Exam Physical Exam Vital Signs Vital Signs - First Documented 08/03/20 08/03/20 15:28 15:45 Temp 36.0 Pulse 59 Resp 16 B/P (MAP) 143/65 (91) Pulse Ox 97 O2 Delivery Room Air O2 Flow Rate 4.00 FiO2 91 Capillary Refill : Less Than 3 SecondsLess Than 3 Seconds Height, Weight, BMI Height: 5'10.00" Weight: 184lbs. 8.0oz. 83.300708tg; 27.42 BMI Method:Stated General Appearance: No Apparent Distress, WD/WN HEENT: PERRL/EOMI, Pharynx Normal Neck: Normal Inspection, Supple Respiratory: No Chest Non Tender; Lungs Clear, Normal Breath Sounds, No Respiratory Distress Cardiovascular: Regular Rate, Rhythm, No Edema, No Murmur Gastrointestinal: Normal Bowel Sounds, Non Tender, Soft Extremity: Normal Inspection, Non Tender, No Pedal Edema Neurologic/Psychiatric: Alert, Oriented x3, No Motor/Sensory Deficits, Normal Mood/Affect Skin: Normal Color, Warm/Dry Results Results/Procedures Labs Laboratory Tests 08/03/20 15:40 08/04/20 06:01 Patient resulted labs reviewed. Imaging: Reviewed Imaging Report Assessment/Plan Admission Diagnosis Acute respiratory failure with hypoxia Admission Status: Inpatient Order (span 2 midnights) Reason for Inpatient Admission: Multiple rib fractures, possible pneumonia Assessment and Plan Acute respiratory failure with hypoxia Multiple rib fractures Fall from ladder -Titrated off of oxygen this morning -WBC normal, procalcitonin normal -CT showed rib fractures and bronchiolitis -Discontinue antibiotics -Pain regimen ordered -Add bowel regimen -Incentive spirometry T2DM with hyperglycemia -Continue metformin and pioglitazone -Sliding scale insulin Prostate cancer Gout Hyperlipidemia -Continue home meds DVT Prophylaxis: Lovenox Diagnosis/Problems Diagnosis/Problems (1) Acute respiratory failure with hypoxia Status: Acute (2) Multiple rib fractures Status: Acute Qualifiers: Encounter type: initial encounter Fracture type: closed Laterality: bilateral Qualified Codes: S22.43XA - Multiple fractures of ribs, bilateral, initial encounter for closed fracture (3) Fall from ladder Status: Acute (4) Prostate cancer Status: Chronic (5) Diabetes mellitus Status: Chronic YULIYA MCPHERSON MD Aug 04, 2020 15:36
--- NOTE | 2020-08-04 16:00 | Consultation - Surgery ---
History of Present Illness History of Present Illness Patient Consulted On(janis/time) 08/04/20 15:55 Time Seen by Provider: 15:42 History of Present Illness Surgery asked to consult re: multiple rib fx and fall off ladder HPI per ED: Patient presenting to the emergency department for evaluation of bilateral rib pain after being on a stepladder on Friday which is 4 days ago and falling and sustaining rib fractures that were diagnosed 2 days ago on x-ray. He apparently went for a checkup with his primary care provider and his oxygen saturation was in the 88-90% range and he was sent to the emergency department. Patient says that he does feel short of breath primarily on exertion and that he does continue to have pain although it is not severe. He denies any head neck abdomen back or extremity pain and he denies any unilateral weakness numbness or tingling and he denies being on any blood thinners. He is in no obvious dist ress with normal vital signs other than the hypoxia noted. When I spoke to pt today he states his breathing is better and his rib pain has improved. Allergies and Home Medications Allergies Coded Allergies: No Known Drug Allergies (Unverified , 02/20/15) Home Medications Allopurinol 300 Mg Tablet, 300 MG PO HS, (Reported) Bicalutamide 50 Mg Tablet, 50 MG PO HS, (Reported) Gabapentin 600 Mg Tablet, 1,200 MG PO HS, (Reported) TAKES 2 (600MG) TABS Meloxicam 15 Mg Tablet, 15 MG PO HS, (Reported) Metformin HCl 1,000 Mg Tablet, 1,000 MG PO BID, (Reported) Multivitamin with Minerals 1 Each Tablet, 1 TAB PO DAILY, (Reported) Oxycodone HCl/Acetaminophen 1 Each Tablet, 1 EA PO Q6H PRN for PAIN-MODERATE (5- 7), (Reported) Pioglitazone HCl 30 Mg Tablet, 30 MG PO HS, (Reported) Semaglutide 0.25 Mg/0.2 Ml Pen.injctr, 0.5 MG SC SUN, (Reported) Simvastatin 20 Mg Tablet, 20 MG PO HS, (Reported) Venlafaxine HCl 75 Mg Tab, 75 MG PO TID, (Reported) Patient Home Medication List Home Medication List Reviewed: Yes Past Lymwajh-Ffwfba-Skqpjd Hx Patient Social History Alcohol Use: Denies Use Recreational Drug Use: No Smoking Status: Never a Smoker 2nd Hand Smoke Exposure: No Recent Foreign Travel: No Contact w/Someone Who Travel: No Recent Infectious Disease Expo: No Recent Hopitalizations: No Seasonal Allergies Seasonal Allergies: No Surgeries History of Surgeries: Yes (s/p left hip repair 05/29/19) Surgeries: Prostatectomy Respiratory History of Respiratory Disorde: Yes (recent PNA 2 months ago) Respiratory Disorders: Pneumonia Cardiovascular History of Cardiac Disorders: No Cardiac Disorders: High Cholesterol, Hypertension Neurological History of Neurological Disord: No Genitourinary History of Genitourinary Disor: No Gastrointestinal History of Gastrointestinal Di: No Gastrointestinal Disorders: Chronic Constipation Musculoskeletal History of Musculoskeletal Dis: Yes Musculoskeletal Disorders: Chronic Back Pain, Gout Endocrine History of Endocrine Disorders: Yes Endocrine Disorders: Diabetes, Non-Insulin dep HEENT History of HEENT Disorders: No Cancer History of Cancer: Yes Cancer: Prostate Psychosocial History of Psychiatric Problem: No Integumentary History of Skin or Integumenta: No Blood Transfusions History of Blood Disorders: No Adverse Reaction to a Blood Tr: No Family Medical History Significant Family History: Cancer, Hypertension Family Medial History: Colon cancer 19 MOTHER FH: prostate cancer 19 FATHER Glaucoma 19 FATHER Hypertension 19 FATHER Review of Systems-General Constitutional: No chills, No diaphoresis Respiratory: No cough, No dyspnea on exertion, No hemoptysis; short of breath Cardiovascular: chest pain; No palpitations Gastrointestinal: No nausea, No vomiting Physical Exam-General Problems Physical Exam Vital Signs Vital Signs - First Documented 08/03/20 08/03/20 15:28 15:45 Temp 36.0 Pulse 59 Resp 16 B/P (MAP) 143/65 (91) Pulse Ox 97 O2 Delivery Room Air O2 Flow Rate 4.00 FiO2 91 Capillary Refill : Less Than 3 SecondsLess Than 3 Seconds General Appearance: WD/WN, no apparent distress Eyes: Bilateral Eye PERRL, Bilateral Eye EOMI Respiratory: no respiratory distress, no accessory muscle use, decreased breath sounds Cardiovascular: no murmur, bradycardia Gastrointestinal: non tender, soft, no organomegaly 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, alert, normal mood/affect, oriented x 3 Skin: normal color, warm/dry Data Review Labs Laboratory Tests 08/03/20 16:38: Procalcitonin 0.13H 08/03/20 17:00: 08/04/20 06:01: Procalcitonin 0.08, White Blood Count 6.7, Red Blood Count 3.32L, Hemoglobin 10.1L, Hematocrit 32L, Mean Corpuscular Volume 97, Mean Corpuscular Hemoglobin 30, Mean Corpuscular Hemoglobin Concent 31L, Red Cell Distribution Width 13.9, Platelet Count 188, Mean Platelet Volume 9.8, Neutrophils (%) (Auto) 67, Lymphocytes (%) (Auto) 19, Monocytes (%) (Auto) 9, Eosinophils (%) (Auto) 5, Basophils (%) (Auto) 0, Neutrophils # (Auto) 4.5, Lymphocytes # (Auto) 1.3, Monocytes # (Auto) 0.6, Eosinophils # (Auto) 0.3, Basophils # (Auto) 0.0, Sodium Level 138, Potassium Level 4.0, Chloride Level 99, Carbon Dioxide Level 29, Anion Gap 10, Blood Urea Nitrogen 37H, Creatinine 0.91, Estimat Glomerular Filtration Rate > 60, BUN/Creatinine Ratio 41, Glucose Level 130H, Calcium Level 9.4, Corrected Calcium 9.9, Total Bilirubin 0.5, Aspartate Amino Transf (AST/SGOT) 32, Alanine Aminotransferase (ALT/SGPT) 22, Alkaline Phosphatase 46, Total Protein 6.4, Albumin 3.4 08/04/20 11:15: Glucometer 357H 08/04/20 15:30: Glucometer 72 Radiology Date of Exam:08/03/[address] CHEST WO TECHNIQUE: Multiple contiguous axial images were obtained through the chest without the use of intravenous contrast. All CT scans use one or more of the following dose optimizing techniques: automated exposure control, MA and/or KvP adjustment based on a patient size and exam type, or iterative reconstruction. INDICATION: Trauma, fall from ladder four days ago. Known rib fractures. COMPARISON: Rib radiographs of 08/01/2020. FINDINGS: Lungs and airway: No endoluminal nodule within the trachea. Multifocal centrilobular micronodules and groundglass opacities are present throughout the right lung. No consolidations that would suggest contusion. Pleura: Trace bilateral pleural effusions. No pneumothorax. Heart and mediastinum: No supraclavicular or axillary lymphadenopathy. Atrophic thyroid. No mediastinal hemorrhage. Physiologic fluid is present within the pericardial recess around the aorta. Heart is enlarged without pericardial effusion. No intrathoracic lymphadenopathy. Small sliding-type hiatal hernia. Atherosclerotic calcifications are present throughout the aorta. Aortic valve leaflet calcifications are also present. Upper abdomen: No free fluid or air in the upper abdomen. Bilateral nonobstructing renal calculi. Musculoskeletal: Acute fractures of the left third through fifth anterior ribs with small subpleural contusions. Acute nondisplaced fractures of the right lateral seventh and eighth ribs. No fracture in the medial aspect of the clavicles. No sternal fracture. No compression fracture within the thoracic spine. IMPRESSION: 1. Multifocal cellular bronchiolitis throughout the right lung is most frequently seen with infection or aspiration. No features of pulmonary contusion. 2. Trace bilateral pleural effusions. No pneumothorax. 3. Acute fractures of the left third through fifth ribs and right seventh and eighth ribs. Dictated by: Dictated on workstation # [id number] Dict: 08/03/20 1616 Trans: 08/03/20 1702 [id number] Interpreted by: ELAINE MAGAÑA MD Electronically signed by: ELAINE MAGAÑA MD 08/03/20 1702 Assessment/Plan Assessment/Plan Assessment/Plan Multiple rib Fx Pneumonia Trauma, fall of ladder Pt fell on Friday and was home until yesterday when he finally came to the ER with rib pain and SOB. Pt does not have PTX, may have some pulmonary contusions and does have pneumonia. Pt encouraged to ambulate and use IS Q10 x every hour while awake. Nothing from surgery or Trauma standpoint to do at this time, thank you for the consult. ISAI SWANSON DO Aug 04, 2020 16:00
[2020-08-04] MEDS: VENlafaxine 75 MG (EFFEXOR) TAB PO SCH (17:36)
[2020-08-04] MEDS: metFORMIN 500 MG (GLUCOPHAGE) TAB PO SCH (17:36)
[2020-08-04] MEDS: RT-ALBUTEROL INHALER HFA (VENTOLIN HFA) 18 GM IH SCH ×2 (19:04→21:46)
[2020-08-04] MEDS ORDERED: SIMvastatin 20 MG (ZOCOR) TAB PO SCH (21:00)
[2020-08-04] MEDS ORDERED: NON-FORMULARY MEDICATION 1 EA EA (Bicalutamide 50 MG) PO SCH (21:00)
[2020-08-04] MEDS ORDERED: PIOGLITAZONE 30MG (ACTOS) TAB PO SCH (21:00)
[2020-08-04] MEDS ORDERED: GABAPENTIN 600 MG (NEURONTIN) TAB PO SCH (21:00)
[2020-08-04] MEDS ORDERED: ALLOPURINOL 300 MG (ZYLOPRIM) TAB PO SCH (21:00)
[2020-08-04] MEDS: RT-ALBUTEROL INHALER HFA (VENTOLIN HFA) 18 GM IH PRN (21:46)
[2020-08-05] VITALS: BP 175/84
[2020-08-05] MEDS: RT-ALBUTEROL INHALER HFA (VENTOLIN HFA) 18 GM IH PRN (01:28)
[2020-08-05] MEDS: RT-ALBUTEROL INHALER HFA (VENTOLIN HFA) 18 GM IH SCH (01:30)
--- NOTE | 2020-08-05 02:10 | NUR ---
received call from [facility] ICU telemetry off patient. checked patient and he had removed telemetry. patient states it is poking into his chest and he is having enough trouble sleeping and doesn't want it on at this time. Patient states when he wakes in the am he is okay with putting it back on
[2020-08-05 04:00] VITALS: BP 164/78
[2020-08-05] MEDS: inSUlin ASPART (NovoLOG) 1 UNIT/0.01 ML (CHARGE PER UNIT) SC SCH ×2 (06:20→11:45)
[2020-08-05] MEDS: CATHETER FLUSH 10 ML SYR IV SCH (06:21)
[2020-08-05 06:56] LABS: BASOPHILS % (AUTO) 1 % (0-10); EOSINOPHILS # (AUTO) 0.3 10^3/uL (0.0-0.3); EOSINOPHILS % (AUTO) 3 % (0-10); HEMATOCRIT 36 % (40-54); HEMOGLOBIN 11.9 G/DL (13.3-17.7); LYMPHOCYTES # (AUTO) 1.7 X 10^3 (1.0-4.0); LYMPHOCYTES % (AUTO) 23 % (12-44); MEAN CORPUSCULAR HEMOGLOBIN 31 PG (25-34); MEAN CORPUSCULAR HGB CONC 33 G/DL (32-36); MEAN CORPUSCULAR VOLUME 95 FL (80-99); MONOCYTES # (AUTO) 0.7 X 10^3 (0.0-1.0); MONOCYTES % (AUTO) 10 % (0-12); NEUTROPHILS # (AUTO) 4.9 X 10^3 (1.8-7.8); NEUTROPHILS % (AUTO) 64 % (42-75); PLATELET COUNT 239 10^3/uL (130-400); WHITE BLOOD COUNT 7.6 10^3/uL (4.3-11.0)
[2020-08-05] MEDS: metFORMIN 500 MG (GLUCOPHAGE) TAB PO SCH (07:04)
[2020-08-05 07:05] LABS: CHLORIDE 101 MMOL/L (98-107); POTASSIUM 3.9 MMOL/L (3.6-5.0); SODIUM 137 MMOL/L (135-145)
[2020-08-05 07:06] LABS: CALCIUM 9.4 MG/DL (8.5-10.1)
[2020-08-05 07:07] LABS: GLUCOSE 171 MG/DL (70-105)
[2020-08-05 07:08] LABS: CARBON DIOXIDE 25 MMOL/L (21-32)
[2020-08-05 07:11] LABS: CREATININE SERUM 0.88 MG/DL (0.60-1.30); GFR ESTIMATED > 60
[2020-08-05 07:12] LABS: BUN/CREATININE RATIO 20
[2020-08-05 07:54] VITALS: BP 164/78
[2020-08-05 08:00] VITALS: BP 124/60
[2020-08-05] MEDS ORDERED: RT-ALBUTEROL INHALER HFA (VENTOLIN HFA) 18 GM IH PRN (08:00)
[2020-08-05] MEDS: DOCUSATE SODIUM 100 MG (COLACE) CAP PO SCH (08:13)
[2020-08-05] MEDS: lisINopril 40 MG (PRINIVIL) TABLET PO SCH (08:13)
[2020-08-05] MEDS: VENlafaxine 75 MG (EFFEXOR) TAB PO SCH ×2 (08:13→13:17)
[2020-08-05] MEDS: SENNOSIDES 8.6 MG (SENOKOT) TAB PO SCH (08:13)
[2020-08-05] MEDS: ENOXAPARIN 40 MG/0.4 ML (LOVENOX) SYR SC SCH (08:14)
[2020-08-05] MEDS ORDERED: RT-ALBUTEROL INHALER HFA (VENTOLIN HFA) 18 GM IH SCH (09:00)
--- NOTE | 2020-08-05 12:18 | Discharge Inst-Simple/Standard ---
Discharge Inst-Standard Patient Instructions/Follow Up Plan of Care/Instructions/FU: Please continue to take your medications as written and follow up with your primary care Activity as Tolerated: Yes Discharge Diet: ADA Diet Return to The Hospital For: Shortness of breath, chest pain, fever, confusion, if you feel you are getting worse. RAMÍREZ GARAY MD Aug 05, 2020 12:18
--- NOTE | 2020-08-05 12:21 | Discharge Summary ---
Diagnosis/Chief Complaint Date of Admission Aug 03, 2020 at 18:30 Date of Discharge Discharge Date: Aug 05, 2020 Admission Diagnosis Acute respiratory failure with hypoxia Primary Care Joe Ann DO Discharge Diagnosis (1) Acute respiratory failure with hypoxia Status: Acute (2) Multiple rib fractures Status: Acute (3) Fall from ladder Status: Acute (4) Prostate cancer Status: Chronic (5) Diabetes mellitus Status: Chronic Discharge Summary Procedures/Consulations Surgery- Dr Sim Discharge Physical Exam Allergies: Coded Allergies: No Known Drug Allergies (Unverified , 02/20/15) Vitals & I&Os Vital Signs Date Time Temp Pulse Resp B/P (MAP) Pulse Ox O2 Delivery O2 Flow Rate FiO2 08/05/20 13:51 36.0 62 18 124/60 95 Room Air 08/05/20 01:28 21 08/04/20 20:00 3.50 General Appearance: No Apparent Distress, WD/WN Cardiovascular: Regular Rate, Rhythm, No Murmur Neurologic/Psychiatric: Alert, Oriented x3 Hospital Course Pt was admitted due to hypoxia. He was tested for COVID and was negative. He had recently fallen off a ladder and CT was done which revealed acute rib fractures. trauma surgery as consulted and no further interventions were needed. He was titrated off oxygen and did well. He was discharged home in stable condition to follow up with her primary care doctor, Dr Ann. Labs (last 24 hrs) Laboratory Tests 08/04/20 20:57: Glucometer 121H 08/05/20 06:16: Glucometer 136H 08/05/20 06:44: White Blood Count 7.6, Red Blood Count 3.83L, Hemoglobin 11.9L, Hematocrit 36L, Mean Corpuscular Volume 95, Mean Corpuscular Hemoglobin 31, Mean Corpuscular Hemoglobin Concent 33, Red Cell Distribution Width 13.7, Platelet Count 239, Mean Platelet Volume 10.0, Neutrophils (%) (Auto) 64, Lymphocytes (%) (Auto) 23, Monocytes (%) (Auto) 10, Eosinophils (%) (Auto) 3, Basophils (%) (Auto) 1, Neutrophils # (Auto) 4.9, Lymphocytes # (Auto) 1.7, Monocytes # (Auto) 0.7, Eosinophils # (Auto) 0.3, Basophils # (Auto) 0.0, Sodium Level 137, Potassium Level 3.9, Chloride Level 101, Carbon Dioxide Level 25, Anion Gap 11, Blood Urea Nitrogen 18, Creatinine 0.88, Estimat Glomerular Filtration Rate > 60, BUN/Creatinine Ratio 20, Glucose Level 171H, Calcium Level 9.4 08/05/20 11:28: Glucometer 153H Microbiology 08/03/20 Blood Culture - Preliminary, Resulted No growth Patient resulted labs reviewed. Pending Labs Laboratory Tests 08/05/20 11:28: Glucometer 153 Imaging: Reviewed Imaging Report Discussion & Recommendations Discharge Planning: >30 minutes discharge planning Discharge Home Medications: Active Scripts Active Reported Meloxicam 15 Mg Tablet 15 Mg PO HS Pioglitazone HCl 30 Mg Tablet 30 Mg PO HS Oxycodone-Acetaminophen 5-325 (Oxycodone HCl/Acetaminophen) 1 Each Tablet 1 Ea PO Q6H PRN One Daily Complete (Multivitamin with Minerals) 1 Each Tablet 1 Tab PO DAILY Simvastatin 20 Mg Tablet 20 Mg PO HS Venlafaxine HCl 75 Mg Tab 75 Mg PO TID Metformin HCl 1,000 Mg Tablet 1,000 Mg PO BID Gabapentin 600 Mg Tablet 1,200 Mg PO HS TAKES 2 (600MG) TABS Allopurinol 300 Mg Tablet 300 Mg PO HS Ozempic (Semaglutide) 0.25 Mg/0.2 Ml Pen.injctr 0.5 Mg SC SUN Bicalutamide 50 Mg Tablet 50 Mg PO HS Instructions to patient/family Please see electronic discharge instructions given to patient. Problem Qualifiers (1) Multiple rib fractures: Encounter type: initial encounter Fracture type: closed Laterality: bilateral Qualified Codes: S22.43XA - Multiple fractures of ribs, bilateral, initial encounter for closed fracture RAMÍREZ GARAY MD Aug 05, 2020 12:21
[2020-08-05 13:51] VITALS: BP 124/60
== END 2020-08-05 13:59 | disposition home or self-care (01) | DRG 189 ==
LOC: EDUNIT# 15:22 → ER FS 15:23 → 4TH 18:30
PROVIDERS: ADMIT Internal Medicine; ATTEND Internal Medicine
DX: J96.01 Acute respiratory failure with hypoxia (principal); J21.9 Acute bronchiolitis, unspecified; S22.43XA Multiple fractures of ribs, bilateral, initial encounter for closed fracture; E11.65 Type 2 diabetes mellitus with hyperglycemia; D64.9 Anemia, unspecified; I10 Essential (primary) hypertension; E78.5 Hyperlipidemia, unspecified; E78.00 Pure hypercholesterolemia, unspecified; K59.09 Other constipation; M54.9 Dorsalgia, unspecified; M10.9 Gout, unspecified; Z85.46 Personal history of malignant neoplasm of prostate; Z92.21 Personal history of antineoplastic chemotherapy; Z90.79 Acquired absence of other genital organ(s); Z87.01 Personal history of pneumonia (recurrent); Z79.84 Long term (current) use of oral hypoglycemic drugs; W11.XXXA Fall on and from ladder, initial encounter
CPT/HCPCS: 36415; 71250; 80048; 80053; 82607; 82728; 82746; 82962; 83036; 83540; 84145; 85025; 85610; 85730; 87040; 87635; 94640; 94760; 96365

== ENCOUNTER → 2020-10-18 | Outpatient (RCR) | payer MEDICARE, BC ==
[2020-07-20 09:32] LABS: BASOPHILS % (AUTO) 0 % (0-10); EOSINOPHILS # (AUTO) 0.1 10^3/uL (0.0-0.3); EOSINOPHILS % (AUTO) 1 % (0-10); HEMATOCRIT 39 % (40-54); HEMOGLOBIN 13.3 G/DL (13.3-17.7); LYMPHOCYTES # (AUTO) 1.6 X 10^3 (1.0-4.0); LYMPHOCYTES % (AUTO) 18 % (12-44); MEAN CORPUSCULAR HEMOGLOBIN 32 PG (25-34); MEAN CORPUSCULAR HGB CONC 34 G/DL (32-36); MEAN CORPUSCULAR VOLUME 93 FL (80-99); MEAN PLATELET VOLUME 10.3 FL (7.4-10.4); MONOCYTES # (AUTO) 0.7 X 10^3 (0.0-1.0); MONOCYTES % (AUTO) 8 % (0-12); NEUTROPHILS # (AUTO) 6.4 X 10^3 (1.8-7.8); NEUTROPHILS % (AUTO) 72 % (42-75); PLATELET COUNT 201 10^3/uL (130-400); WHITE BLOOD COUNT 8.8 10^3/uL (4.3-11.0)
[2020-07-20 09:58] LABS: ALANINE AMINOTRANSFERASE 19 U/L (0-55); ALBUMIN 4.1 GM/DL (3.2-4.5); ALKALINE PHOSPHATASE 51 U/L (40-136); BILIRUBIN,TOTAL 0.4 MG/DL (0.1-1.0); BUN/CREATININE RATIO 37; CALCIUM 9.8 MG/DL (8.5-10.1); CARBON DIOXIDE 23 MMOL/L (21-32); CHLORIDE 103 MMOL/L (98-107); CREATININE SERUM 0.92 MG/DL (0.60-1.30); GFR ESTIMATED > 60; GLUCOSE 122 MG/DL (70-105); POTASSIUM 4.9 MMOL/L (3.6-5.0); SODIUM 136 MMOL/L (135-145); TOTAL PROTEIN 7.2 GM/DL (6.4-8.2)
[2020-10-09 12:33] LABS: BASOPHILS # (AUTO) 0.1 10^3/uL (0.0-0.1); BASOPHILS % (AUTO) 1 % (0-10); EOSINOPHILS # (AUTO) 0.2 10^3/uL (0.0-0.3); EOSINOPHILS % (AUTO) 3 % (0-10); HEMATOCRIT 42 % (40-54); HEMOGLOBIN 13.9 g/dL (13.3-17.7); LYMPHOCYTES # (AUTO) 2.1 10^3/uL (1.0-4.0); LYMPHOCYTES % (AUTO) 24 % (12-44); MEAN CORPUSCULAR HEMOGLOBIN 31 pg (25-34); MEAN CORPUSCULAR HGB CONC 33 g/dL (32-36); MEAN CORPUSCULAR VOLUME 94 fL (80-99); MEAN PLATELET VOLUME 10.1 fL (9.0-12.2); MONOCYTES # (AUTO) 0.6 10^3/uL (0.0-1.0); MONOCYTES % (AUTO) 6 % (0-12); NEUTROPHILS # (AUTO) 5.9 10^3/uL (1.8-7.8); NEUTROPHILS % (AUTO) 67 % (42-75); PLATELET COUNT 222 10^3/uL (130-400); WHITE BLOOD COUNT 8.9 10^3/uL (4.3-11.0)
[2020-10-09 12:47] LABS: ALBUMIN 4.4 GM/DL (3.2-4.5); CHLORIDE 99 MMOL/L (98-107); POTASSIUM 4.5 MMOL/L (3.6-5.0); SODIUM 135 MMOL/L (135-145)
[2020-10-09 12:49] LABS: CALCIUM 9.9 MG/DL (8.5-10.1)
[2020-10-09 12:50] LABS: GLUCOSE 189 MG/DL (70-105); TOTAL PROTEIN 7.7 GM/DL (6.4-8.2)
[2020-10-09 12:51] LABS: CARBON DIOXIDE 25 MMOL/L (21-32)
[2020-10-09 12:52] LABS: BILIRUBIN,TOTAL 0.7 MG/DL (0.1-1.0)
[2020-10-09 12:53] LABS: ALKALINE PHOSPHATASE 73 U/L (40-136)
[2020-10-09 12:54] LABS: CREATININE SERUM 1.03 MG/DL (0.60-1.30); GFR ESTIMATED > 60
[2020-10-09 12:55] LABS: BUN/CREATININE RATIO 30
[2020-10-09 12:56] LABS: ALANINE AMINOTRANSFERASE 20 U/L (0-55)
[~2020-10-18] MED LIST changes: +LEUPROLIDE 22.5 MG SYRINGE (ELIGARD) SQ SCH; +MELO15TA39 PO
== END | disposition home or self-care (01) ==
LOC: ONC 07-20 09:21
PROVIDERS: ATTEND Internal Medicine Hematology & Oncology
DX: Z51.81 Encounter for therapeutic drug level monitoring (principal); C61 Malignant neoplasm of prostate; M81.8 Other osteoporosis without current pathological fracture; E11.42 Type 2 diabetes mellitus with diabetic polyneuropathy; E78.00 Pure hypercholesterolemia, unspecified; Z79.84 Long term (current) use of oral hypoglycemic drugs; Z79.899 Other long term (current) drug therapy
CPT/HCPCS: 80053; 84153; 85025; 96402

== ENCOUNTER 2021-01-25 10:20 | Outpatient (RCR) | payer MEDICARE, BC ==
[2021-01-05 14:21] LABS: BASOPHILS # (AUTO) 0.1 10^3/uL (0.0-0.1); BASOPHILS % (AUTO) 1 % (0-10); EOSINOPHILS # (AUTO) 0.2 10^3/uL (0.0-0.3); EOSINOPHILS % (AUTO) 2 % (0-10); HEMATOCRIT 39 % (40-54); LYMPHOCYTES # (AUTO) 1.8 10^3/uL (1.0-4.0); LYMPHOCYTES % (AUTO) 25 % (12-44); MEAN CORPUSCULAR HEMOGLOBIN 32 pg (25-34); MEAN CORPUSCULAR HGB CONC 33 g/dL (32-36); MEAN CORPUSCULAR VOLUME 94 fL (80-99); MEAN PLATELET VOLUME 10.5 fL (9.0-12.2); MONOCYTES # (AUTO) 0.6 10^3/uL (0.0-1.0); MONOCYTES % (AUTO) 8 % (0-12); NEUTROPHILS # (AUTO) 4.5 10^3/uL (1.8-7.8); NEUTROPHILS % (AUTO) 63 % (42-75); PLATELET COUNT 226 10^3/uL (130-400); WHITE BLOOD COUNT 7.1 10^3/uL (4.3-11.0)
[2021-01-05 14:45] LABS: ALANINE AMINOTRANSFERASE 14 U/L (0-55); ALBUMIN 4.2 GM/DL (3.2-4.5); ALKALINE PHOSPHATASE 52 U/L (40-136); BILIRUBIN,TOTAL 0.4 MG/DL (0.1-1.0); BUN/CREATININE RATIO 32; CALCIUM 9.5 MG/DL (8.5-10.1); CARBON DIOXIDE 23 MMOL/L (21-32); CHLORIDE 105 MMOL/L (98-107); CREATININE SERUM 1.01 MG/DL (0.60-1.30); GFR ESTIMATED > 60; GLUCOSE 126 MG/DL (70-105); POTASSIUM 4.4 MMOL/L (3.6-5.0); SODIUM 140 MMOL/L (135-145); TOTAL PROTEIN 7.2 GM/DL (6.4-8.2)
[~2021-01-25 10:20] MED LIST changes: +GLBR5T PO; -GLYB5TAB6 PO; -LEUPROLIDE 22.5 MG SYRINGE (ELIGARD) SQ SCH; -OXYC-471 PO; +OXYC1TAB11 PO
[2021-01-25] MEDS ORDERED: LEUPROLIDE 22.5 MG SYRINGE (ELIGARD) SQ SCH (12:00)
== END 2021-04-05 | disposition home or self-care (01) ==
LOC: ONC 10:20
PROVIDERS: ATTEND Internal Medicine Hematology & Oncology
DX: C61 Malignant neoplasm of prostate (principal); M81.8 Other osteoporosis without current pathological fracture; E11.42 Type 2 diabetes mellitus with diabetic polyneuropathy; E78.00 Pure hypercholesterolemia, unspecified; Z79.84 Long term (current) use of oral hypoglycemic drugs; Z79.899 Other long term (current) drug therapy; Z91.81 History of falling; Z96.642 Presence of left artificial hip joint
CPT/HCPCS: 80053; 84153; 85025; 96402

== ENCOUNTER → 2021-03-21 | Outpatient (CLI) | payer MEDICARE, BC ==
--- NOTE | 2021-03-21 13:09 | Diagnostic Imaging Report ---
EXAMINATION: Pelvis, single view. COMPARISON: June 14, 2019. HISTORY: 80-year-old male, left hip pain. FINDINGS: There is a left hip prosthesis. The tip of the femoral stem is incompletely imaged. The visualized portions of the hardware appear intact. There is no identified periprosthetic lucency. There are multiple surgical clips overlying the pelvis. The right hip is not obviously dislocated. There is chondrocalcinosis. There is no pronounced joint space loss of the right hip. The pubic symphysis and sacroiliac joints are normally aligned. There is severe disc height loss at L4-L5. IMPRESSION: 1. Intact left hip prosthesis without identified complication. The tip of the femoral stem is not imaged. 2. Severe disc height loss at L4-L5. 3. Grossly unremarkable appearance of the right hip. 4. Chondrocalcinosis which has multiple associations including advanced age and calcium pyrophosphate dihydrate deposition disease. Dictated by: Dictated on workstation # [id number]
== END ==
LOC: ORTHO 10:55
PROVIDERS: ATTEND Orthopaedic Surgery
DX: M51.36 Other intervertebral disc degeneration, lumbar region (principal); Z96.642 Presence of left artificial hip joint
CPT/HCPCS: 72170; G0463; 99203

== ENCOUNTER → 2021-03-22 | Outpatient (CLI) | payer MEDICARE, BC ==
--- NOTE | 2021-03-22 14:57 | Diagnostic Imaging Report ---
INDICATION: Increasing left hip pain with no known recent injury. Replacement two years ago. COMPARISON: Pelvic radiographs from 06/14/2019. FINDINGS: Left hip prosthesis anatomically aligned. No hardware fracture. There is some increased cement-bone lucencies peripheral to the intramedullary stem component. Some heterotopic ossification medial to the inferior ischium, chronic. No bony fracture. IMPRESSION: There are some increased lucencies along the cement bone interface. It may reflect an element of loosening. No hardware fracture or acute bony pathology. Dictated by: Dictated on workstation # [id number]
--- NOTE | 2021-03-22 15:31 | Diagnostic Imaging Report ---
INDICATION: History of spinal stenosis. Pain. COMPARISON: None. FINDINGS: Frontal, lateral, and oblique radiographic views of the lumbar spine were obtained. Evaluation of static alignment shows grade 2 anterolisthesis of L4 on L5. No definite pars defect is seen. There is moderate multilevel facet arthropathy. There is also advanced intervertebral disc height loss with endplate sclerotic change at the L4-L5 level. There is no evidence of jumped facets. Vertebral body heights are maintained. No acute fracture is seen. Note is made of moderate calcified and aortic atherosclerosis. IMPRESSION: 1. Grade 2 anterolisthesis, which may be degenerative. Correlation with cross-sectional imaging may be of benefit. 2. Multilevel degenerative changes of the lumbar spine, also greatest at L4-L5. 3. No acute fracture or dislocation. Dictated by: Dictated on workstation # [id number]
== END ==
LOC: RAD FS 13:26
PROVIDERS: ATTEND Orthopaedic Surgery
DX: M48.062 Spinal stenosis, lumbar region with neurogenic claudication (principal); M43.16 Spondylolisthesis, lumbar region; M47.816 Spondylosis without myelopathy or radiculopathy, lumbar region; Z96.60 Presence of unspecified orthopedic joint implant
CPT/HCPCS: 72110; 73501

== ENCOUNTER → 2021-03-28 | Outpatient (CLI) | payer MEDICARE, BC ==
--- NOTE | 2021-03-28 16:43 | Diagnostic Imaging Report ---
PROCEDURE: MRI lumbar spine. TECHNIQUE: Multiplanar, multisequence MRI of the lumbar spine was performed without contrast. DATE: March 28, 2021. COMPARISON: Lumbar spine radiographs March 22, 2021. INDICATION: 80-year-old male, low back pain. Spinal stenosis. FINDINGS: There is grade 1 anterolisthesis of L4 on L5 measuring 8 mm. There are bilateral L4 pars interarticularis defects. There is no evidence of a diffuse marrow infiltrating or replacing process. There is severe disc height loss at L4-L5 with adjacent Modic endplate degenerative related marrow changes. The visualized cord and conus medullaris is unremarkable and terminates at the L2 level. L1-L2: There is no disc bulge. The facet joints and ligamentum flavum are unremarkable. There is no foraminal narrowing. There is no spinal canal stenosis. L2-L3: There is no disc bulge. There are mild bilateral facet degenerative changes without ligamentum flavum hypertrophy. There is no foraminal narrowing. There is no spinal canal stenosis. L3-L4: There is no disc bulge. There are mild bilateral facet degenerative changes without ligamentum flavum hypertrophy. There is no foraminal narrowing. There is no spinal canal stenosis. L4-L5: There is uncovering of the disc relating to the anterolisthesis with mild diffuse disc bulge. There are mild bilateral facet degenerative changes. There is mild to moderate bilateral foraminal narrowing. There is no spinal canal stenosis. L5-S1: There is no disc bulge. The facet joints and ligamentum flavum are unremarkable. There is no foraminal narrowing. There is no spinal canal stenosis. IMPRESSION: 1. Grade 1 anterolisthesis of L4 on L5 relating to bilateral L4 pars interarticularis defects. 2. Disc and facet degenerative changes as described level by level above. Findings are most notable at L4-L5 with mild to moderate bilateral foraminal narrowing. There is severe disc height loss at L4-L5. Dictated by: Dictated on workstation # [id number]
== END ==
LOC: RAD 14:00
PROVIDERS: ATTEND Orthopaedic Surgery
DX: M48.062 Spinal stenosis, lumbar region with neurogenic claudication (principal); M43.16 Spondylolisthesis, lumbar region
CPT/HCPCS: 72148

== ENCOUNTER → 2021-04-04 | Outpatient (CLI) | payer MEDICARE, BC ==
--- NOTE | 2021-04-04 12:33 | Diagnostic Imaging Report ---
HISTORY: Shortness of breath, back pain COMPARISON: 05/28/2019 TECHNIQUE: 2 views of the chest FINDINGS: Lung volumes are mildly low. 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 No consolidation is seen. The cardiac silhouette is stable in size. There is no pleural effusion or pneumothorax. There are old rib fractures bilaterally. IMPRESSION: 1. Eventration of the left hemidiaphragm. No acute pulmonary abnormality is seen. Dictated by: Dictated on workstation # [id number]
== END ==
LOC: RAD FS 11:29
PROVIDERS: ATTEND Nurse Practitioner Family
DX: R06.02 Shortness of breath (principal); M54.9 Dorsalgia, unspecified
CPT/HCPCS: 71046

== ENCOUNTER 2021-04-12 08:44 | Inpatient (IN) | payer MEDICARE, BC ==
[~2021-04-12] VITALS: Ht 175 cm; Wt 91.0 kg
[2021-04-12] MEDS ORDERED: NS IV 1000 ML 1,000 ML IV STA ×2 (08:55→10:57)
[2021-04-12 09:03] LABS: HEMATOCRIT 37 % (40-54); HEMOGLOBIN 11.9 G/DL (13.3-17.7); MEAN CORPUSCULAR HEMOGLOBIN 31 PG (25-34); MEAN CORPUSCULAR HGB CONC 32 G/DL (32-36); MEAN CORPUSCULAR VOLUME 99 FL (80-99); MEAN PLATELET VOLUME 10.3 FL (7.4-10.4); PLATELET COUNT 181 10^3/uL (130-400); WHITE BLOOD COUNT 12.4 10^3/uL (4.3-11.0)
[2021-04-12 09:04] LABS: BASOPHILS % (AUTO) 0 % (0-10); EOSINOPHILS # (AUTO) 0.2 10^3/uL (0.0-0.3); EOSINOPHILS % (AUTO) 2 % (0-10); LYMPHOCYTES # (AUTO) 1.3 X 10^3 (1.0-4.0); LYMPHOCYTES % (AUTO) 10 % (12-44); MONOCYTES # (AUTO) 0.9 X 10^3 (0.0-1.0); MONOCYTES % (AUTO) 7 % (0-12); NEUTROPHILS % (AUTO) 81 % (42-75)
--- NOTE | 2021-04-12 09:06 | ED General ---
General Chief Complaint: Altered Mental Status Stated Complaint: AMS Source of Information: Patient, EMS, Old Records History of Present Illness Date Seen by Provider: April 12, 2021 Time Seen by Provider: 08:44 Initial Comments 80-year-old male presenting by EMS after having 3 days of increasing confusion and difficulty walking. He denies any fall or head injury. He has been coughing but denies bringing anything up. He has been more short of breath than usual. He reported some nausea and vomiting. He denies any chest or abdominal pain. He denies having a headache. He has no pain with urination and no blood in his urine. EMS was called to the home with concerns for him having difficulty speaking and thoughts for possible stroke however patient has been speaking fine and was having concerns about increasing confusion over the last few days. EMS reported that he had a jerking and unstable walk when ambulating to the cot. He was initially hypoxic for EMS with O2 sats in the 80s. Family reports a fever this am but he is afebrile here in the ED. Timing/Duration: 2-3 Days Associated Systoms: No Chest Pain; Cough; No Diaphoresis; Fever/Chills; No Headaches; Malaise, Nausea/Vomiting; No Rash, No Seizure; Shortness of Air; No Syncope; Weakness (general) Allergies and Home Medications Allergies Coded Allergies: No Known Drug Allergies (Unverified , 02/20/15) Home Medications Allopurinol 300 Mg Tablet, 300 MG PO HS, (Reported) Bicalutamide 50 Mg Tablet, 50 MG PO HS, (Reported) Gabapentin 600 Mg Tablet, 1,200 MG PO HS, (Reported) TAKES 2 (600MG) TABS Meloxicam 15 Mg Tablet, 15 MG PO HS, (Reported) Metformin HCl 1,000 Mg Tablet, 1,000 MG PO BID, (Reported) Multivitamin with Minerals 1 Each Tablet, 1 TAB PO DAILY, (Reported) Oxycodone HCl/Acetaminophen 1 Each Tablet, 1 EA PO Q6H PRN for PAIN-MODERATE (5- 7), (Reported) Pioglitazone HCl 30 Mg Tablet, 30 MG PO HS, (Reported) Semaglutide 0.25 Mg/0.2 Ml Pen.injctr, 0.5 MG SC SUN, (Reported) Simvastatin 20 Mg Tablet, 20 MG PO HS, (Reported) Venlafaxine HCl 75 Mg Tab, 75 MG PO TID, (Reported) Patient Home Medication List Home Medication List Reviewed: Yes Review of Systems Review of Systems Constitutional: fever (per family report to EMS), malaise, weakness (general) EENTM: no symptoms reported Respiratory: cough; No hemoptysis, No phlegm; short of breath; No stridor, No wheezing Cardiovascular: No chest pain, No palpitations, No syncope Gastrointestinal: No abdominal pain; nausea, vomiting Genitourinary: no symptoms reported Musculoskeletal: no symptoms reported Skin: no symptoms reported Psychiatric/Neurological: See HPI; Denies Headache; Weakness (general) Hematologic/Lymphatic: No Symptoms Reported Immunological/Allergic: no symptoms reported Past Afczkxg-Fnhoef-Rikpyv Hx Past Med/Social Hx: Reviewed Nursing Past Med/Soc Hx Patient Social History 2nd Hand Smoke Exposure: No Recent Hopitalizations: No Seasonal Allergies Seasonal Allergies: No Past Medical History Surgeries: Yes (s/p left hip repair 05/29/19) Prostatectomy Respiratory: Yes (recent PNA 2 months ago) Pneumonia Currently Using CPAP: No Currently Using BIPAP: No Cardiac: No High Cholesterol, Hypertension Neurological: No Genitourinary: No Gastrointestinal: No Chronic Constipation Musculoskeletal: Yes Chronic Back Pain, Gout Endocrine: Yes Diabetes, Non-Insulin dep HEENT: No Cancer: Yes Prostate Did You Recieve Any Treatments: Yes What Type of Treatment Did You: Chemotherapy, Surgical Intervention Psychosocial: No Integumentary: No Blood Disorders: No Adverse Reaction/Blood Tranf: No Family Medical History Colon cancer 19 MOTHER FH: prostate cancer 19 FATHER Glaucoma 19 FATHER Hypertension 19 FATHER Cancer, Hypertension Physical Exam Vital Signs Vital Signs - First Documented 04/12/21 08:44 Temp 37.0 Pulse 73 Resp 23 B/P (MAP) 134/61 (85) Pulse Ox 93 O2 Delivery Nasal Cannula O2 Flow Rate 2.00 Capillary Refill : Height, Weight, BMI Height: 5'10.00" Weight: 184lbs. 8.0oz. 83.293746ka; 27.42 BMI Method:Stated General Appearance: No Apparent Distress HEENT: PERRL/EOMI; No Moist Mucous Membranes (dry mucous membranes) Neck: Full Range of Motion, Normal Inspection, Non Tender, Supple Respiratory: Chest Non Tender, No Accessory Muscle Use, No Respiratory Distress, Decreased Breath Sounds Cardiovascular: Regular Rate, Rhythm, Normal Peripheral Pulses Gastrointestinal: Normal Bowel Sounds, No Pulsatile Mass, Non Tender, Soft Extremity: Normal Capillary Refill, Non Tender, No Pedal Edema Neurologic/Psychiatric: Alert; No Oriented x3 (oriented to person and year); medical collector II-XII Norm as Tested Skin: Normal Color, Warm/Dry Focused Exam Lactate Level 04/12/21 08:51: Lactic Acid Level 0.92 Lactic Acid Level Laboratory Tests Test 04/12/21 08:51 Lactic Acid Level 0.92 MMOL/L (0.50-2.00) Progress/Results/Core Measures Suspected Sepsis SIRS Temperature: Pulse: Respiratory Rate: Laboratory Tests 04/12/21 08:51: White Blood Count 12.4H Blood Pressure / Mean: 04/12/21 08:51: Lactic Acid Level 0.92 Laboratory Tests 04/12/21 08:51: Creatinine 2.21H, Platelet Count 181, Total Bilirubin 0.5 Results/Orders Lab Results Laboratory Tests Test 04/12/21 08:51 04/12/21 08:56 04/12/21 09:01 Range/Units White Blood Count 12.4 H 4.3-11.0 10^3/uL Red Blood Count 3.79 L 4.35-5.85 10^6/uL Hemoglobin 11.9 L 13.3-17.7 G/DL Hematocrit 37 L 40-54 % Mean Corpuscular Volume 99 80-99 FL Mean Corpuscular Hemoglobin 31 25-34 PG Mean Corpuscular Hemoglobin Concent 32 32-36 G/DL Red Cell Distribution Width 14.5 10.0-14.5 % Platelet Count 181 130-400 10^3/uL Mean Platelet Volume 10.3 7.4-10.4 FL Immature Granulocyte % (Auto) 0 % Neutrophils (%) (Auto) 81 H 42-75 % Lymphocytes (%) (Auto) 10 L 12-44 % Monocytes (%) (Auto) 7 0-12 % Eosinophils (%) (Auto) 2 0-10 % Basophils (%) (Auto) 0 0-10 % Neutrophils # (Auto) 10.0 H 1.8-7.8 X 10^3 Lymphocytes # (Auto) 1.3 1.0-4.0 X 10^3 Monocytes # (Auto) 0.9 0.0-1.0 X 10^3 Eosinophils # (Auto) 0.2 0.0-0.3 10^3/uL Basophils # (Auto) 0.0 0.0-0.1 10^3/uL Immature Granulocyte # (Auto) 0.0 0.0-0.1 10^3/uL Percent Immature Platelet Fraction 7.4 0.0-7.6 % Sodium Level 138 135-145 MMOL/L Potassium Level 4.5 3.6-5.0 MMOL/L Chloride Level 102 98-107 MMOL/L Carbon Dioxide Level 27 21-32 MMOL/L Anion Gap 9 5-14 MMOL/L Blood Urea Nitrogen 49 H 7-18 MG/DL Creatinine 2.21 H 0.60-1.30 MG/DL Estimat Glomerular Filtration Rate 29 BUN/Creatinine Ratio 22 Glucose Level 174 H 70-105 MG/DL Lactic Acid Level 0.92 0.50-2.00 MMOL/L Calcium Level 9.7 8.5-10.1 MG/DL Corrected Calcium 9.9 8.5-10.1 MG/DL Magnesium Level 2.3 1.6-2.4 MG/DL Total Bilirubin 0.5 0.1-1.0 MG/DL Aspartate Amino Transf (AST/SGOT) 17 5-34 U/L Alanine Aminotransferase (ALT/SGPT) 12 0-55 U/L Alkaline Phosphatase 61 40-136 U/L Troponin I < 0.30 <0.30 NG/ML C-Reactive Protein 12.46 H <0.50 MG/DL Pro-B-Type Natriuretic Peptide 658.4 H <75.0 PG/ML Total Protein 6.8 6.4-8.2 GM/DL Albumin 3.7 3.2-4.5 GM/DL Blood Gas Puncture Site RT RADIAL Blood Gas Patient Temperature 37 Arterial Blood pH 7.34 *L 7.37-7.43 Arterial Blood Partial Pressure CO2 53 H 35-45 MMHG Arterial Blood Partial Pressure O2 53 L 79-93 MMHG Arterial Blood HCO3 29 H 23-27 MMOL/L Arterial Blood Total CO2 30.2 21.0-31.0 MMOL/L Arterial Blood Oxygen Saturation 85 L 94-100 % Arterial Blood Base Excess 1.9 -2.5-2.5 MMOL/L Greg Test OK Blood Gas Ventilator Setting NO Blood Gas Inspired Oxygen N Urine Color YELLOW Urine Clarity SLT CLOUDY Urine pH 5.5 5-9 Urine Specific [place] >=1.030 1.016-1.022 Urine Protein NEGATIVE NEGATIVE Urine Glucose (UA) NEGATIVE NEGATIVE Urine Ketones NEGATIVE NEGATIVE Urine Nitrite NEGATIVE NEGATIVE Urine Bilirubin NEGATIVE NEGATIVE Urine Urobilinogen 0.2 < = 1.0 MG/DL Urine Leukocyte Esterase NEGATIVE NEGATIVE Urine RBC (Auto) NEGATIVE NEGATIVE Urine RBC NONE /HPF Urine WBC 5-10 H /HPF Urine Squamous Epithelial Cells RARE /HPF Urine Crystals NONE /LPF Urine Bacteria FEW H /HPF Urine Casts PRESENT /LPF Urine Hyaline Casts 2-5 H /LPF Urine Mucus SMALL H /LPF Urine Culture Indicated YES Urine Opiates Screen NEGATIVE NEGATIVE Urine Oxycodone Screen POSITIVE H NEGATIVE Urine Methadone Screen NEGATIVE NEGATIVE Urine Propoxyphene Screen NEGATIVE NEGATIVE Urine Barbiturates Screen NEGATIVE NEGATIVE Ur Tricyclic Antidepressants Screen NEGATIVE NEGATIVE Urine Phencyclidine Screen NEGATIVE NEGATIVE Urine Amphetamines Screen NEGATIVE NEGATIVE Urine Methamphetamines Screen NEGATIVE NEGATIVE Urine Benzodiazepines Screen POSITIVE H NEGATIVE Urine Cocaine Screen NEGATIVE NEGATIVE Urine Cannabinoids Screen POSITIVE H NEGATIVE My Orders Orders - CARMELINA ADDISON MD Cbc With Automated Diff (04/12/21 08:52) Comprehensive Metabolic Panel (04/12/21 08:52) Blood Culture (04/12/21 08:52) Chest 1 View Ap/Pa Only (04/12/21 08:52) Magnesium (04/12/21 08:52) Ekg Tracing (04/12/21 08:52) O2 (04/12/21 08:52) Ed Iv/Invasive Line Start (04/12/21 08:52) Sputum Culture (04/12/21 08:52) Monitor-Rhythm Ecg Trace Only (04/12/21 08:52) Crp Fs (04/12/21 08:52) Lactic Acid Analyzer (04/12/21 08:52) Troponin I Fs (04/12/21 08:52) Probnp Fs (04/12/21 08:52) Ua Culture If Indicated (04/12/21 08:52) Drug Screen Stat (Urine) (04/12/21 08:52) Ct Head Wo (04/12/21 08:52) Ns Iv 1000 Ml (Sodium Chloride 0.9%) (04/12/21 08:55) Arterial Blood Gas (04/12/21 09:18) Urine Culture (04/12/21 09:01) Ceftriaxone For Iv Use (Rocephin For I (04/12/21 10:01) Fibrin Degradation Products (04/12/21 10:55) Ns Iv 1000 Ml (Sodium Chloride 0.9%) (04/12/21 10:57) Vital Signs/I&O 04/12/21 08:44 Temp 37.0 Pulse 73 Resp 23 B/P (MAP) 134/61 (85) Pulse Ox 93 O2 Delivery Nasal Cannula O2 Flow Rate 2.00 Capillary Refill : Progress Note #1: Progress Note check labs including urine, cardiac labs, CT head, CXR, ECG, ABG on room air with his report of hypoxia from EMS and fever from family to EMS. Progress Note #2: Progress Note Labs do demonstrate an elevated white blood cell count with left shift. His lactic acid is normal and not elevated. His blood gas does show hypoxia with mild elevation of his PCO2. He has no infiltrates showing on his chest x-ray. He had no acute ST elevation or ischemic change on his electrocardiogram. He was tolerating oral intake here in the ED. His chemistry showed acute kidney injury with elevated BUN and creatinine. His creatinine was at 2.21 and in January it was 1.02. His urinalysis does show signs of infection. Will start him on Rocephin since he has no acute allergies to medications. Continue with fluids and check with the hospitalist service about admission since he follows with Dr. Ann. He does have benzodiazepines, oxycodone and marijuana in his UDS and this may be contributing to hypoxia by making him more sedated and not breathing deep as well. He has lower oxygen when he falls asleep in room as he is not breathing through his nose and getting supplemental oxygen from his nasal cannula. Progress Note #3: Progress Note Discussed with Dr. Payne from the hospitalist service and with the patient having hypoxia will add on a D-dimer to help screen for blood clots and PE. Order Rapid Covid on arrival to [facility] to check for that as a source for his hypoxia. Diagnostic Imaging Diagonstic Imaging: Xray Plain Films/CT/US/NM/MRI: chest Comments [facility] [place], [place] NAME: CATARINA FU MED REC#: [id number] PT STATUS: ADM IN : 1940 PHYSICIAN: CARMELINA ADDISON MD ADMIT DATE: 04/12/21 Signed Date of Exam:04/12/21 CHEST 1 VIEW AP/PA ONLY INDICATION: Hypoxemia. EXAMINATION: Portable chest at 9:14 AM. FINDINGS: There is cardiomegaly. The pulmonary vascularity is normal. The lungs are clear. There are no effusions or pneumothoraces. IMPRESSION: No acute abnormalities in the chest. Dictated by: Dictated on workstation # [id number] Dict: 04/12/2136 Trans: 04/12/21 1354 [id number] Interpreted by: LEANN TINOCO MD Electronically signed by: LEANN TINOCO MD 04/12/21 1354 Reviewed: Reviewed by Me Diagonstic Imaging: CT Plain Films/CT/US/NM/MRI: head Comments [facility] [place] [place] NAME: CATARINA FU [facility] REC#: [id number] PT STATUS: REG ER : 1940 PHYSICIAN: CARMELINA ADDISON MD ADMIT DATE: 04/12/21/ER FS Signed Date of Exam:04/12/21 CT HEAD WO PROCEDURE: CT head without contrast. TECHNIQUE: Multiple contiguous axial images were obtained through the brain without the use of intravenous contrast. Auto Exposure Controls were utilized during the CT exam to meet ALARA standards for radiation dose reduction. INDICATION: Confusion, hypoxia No priors. There is no hemorrhage, hydrocephalus, edema, mass, mass effect or evidence for an elevation of the intracerebral pressures. There are no abnormal extra-axial fluid collections. The basilar cisterns patent. No sulcal effacement. Orbits, sinuses and calvarium all appeared nonacute. IMPRESSION: This is an unremarkable CT head. Dictated by: Dictated on workstation # [id number] Dict: 04/12/21924 Trans: 04/12/21 1040 NOY [id number] Interpreted by: CATARINA RAZA Electronically signed by: CATARINA RAZA 04/12/21 1040 Departure Communication (Admissions) Time/Spoke to Admitting Phy: 10:[address] Payne for the hospitalist service and he accepted the patien t for admission. We will continue IV fluids for his elevated BUN and creatinine. Rocephin for his UTI. D-dimer to check for possibility of PE or blood clot screening. If this is elevated and then he may benefit from VQ scan or once his creatinine is improved than check CT angiography of chest Impression Primary Impression: Cystitis without hematuria Additional Impressions: Altered mental status, unspecified Qualified Codes: R41.82 - Altered mental status, unspecified Acute kidney injury Hypoxia Disposition: 30 STILL A PATIENT Condition: Stable Admissions Decision to Admit Reason: Admit from ER (General) Decision to Admit/Date: April 12, 2021 Time/Decision to Admit Time: 10:52 Departure-Patient Inst. Referrals: KEV ANN DO (PCP/Family) Primary Care Physician CARMELINA ADDISON MD April 12, 2021 09:06
[2021-04-12 09:18] LABS: BACTERIA,URINE FEW /HPF; BILIRUBIN,URINE NEGATIVE (NEGATIVE); CLARITY,URINE SLT CLOUDY; COLOR,URINE YELLOW; GLUCOSE, URINE (UA) NEGATIVE (NEGATIVE); KETONES,URINE NEGATIVE (NEGATIVE); LEUKOCYTE ESTERASE ,URINE NEGATIVE (NEGATIVE); NITRITE,URINE NEGATIVE (NEGATIVE); PH,URINE 5.5 (5-9); PROTEIN,URINE NEGATIVE (NEGATIVE); SQUAMOUS EPITHELIAL CELL,UR RARE /HPF
[2021-04-12 09:23] LABS: AMPHETAMINE SCREEN, URINE NEGATIVE (NEGATIVE); BARBITURATE SCREEN URINE NEGATIVE (NEGATIVE); BENZODIAZEPINES SCREEN URINE POSITIVE (NEGATIVE); CANNABINOID SCREEN, URINE POSITIVE (NEGATIVE); COCAINE SCREEN URINE NEGATIVE (NEGATIVE); METHADONE STAT NEGATIVE (NEGATIVE); METHAMPHETAMINE SCREEN URINE S NEGATIVE (NEGATIVE); OPIATE SCREEN URINE NEGATIVE (NEGATIVE); OXYCODONE STAT POSITIVE (NEGATIVE); PROPOXYPHENE STAT NEGATIVE (NEGATIVE); TRICYCLIC ANTIDEPRESSANTS SCRE NEGATIVE (NEGATIVE)
[2021-04-12 09:29] LABS: ABG BASE EXCESS 1.9 MMOL/L (-2.5-2.5); ABG OXYGEN SATURATION 85 % (94-100); ABG PCO2 53 MMHG (35-45); ABG PH 7.34 (7.37-7.43); ABG PO2 53 MMHG (79-93); ABG TCO2 30.2 MMOL/L (21.0-31.0)
--- NOTE | 2021-04-12 09:33 | Diagnostic Imaging Report ---
PROCEDURE: CT head without contrast. TECHNIQUE: Multiple contiguous axial images were obtained through the brain without the use of intravenous contrast. Auto Exposure Controls were utilized during the CT exam to meet ALARA standards for radiation dose reduction. INDICATION: Confusion, hypoxia No priors. There is no hemorrhage, hydrocephalus, edema, mass, mass effect or evidence for an elevation of the intracerebral pressures. There are no abnormal extra-axial fluid collections. The basilar cisterns patent. No sulcal effacement. Orbits, sinuses and calvarium all appeared nonacute. IMPRESSION: This is an unremarkable CT head. Dictated by: Dictated on workstation # [id number]
[2021-04-12 09:36] LABS: ALLENS TEST OK; INSPIRED O2 N; VENTILATOR NO
[2021-04-12 09:37] LABS: PATIENT TEMP 37
[2021-04-12 09:38] LABS: ALBUMIN 3.7 GM/DL (3.2-4.5); BILIRUBIN,TOTAL 0.5 MG/DL (0.1-1.0); CALCIUM 9.7 MG/DL (8.5-10.1); CREATININE SERUM 2.21 MG/DL (0.60-1.30); MAGNESIUM 2.3 MG/DL (1.6-2.4); POTASSIUM 4.5 MMOL/L (3.6-5.0); TOTAL PROTEIN 6.8 GM/DL (6.4-8.2)
--- NOTE | 2021-04-12 09:38 | Diagnostic Imaging Report ---
INDICATION: Hypoxemia. EXAMINATION: Portable chest at 9:14 AM. FINDINGS: There is cardiomegaly. The pulmonary vascularity is normal. The lungs are clear. There are no effusions or pneumothoraces. IMPRESSION: No acute abnormalities in the chest. Dictated by: Dictated on workstation # [id number]
[2021-04-12] MEDS ORDERED: cefTRIAXone FOR IV USE 1,000 MG in WATER (STERILE) FOR INJECTION 10 ML IV STA (10:01)
[2021-04-12] MEDS: NS IV 1000 ML 1,000 ML IV SCH ×2 (14:50→23:14)
[2021-04-12 15:02] VITALS: BP 136/68
[2021-04-12] MEDS ORDERED: RT-ALBUTEROL/IPRATROPIUM 3 ML (DUONEB) VIAL INH PRN (15:15)
[2021-04-12 15:54] VITALS: BP 132/74
[2021-04-12] MEDS ORDERED: PIOG45TA65 PO (16:14)
[2021-04-12] MEDS ORDERED: PANT40TA52 PO (16:14)
[2021-04-12] MEDS ORDERED: GLBR3T PO (16:14)
[2021-04-12] MEDS ORDERED: ACETAMINOPHEN 325 MG TABLET PO PRN (18:30)
[2021-04-12] MEDS ORDERED: ONDANSETRON 4 MG/2 ML (SDV) Z0FRAN IV PRN (18:30)
[2021-04-12] MEDS ORDERED: BISACODYL 10 MG SUPP (DULCOLAX) PR PRN (18:30)
[2021-04-12] MEDS ORDERED: ONDANSETRON 4 MG (ZOFRAN) ORAL DISSOLVE TAB PO PRN (18:30)
[2021-04-12] MEDS ORDERED: polyethylene glycoL POWDER 17 GM (MIRALAX) PACK PO PRN (18:30)
[2021-04-12] MEDS ORDERED: ENOXAPARIN 40 MG/0.4 ML (LOVENOX) SYR SQ SCH (18:30)
[2021-04-12] MEDS ORDERED: ANTACID SUSP 30 ML UDC (MYLANTA) PO PRN (18:30)
[2021-04-12] MEDS ORDERED: MELATONIN 3 MG TABLET PO PRN (18:30)
[2021-04-12] MEDS ORDERED: ENOXAPARIN 30 MG/0.3 ML (LOVENOX) SYR SC SCH (19:00)
[2021-04-12 19:33] VITALS: BP 159/82
[2021-04-12] MEDS: inSUlin ASPART (NovoLOG) 1 UNIT/0.01 ML (CHARGE PER UNIT) SC SCH (20:57)
[2021-04-12] MEDS ORDERED: NON-FORMULARY MEDICATION 1 EA EA (Bicalutamide 50 MG) PO SCH (21:00)
[2021-04-12] MEDS: PANTOPRAZOLE 40 MG (PROTONIX) TAB PO SCH (21:03)
[2021-04-12] MEDS: ALLOPURINOL 300 MG (ZYLOPRIM) TAB PO SCH (21:03)
[2021-04-12] MEDS: DOCUSATE SODIUM 100 MG (COLACE) CAP PO SCH (21:03)
[2021-04-12] MEDS: VENlafaxine 75 MG (EFFEXOR) TAB PO SCH (21:03)
[2021-04-12] MEDS: SENNOSIDES 8.6 MG (SENOKOT) TAB PO SCH (21:03)
[2021-04-12] MEDS: GABAPENTIN 600 MG (NEURONTIN) TAB PO SCH (21:04)
[2021-04-12] MEDS: SIMvastatin 20 MG (ZOCOR) TAB PO SCH (21:04)
[2021-04-12 23:40] VITALS: BP_SYST 151; BP_SYST 168; BP_DIAS 72; BP_DIAS 74
[2021-04-13 03:45] VITALS: BP 138/63
[2021-04-13 06:37] LABS: BASOPHILS # (AUTO) 0.1 10^3/uL (0.0-0.1); BASOPHILS % (AUTO) 0 % (0-10); EOSINOPHILS # (AUTO) 0.6 10^3/uL (0.0-0.3); EOSINOPHILS % (AUTO) 5 % (0-10); HEMATOCRIT 35 % (40-54); HEMOGLOBIN 11.2 g/dL (13.3-17.7); LYMPHOCYTES # (AUTO) 1.3 10^3/uL (1.0-4.0); LYMPHOCYTES % (AUTO) 12 % (12-44); MEAN CORPUSCULAR HEMOGLOBIN 31 pg (25-34); MEAN CORPUSCULAR HGB CONC 32 g/dL (32-36); MEAN CORPUSCULAR VOLUME 98 fL (80-99); MEAN PLATELET VOLUME 11.3 fL (9.0-12.2); MONOCYTES # (AUTO) 0.9 10^3/uL (0.0-1.0); MONOCYTES % (AUTO) 8 % (0-12); NEUTROPHILS # (AUTO) 8.4 10^3/uL (1.8-7.8); NEUTROPHILS % (AUTO) 75 % (42-75); PLATELET COUNT 152 10^3/uL (130-400); WHITE BLOOD COUNT 11.2 10^3/uL (4.3-11.0)
[2021-04-13 06:47] LABS: ALBUMIN 3.7 GM/DL (3.2-4.5); CHLORIDE 102 MMOL/L (98-107); POTASSIUM 4.6 MMOL/L (3.6-5.0); SODIUM 139 MMOL/L (135-145)
[2021-04-13 06:48] LABS: CALCIUM 9.5 MG/DL (8.5-10.1)
[2021-04-13 06:49] LABS: GLUCOSE 121 MG/DL (70-105)
[2021-04-13] MEDS: inSUlin ASPART (NovoLOG) 1 UNIT/0.01 ML (CHARGE PER UNIT) SC SCH ×4 (06:49→20:17)
[2021-04-13 06:50] LABS: TOTAL PROTEIN 6.9 GM/DL (6.4-8.2)
[2021-04-13 06:51] LABS: BILIRUBIN,TOTAL 0.4 MG/DL (0.1-1.0); CARBON DIOXIDE 29 MMOL/L (21-32)
[2021-04-13 06:53] LABS: ALKALINE PHOSPHATASE 52 U/L (40-136); CREATININE SERUM 1.14 MG/DL (0.60-1.30); GFR ESTIMATED > 60
[2021-04-13 06:54] LABS: BUN/CREATININE RATIO 32
[2021-04-13 06:56] LABS: ALANINE AMINOTRANSFERASE 14 U/L (0-55)
[2021-04-13 08:00] VITALS: BP 166/74
[2021-04-13] MEDS: SENNOSIDES 8.6 MG (SENOKOT) TAB PO SCH ×2 (09:32→20:17)
[2021-04-13] MEDS: DOCUSATE SODIUM 100 MG (COLACE) CAP PO SCH ×2 (09:32→19:33)
[2021-04-13] MEDS: VENlafaxine 75 MG (EFFEXOR) TAB PO SCH ×2 (09:33→18:14)
[2021-04-13] MEDS: NS IV 1000 ML 1,000 ML IV SCH ×2 (09:33→19:32)
[2021-04-13 12:00] VITALS: BP 186/86
[2021-04-13] MEDS ORDERED: amLODIPine 10 MG (NORVASC) TAB PO NR (12:00)
[2021-04-13] MEDS ORDERED: hydrALAZINE (APESOLINE) 20 MG/ML VIAL IV PRN (12:00)
--- NOTE | 2021-04-13 12:11 | History & Physical-Hospitalist ---
History of Present Illness Source: patient, family Exam Limitations: clinical condition Date Seen 04/13/21 Time Seen by a Provider: 09:30 Attending Physician Yuliya Mcpherson MD PCP Joe Ann DO Referring Physician Date of Admission April 12, 2021 at 13:19 Home Medications & Allergies Home Medications Reviewed patient Home Medication Reconciliation performed by pharmacy medication reconciliations freezer laboratory technician and/or nursing. Patients Allergies have been reviewed. Allergies Allergies Coded Allergies No Known Drug Allergies (Unverified02/20/15) Patient Social History Tobacco Use?: No Smoking Status: Never a Smoker Pt stated abuse/neglect: No Immunizations Up To Date Influenza Vaccine Up-to-Date: No; Not Current First/Initial COVID19 Vaccinat: 01/01/21 Second COVID19 Vaccination Reza: 01/29/21 Current Status Communicates: Verbally Primary Language: Luxembourgish Preferred Spoken Language: Luxembourgish Is interpretation needed?: No Past Medical History Prostate cancer T2DM HLD Family Medical History Family Hx: Noncontributory Review of Systems Constitutional: fever EENTM: no symptoms reported Respiratory: no symptoms reported Cardiovascular: no symptoms reported Gastrointestinal: no symptoms reported Genitourinary: no symptoms reported Musculoskeletal: no symptoms reported Skin: no symptoms reported Psychiatric/Neurological: Other (Confusion) Physical Exam Physical Exam Vital Signs Vital Signs - First Documented 04/12/21 04/12/21 08:44 15:02 Temp 37.0 Pulse 73 Resp 23 B/P (MAP) 134/61 (85) Pulse Ox 93 O2 Delivery Nasal Cannula O2 Flow Rate 2.00 FiO2 28 Capillary Refill : Less Than 3 Seconds Height, Weight, BMI Height: 5'10.00" Weight: 184lbs. 8.0oz. 83.273835ax; 27.42 BMI Method:Stated General Appearance: No Apparent Distress, Obese HEENT: PERRL/EOMI, Pharynx Normal Neck: Normal Inspection, Supple Respiratory: Lungs Clear, Normal Breath Sounds, No Respiratory Distress Cardiovascular: Regular Rate, Rhythm, No Murmur Gastrointestinal: Normal Bowel Sounds, Non Tender, Soft Extremity: Normal Inspection, Non Tender, Pedal Edema Neurologic/Psychiatric: Alert, No Motor/Sensory Deficits, Disoriented, Other (Angry, agitated) Skin: Normal Color, Warm/Dry Results Results/Procedures Labs Laboratory Tests 04/12/21 08:51 04/13/21 05:39 Patient resulted labs reviewed. Imaging: Reviewed Imaging Report Assessment/Plan Admission Diagnosis Sepsis due to urinary tract infection Admission Status: Inpatient Order (span 2 midnights) Reason for Inpatient Admission: UTI requiring IV antibiotics Assessment and Plan Severe sepsis due to urinary tract infection Acute kidney injury Elevated WBC, altered mental status UA indicative of possible UTI Urine culture pending Started on Rocephin Cr elevated at >2 on arrival IV fluids Likely dementia Delirium indicates progressive memory problems at home Reorient as needed HTN Add Amlodipine T2DM Sliding scale insulin HLD Chronic pain Continue home meds DVT prophylaxis: Lovenox Diagnosis/Problems Diagnosis/Problems (1) Severe sepsis Status: Acute (2) Sepsis due to urinary tract infection Status: Acute (3) Acute kidney injury Status: Acute (4) Hypertension Status: Acute Qualifiers: Hypertension type: essential hypertension Qualified Codes: I10 - Essential (primary) hypertension (5) Diabetes mellitus Status: Chronic (6) Prostate cancer Status: Chronic YULIYA MCPHERSON MD April 13, 2021 12:11
[2021-04-13] MEDS: cefTRIAXone 1,000 MG/SWFI 10 ML IV PUSH IV SCH ×2 (13:08)
[2021-04-13 16:27] VITALS: BP 182/85
[2021-04-13] MEDS ORDERED: ENOXAPARIN 40 MG/0.4 ML (LOVENOX) SYR SC SCH (19:00)
[2021-04-13 20:00] VITALS: BP 142/67
[2021-04-13] MEDS: GABAPENTIN 600 MG (NEURONTIN) TAB PO SCH (20:16)
[2021-04-13] MEDS: PANTOPRAZOLE 40 MG (PROTONIX) TAB PO SCH (20:16)
[2021-04-13] MEDS: SIMvastatin 20 MG (ZOCOR) TAB PO SCH (20:16)
[2021-04-13] MEDS: ALLOPURINOL 300 MG (ZYLOPRIM) TAB PO SCH (20:17)
[2021-04-14 00:15] VITALS: BP 107/80
[2021-04-14 04:40] VITALS: BP 149/63
[2021-04-14] MEDS: inSUlin ASPART (NovoLOG) 1 UNIT/0.01 ML (CHARGE PER UNIT) SC SCH ×2 (05:15→11:37)
[2021-04-14] MEDS: NS IV 1000 ML 1,000 ML IV SCH (06:23)
[2021-04-14 07:50] VITALS: BP 160/76
[2021-04-14] MEDS: SENNOSIDES 8.6 MG (SENOKOT) TAB PO SCH (08:23)
[2021-04-14] MEDS: VENlafaxine 75 MG (EFFEXOR) TAB PO SCH (08:23)
[2021-04-14] MEDS: DOCUSATE SODIUM 100 MG (COLACE) CAP PO SCH (08:23)
[2021-04-14 08:31] LABS: BASOPHILS % (AUTO) 0 % (0-10); EOSINOPHILS # (AUTO) 0.4 10^3/uL (0.0-0.3); EOSINOPHILS % (AUTO) 4 % (0-10); HEMATOCRIT 35 % (40-54); HEMOGLOBIN 11.3 g/dL (13.3-17.7); LYMPHOCYTES % (AUTO) 11 % (12-44); MEAN CORPUSCULAR HEMOGLOBIN 32 pg (25-34); MEAN CORPUSCULAR HGB CONC 32 g/dL (32-36); MEAN CORPUSCULAR VOLUME 98 fL (80-99); MONOCYTES # (AUTO) 0.7 10^3/uL (0.0-1.0); MONOCYTES % (AUTO) 8 % (0-12); NEUTROPHILS # (AUTO) 7.2 10^3/uL (1.8-7.8); NEUTROPHILS % (AUTO) 77 % (42-75); PLATELET COUNT 166 10^3/uL (130-400); WHITE BLOOD COUNT 9.3 10^3/uL (4.3-11.0)
[2021-04-14 08:39] LABS: CHLORIDE 101 MMOL/L (98-107); POTASSIUM 4.2 MMOL/L (3.6-5.0); SODIUM 139 MMOL/L (135-145)
[2021-04-14 08:40] LABS: CALCIUM 9.2 MG/DL (8.5-10.1)
[2021-04-14 08:41] LABS: GLUCOSE 144 MG/DL (70-105)
[2021-04-14 08:42] LABS: CARBON DIOXIDE 30 MMOL/L (21-32)
[2021-04-14 08:45] LABS: BUN/CREATININE RATIO 26; CREATININE SERUM 0.84 MG/DL (0.60-1.30); GFR ESTIMATED > 60
[2021-04-14] MEDS ORDERED: IOHEXOL 350 MG/ML 100 ML (OMNIPAQUE 350) VIAL IV ONE (09:00)
[2021-04-14] MEDS ORDERED: amLODIPine 10 MG (NORVASC) TAB PO SCH (09:00)
[2021-04-14] MEDS ORDERED: NS 100 ML (IVPB) BAG IV ONE (09:00)
[2021-04-14] MEDS ORDERED: HOLD METFORMIN - RECEIVED CONTRAST 20 ML VIAL IV SCH (09:00)
--- NOTE | 2021-04-14 10:45 | Diagnostic Imaging Report ---
PROCEDURE: CT angiography of the chest with contrast. TECHNIQUE: Multiple contiguous axial images were obtained through the chest after uneventful bolus administration of intravenous contrast. 3D reconstructed CTA MIP acquisitions were also performed. Auto Exposure Controls were utilized during the CT exam to meet ALARA standards for radiation dose reduction. INDICATION: Confusion. Hypoxia. FINDINGS: The pulmonary arterial branches are patent. No filling defect. No PE identified. The atherosclerotic thoracic aorta is patent and nonaneurysmal. There are coronary artery atherosclerotic vascular calcifications. No pleural or pericardial effusion. Some elevation of the left hemidiaphragm focally posteriorly with subjacent atelectasis. Some areas of subpleural scarring bilaterally. No consolidating pneumonia. No lung mass or thoracic lymphadenopathy. There is mild enlargement of the heart. The visualized upper abdomen appeared nonacute. There is bilateral renal calculi without visualized hydronephrosis. IMPRESSION: Negative for PE or acute aortic disease. Chronic findings in the lungs with no mass or adenopathy. Coronary and aortic nonaneurysmal atherosclerosis. Nonobstructing nephrolithiasis partially visualized. Dictated by: Dictated on workstation # [id number]
[2021-04-14] MEDS ORDERED: AMLO-251 PO (11:05)
[2021-04-14] MEDS ORDERED: CEFD300C3 PO (11:05)
[2021-04-14] MEDS: cefTRIAXone 1,000 MG/SWFI 10 ML IV PUSH IV SCH ×2 (11:37)
[2021-04-14 11:56] VITALS: BP 143/78
--- NOTE | 2021-04-14 15:23 | Discharge Summary ---
Discharge Summary Hospital Course Was the Problem List Reviewed?: Yes Problems/Dx: (1) Severe sepsis Status: Acute (2) Sepsis due to urinary tract infection Status: Acute (3) Acute kidney injury Status: Acute (4) Hypertension Status: Acute Qualifiers: Qualified Codes: I10 - Essential (primary) hypertension (5) Diabetes mellitus Status: Chronic (6) Prostate cancer Status: Chronic Hospital Course Date of Admission: April 12, 2021 at 13:19 Admission Diagnosis : Severe sepsis due to urinary tract infection Family Physician/Provider: Joe Ann DO Date of Discharge: 04/14/21 Discharge Diagnosis: Severe sepsis due to urinary tract infection Hospital Course: Beck Hubbard is a 80 year old male who was admitted with severe sepsis due to urinary tract infection. He was treated with IV fluids and antibiotics and improved. His urine culture appeared to be contaminated. He was given a prescription for Omnicef to complete a one week course of antibiotics. His course was complicated by hypertension and he was started on Amlodipine. He also had issues with delirium likely on underlying dementia. He had mild hypoxia throughout his stay. CT imaging showed some chronic subpleural scarring but nothing acute, including no pulmonary embolism. He was set up with home oxygen, 2 L continuously and 3 L with exertion. He expressed that he would not be compliant with wearing the oxygen and the importance of compliance was expressed. He was discharged home in stable condition. Labs and Pending Lab Test: Laboratory Tests 04/13/21 16:36: Glucometer 167H 04/13/21 19:52: Glucometer 188H 04/14/21 05:14: Glucometer 105 04/14/21 08:11: White Blood Count 9.3, Red Blood Count 3.58L, Hemoglobin 11.3L, Hematocrit 35L, Mean Corpuscular Volume 98, Mean Corpuscular Hemoglobin 32, Mean Corpuscular Hemoglobin Concent 32, Red Cell Distribution Width 13.7, Platelet Count 166, Mean Platelet Volume 11.0, Immature Granulocyte % (Auto) 0, Neutrophils (%) (Auto) 77H, Lymphocytes (%) (Auto) 11L, Monocytes (%) (Auto) 8, Eosinophils (%) (Auto) 4, Basophils (%) (Auto) 0, Neutrophils # (Auto) 7.2, Lymphocytes # (Auto) 1.0, Monocytes # (Auto) 0.7, Eosinophils # (Auto) 0.4H, Basophils # (Auto) 0.0, Immature Granulocyte # (Auto) 0.0, Sodium Level 139, Potassium Level 4.2, Chloride Level 101, Carbon Dioxide Level 30, Anion Gap 8, Blood Urea Nitrogen 22H, Creatinine 0.84, Estimat Glomerular Filtration Rate > 60, BUN/Creatinine Ratio 26, Glucose Level 144H, Calcium Level 9.2, Procalcitonin 0.08 04/14/21 10:58: Glucometer 181H Microbiology 04/12/21 Blood Culture - Preliminary, Resulted No growth 04/12/21 Urine Culture - Final, Complete 3 or more isolates Home Meds Active Cefdinir 300 Mg Capsule 300 Mg PO BID 5 Days Amlodipine Besylate 10 Mg Tablet 10 Mg PO DAILY 30 Days Reported Pioglitazone HCl 45 Mg Tablet 45 Mg PO HS Glyburide Micronized (Glyburide,Micronized) 3 Mg Tablet 3 Mg PO HS Pantoprazole Sodium 40 Mg Tablet.dr 40 Mg PO HS Meloxicam 15 Mg Tablet 15 Mg PO HS One Daily Complete (Multivitamin with Minerals) 1 Each Tablet 1 Tab PO DAILY Simvastatin 20 Mg Tablet 20 Mg PO HS Venlafaxine HCl 75 Mg Tab 75 Mg PO BID Gabapentin 600 Mg Tablet 1,200 Mg PO HS TAKES 2 (600MG) TABS Allopurinol 300 Mg Tablet 300 Mg PO HS Ozempic (Semaglutide) 0.25 Mg/0.2 Ml Pen.injctr 0.5 Mg SC SUN Bicalutamide 50 Mg Tablet 50 Mg PO HS Assessment/Pt Instructions Take medications as prescribed. Complete your course of antibiotics even if you are feeling better. Begin taking Amlodipine for high blood pressure. Follow up with Dr. Ann within a week. You should undergo screening for dementia a nd memory loss. You are being set up with home oxygen. You should undergo screening for peripheral artery disease. Return with fevers, trouble breathing, or if you feel like you are getting worse. Discharge Planning: >30 minutes discharge planning Discharge Instructions Discharge Diet: No Restrictions Activity as Tolerated: Yes Discharge Physical Examination Vital Signs Vital Signs Date Time Temp Pulse Resp B/P (MAP) Pulse Ox O2 Delivery O2 Flow Rate FiO2 04/14/21 11:56 36.3 64 18 143/78 (99) 95 Nasal Cannula 2.00 04/12/21 15:02 28 General Appearance: No Apparent Distress, Chronically ill Respiratory: Lungs Clear, Normal Breath Sounds, No Respiratory Distress, Other (wearing nasal cannula) Cardiovascular: Regular Rate, Rhythm, No Murmur, Normal Peripheral Pulses Gastrointestinal: Normal Bowel Sounds, Non Tender, Soft Extremity: Normal Inspection, Non Tender, Pedal Edema Skin: Normal Color, Warm/Dry Neurologic/Psychiatric: Alert, No Motor/Sensory Deficits, Normal Mood/Affect, Disoriented Allergies: Coded Allergies: No Known Drug Allergies (Unverified , 02/20/15) Copy Copies To 1: JOE ANN DO Discharge Summary Date of Admission April 12, 2021 at 13:19 Date of Discharge Discharge Date: April 14, 2021 Discharge Time: 15:22 Admission Diagnosis Sepsis due to urinary tract infection Discharge Diagnosis Severe sepsis due to urinary tract infection (1) Severe sepsis Status: Acute (2) Sepsis due to urinary tract infection Status: Acute (3) Acute kidney injury Status: Acute (4) Hypertension Status: Acute Qualifiers: Qualified Codes: I10 - Essential (primary) hypertension (5) Diabetes mellitus Status: Chronic (6) Prostate cancer Status: Chronic (7) Dementia Status: Acute Qualifiers: (8) Delirium Status: Acute EMMY MCPHERSON MD April 14, 2021 15:22
[2021-04-14 15:35] VITALS: BP 144/71
== END 2021-04-14 17:05 | disposition home or self-care (01) | DRG 872 ==
LOC: EDUNIT# 08:44 → ER FS 08:45 → 4TH 13:19
PROVIDERS: ADMIT Internal Medicine; ATTEND Internal Medicine
DX: A41.9 Sepsis, unspecified organism (principal); N17.9 Acute kidney failure, unspecified; R65.20 Severe sepsis without septic shock; Z20.822 Contact with and (suspected) exposure to COVID-19; N30.90 Cystitis, unspecified without hematuria; R09.02 Hypoxemia; E78.00 Pure hypercholesterolemia, unspecified; G89.29 Other chronic pain; M54.9 Dorsalgia, unspecified; M10.9 Gout, unspecified; E11.9 Type 2 diabetes mellitus without complications; Z85.46 Personal history of malignant neoplasm of prostate; Z92.21 Personal history of antineoplastic chemotherapy; Z79.899 Other long term (current) drug therapy
CPT/HCPCS: 36415; 70450; 71045; 71275; 80048; 80053; 80306; 81000; 82805; 82947; 83605; 83735; 83880; 84145; 84484; 85025; 85379; 86141; 87040; 87088; 87636; 93005; 93041; 94664; 94760; 94761

== ENCOUNTER 2021-04-19 09:59 | Emergency (ER) | payer MEDICARE, BC ==
[~2021-04-19] VITALS: Ht 170 cm; Wt 85.0 kg
[~2021-04-19 09:59] MED LIST changes: +AMLO-251 PO; +CEFD300C3 PO; +GLBR3T PO; +PANT40TA52 PO; +PIOG45TA65 PO
[2021-04-19] MEDS: RT-ALBUTEROL/IPRATROPIUM 3 ML (DUONEB) VIAL ONE (10:14)
--- NOTE | 2021-04-19 10:15 | ED Dyspnea ---
General Stated Complaint: COUGH History of Present Illness Date Seen by Provider: April 19, 2021 Time Seen by Provider: 10:05 Initial Comments 80-year-old male presents by EMS from home with complaint of shortness of air. Patient lives at home with his and is on home oxygen for the past 1 week, however according to his he does not wear it and on EMS arrival he was not wearing it. His initial oxygen saturations were in the 50s. Patient's says he is not cooperative and has not been wearing it at all and that he does smoke marijuana daily. Recent hospital admission for respiratory issues and was sent home on home oxygen and also diagnosed with dementia. Given an albuterol nebulizer in route by EMS. Patient was without complaint to EMS and without complaint on arrival to the ER, denies shortness of air even though he is audibly wheezing. Allergies and Home Medications Allergies Coded Allergies: No Known Drug Allergies (Unverified , 02/20/15) Home Medications Allopurinol 300 Mg Tablet, 300 MG PO HS, (Reported) Amlodipine Besylate 10 Mg Tablet, 10 MG PO DAILY Prescribed by: EMMY MCPHERSON on 04/14/21 1105 Bicalutamide 50 Mg Tablet, 50 MG PO HS, (Reported) Cefdinir 300 Mg Capsule, 300 MG PO BID Prescribed by: EMMY MCPHERSON on 04/14/21 1105 Gabapentin 600 Mg Tablet, 1,200 MG PO HS, (Reported) TAKES 2 (600MG) TABS Glyburide,Micronized 3 Mg Tablet, 3 MG PO HS, (Reported) Meloxicam 15 Mg Tablet, 15 MG PO HS, (Reported) Multivitamin with Minerals 1 Each Tablet, 1 TAB PO DAILY, (Reported) Pantoprazole Sodium 40 Mg Tablet.dr, 40 MG PO HS, (Reported) Pioglitazone HCl 45 Mg Tablet, 45 MG PO HS, (Reported) Semaglutide 0.25 Mg/0.2 Ml Pen.injctr, 0.5 MG SC SUN, (Reported) Simvastatin 20 Mg Tablet, 20 MG PO HS, (Reported) Venlafaxine HCl 75 Mg Tab, 75 MG PO BID, (Reported) Patient Home Medication List Home Medication List Reviewed: Yes Review of Systems Review of Systems Constitutional: No fever, No malaise, No weakness Respiratory: No cough; short of breath (although pt denies) Cardiovascular: No chest pain, No edema Gastrointestinal: No abdominal pain, No vomiting Musculoskeletal: No back pain, No joint pain Skin: No change in color, No rash Past Jssgkwk-Zvftew-Slggkn Hx Past Med/Social Hx: Reviewed Nursing Past Med/Soc Hx Patient Social History 2nd Hand Smoke Exposure: No Recent Hopitalizations: No Substance type: Marijuana Seasonal Allergies Seasonal Allergies: No Past Medical History Surgeries: Yes (s/p left hip repair 05/29/19) Prostatectomy Respiratory: Yes (recent PNA 2 months ago) Pneumonia Currently Using CPAP: No Currently Using BIPAP: No Cardiac: No High Cholesterol, Hypertension Neurological: No Genitourinary: No Gastrointestinal: No Chronic Constipation Musculoskeletal: Yes Chronic Back Pain, Gout Endocrine: Yes Diabetes, Non-Insulin dep HEENT: No Cancer: Yes Prostate Did You Recieve Any Treatments: Yes What Type of Treatment Did You: Chemotherapy, Surgical Intervention Psychosocial: No Integumentary: No Blood Disorders: No Adverse Reaction/Blood Tranf: No Family Medical History Colon cancer 19 MOTHER FH: prostate cancer 19 FATHER Glaucoma 19 FATHER Hypertension 19 FATHER Cancer, Hypertension Noncontributory Physical Exam Vital Signs Vital Signs - First Documented 04/19/21 10:05 Temp 36.8 Pulse 77 Resp 18 B/P (MAP) 147/65 (92) Pulse Ox 97 O2 Delivery Nasal Cannula O2 Flow Rate 4.00 Capillary Refill : Height, Weight, BMI Height: 5'10.00" Weight: 184lbs. 8.0oz. 83.896728uk; 27.42 BMI Method:Stated General Appearance: No Apparent Distress, WD/WN HEENT: PERRL/EOMI, Normal ENT Inspection Neck: Full Range of Motion, Non Tender, Supple Respiratory: Chest Non Tender, No Accessory Muscle Use, No Respiratory Distress, Decreased Breath Sounds, Wheezing (expiratory) Cardiovascular: Regular Rate, Rhythm, No Edema, No JVD Gastrointestinal: Non Tender, Soft Extremity: Normal Capillary Refill, Non Tender Neurologic/Psychiatric: Alert, No Motor/Sensory Deficits, Normal Mood/Affect Skin: Normal Color, Warm/Dry Progress/Results/Core Measures Results/Orders Lab Results Laboratory Tests Test 04/19/21 10:01 Range/Units White Blood Count 16.9 H 4.3-11.0 10^3/uL Red Blood Count 3.92 L 4.35-5.85 10^6/uL Hemoglobin 12.2 L 13.3-17.7 G/DL Hematocrit 38 L 40-54 % Mean Corpuscular Volume 97 80-99 FL Mean Corpuscular Hemoglobin 31 25-34 PG Mean Corpuscular Hemoglobin Concent 32 32-36 G/DL Red Cell Distribution Width 14.2 10.0-14.5 % Platelet Count 200 130-400 10^3/uL Mean Platelet Volume 10.3 7.4-10.4 FL Immature Granulocyte % (Auto) 0 % Neutrophils (%) (Auto) 87 H 42-75 % Lymphocytes (%) (Auto) 6 L 12-44 % Monocytes (%) (Auto) 5 0-12 % Eosinophils (%) (Auto) 2 0-10 % Basophils (%) (Auto) 0 0-10 % Neutrophils # (Auto) 14.6 H 1.8-7.8 X 10^3 Lymphocytes # (Auto) 1.0 1.0-4.0 X 10^3 Monocytes # (Auto) 0.8 0.0-1.0 X 10^3 Eosinophils # (Auto) 0.4 H 0.0-0.3 10^3/uL Basophils # (Auto) 0.1 0.0-0.1 10^3/uL Immature Granulocyte # (Auto) 0.1 0.0-0.1 10^3/uL Neutrophils % (Manual) 63 % Lymphocytes % (Manual) 5 % Monocytes % (Manual) 5 % Eosinophils % (Manual) 1 % Basophils % (Manual) 0 % Band Neutrophils 26 % Hypochromasia 1+ Sodium Level 135 135-145 MMOL/L Potassium Level 4.5 3.6-5.0 MMOL/L Chloride Level 96 L 98-107 MMOL/L Carbon Dioxide Level 29 21-32 MMOL/L Anion Gap 10 5-14 MMOL/L Blood Urea Nitrogen 31 H 7-18 MG/DL Creatinine 1.57 H 0.60-1.30 MG/DL Estimat Glomerular Filtration Rate 43 BUN/Creatinine Ratio 20 Glucose Level 259 H 70-105 MG/DL Calcium Level 9.2 8.5-10.1 MG/DL Corrected Calcium 8.9 8.5-10.1 MG/DL Total Bilirubin 0.3 0.1-1.0 MG/DL Aspartate Amino Transf (AST/SGOT) 21 5-34 U/L Alanine Aminotransferase (ALT/SGPT) 15 0-55 U/L Alkaline Phosphatase 73 40-136 U/L Total Protein 7.7 6.4-8.2 GM/DL Albumin 4.4 3.2-4.5 GM/DL My Orders Orders - ROVENSTINECOLEEN DO Albuterol/Ipra Inhalation Soln (Duoneb I (04/19/21 10:15) Methylprednisolone Sod Succ (Solu-Medrol (04/19/21 10:15) Svn Small Volume Nebulizer (04/19/21 10:09) Albuterol/Ipra Inhalation Soln (Duoneb I (04/19/21 10:02) Chest 1 View Ap/Pa Only (04/19/21 10:15) Cbc With Automated Diff (04/19/21 10:15) Comprehensive Metabolic Panel (04/19/21 10:15) Manual Differential (04/19/21 10:01) Ns Iv 1000 Ml (Sodium Chloride 0.9%) (04/19/21 11:00) Medications Given in ED Current Medications Medications Dose Ordered Sig/Lucas Route Start Time Stop Time Status Last Admin Dose Admin Albuterol/ Ipratropium 3 ml ONCE ONCE INH 04/19/21 10:15 04/19/21 10:16 DC 04/19/21 10:59 3 ML Albuterol/ Ipratropium 3 ml STK-MED ONCE .ROUTE 04/19/21 10:02 04/19/21 10:10 DC 04/19/21 10:14 3 ML Methylprednisolone Sodium Succinate 125 mg ONCE ONCE IVP 04/19/21 10:15 04/19/21 10:16 DC 04/19/21 10:16 125 MG Vital Signs/I&O 04/19/21 10:05 Temp 36.8 Pulse 77 Resp 18 B/P (MAP) 147/65 (92) Pulse Ox 97 O2 Delivery Nasal Cannula O2 Flow Rate 4.00 Progress Progress Note : Progress Note 1120-call patient's PCP, Dr. Joe ANN and discussed patient's presentation and status with need for home health evaluation and possible regular checks. He agrees and understands and will initiate appropriate evaluation. Diagnostic Imaging Diagonstic Imaging: Xray Plain Films/CT/US/NM/MRI: chest Comments Date of Exam:04/19/21 CHEST 1 VIEW AP/PA ONLY Indication: Shortness of breath and confusion. Time of exam: 10:11 AM Correlation is made with prior chest from 04/12/2021. The heart is enlarged. The lungs are clear. No infiltrate or failure is seen Impression: Cardiomegaly. No acute features detected. Dictated on workstation # [id number] Dict: 04/19/21 1032 Trans: 04/19/21 1035 CV [id number] Interpreted by: XENA RICKETTS MD Electronically signed by: Departure Impression Primary Impression: RESPIRATORY FAILURE, UNSP, UNSP W HYPOXIA OR HYPERCAPNIA Additional Impressions: Medically noncompliant Dehydration Renal insufficiency Disposition: HOME, SELF-CARE Condition: Improved Departure-Patient Inst. Decision time for Depature: 10:42 Referrals: JOE ANN DO (PCP/Family) Primary Care Physician Patient Instructions: Oxygen Therapy, Adult (DC), Dehydration, Adult (DC), Acute Kidney Injury (DC) Add. Discharge Instructions: Call Dr Ann today to schedule a follow up appointment this week regarding your kidney function, dehydration and using your oxygen DAILY. COLEEN LAN DO April 19, 2021 10:15
[2021-04-19] MEDS: methylPREDNISolone 125 MG (Solu-MEDROL) VIAL IVP ONE (10:16)
[2021-04-19 10:35] LABS: BASOPHILS # (AUTO) 0.1 10^3/uL (0.0-0.1); BASOPHILS % (AUTO) 0 % (0-10); EOSINOPHILS # (AUTO) 0.4 10^3/uL (0.0-0.3); EOSINOPHILS % (AUTO) 2 % (0-10); HEMATOCRIT 38 % (40-54); HEMOGLOBIN 12.2 G/DL (13.3-17.7); LYMPHOCYTES % (AUTO) 6 % (12-44); MEAN CORPUSCULAR HEMOGLOBIN 31 PG (25-34); MEAN CORPUSCULAR HGB CONC 32 G/DL (32-36); MEAN CORPUSCULAR VOLUME 97 FL (80-99); MEAN PLATELET VOLUME 10.3 FL (7.4-10.4); MONOCYTES # (AUTO) 0.8 X 10^3 (0.0-1.0); MONOCYTES % (AUTO) 5 % (0-12); NEUTROPHILS # (AUTO) 14.6 X 10^3 (1.8-7.8); NEUTROPHILS % (AUTO) 87 % (42-75); PLATELET COUNT 200 10^3/uL (130-400); WHITE BLOOD COUNT 16.9 10^3/uL (4.3-11.0)
--- NOTE | 2021-04-19 10:35 | Diagnostic Imaging Report ---
Indication: Shortness of breath and confusion. Time of exam: 10:11 AM Correlation is made with prior chest from 04/12/2021. The heart is enlarged. The lungs are clear. No infiltrate or failure is seen Impression: Cardiomegaly. No acute features detected. Dictated by: Dictated on workstation # [id number]
[2021-04-19 10:45] LABS: BILIRUBIN,TOTAL 0.3 MG/DL (0.1-1.0); CALCIUM 9.2 MG/DL (8.5-10.1); CREATININE SERUM 1.57 MG/DL (0.60-1.30); POTASSIUM 4.5 MMOL/L (3.6-5.0)
[2021-04-19 10:46] LABS: ALBUMIN 4.4 GM/DL (3.2-4.5); BAND NEUTROPHILS 26 %; BASOPHILS % (MANUAL) 0 %; EOSINOPHILS % (MANUAL) 1 %; HYPOCHROMASIA 1+; LYMPHOCYTES % (MANUAL) 5 %; MONOCYTES % (MANUAL) 5 %; NEUTROPHILS % (MANUAL) 63 %; TOTAL PROTEIN 7.7 GM/DL (6.4-8.2)
[2021-04-19] MEDS: RT-ALBUTEROL/IPRATROPIUM 3 ML (DUONEB) VIAL INH ONE (10:59)
[2021-04-19] MEDS: NS IV 1000 ML 1,000 ML IV SCH (10:59)
[2021-04-19 12:10] VITALS: BP 124/68
== END 2021-04-19 12:45 | disposition home or self-care (01) ==
LOC: EDUNIT# 09:59 → ER FS 10:00
DX: J96.90 Respiratory failure, unspecified, unspecified whether with hypoxia or hypercapnia (principal); E86.0 Dehydration; N28.9 Disorder of kidney and ureter, unspecified; I10 Essential (primary) hypertension; E11.9 Type 2 diabetes mellitus without complications; F03.90 Unspecified dementia, unspecified severity, without behavioral disturbance, psychotic disturbance, mood disturbance, and anxiety; M10.9 Gout, unspecified; E78.00 Pure hypercholesterolemia, unspecified; G89.29 Other chronic pain; M54.9 Dorsalgia, unspecified; Z91.19 Patient's noncompliance with other medical treatment and regimen; Z79.1 Long term (current) use of non-steroidal anti-inflammatories (NSAID); Z79.84 Long term (current) use of oral hypoglycemic drugs; Z79.899 Other long term (current) drug therapy
CPT/HCPCS: 36415; 71045; 80053; 85007; 85027; 94640

== ENCOUNTER → 2021-05-03 | Outpatient (CLI) | payer MEDICARE, BC ==
[~2021-05-03] MED LIST changes: +BARIUM SUSPENSION 2.1% (VANILLA SILQ) 450 ML PO ONE; +CATHETER FLUSH 10 ML SYR IV PRN; +HOLD METFORMIN - RECEIVED CONTRAST 20 ML VIAL IV SCH; +IOHEXOL 350 MG/ML 100 ML (OMNIPAQUE 350) VIAL IV ONE; +NS 100 ML (IVPB) BAG IV ONE
--- NOTE | 2021-05-03 15:31 | Diagnostic Imaging Report ---
INDICATION: Prostate carcinoma. TECHNIQUE: Patient was administered 24.2 mCi technetium 99m MDP intravenously and whole body imaging was performed after a three-hour delay. COMPARISON: No prior bone scan is available for comparison. FINDINGS: There are several areas of uptake involving bilateral ribs. In correlating with the CT chest study from 04/14/2021, patient appears to have numerous healing or healed rib fractures. There is also some mild uptake involving the midthoracic spine which may be degenerative. There is some degenerative uptake in bilateral knees and feet. Postop changes of the left hip are noted. No suspicious foci are identified to suggest osseous metastatic disease. IMPRESSION: Degenerative changes. There is no definite scintigraphic evidence of osseous metastatic disease. Dictated by: Dictated on workstation # [id number]
--- NOTE | 2021-05-03 16:13 | Diagnostic Imaging Report ---
PROCEDURE: CT abdomen and pelvis with and without contrast. TECHNIQUE: Precontrast acquisitions were acquired through the abdomen and pelvis. Multiple contiguous axial images were obtained through the abdomen and pelvis after the administration of intravenous contrast. Auto Exposure Controls were utilized during the CT exam to meet ALARA standards for radiation dose reduction. INDICATION: Prostate cancer. I have no prior dedicated abdominal pelvic imaging that is correlated with overlapped images obtained during a chest CT 04/14/2021. FINDINGS: Some chronic herniation of fat through a defect in the posterior left hemidiaphragm stable, lung bases themselves nonacute. Bilateral renal calcifications greater left are nonobstructing. Liver and bile ducts unremarkable. Gallbladder absent or contracted. The spleen normal in size. There is no adrenal mass. Cystic-appearing nodule without appreciable enhancement is associated with the ventral aspect of the pancreatic tail measuring 2.3 x 1.7 cm. No associated proximal or distal parenchymal atrophy. No enhancing or soft tissue pancreatic mass. The adrenal glands are unremarkable. There is no abdominal pelvic mesenteric or retroperitoneal lymphadenopathy. The inguinal canals unremarkable. There are postsurgical clips in the pelvic sidewalls without sidewall mass, fluid collection or adenopathy. There are changes of prostatectomy with no identifiable mass at the level of the bladder's base. There is no hydroureteronephrosis. The atherosclerotic aorta is patent and nonaneurysmal. There is no suspicious lytic or sclerotic lesion. The left hip replaced. IMPRESSION: 1. A previous prostatectomy and pelvic lymph node dissection. No findings of neoplastic recurrence or CT evidence for metastatic disease. 2. Cystic lesion associated with the pancreatic tail without soft tissue or enhancing component, which given the postsurgical changes it is assumed the outside imaging has been performed and if becomes available, submission encouraged and an addendum addressing stability or change of the likely nonaggressive pancreatic lesion could be provided upon receipt, otherwise in the absence of remote comparison, this lesion would require further workup with recommended pre and postcontrast enhanced abdominal MRI with MRCP. 3. Nonobstructing nephrolithiasis. 4. Nonaneurysmal atherosclerosis. Dictated by: Dictated on workstation # [id number]
== END ==
LOC: CARD 11:00
PROVIDERS: ATTEND Internal Medicine Hematology & Oncology
DX: N20.0 Calculus of kidney (principal); I70.0 Atherosclerosis of aorta; M81.0 Age-related osteoporosis without current pathological fracture; Z90.79 Acquired absence of other genital organ(s); Z85.79 Personal history of other malignant neoplasms of lymphoid, hematopoietic and related tissues
CPT/HCPCS: 74178; 78306; A9503

== ENCOUNTER → 2021-07-17 | Outpatient (CLI) | payer MEDICARE, BC ==
[2021-07-17 09:36] LABS: BASOPHILS % (AUTO) 1 % (0-10); EOSINOPHILS % (AUTO) 2 % (0-10); HEMATOCRIT 41 % (40-54); HEMOGLOBIN 13.9 G/DL (13.3-17.7); LYMPHOCYTES % (AUTO) 31 % (12-44); MEAN CORPUSCULAR HEMOGLOBIN 31 PG (25-34); MEAN CORPUSCULAR HGB CONC 34 G/DL (32-36); MEAN CORPUSCULAR VOLUME 91 FL (80-99); MEAN PLATELET VOLUME 10.3 FL (7.4-10.4); MONOCYTES % (AUTO) 8 % (0-12); NEUTROPHILS % (AUTO) 59 % (42-75); PLATELET COUNT 206 10^3/uL (130-400); WHITE BLOOD COUNT 6.6 10^3/uL (4.3-11.0)
[2021-07-17 09:37] LABS: BASOPHILS # (AUTO) 0.1 10^3/uL (0.0-0.1); EOSINOPHILS # (AUTO) 0.1 10^3/uL (0.0-0.3); MONOCYTES # (AUTO) 0.5 X 10^3 (0.0-1.0); NEUTROPHILS # (AUTO) 3.9 X 10^3 (1.8-7.8)
[2021-07-17 10:12] LABS: BILIRUBIN,TOTAL 0.5 MG/DL (0.1-1.0); CALCIUM 10.2 MG/DL (8.5-10.1); CREATININE SERUM 1.49 MG/DL (0.60-1.30)
[2021-07-17 10:13] LABS: ALBUMIN 4.2 GM/DL (3.2-4.5); TOTAL PROTEIN 7.4 GM/DL (6.4-8.2)
--- NOTE | 2021-07-17 11:56 | Diagnostic Imaging Report ---
EXAMINATION: CT abdomen and pelvis with and without intravenous contrast. TECHNIQUE: Precontrast acquisitions were acquired through the abdomen and pelvis. Multiple contiguous axial images were obtained through the abdomen after the administration of intravenous contrast. All CT scans use one or more of the following dose optimizing techniques: automated exposure control, MA and/or KvP adjustment based on patient size and exam type or iterative reconstruction. HISTORY: Pancreatic lesion follow-up. COMPARISON: CT abdomen and pelvis 05/03/2021. FINDINGS: Lung bases: Atelectasis or scarring in the lung bases. There is a fat-containing posterior left diaphragmatic hernia. Solid organs: The liver is normal without focal lesion. The gallbladder is decompressed. There is no biliary ductal dilation. There is a 2.4 cm cystic lesion within the pancreatic tail without enhancement or suspicious solid component. No pancreatic ductal dilatation. There is mild atrophy of the pancreas. Spleen is unremarkable. The adrenal glands are unremarkable. There are nonobstructing bilateral renal calculi measuring up to 0.6 cm in the left kidney. There is no hydronephrosis. Bowel: There is a small hiatal hernia. No bowel obstruction. Scattered colonic diverticulosis. Peritoneum: There is no intraperitoneal free fluid or free air. No suspicious lymphadenopathy. Vasculature: Calcification of the aorta without aneurysm. Musculoskeletal: Degenerative changes of the spine without suspicious osseous lesion or compression fracture. Grade 1 anterolisthesis of L4 on L5. Surgical changes from left hip arthroplasty. The prostate gland is surgically absent. The urinary bladder is unremarkable. IMPRESSION: 1. A 2.4 cm nonenhancing cystic lesion within the pancreatic tail. This finding could be seen with a chronic pseudocyst if there is a history of pancreatitis. Differential consideration would include IPMN or other mucinous cystic neoplasm. Recommend yearly MRI follow-up. 2. Nonobstructing renal calculi measuring up to 0.6 cm. No hydronephrosis. 3. Colonic diverticulosis without findings of diverticulitis. Dictated by: Dictated on workstation # [id number]
== END ==
LOC: RAD FS 09:15
PROVIDERS: ATTEND Nurse Practitioner Adult Health
DX: K86.89 Other specified diseases of pancreas (principal); N20.0 Calculus of kidney; K57.30 Diverticulosis of large intestine without perforation or abscess without bleeding; Z85.46 Personal history of malignant neoplasm of prostate
CPT/HCPCS: 36415; 74170; 80053; 85025; G0103; 84153

== ENCOUNTER 2021-07-19 14:45 | Outpatient (RCR) | payer MEDICARE, BC ==
[2021-04-24 16:10] LABS: BASOPHILS % (AUTO) 1 % (0-10); EOSINOPHILS # (AUTO) 0.4 10^3/uL (0.0-0.3); EOSINOPHILS % (AUTO) 6 % (0-10); HEMATOCRIT 38 % (40-54); HEMOGLOBIN 12.5 g/dL (13.3-17.7); LYMPHOCYTES # (AUTO) 1.6 10^3/uL (1.0-4.0); LYMPHOCYTES % (AUTO) 27 % (12-44); MEAN CORPUSCULAR HEMOGLOBIN 31 pg (25-34); MEAN CORPUSCULAR HGB CONC 33 g/dL (32-36); MEAN CORPUSCULAR VOLUME 95 fL (80-99); MEAN PLATELET VOLUME 10.3 fL (9.0-12.2); MONOCYTES # (AUTO) 0.5 10^3/uL (0.0-1.0); MONOCYTES % (AUTO) 9 % (0-12); NEUTROPHILS # (AUTO) 3.4 10^3/uL (1.8-7.8); NEUTROPHILS % (AUTO) 57 % (42-75); PLATELET COUNT 214 10^3/uL (130-400)
[2021-04-24 16:27] LABS: ALBUMIN 3.7 GM/DL (3.2-4.5); BILIRUBIN,TOTAL 0.4 MG/DL (0.1-1.0); CALCIUM 9.1 MG/DL (8.5-10.1); CREATININE SERUM 1.2 MG/DL (0.60-1.30); TOTAL PROTEIN 6.8 GM/DL (6.4-8.2)
[2021-05-07 15:53] LABS: BASOPHILS # (AUTO) 0.1 10^3/uL (0.0-0.1); BASOPHILS % (AUTO) 1 % (0-10); BILIRUBIN,URINE NEGATIVE (NEGATIVE); CLARITY,URINE CLEAR; COLOR,URINE DARK YELLOW; EOSINOPHILS # (AUTO) 0.1 10^3/uL (0.0-0.3); EOSINOPHILS % (AUTO) 1 % (0-10); GLUCOSE, URINE (UA) TRACE (NEGATIVE); HEMATOCRIT 37 % (40-54); HEMOGLOBIN 12.1 g/dL (13.3-17.7); KETONES,URINE NEGATIVE (NEGATIVE); LEUKOCYTE ESTERASE ,URINE NEGATIVE (NEGATIVE); LYMPHOCYTES # (AUTO) 0.8 10^3/uL (1.0-4.0); LYMPHOCYTES % (AUTO) 13 % (12-44); MEAN CORPUSCULAR HEMOGLOBIN 31 pg (25-34); MEAN CORPUSCULAR HGB CONC 32 g/dL (32-36); MEAN CORPUSCULAR VOLUME 94 fL (80-99); MEAN PLATELET VOLUME 10.3 fL (9.0-12.2); MONOCYTES # (AUTO) 0.4 10^3/uL (0.0-1.0); MONOCYTES % (AUTO) 7 % (0-12); NEUTROPHILS # (AUTO) 4.7 10^3/uL (1.8-7.8); NEUTROPHILS % (AUTO) 78 % (42-75); NITRITE,URINE NEGATIVE (NEGATIVE); PH,URINE 5.5 (5-9); PLATELET COUNT 191 10^3/uL (130-400); PROTEIN,URINE TRACE (NEGATIVE)
[2021-05-07 16:02] LABS: RBC,URINE 0-2 /HPF
[2021-05-07 16:03] LABS: AMORPHOUS SEDIMENT,UR FEW AMOR URATES /LPF; BACTERIA,URINE TRACE /HPF; WBC,URINE 0-2 /HPF
[2021-05-07 16:15] LABS: ALBUMIN 4.2 GM/DL (3.2-4.5); BILIRUBIN,TOTAL 0.9 MG/DL (0.1-1.0); CALCIUM 10.3 MG/DL (8.5-10.1); CREATININE SERUM 2.21 MG/DL (0.60-1.30); POTASSIUM 3.9 MMOL/L (3.6-5.0); TOTAL PROTEIN 7.6 GM/DL (6.4-8.2)
[2021-05-23 14:38] LABS: BASOPHILS # (AUTO) 0.1 10^3/uL (0.0-0.1); BASOPHILS % (AUTO) 1 % (0-10); EOSINOPHILS # (AUTO) 0.2 10^3/uL (0.0-0.3); EOSINOPHILS % (AUTO) 2 % (0-10); HEMATOCRIT 40 % (40-54); HEMOGLOBIN 13.3 g/dL (13.3-17.7); LYMPHOCYTES # (AUTO) 1.8 10^3/uL (1.0-4.0); LYMPHOCYTES % (AUTO) 20 % (12-44); MEAN CORPUSCULAR HEMOGLOBIN 30 pg (25-34); MEAN CORPUSCULAR HGB CONC 33 g/dL (32-36); MEAN CORPUSCULAR VOLUME 91 fL (80-99); MEAN PLATELET VOLUME 9.9 fL (9.0-12.2); MONOCYTES # (AUTO) 0.7 10^3/uL (0.0-1.0); MONOCYTES % (AUTO) 9 % (0-12); NEUTROPHILS % (AUTO) 69 % (42-75); PLATELET COUNT 236 10^3/uL (130-400); WHITE BLOOD COUNT 8.8 10^3/uL (4.3-11.0)
[2021-05-23 15:05] LABS: ALBUMIN 4.2 GM/DL (3.2-4.5); BILIRUBIN,TOTAL 0.6 MG/DL (0.1-1.0); CALCIUM 9.4 MG/DL (8.5-10.1); CREATININE SERUM 1.89 MG/DL (0.60-1.30); POTASSIUM 3.4 MMOL/L (3.6-5.0); TOTAL PROTEIN 7.6 GM/DL (6.4-8.2)
[2021-06-19 15:28] LABS: BASOPHILS # (AUTO) 0.1 10^3/uL (0.0-0.1); BASOPHILS % (AUTO) 1 % (0-10); EOSINOPHILS % (AUTO) 0 % (0-10); HEMATOCRIT 42 % (40-54); HEMOGLOBIN 14.1 g/dL (13.3-17.7); LYMPHOCYTES # (AUTO) 1.6 10^3/uL (1.0-4.0); LYMPHOCYTES % (AUTO) 19 % (12-44); MEAN CORPUSCULAR HEMOGLOBIN 31 pg (25-34); MEAN CORPUSCULAR HGB CONC 33 g/dL (32-36); MEAN CORPUSCULAR VOLUME 92 fL (80-99); MEAN PLATELET VOLUME 10.5 fL (9.0-12.2); MONOCYTES # (AUTO) 0.5 10^3/uL (0.0-1.0); MONOCYTES % (AUTO) 6 % (0-12); NEUTROPHILS # (AUTO) 6.3 10^3/uL (1.8-7.8); NEUTROPHILS % (AUTO) 74 % (42-75); PLATELET COUNT 200 10^3/uL (130-400); WHITE BLOOD COUNT 8.5 10^3/uL (4.3-11.0)
[2021-06-19 15:47] LABS: ALBUMIN 4.1 GM/DL (3.2-4.5); BILIRUBIN,TOTAL 0.6 MG/DL (0.1-1.0); CALCIUM 9.6 MG/DL (8.5-10.1); CREATININE SERUM 1.69 MG/DL (0.60-1.30); POTASSIUM 3.8 MMOL/L (3.6-5.0); TOTAL PROTEIN 7.4 GM/DL (6.4-8.2)
[~2021-07-19 14:45] MED LIST changes: -BARIUM SUSPENSION 2.1% (VANILLA SILQ) 450 ML PO ONE; -CATHETER FLUSH 10 ML SYR IV PRN; -HOLD METFORMIN - RECEIVED CONTRAST 20 ML VIAL IV SCH; -IOHEXOL 350 MG/ML 100 ML (OMNIPAQUE 350) VIAL IV ONE; +LEUPROLIDE 22.5 MG SYRINGE (ELIGARD) SQ SCH; -NS 100 ML (IVPB) BAG IV ONE
== END 2021-07-23 | disposition home or self-care (01) ==
LOC: ONC 14:45
PROVIDERS: ATTEND Internal Medicine Hematology & Oncology
DX: C61 Malignant neoplasm of prostate (principal); E11.9 Type 2 diabetes mellitus without complications; E78.00 Pure hypercholesterolemia, unspecified; K59.00 Constipation, unspecified; R41.82 Altered mental status, unspecified; K86.9 Disease of pancreas, unspecified; Z79.84 Long term (current) use of oral hypoglycemic drugs; Z79.899 Other long term (current) drug therapy; Z91.81 History of falling; Z96.642 Presence of left artificial hip joint; Z90.79 Acquired absence of other genital organ(s); Z87.81 Personal history of (healed) traumatic fracture; Z79.890 Hormone replacement therapy; Z92.21 Personal history of antineoplastic chemotherapy
CPT/HCPCS: 80053; 81000; 83880; 84153; 85025; 96402; 99213

== ENCOUNTER → 2021-09-11 | Outpatient (CLI) | payer MEDICARE, BC ==
[~2021-09-11] MED LIST changes: -LEUPROLIDE 22.5 MG SYRINGE (ELIGARD) SQ SCH
[2021-09-11 15:21] LABS: HEMOGLOBIN 14.2 g/dL (13.3-17.7); MEAN CORPUSCULAR HEMOGLOBIN 31 pg (25-34); WHITE BLOOD COUNT 5.1 10^3/uL (4.3-11.0)
[2021-09-11 15:22] LABS: BASOPHILS % (AUTO) 1 % (0-10); EOSINOPHILS # (AUTO) 0.1 10^3/uL (0.0-0.3); EOSINOPHILS % (AUTO) 2 % (0-10); HEMATOCRIT 42 % (40-54); LYMPHOCYTES # (AUTO) 1.5 X 10^3 (1.0-4.0); LYMPHOCYTES % (AUTO) 30 % (12-44); MEAN CORPUSCULAR HGB CONC 34 g/dL (32-36); MEAN CORPUSCULAR VOLUME 92 fL (80-99); MEAN PLATELET VOLUME 10.4 fL (9.0-12.2); MONOCYTES # (AUTO) 0.3 X 10^3 (0.0-1.0); MONOCYTES % (AUTO) 7 % (0-12); NEUTROPHILS # (AUTO) 3.1 X 10^3 (1.8-7.8); NEUTROPHILS % (AUTO) 61 % (42-75); PLATELET COUNT 215 10^3/uL (130-400)
[2021-09-11 16:04] LABS: CREATININE SERUM 0.97 MG/DL (0.60-1.30); POTASSIUM 4.3 MMOL/L (3.6-5.0)
[2021-09-11 16:05] LABS: ALBUMIN 4.1 GM/DL (3.2-4.5); BILIRUBIN,TOTAL 0.5 MG/DL (0.1-1.0); CALCIUM 9.8 MG/DL (8.5-10.1); TOTAL PROTEIN 7.5 GM/DL (6.4-8.2)
== END ==
LOC: LAB FS 14:35
PROVIDERS: ATTEND Nurse Practitioner Adult Health
DX: C61 Malignant neoplasm of prostate (principal)
CPT/HCPCS: 36415; 80053; 85025; G0103; 84153

== ENCOUNTER → 2021-10-08 | Outpatient (CLI) | payer MEDICARE, BC ==
[2021-10-08 12:42] LABS: HEMATOCRIT 38 % (40-54); HEMOGLOBIN 13.1 g/dL (13.3-17.7); MEAN CORPUSCULAR HEMOGLOBIN 32 pg (25-34); MEAN CORPUSCULAR HGB CONC 34 g/dL (32-36); MEAN CORPUSCULAR VOLUME 93 fL (80-99); MEAN PLATELET VOLUME 10.7 fL (9.0-12.2); PLATELET COUNT 202 10^3/uL (130-400); WHITE BLOOD COUNT 6.3 10^3/uL (4.3-11.0)
[2021-10-08 12:43] LABS: BASOPHILS % (AUTO) 1 % (0-10); EOSINOPHILS # (AUTO) 0.1 10^3/uL (0.0-0.3); EOSINOPHILS % (AUTO) 1 % (0-10); LYMPHOCYTES % (AUTO) 31 % (12-44); MONOCYTES # (AUTO) 0.4 X 10^3 (0.0-1.0); MONOCYTES % (AUTO) 7 % (0-12); NEUTROPHILS # (AUTO) 3.9 X 10^3 (1.8-7.8); NEUTROPHILS % (AUTO) 61 % (42-75)
[2021-10-08 13:12] LABS: BILIRUBIN,TOTAL 0.6 MG/DL (0.1-1.0); CALCIUM 9.6 MG/DL (8.5-10.1); CREATININE SERUM 1.01 MG/DL (0.60-1.30); POTASSIUM 4.4 MMOL/L (3.6-5.0); TOTAL PROTEIN 7.1 GM/DL (6.4-8.2)
[2021-10-08 13:13] LABS: ALBUMIN 3.9 GM/DL (3.2-4.5)
== END ==
LOC: LAB FS 12:23
PROVIDERS: ATTEND Nurse Practitioner Adult Health
DX: C61 Malignant neoplasm of prostate (principal)
CPT/HCPCS: 36415; 80053; 85025; G0103; 84153

== ENCOUNTER → 2021-11-06 | Outpatient (CLI) | payer MEDICARE, BC ==
[2021-11-06 11:42] LABS: HEMATOCRIT 43 % (40-54); HEMOGLOBIN 14.5 g/dL (13.3-17.7); MEAN CORPUSCULAR HEMOGLOBIN 32 pg (25-34); MEAN CORPUSCULAR HGB CONC 34 g/dL (32-36); MEAN CORPUSCULAR VOLUME 94 fL (80-99); PLATELET COUNT 162 10^3/uL (130-400); WHITE BLOOD COUNT 5.7 10^3/uL (4.3-11.0)
[2021-11-06 11:43] LABS: BASOPHILS % (AUTO) 1 % (0-10); EOSINOPHILS # (AUTO) 0.1 10^3/uL (0.0-0.3); EOSINOPHILS % (AUTO) 2 % (0-10); LYMPHOCYTES % (AUTO) 36 % (12-44); MONOCYTES # (AUTO) 0.4 X 10^3 (0.0-1.0); MONOCYTES % (AUTO) 7 % (0-12); NEUTROPHILS # (AUTO) 3.1 X 10^3 (1.8-7.8); NEUTROPHILS % (AUTO) 54 % (42-75)
[2021-11-06 12:36] LABS: CREATININE SERUM 0.87 MG/DL (0.60-1.30); POTASSIUM 4.2 MMOL/L (3.6-5.0)
[2021-11-06 12:37] LABS: ALBUMIN 4.1 GM/DL (3.2-4.5); BILIRUBIN,TOTAL 0.5 MG/DL (0.1-1.0); TOTAL PROTEIN 7.6 GM/DL (6.4-8.2)
== END ==
LOC: LAB FS 11:12
PROVIDERS: ATTEND Internal Medicine Hematology & Oncology
DX: C61 Malignant neoplasm of prostate (principal)
CPT/HCPCS: 36415; 80053; 84153; 85025

== ENCOUNTER 2021-11-07 14:49 | Outpatient (RCR) | payer MEDICARE, BC ==
[2021-08-16 14:19] LABS: BASOPHILS % (AUTO) 0 % (0-10); EOSINOPHILS # (AUTO) 0.1 10^3/uL (0.0-0.3); EOSINOPHILS % (AUTO) 1 % (0-10); HEMATOCRIT 41 % (40-54); HEMOGLOBIN 13.5 g/dL (13.3-17.7); LYMPHOCYTES # (AUTO) 2.1 X 10^3 (1.0-4.0); LYMPHOCYTES % (AUTO) 40 % (12-44); MEAN CORPUSCULAR HEMOGLOBIN 31 pg (25-34); MEAN CORPUSCULAR HGB CONC 33 g/dL (32-36); MEAN CORPUSCULAR VOLUME 94 fL (80-99); MEAN PLATELET VOLUME 10.6 fL (9.0-12.2); MONOCYTES # (AUTO) 0.5 X 10^3 (0.0-1.0); MONOCYTES % (AUTO) 9 % (0-12); NEUTROPHILS # (AUTO) 2.6 X 10^3 (1.8-7.8); NEUTROPHILS % (AUTO) 49 % (42-75); PLATELET COUNT 196 10^3/uL (130-400); WHITE BLOOD COUNT 5.2 10^3/uL (4.3-11.0)
[2021-08-16 14:38] LABS: ALBUMIN 3.8 GM/DL (3.2-4.5); BILIRUBIN,TOTAL 0.6 MG/DL (0.1-1.0); CALCIUM 9.8 MG/DL (8.5-10.1); CREATININE SERUM 1.36 MG/DL (0.60-1.30); POTASSIUM 4.2 MMOL/L (3.6-5.0)
[~2021-11-07 14:49] MED LIST changes: +LEUPROLIDE 22.5 MG SYRINGE (ELIGARD) SQ SCH
== END 2021-11-14 | disposition home or self-care (01) ==
LOC: ONC 14:49
PROVIDERS: ATTEND Internal Medicine Hematology & Oncology
DX: C61 Malignant neoplasm of prostate (principal); E11.9 Type 2 diabetes mellitus without complications; E78.00 Pure hypercholesterolemia, unspecified; Z91.81 History of falling; Z96.642 Presence of left artificial hip joint
CPT/HCPCS: 80053; 84153; 85025; G0463; 96402; 99213

== ENCOUNTER → 2021-12-31 | Outpatient (CLI) | payer MEDICARE, BC ==
[~2021-12-31] MED LIST changes: -LEUPROLIDE 22.5 MG SYRINGE (ELIGARD) SQ SCH
[2021-12-31 15:22] LABS: BASOPHILS % (AUTO) 1 % (0-10); EOSINOPHILS # (AUTO) 0.2 10^3/uL (0.0-0.3); EOSINOPHILS % (AUTO) 4 % (0-10); HEMATOCRIT 42 % (40-54); HEMOGLOBIN 14.4 g/dL (13.3-17.7); LYMPHOCYTES # (AUTO) 1.7 10^3/uL (1.0-4.0); LYMPHOCYTES % (AUTO) 28 % (12-44); MEAN CORPUSCULAR HEMOGLOBIN 32 pg (25-34); MEAN CORPUSCULAR HGB CONC 34 g/dL (32-36); MEAN CORPUSCULAR VOLUME 94 fL (80-99); MEAN PLATELET VOLUME 10.6 fL (9.0-12.2); MONOCYTES # (AUTO) 0.4 10^3/uL (0.0-1.0); MONOCYTES % (AUTO) 7 % (0-12); NEUTROPHILS # (AUTO) 3.6 10^3/uL (1.8-7.8); NEUTROPHILS % (AUTO) 60 % (42-75); PLATELET COUNT 191 10^3/uL (130-400)
[2021-12-31 17:11] LABS: POTASSIUM 4.3 MMOL/L (3.6-5.0)
[2021-12-31 17:12] LABS: ALBUMIN 4.1 GM/DL (3.2-4.5); BILIRUBIN,TOTAL 0.5 MG/DL (0.1-1.0); CREATININE SERUM 0.97 MG/DL (0.60-1.30); TOTAL PROTEIN 7.3 GM/DL (6.4-8.2)
== END ==
LOC: LAB FS 14:58
PROVIDERS: ATTEND Internal Medicine Hematology & Oncology
DX: C61 Malignant neoplasm of prostate (principal)
CPT/HCPCS: 36415; 80053; 84153; 85025

== ENCOUNTER → 2022-07-16 | Outpatient (CLI) | payer MEDICARE, BC ==
--- NOTE | 2022-07-16 14:50 | Diagnostic Imaging Report ---
EXAMINATION: Chest 2 view HISTORY: DYSPNEA ON EXERTION COMPARISON: 04/04/2021 FINDINGS: Heart size and pulmonary vasculature are normal. The lungs are clear without consolidation, pleural effusion, or pneumothorax. Degenerative changes of the thoracic spine. Osseous structures are otherwise intact. IMPRESSION: 1. No acute radiographic abnormality in the chest. Dictated by: Dictated on workstation # [id number]
== END ==
LOC: CARDFS 13:43
PROVIDERS: ATTEND Internal Medicine Cardiovascular Disease
DX: R06.09 Other forms of dyspnea (principal)
CPT/HCPCS: 71046; 93306

== ENCOUNTER → 2022-12-13 | Outpatient (CLI) | payer MEDICARE, BC ==
[2022-12-13 11:00] LABS: POTASSIUM 4.1 MMOL/L (3.6-5.0)
[2022-12-13 11:01] LABS: CALCIUM 9.3 MG/DL (8.5-10.1); CREATININE SERUM 0.86 MG/DL (0.60-1.30)
== END ==
LOC: LAB FS 10:18
PROVIDERS: ATTEND Internal Medicine Cardiovascular Disease
DX: I10 Essential (primary) hypertension (principal)
CPT/HCPCS: 36415; 80048

== ENCOUNTER 2023-08-15 05:29 | Outpatient (CLI) | payer MEDICARE, BC ==
[~2023-08-15] VITALS: Ht 175.3 cm; Wt 85.3 kg
[2023-08-19] MEDS ORDERED: CHOL100L MC (11:53)
[2023-08-19] MEDS ORDERED: ATOR80TA76 PO (11:53)
[2023-08-19] MEDS ORDERED: HYDR-3820 PO (11:53)
[2023-08-19] MEDS ORDERED: ASCO100024 PO (11:53)
[2023-08-19] MEDS ORDERED: CRAN400C PO (11:53)
[2023-08-19] MEDS ORDERED: CYAN100088 PO (11:53)
[2023-08-19] MEDS ORDERED: LOSA50TA63 PO (11:53)
[2023-08-19] MEDS ORDERED: CITA40TA19 PO (11:53)
[2023-08-19] MEDS ORDERED: MULT-1136 PO (11:53)
[2023-08-19] MEDS ORDERED: INSU100I88 SQ (11:53)
[2023-08-19] MEDS ORDERED: CALC-1104 PO (11:53)
[2023-08-19] MEDS ORDERED: CELE200C PO (11:53)
[2023-08-19] MEDS ORDERED: INSU100V6 SQ (11:53)
[2023-08-19] MEDS ORDERED: ENZA40CA PO (11:53)
== END 2023-08-19 12:34 | disposition home or self-care (01) ==
LOC: PREOP 05:29
PROVIDERS: ATTEND Otolaryngology Otolaryngology/Facial Plastic Surgery
DX: Z01.818 Encounter for other preprocedural examination (principal)

== ENCOUNTER → 2023-09-08 | Outpatient (CLI) | payer MEDICARE, BC ==
[~2023-09-08] MED LIST changes: +ACHD5005 PO; +ASCO100024 PO; +ATOR80TA76 PO; +CALC-1104 PO; +CELE200C PO; +CEPH500T PO; +CHOL100L MC; +CITA40TA19 PO; +CRAN400C PO; +CYAN100088 PO; +ENZA40CA PO; +HYDR-3820 PO; +INSU100I88 SQ; +INSU100V6 SQ; +LOSA50TA63 PO; +MULT-1136 PO
== END ==
LOC: CANPRECLI → CARD 13:49
PROVIDERS: ATTEND Internal Medicine Cardiovascular Disease
DX: I08.0 Rheumatic disorders of both mitral and aortic valves (principal)
CPT/HCPCS: 93306